=== PATIENT | male | born 1950 | race Caucasian/White ===

== ENCOUNTER 2021-12-25 08:55 | Outpatient (RCR) | payer MEDICARE, SELFPAY ==
[2021-12-25 09:49] LABS: Basophils Absolute Auto 0.07 K/uL (0.00-0.30); Eosinophils Percent Auto 8.1 % (0.0-7.0); Hematocrit 36.3 % (37.0-53.0); Hemoglobin* 11.6 gm/dL (13.5-17.5); Immature Granulocytes Abs Auto 0.03 K/uL (0.00-0.30); Lymphocytes Percent Auto 19.1 % (20-44); Mean Corpuscular HGB Conc 32 gm/dL (32-36); Mean Corpuscular Hemoglobin 31 pg (26-34); Mean Corpuscular Volume 97 fL (80-100); Monocytes Percent Auto 12.7 % (0.0-11.0); Neutrophils Absolute Auto 3.96 K/uL (1.7-7.0); Neutrophils Percent Auto 58.7 % (42.0-72.0); Platelet Count* 283 K/uL (140-440); RDW Coefficient of Variation % 17.7 % (11.5-15.5); Red Blood Count 3.74 m/uL (4.30-5.90); White Blood Count* 6.76 K/uL (4.50-11.00)
[2021-12-25 09:52] LABS: Slide Review Reflex No
[2021-12-25 10:00] LABS: Chloride* 105 mmol/L (96-114); Potassium* 4.1 mmol/L (3.6-5.1); Sodium* 138 mmol/L (135-149)
[2021-12-25 10:02] LABS: Creatinine* 0.7 mg/dL (0.5-1.5); Est. Creatinine Clearance* 62.43
[2021-12-25 10:03] LABS: Alanine Aminotransferase* 20 U/L (4-50); Alkaline Phosphatase* 68 U/L (40-150); Aspartate Amino Transferase* 25 U/L (12-35); Bilirubin Total* 0.4 mg/dL (0.1-1.5); Blood Urea Nitrogen* 14 mg/dL (7-30); Carbon Dioxide* 24 mmol/L (20-32); Glucose* 111 mg/dL (60-115); Total Protein* 6.6 g/dL (6.0-8.3)
[2021-12-25 10:04] VITALS: BP 108/70; PULSE 77; RESP 16; TEMP 36.5; O2SAT 98
[2021-12-25 10:04] LABS: Magnesium* 1.6 mg/dL (1.5-2.6)
[2021-12-25] MEDS: PALONOSETRON 0.25 MG/5 ML inj IVP (10:53)
[2021-12-25] MEDS: dexAMETHasone 10 MG in 0.9 % SODIUM CHLORIDE 100 ml 100 ML 404 MG IVPB (12:06)
[2021-12-25] MEDS: FOSAPREPITANT 150 MG inj 150 MG in 0.9 % SODIUM CHLORIDE 250 ml 250 ML 510 MG IVPB (12:16)
[2021-12-25] MEDS: SODIUM CHLORIDE 0.9 % (FLUSH) 10 ML SYRINGE IVF (15:40)
[2021-12-25] MEDS: HEPARIN 500 UNIT/5 ML SYRINGE IVF (15:40)
== END 2021-12-25 23:59 | disposition home or self-care (01) ==
LOC: CCIC 08:55
PROVIDERS: PCP Family Medicine; Visit Provider Internal Medicine Medical Oncology
DX: Z51.11 Encounter for antineoplastic chemotherapy (principal); C22.1 Intrahepatic bile duct carcinoma; C78.7 Secondary malignant neoplasm of liver and intrahepatic bile duct
CPT/HCPCS: 36415; 36591; 80053; 83735; 85025; 96366; 96376; 96413; 96417; J1100; J1453; J1642; J2469; J3475; J7030; J7050; J7120; J9060; J9201

== ENCOUNTER 2022-01-22 09:00 | Outpatient (RCR) | payer MEDICARE, SELFPAY ==
[2022-01-01 09:34] LABS: Basophils Absolute Auto 0.07 K/uL (0.00-0.30); Basophils Percent Auto 1.6 % (0.0-3.0); Eosinophils Percent Auto 7.3 % (0.0-7.0); Hemoglobin* 10.7 gm/dL (13.5-17.5); Immature Granulocytes Abs Auto 0.51 K/uL (0.00-0.30); Lymphocytes Absolute Auto 1.33 K/uL (0.90-2.90); Lymphocytes Percent Auto 29.5 % (20-44); Mean Corpuscular HGB Conc 32 gm/dL (32-36); Mean Corpuscular Hemoglobin 31 pg (26-34); Mean Corpuscular Volume 97 fL (80-100); Neutrophils Absolute Auto 1.91 K/uL (1.7-7.0); Neutrophils Percent Auto 42.3 % (42.0-72.0); Platelet Count* 301 K/uL (140-440); Red Blood Count 3.41 m/uL (4.30-5.90); White Blood Count* 4.51 K/uL (4.50-11.00)
[2022-01-01 09:49] VITALS: BP 114/67; PULSE 67; RESP 16; TEMP 36.2; O2SAT 98
[2022-01-01 09:51] LABS: Albumin* 3.7 g/dL (3.3-5.0); Chloride* 104 mmol/L (96-114)
[2022-01-01 09:52] LABS: Potassium* 3.9 mmol/L (3.6-5.1); Sodium* 134 mmol/L (135-149)
[2022-01-01 09:54] LABS: Alkaline Phosphatase* 64 U/L (40-150); Aspartate Amino Transferase* 36 U/L (12-35); Bilirubin Total* 0.3 mg/dL (0.1-1.5); Blood Urea Nitrogen* 14 mg/dL (7-30); Carbon Dioxide* 25 mmol/L (20-32); Creatinine* 0.6 mg/dL (0.5-1.5); Estimated Glomerular Filt Rate 102.56; Glucose* 115 mg/dL (60-115); Total Protein* 6.2 g/dL (6.0-8.3)
[2022-01-01 09:55] LABS: Alanine Aminotransferase* 24 U/L (4-50); Calcium* 8.7 mg/dL (8.4-10.6)
[2022-01-01 09:59] LABS: Magnesium* 1.6 mg/dL (1.5-2.6)
[2022-01-01] MEDS: dexAMETHasone 10 MG in 0.9 % SODIUM CHLORIDE 100 ml 100 ML 404 MG IVPB (11:49)
[2022-01-01] MEDS: PALONOSETRON 0.25 MG/5 ML inj IV (11:50)
[2022-01-06 11:43] LABS: Slide Review Reflex No
--- NOTE | 2022-01-09 18:56 | ONC.NURNOTE ---
Authorization: User: Tamela Hays Date: 10/16/21 09:29 Type: Eligibility Determination Note... Request received from [facility] for prior authorization of Gemzar [id number], Cisplatin J9060, Aloxi J2469 and Emend J1453. Patient carries [facility] Medicare Advantage. Per [facility] Authorization Gemzar, Cisplatin, Aloxi and EMend have been approved from 10/15/2021 through 10/15/2022. Authorization #[id number]
[2022-01-15 08:40] LABS: Basophils Absolute Auto 0.06 K/uL (0.00-0.30); Eosinophils Percent Auto 6.9 % (0.0-7.0); Hematocrit 35.2 % (37.0-53.0); Hemoglobin* 11.3 gm/dL (13.5-17.5); Immature Granulocytes Abs Auto 0.05 K/uL (0.00-0.30); Lymphocytes Absolute Auto 1.28 K/uL (0.90-2.90); Mean Corpuscular HGB Conc 32 gm/dL (32-36); Mean Corpuscular Hemoglobin 32 pg (26-34); Mean Corpuscular Volume 99 fL (80-100); Monocytes Percent Auto 14.1 % (0.0-11.0); Neutrophils Absolute Auto 3.22 K/uL (1.7-7.0); Neutrophils Percent Auto 55.1 % (42.0-72.0); Platelet Count* 271 K/uL (140-440); RDW Coefficient of Variation % 18.7 % (11.5-15.5); Red Blood Count 3.55 m/uL (4.30-5.90); White Blood Count* 5.83 K/uL (4.50-11.00)
[2022-01-15 08:44] LABS: Slide Review Reflex No
[2022-01-15 09:01] LABS: Albumin* 3.7 g/dL (3.3-5.0)
[2022-01-15 09:02] LABS: Chloride* 107 mmol/L (96-114); Sodium* 138 mmol/L (135-149)
[2022-01-15 09:04] LABS: Aspartate Amino Transferase* 23 U/L (12-35); Bilirubin Total* 0.1 mg/dL (0.1-1.5); Carbon Dioxide* 24 mmol/L (20-32); Creatinine* 0.7 mg/dL (0.5-1.5); Estimated Glomerular Filt Rate 98 ml/min; Total Protein* 6.7 g/dL (6.0-8.3)
[2022-01-15 09:05] LABS: Alanine Aminotransferase* 18 U/L (4-50); Alkaline Phosphatase* 64 U/L (40-150); Blood Urea Nitrogen* 14 mg/dL (7-30); Glucose* 105 mg/dL (60-115); Magnesium* 1.6 mg/dL (1.5-2.6)
[2022-01-15] MEDS: dexAMETHasone 10 MG in 0.9 % SODIUM CHLORIDE 100 ml 100 ML 404 MG IVPB (10:57)
[2022-01-15] MEDS: PALONOSETRON 0.25 MG/5 ML inj IV (10:57)
[2022-01-15] MEDS: FOSAPREPITANT 150 MG inj 150 MG in 0.9 % SODIUM CHLORIDE 250 ml 250 ML 510 MG IVPB (11:15)
[2022-01-22 09:06] VITALS: BP 125/73; PULSE 66; RESP 16; TEMP 36.3; O2SAT 99
[2022-01-22 09:39] LABS: Basophils Absolute Auto 0.08 K/uL (0.00-0.30); Basophils Percent Auto 1.7 % (0.0-3.0); Eosinophils Absolute Auto 0.18 K/uL (0.00-0.50); Eosinophils Percent Auto 3.7 % (0.0-7.0); Hematocrit 32.7 % (37.0-53.0); Hemoglobin* 10.8 gm/dL (13.5-17.5); Immature Granulocytes Abs Auto 0.73 K/uL (0.00-0.30); Lymphocytes Absolute Auto 1.37 K/uL (0.90-2.90); Lymphocytes Percent Auto 28.4 % (20-44); Mean Corpuscular HGB Conc 33 gm/dL (32-36); Mean Corpuscular Hemoglobin 32 pg (26-34); Mean Corpuscular Volume 98 fL (80-100); Monocytes Percent Auto 9.1 % (0.0-11.0); Neutrophils Absolute Auto 2.03 K/uL (1.7-7.0); Platelet Count* 319 K/uL (140-440); RDW Coefficient of Variation % 17.6 % (11.5-15.5); Red Blood Count 3.33 m/uL (4.30-5.90); White Blood Count* 4.83 K/uL (4.50-11.00)
[2022-01-22 09:56] LABS: Albumin* 3.6 g/dL (3.3-5.0); Chloride* 108 mmol/L (96-114); Sodium* 137 mmol/L (135-149)
[2022-01-22 09:59] LABS: Alanine Aminotransferase* 20 U/L (4-50); Alkaline Phosphatase* 69 U/L (40-150); Aspartate Amino Transferase* 26 U/L (12-35); Blood Urea Nitrogen* 17 mg/dL (7-30); Carbon Dioxide* 25 mmol/L (20-32); Creatinine* 0.7 mg/dL (0.5-1.5); Estimated Glomerular Filt Rate 98 ml/min; Glucose* 104 mg/dL (60-115); Total Protein* 6.4 g/dL (6.0-8.3)
[2022-01-22 10:00] LABS: Calcium* 8.6 mg/dL (8.4-10.6)
[2022-01-22 10:06] LABS: Bilirubin Total* < 0.1 mg/dL (0.1-1.5)
[2022-01-22 10:30] LABS: Magnesium* 1.8 mg/dL (1.5-2.6)
[2022-01-22 10:36] LABS: Slide Review Reflex No
[2022-01-22] MEDS: 0.9 % SODIUM CHLORIDE 1000 ml 1,000 ML 500 ML IV (11:45)
[2022-01-22] MEDS: PALONOSETRON 0.25 MG/5 ML inj IV (11:52)
[2022-01-22] MEDS: SODIUM CHLORIDE 0.9 % (FLUSH) 10 ML SYRINGE IVF (11:53)
[2022-01-22] MEDS: dexAMETHasone 10 MG in 0.9 % SODIUM CHLORIDE 100 ml 100 ML 404 MG IVPB (11:53)
[2022-01-22] MEDS: HEPARIN 500 UNIT/5 ML SYRINGE IVF (11:54)
[2022-01-22] MEDS: FOSAPREPITANT 150 MG inj 150 MG in 0.9 % SODIUM CHLORIDE 250 ml 250 ML 510 MG IVPB (12:14)
--- NOTE | 2022-01-22 12:44 | ONC.NURNOTE ---
good color. states feeling well. states voiding freq. at night since starting Cisplantin. enc water intake. denies pever, pain or burning when voiding. denies blood in urine . discussed with oncology nurse Dulce. ok to treat.
--- NOTE | 2022-01-23 09:23 | NUTR.NU ---
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 RDN has been following patient since visit. Weight on 12/11/21 153.9lbs; 12/25/21 155lbs; 01/01/22 159 lbs; 01/15/22 162 lbs; 01/22/22 166 lbs. Patient has gained ~10 lbs within 1 month. Current BMI with height of 67.2 inches is 25.8kg/m2, which is considered overweight. No documented nausea, vomiting or poor PO intake/appetite noted by nursing. No nutrition interventions at this time. RDN will continue to monitor and follow-up prn.
--- NOTE | 2022-01-28 09:54 | ONC.NURNOTE ---
Ayde, park interpreter called this am stating pt's spouse Karla tested positive for COVID yesterday. Pt wondering what he should do. Supervisor Area instructed pt to get Covid tested today, and to avoid exposure to his if he is Negative. If negative, he should watch for COVID symptoms and test if symptoms arise. Ayde called back stating pt has been having chest heaviness with urinating, pt did contact Dr. Sheridan yesterday and came in for a UA, was not assessed by an MD yesterday. Pt is scheduled for a COVID test today, and Ayde is going to make an appt for pt to be evaluated by a provider. Instructed pt he should go to the ER for the chest heaviness if it worsens and can't get in with a provider.
== END 2022-01-25 23:59 | disposition home or self-care (01) ==
LOC: CCIC 09:00
PROVIDERS: Clinical Nurse Specialist; PCP Family Medicine; Visit Provider Internal Medicine Medical Oncology
DX: Z51.11 Encounter for antineoplastic chemotherapy (principal); C22.1 Intrahepatic bile duct carcinoma
CPT/HCPCS: 36415; 36591; 80053; 83735; 85025; 96361; 96366; 96376; 96413; 96417; 99212; 99214; J1100; J1453; J1642; J2469; J3475; J7030; J7050; J7120; J9060; J9201

== ENCOUNTER 2022-01-28 12:23 | Outpatient (CLI) | payer MEDICARE, SELFPAY ==
[2022-01-28 16:34] LABS: SARS PCR* POSITIVE SARS-CoV-2 (Negative)
== END 2022-01-28 12:24 | disposition home or self-care (01) ==
LOC: FBOREF 12:23
PROVIDERS: PCP Family Medicine; Visit Provider Family Medicine
DX: U07.1 COVID-19 (principal); Z20.822 Contact with and (suspected) exposure to COVID-19
CPT/HCPCS: 87635

== ENCOUNTER 2022-02-09 11:09 | Outpatient (CLI) | payer MEDICARE, SELFPAY | END 2022-02-09 11:10 | disposition home or self-care (01) | LOC: NFLDREF 11:10 | PROVIDERS: PCP Family Medicine; Visit Provider Family Medicine | DX: R30.0 Dysuria (principal); N39.0 Urinary tract infection, site not specified | CPT/HCPCS: 87086; 87186 ==

== ENCOUNTER 2022-02-16 12:45 | Outpatient (CLI) | payer MEDICARE, SELFPAY ==
--- OUTSIDE RECORDS SUMMARY | 2022-02-23 14:51 | XMS_ITS | Clinical Summary ---
:1950 Author Organization [employer] [facility] [place] [address] Care Team Providers Name Role Phone Lamine Sheridan MD Primary Care Provider [phone] Allergies No known active allergies Medications Medication Sig Dispensed Refills Start Date End Date Status cyclobenzaprine Take 1 tablet by 30 tablet 0 02/03/2017 Active (FLEXERIL) 10 mg mouth at bedtime tabletIndications: Back if needed for pain without radiation Muscle Spasm. furosemide (LASIX ORAL) Take by mouth. 0 Active amLODIPine (NORVASC) 5 Take 5 mg by 0 Active mg tablet mouth once daily. 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 Tobacco use disorder 09/15/2006 Erectile Dysfunction 09/15/2006 Alcohol abuse, unspecified 09/15/2006 Immunizations Name Administration Dates Next Due Influenza Virus, Unspecified 07/29/2012 Pneumococcal conj 13-Valent (Prevnar 13) 12/04/2016 Tdap 07/29/2012 Family History Medical History Relation Name Comments Cancer-prostate Father Hypertension Mother Diabetes type II Sister Hypertension Sister Relation Name Status Comments Father Mother Sister Social History Tobacco Use Types Packs/Day Years Used Date Current Every Day Smoker Cigarettes 1 40 Smokeless Tobacco: Never Used Tobacco Cessation: Ready to Quit: No; Co unseling Given: Yes Alcohol Use Standard Drinks/Week Comments Yes 24 (1 standard drink = 0.6 oz pure alcoh ol) drinks a case a beer a week Alcohol Habits Answer Date Recorded How often do you have a drink containing Not asked alcohol? How many drinks containing alcohol do you Not asked have on a typical day when you are drinking? How often do you have six or more drinks on Not asked one occasion? Comment: drinks a case a beer a week 12/04/2016 Sex Assigned at Date Recorded Not on file Obstetrics History Last Filed Vital Signs Vital Sign Reading Time Taken Comments Blood Pressure 104/63 10/08/2021 12:30 PM CDT Pulse 67 10/08/2021 12:30 PM CDT Temperature 36.1 ??C (97 ??F) 10/08/2021 10:03 AM CDT Respiratory Rate 15 10/08/2021 12:30 PM CDT Oxygen Saturation 95% 10/08/2021 12:30 PM CDT Inhaled Oxygen Concentration - - Weight 88.5 kg (195 lb) 10/08/2021 9:42 AM CDT Height 170.2 cm (5' 7) 10/08/2021 9:42 AM CDT Body Mass Index 30.54 10/08/2021 9:42 AM CDT Plan of Treatment Health Maintenance Due Date Last Done Comments COVID-19 vaccine series (#1) 06/09/1951 Hepatitis C screening for age 0612[birth year]09[birth year]1967 18-79 Zoster (shingles) series for age 0612/09/1999 50+ (1 of 2) AAA screening age 55-77 2004 BMI (ht and wt on same day) for 12/04/2017 12/04/2016 age 18+ Depression screening for age 12+ 12/04/2017 12/04/2016 Pneumococcal series for age 65+ (2 12/04/2017 12/04/2016 - PPSV23 or PCV20) Lipids for age 45-75 12/04/2021 12/04/2016, 12/04/2016 Colonoscopy through age 75 01/04/2022 01/04/2017, , 01/04/2017, Additional history exists Influenza for age 65+ 02/26/2022 07/29/2012 Tetanus booster 07/29/2022 07/29/2012 Tdap Completed 07/29/2012, 07/29/2012 Results Not on filefrom Last 3 Months Additional Health Concerns Infection Onset Date Last Indicated MRSAComment: MRSA - 11/2007 wound 01/10/2014 014 Insurance Payer Benefit Plan / Subscriber ID Effective Dates Phone Addre ss Type Group WC WORKERS COMP WC WORKERS COMP [id number]-Pres [address] [place] [id number] MEDICARE PART A - MEDICARE PART A [id number] 2014-Presen ATTN: CLAIMS HB USE ONLY HB ONLY t [address] [place] [address] [facility] MR [id number] 2021-Presen [address] [address] [place] [address] [address] [address] Aaron Clifford Workers Comp Self 1950 [address] [place] [address] Aaron Clifford Personal/Family Self 1950 [address] (Home) [address] [place] [address] ESTHER CARTER [facility] [address] Health/John Employer [address] (Home) [facility] [phone] Jen [place] (Work) [id number] Care Teams Loan Workout Officer Relationship Specialty Start Date End Date Lamine Sheridan MD PCP - General 08/30/061999 [place] [address]
== END 2022-02-16 12:46 | disposition home or self-care (01) ==
LOC: NFLDREF 02-23 14:51
PROVIDERS: PCP Family Medicine; Visit Provider Family Medicine
DX: R30.0 Dysuria (principal)
CPT/HCPCS: 87086; 87186

== ENCOUNTER 2022-03-27 12:27 | Outpatient (CLI) | payer MEDICARE, SELFPAY ==
--- OUTSIDE RECORDS SUMMARY | 2022-03-27 12:30 | XMS_ITS | Clinical Summary ---
:1950 Author Organization [employer] [facility] [place] [address] Care Team Providers Name Role Phone Lamine Sheridan MD Primary Care Provider [phone] Allergies No known active allergies Medications [...] [address] [place] [address] MEDICARE PART A - MEDICARE PART A [id number] 2014-Presen ATTN: CLAIMS HB USE ONLY HB ONLY t [address] [place] [address] [facility] MR [id number] 2021-Presen [address] [address] [place] [address] [address] [address] Aaron Clifford Workers Comp Self 1950 [address] [place] [address] Aaron Clifford Personal/Family Self 1950 [address]) [address] [place] [address] ESTHER CARTER [facility] [address] Health/John Employer [address] (Home) [facility] [phone] [place] (Work) [id number] Care Teams Sugar Grinder Relationship Specialty Start Date End Date Lamine Sheridan MD PCP - General 08/30/061999 [place] [address]
--- NOTE | 2022-03-27 13:00 | CRLHL7_ITS ---
For Patients: As a result of the Century Cures Act, medical imaging exams and procedure reports are released immediately into your electronic medical record. You may view this report before your referring provider. If you have questions, please contact your health care provider. Indication: INTRAHEPATIC BILE DUCT CARCINOMA F/U Technique: Postcontrast CT chest, abdomen and pelvis. 83 cc Isovue 370 intravenous contrast. Please note that all CT scans at this facility use dose modulation, iterative reconstruction, and/or weight-based dosing when appropriate to reduce radiation dose to as low as reasonably achievable. Comparison: 12/18/2021 Findings: In the chest, there are small pleural effusions, left greater than right, smaller compared to the prior study. No enlarged mediastinal, hilar or axillary lymph nodes are present. Trace pericardial effusion. Linear scarring in the left upper lobe is unchanged. Dependent atelectasis both lower lobes. No pneumothorax. COPD/emphysema. There is a suspicious sclerotic density measuring 6 millimeters within the T7 vertebral body. No fracture. Stable linear density within the left 3rd rib. In the abdomen, multiple low-density liver masses appear somewhat smaller when compared to the prior study. For instance, a somewhat ill-defined area of low attenuation centrally measures 4.7 x 2.5 cm, previously measuring 5.3 x 3.1 cm. Adrenal glands are normal. No hydronephrosis. Stable cyst upper pole left kidney. Spleen normal. Pancreas is similar without suspicious mass. Vascular calcifications are present. No aneurysm. The gallbladder is incompletely distended. No biliary obstruction. Upper limits normal upper retroperitoneal lymph nodes. No gastric outlet obstruction. Duodenum appears normal. Decreased conspicuity of ill-defined densities within the anterior omental fat. Trace amount of fluid surrounds the liver. In the pelvis, the prostate is prominent with the superior aspect of mass-effect upon the bladder. No bladder stones. No bowel obstruction or free air. No abscess. No evidence of appendicitis. Impression: Mildly decreased size and conspicuity of multiple intrahepatic metastatic lesions compared to the prior study. Possible suspicious lesion within the T7 vertebral body measuring 6 millimeters. Decreased bilateral pleural effusions and improved aeration within both lower lobes. Trace residual fluid surrounds the liver. Decreased omental caking within the anterior upper abdominal greater omentum. Please note that all CT scans at this facility use dose modulation, iterative reconstruction, and/or weight-based dosing when appropriate to reduce radiation dose to as low as reasonably achievable. Dictated by Lamine Dunn MD @ 03/27/2022 3:24:04 PM (Electronically Signed)
== END 2022-03-27 12:28 | disposition home or self-care (01) ==
LOC: CT 12:28
PROVIDERS: PCP Family Medicine; Visit Provider Internal Medicine Medical Oncology
DX: C22.1 Intrahepatic bile duct carcinoma (principal)
CPT/HCPCS: 71260; 74177; Q9967

== ENCOUNTER 2022-06-06 11:21 | Emergency (ER) | payer MEDICARE, SELFPAY ==
[2022-06-06 11:25] VITALS: BP 127/69; PULSE 88; RESP 20; TEMP 36.2; O2SAT 94; BMI 31.3
--- NOTE | 2022-06-06 11:40 | ED.GENADULT ---
HPI - General Adult General Time Seen by Provider: 11:40 Date Seen: 06/06/22 Chief complaint: Shortness of Breath/Dyspnea Stated complaint: Trouble breathing Time Seen by Provider: 06/06/22 11:28 Source: patient, RN notes reviewed and old records reviewed Mode of arrival: ambulatory Limitations: no limitations History of Present Illness HPI narrative: Patient is a 71-year-old male with underlying stomach cancer per his report coming in with increasing shortness of breath over the last week. With activity he is feeling more short of breath, feels weaker. He does state there is some left-sided chest heaviness with the exertion. He does have a pulse oximeter at home and with ambulation he has noticed his pulse cool up to 110, oximetry anywhere into the 80s to 90s. He is feeling chilled a couple times a day but notes no fevers. He denies any abdominal pain, no nausea vomiting diarrhea with this. Appetite is okay. He is getting chemotherapy here in our facility. Reviewed with them that I would look into his records further. He denies any prior history of any heart attacks, no known cardiac issues per his report. Patient is and does seemingly speak adequate Citizen [place]. He did decline interpretation. The agree that he cough some but it is not increase, no change from baseline on questioning. In review of patient's records, he has cholangiocarcinoma with liver Mets. He is on palliative chemotherapy which was initiated last spring with gemcitabine and cisplatin. He is now on maintenance gemcitabine since March. He has an echo in his chart from 10/25/2021 which showed normal LV size, mildly increased wall thickness, hyperdynamic global systolic function with an estimated EF greater than 75%. He had no valvular abnormalities, normal right-sided function. He has been a smoker, has known COPD. He does reports that he has some oxygen at home but only occasionally wears it. Related Data Home Medications Medication Instructions Recorded Confirmed lorazepam 0.5 mg tablet (Ativan) 0.5 mg PO .hs PRN 12/31/21 05/26/22 ondansetron 8 mg oral soluble film 8 mg PO TID PRN 12/31/21 05/26/22 Previous Rx's Medication Instructions Recorded lidocaine-prilocaine 2.5 %-2.5 % 1 applic topical DIRECTED PRN 01/01/22 topical cream #5 grams fluoxetine 20 mg capsule 20 mg PO QDAY #30 caps 01/13/22 tamsulosin 0.4 mg capsule (Flomax) 0.4 mg PO QDAY #90 caps 03/11/22 omeprazole 20 mg capsule,delayed 20 mg PO BID #180 caps 03/30/22 release nicotine 7 mg/24 hr daily 1 patch transdermal Q24H #28 ea 04/23/22 transdermal patch fluticasone 250 mcg-salmeterol 50 1 inh inhalation BID #60 ea 04/28/22 mcg/dose blistr powdr for inhalation (Advair Diskus) oxycodone 5 mg tablet 10 mg PO BID PRN pain #120 tabs 05/11/22 dutasteride 0.5 mg capsule 0.5 mg PO QDAY #30 caps 05/26/22 (Avodart) ipratropium 0.5 mg-albuterol 3 mg 3 ml inhalation QID #180 mL 05/26/22 (2.5 mg base)/3 mL nebulization soln furosemide 20 mg tablet 20 mg PO DAILY #5 tabs 06/06/22 potassium chloride 20 mEq 20 meq PO DAILY #5 tabs 06/06/22 tablet,extended release Allergies Allergy/AdvReac Type Severity Reaction Status Date / Time No Known Drug Allergies Allergy Verified 06/06/22 12:19 [facility] Medical History (Updated 06/06/22 @ 14:09 by Manda Flores MD) Abdominal pain Alcohol use BPH (benign prostatic hyperplasia) Cholangiocarcinoma metastatic to liver Chronic low back pain Colonic polyp COPD (chronic obstructive pulmonary disease) COVID-19 in immunocompromised patient GERD (gastroesophageal reflux disease) Helicobacter pylori (H. pylori) (~2002) HTN (hypertension) Major depression in partial remission MRSA (methicillin resistant Staphylococcus aureus) Nocturia PPD positive Recurrent tinea pedis Tobacco abuse Social History (Updated 04/09/22 @ 04:41 by Lamine Sheridan MD) Narrative: , retired, former smoker, previous significant alcohol use Smoking Status: Former smoker How often do you have a drink containing alcohol: never AUDIT-C Alcohol total score: 0 Exam Const: Vital Signs, click to edit/add: Vital Signs - 24 hr 06/06/22 11:25 06/06/22 11:52 06/06/22 12:00 Temperature 97.1 F L Pulse Rate [Right Pulse Oximeter] 88 74 Respiratory Rate 20 20 Blood Pressure [Ri t Upper Arm] 127/69 105/64 Pulse Oximetry 94 91 94 Oxygen Delivery Me thod Room Air Room Air 06/06/22 13:00 06/06/22 13:30 06/06/22 14:00 Temperature Pulse Rate [Right Pulse Oximeter] 68 69 69 Respiratory Rate 15 14 12 Blood Pressure [Ri t Upper Arm] 105/59 L 116/68 129/68 Pulse Oximetry 87 L 91 92 Oxygen Delivery Me thod Room Air Nasal Cannula Nasal Cannula Documenting provider has reviewed patient's vital signs: yes Common normals: no apparent distress, average body habitus, oriented x3, no limitations, healthy appearing, alert and well nourished General appearance: cooperative, comfortable and well kempt HENMT: Common normals: normocephalic, head/scalp atraumatic, hearing grossly normal bilaterally, external ears normal, external nose normal, nasal mucous membranes and turbinates normal, moist oral mucous membranes, oropharynx normal and gingiva normal Head and scalp: normocephalic and atraumatic Nose: external nose normal and nasal mucous membranes and turbinates normal External ear: external ears normal Other: Missing front lower bottom teeth but otherwise no acute concerns with his dentition. Eye: Common normals: PERRL, EOMs intact bilaterally, conjunctivae normal and no scleral icterus Conjunctiva: conjunctiva(e) normal Pupil: PERRL Neck & C-Spine: Common normals: full ROM, no lymphadenopathy, supple, no meningeal signs, no JVD (Neck is thicker and shorter.) and thyroid normal Thyroid: thyroid normal Chest: Common normals: inspection of chest normal and palpation of chest normal Resp: Common normals: normal respiratory effort, no retractions, no use of accessory muscles and clear to auscultation bilaterally Auscultation: clear to auscultation bilaterally Cardio: Common normals: no JVD (Neck is thicker and shorter.), regular rate, regular rhythm, S1 normal heart sound, S2 normal heart sound, no gallops, no clicks, no murmurs and no rub Rate: regular rate Rhythm: regular rhythm Heart sounds: S1 normal and S2 normal GI: Common normals: Normal to inspection, nondistended, normoactive bowel sounds present, soft to palpation, non-tender, no hepatosplenomegaly and no masses Palpation: soft and no hepatosplenomegaly Back & Pelvis: Common normals: thoracic and lumbar spine normal to inspection Extremity: Common normals: no calf tenderness and no pedal edema Neuro: Common normals: oriented x3 Sensorium/orientation: alert Meningeal signs: no meningeal signs Psych: Appearance: well kempt Course Course Hospital Course: Have reviewed with them considerations are cardiac, or thromboembolic disease such as PE. There can be other vascular entities as well besides HUMERA/angina and thromboembolic disease. Infectious etiology in a patient on chemotherapy will also be considered. Will get full complement of labs. Will have chest CT PE protocol done. He will be on cardiac monitoring and pulse oximetry. We will have either nursing staff respiratory therapy ambulate him to see what happens to his pulse and pulse oximetry. Reevaluation(s) Reevaluation #1: With ambulation, towards the end, went down to 82%, pulse stayed in the 90s per respiratory therapy. Did review with patient that his chest CT is looking indicative of congestive heart failure. He really is discussing exertional symptoms, does not seem to be having problems with sleeping. Does not sound like it is a COPD exacerbation but certainly his COPD could be at play here as well. We will try 20 mg IV Lasix here, give him some oral potassium to cover potassium loss. He is quite stable, do not see need for hospitalization at this time. He will be following up for chemotherapy on Wednesday, perhaps they can recheck him, have his potassium rechecked. Will need to have him see his primary care provider sometime this week as well. Time: 13:41 Vital Signs Vital signs: Initial Vital Signs Temperature 97.1 F L 06/06/22 11:25 Temperature Source Temporal Artery Scan 06/06/22 11:25 Pulse Rate 88 06/06/22 11:25 Respiratory Rate 20 06/06/22 11:25 Blood Pressure 127/69 06/06/22 11:25 Blood Pressure Mean 88 06/06/22 11:25 Blood Pressure Position Sitting 06/06/22 11:25 Pulse Oximetry 94 06/06/22 11:25 Oxygen Delivery Method 06/06/22 11:25 Vital Signs Temperature 97.1 F L 06/06/22 11:25 Pulse Rate 88 06/06/22 11:25 Respiratory Rate 20 06/06/22 11:25 Blood Pressure 127/69 06/06/22 11:25 Pulse Oximetry 94 06/06/22 11:25 Oxygen Delivery Method 06/06/22 11:25 Temperature 97.1 F L 06/06/22 11:25 Pulse Rate 69 06/06/22 14:00 Respiratory Rate 12 06/06/22 14:00 Blood Pressure 129/68 06/06/22 14:00 Pulse Oximetry 92 06/06/22 14:00 Oxygen Delivery Method 06/06/22 14:00 Medical Decision Making Lab Data Lab results reviewed: Yes I reviewed the patient's lab results Lab results narrative: CBC is stable when compared to prior ones. Labs: Lab Results 06/06/22 06/06/22 06/06/22 Range/Units 12:10 12: 12:10 WBC 8.78 (4.50-11.00) K/uL RBC 3.33 L (4.30-5.90) m/uL Hgb 10.9 L (13.5-17.5) gm/dL Hct 32.9 L (37.0-53.0) % MCV 99 (80-100) fL MCH 33 (26-34) pg MCHC 33 (32-36) gm/dL RDW Coeff of Andres 14.8 (11.5-15.5) % Plt Count 310 (140-440) K/uL Neut % (Auto) 75.3 H (42.0-72.0) % Lymph % (Auto) 9.6 L (20-44) % [facility] % (Auto) 11.7 H (0.0-11.0) % Eos % (Auto) 2.6 (0.0-7.0) % Baso % (Auto) 0.3 (0.0-3.0) % Neut # (Auto) 6.60 (1.7-7.0) K/uL Lymph # (Auto) 0.80 L (0.90-2.90) K/uL [facility] # (Auto) 1.00 H (0.00-0.90) K/UL Eos # (Auto) 0.23 (0.00-0.50) K/uL Baso # (Auto) 0.03 (0.00-0.30) K/uL Abs Immat Gran (auto) 0.04 (0.00-0.30) K/uL Imm/Tot Granulo (auto) 0.5 % D-Dimer Quant (PE/DVT) 1.94 H (0.00-0.50) ug/ml VBG pH (7.32-7.43) VBG pCO2 (40-50) mmHG VBG pO2 (25-47) mmHG VBG HCO3 (21-28) mmol/L Sodium 137 (135-149) mmol/L Potassium 3.5 L (3.6-5.1) mmol/L Chloride 109 (96-114) mmol/L Carbon Dioxide 20 (20-32) mmol/L BUN 14 (7-30) mg/dL Creatinine 1.0 (0.5-1.5) mg/dL Estimated Creat Clear 62.43 Estimated GFR 80 ml/min Glucose 142 H (60-115) mg/dL Lactate (0.5-1.9) mmol/L Calcium 8.9 (8.4-10.6) mg/dL Total Bilirubin 0.3 (0.1-1.5) mg/dL AST 23 (12-35) U/L ALT 21 (4-50) U/L Alkaline Phosphatase 51 (40-150) U/L NT-Pro-B Natriuret Pep 346 pg/mL Total Protein 6.3 (6.0-8.3) g/dL Albumin 3.6 (3.3-5.0) g/dL SARS-CoV-2 (PCR) (Negative) Influenza Type A (PCR) (Negative) Influenza Type B (PCR) (Negative) RSV (PCR) (Negative) POC Troponin I (0.01-0.04) ng/ml 06/06/22 06/06/22 06/06/22 Range/Units 12:10 12:10 12:13 WBC (4.50-11.00) K/uL RBC (4.30-5.90) m/uL Hgb (13.5-17.5) gm/dL Hct (37.0-53.0) % MCV (80-100) fL MCH (26-34) pg MCHC (32-36) gm/dL RDW Coeff of Andres (11.5-15.5) % Plt Count (140-440) K/uL Neut % (Auto) (42.0-72.0) % Lymph % (Auto) (20-44) % [facility] % (Auto) (0.0-11.0) % Eos % (Auto) (0.0-7.0) % Baso % (Auto) (0.0-3.0) % Neut # (Auto) (1.7-7.0) K/uL Lymph # (Auto) (0.90-2.90) K/uL [facility] # (Auto) (0.00-0.90) K/UL Eos # (Auto) (0.00-0.50) K/uL Baso # (Auto) (0.00-0.30) K/uL Abs Immat Gran (auto) (0.00-0.30) K/uL Imm/Tot Granulo (auto) % D-Dimer Quant (PE/DVT) (0.00-0.50) ug/ml VBG pH 7.383 (7.32-7.43) VBG pCO2 34 L (40-50) mmHG VBG pO2 47.8 H (25-47) mmHG VBG HCO3 20 L (21-28) mmol/L Sodium (135-149) mmol/L Potassium (3.6-5.1) mmol/L Chloride (96-114) mmol/L Carbon Dioxide (20-32) mmol/L BUN (7-30) mg/dL Creatinine (0.5-1.5) mg/dL Estimated Creat Clear Estimated GFR ml/min Glucose (60-115) mg/dL Lactate 2.5 H (0.5-1.9) mmol/L Calcium (8.4-10.6) mg/dL Total Bilirubin (0.1-1.5) mg/dL AST (12-35) U/L ALT (4-50) U/L Alkaline Phosphatase (40-150) U/L NT-Pro-B Natriuret Pep pg/mL Total Protein (6.0-8.3) g/dL Albumin (3.3-5.0) g/dL SARS-CoV-2 (PCR) Negative SARS-CoV-2 (Negative) Influenza Type A (PCR) Negative PCR FLU A (Negative) Influenza Type B (PCR) Negative PCR FLU B (Negative) RSV (PCR) Negative PCR RSV (Negative) POC Troponin I 0.00 L (0.01-0.04) ng/ml Imaging Data CT scan - chest: Attestation: I have reviewed the pertinent imaging results. Radiologist's impression: Patient: FREDA VIDAL Facility:?[facility] Patient ID:?[id number] Site Patient ID:?[id number]. Site :?[id number] Study:?CT Chest Angio W/ 95CC ISOVUE-370 PE PROTOCOL-06/06/2022 12:26:15 PM Ordering Physician:Berenice Holman Final Report: INDICATION: Shortness of breath. Chest heaviness. History of hepatic hemangioma cancer. COMPARISON: CT of the chest, abdomen, and pelvis with contrast from 03/27/2022. TECHNIQUE: CT examination of the chest was performed with the uneventful intravenous administration of 95 cc of Isovue 370 while 1.5 mm thick axial sections were obtained from above the apices of the lungs through the mid renal level. Please note that all CT scans at this facility use dose modulation, iterative reconstruction, and/or weight-based dosing when appropriate to reduce radiation dose to as low as reasonably achievable. FINDINGS: : There is no sign of pulmonary embolism, with normal enhancement and branching of the pulmonary arteries. Again seen are small bilateral pleural effusions, left greater than right. The effusion on the left is slightly decreased in size in the effusion on the right is unchanged in size. There is new mild hazy bilateral perihilar interstitial infiltrate, suggesting mild pulmonary edema which could be from mild congestive failure. There is no sign of mediastinal or hilar mass or adenopathy. Again seen is moderate triple-vessel coronary calcification. The heart remains normal in size. There is age appropriate appearance of the thoracic aorta and ascending great vessels. Again seen is a right internal jugular infusion port with its tip in satisfactory position in the superior vena cava at the cavoatrial junction. There is no sign of pneumothorax on the right. There is no sign of supraclavicular or axillary mass or adenopathy. Today`s study which is obtained during the arterial phase of enhancement does not demonstrate the hepatic masses seen on the previous CT which was scanned during the venous phase of enhancement. Today`s examination is suboptimal for evaluation of the known hepatic metastases. The visualized superior liver is again seen to have a vague area of hypodensity in the central portion of the left lobe consistent with metastatic disease. The visualized spleen, pancreas, right kidney, and adrenals are normal in appearance. Again seen is the 1.7 centimeter cyst in the upper pole of the left kidney. The osseous structures are normal in appearance for the patient`s age. IMPRESSION: No sign of pulmonary embolism. New mild diffuse perihilar interstitial infiltrate, suggestive of mild congestive failure. Slight decrease in small left pleural effusion with no change in tiny right pleural effusion. Today`s study can not adequately examined the patient`s known hepatic metastases since it was performed during the arterial phase of enhancement. Please note that all CT scans at this facility use dose modulation, iterative reconstruction, and/or weight-based dosing when appropriate to reduce radiation dose to as low as reasonably achievable. Dictated by Fernando Don MD @ 06/06/2022 1:21:10 PM (Electronic Signature) ECG Data Attestation: I personally reviewed and interpreted this ECG as follows: (Normal sinus rhythm, 75 beats per minute. Normal EKG. QT corrected 444 milliseconds.) Prior ECG tracings: not available for review Discharge Plan Discharge Clinical Impression: Congestive heart failure Patient Disposition: Home, Self-Care Condition: Stable Instructions: Heart Failure (ED), Low-Sodium Diet (ED) Additional Instructions: Need to take Lasix daily, take in the morning, next dose tomorrow morning. Will need to take daily potassium while on this. Have written for 5 days of these medicines, need you to follow-up with your primary care provider within the next 5 days. Do recommend a low-sodium diet. If you are having increasing shortness of breath, difficulty breathing with activity, increasing chest discomfort, do recommend re-evaluation in the interim. Use your oxygen more at home, particularly with activity. Activity Level: Activity as Tolerated Discharge Diet: Heart Healthy (2 gm sodium, low fat) Prescriptions: New furosemide 20 mg tablet 20 mg PO DAILY Qty: 5 0RF potassium chloride 20 mEq tablet extended release 20 meq PO DAILY Qty: 5 0RF No Action tamsulosin [Flomax] 0.4 mg capsule 0.4 mg PO QDAY Qty: 90 3RF dutasteride [Avodart] 0.5 mg capsule 0.5 mg PO QDAY Qty: 30 1RF lidocaine-prilocaine 2.5-2.5 % cream 1 applic topical DIRECTED PRNQty: 5 0RF Rx Instructions: Apply to port site prior to port access ondansetron 8 mg film 8 mg PO TID PRN lorazepam [Ativan] 0.5 mg tablet 0.5 mg PO .hs PRN fluoxetine 20 mg capsule 20 mg PO QDAY Qty: 30 5RF omeprazole 20 mg capsule,delayed release(DR/EC) 20 mg PO BID Qty: 180 3RF nicotine 7 mg/24 hr patch 24 hour 1 patch transdermal Q24H Qty: 28 2RF fluticasone propion-salmeterol [Advair Diskus] 250-50 mcg/dose blister with device 1 inh inhalation BID Qty: 60 5RF oxycodone 5 mg tablet 10 mg PO BID PRN (Reason: pain) Qty: 120 0RF Label Comments: takes in am- ipratropium-albuterol 0.5 mg-3 mg(2.5 mg base)/3 mL solution for nebulization 3 ml inhalation QID Qty: 180 3RF Follow Up/Referrals: Lamine Sheridan MD [Primary Care Provider] - Stand Alone Forms: Prizzm Info Instructions
[2022-06-06 11:52] VITALS: O2SAT 91
--- NOTE | 2022-06-06 11:52 | CRLHL7_ITS ---
For Patients: As a result of the Century Cures Act, medical imaging exams and procedure reports are released immediately into your electronic medical record. You may view this report before your referring provider. If you have questions, please contact your health care provider. INDICATION: Shortness of breath. Chest heaviness. History of hepatic hemangioma cancer. COMPARISON: CT of the chest, abdomen, and pelvis with contrast from 03/27/2022. TECHNIQUE: CT examination of the chest was performed with the uneventful intravenous administration of 95 cc of Isovue 370 while 1.5 mm thick axial sections were obtained from above the apices of the lungs through the mid renal level. Please note that all CT scans at this facility use dose modulation, iterative reconstruction, and/or weight-based dosing when appropriate to reduce radiation dose to as low as reasonably achievable. FINDINGS: : There is no sign of pulmonary embolism, with normal enhancement and branching of the pulmonary arteries. Again seen are small bilateral pleural effusions, left greater than right. The effusion on the left is slightly decreased in size in the effusion on the right is unchanged in size. There is new mild hazy bilateral perihilar interstitial infiltrate, suggesting mild pulmonary edema which could be from mild congestive failure. There is no sign of mediastinal or hilar mass or adenopathy. Again seen is moderate triple-vessel coronary calcification. The heart remains normal in size. There is age appropriate appearance of the thoracic aorta and ascending great vessels. Again seen is a right internal jugular infusion port with its tip in satisfactory position in the superior vena cava at the cavoatrial junction. There is no sign of pneumothorax on the right. There is no sign of supraclavicular or axillary mass or adenopathy. Today`s study which is obtained during the arterial phase of enhancement does not demonstrate the hepatic masses seen on the previous CT which was scanned during the venous phase of enhancement. Today`s examination is suboptimal for evaluation of the known hepatic metastases. The visualized superior liver is again seen to have a vague area of hypodensity in the central portion of the left lobe consistent with metastatic disease. The visualized spleen, pancreas, right kidney, and adrenals are normal in appearance. Again seen is the 1.7 centimeter cyst in the upper pole of the left kidney. The osseous structures are normal in appearance for the patient`s age. IMPRESSION: No sign of pulmonary embolism. New mild diffuse perihilar interstitial infiltrate, suggestive of mild congestive failure. Slight decrease in small left pleural effusion with no change in tiny right pleural effusion. Today`s study can not adequately examined the patient`s known hepatic metastases since it was performed during the arterial phase of enhancement. Please note that all CT scans at this facility use dose modulation, iterative reconstruction, and/or weight-based dosing when appropriate to reduce radiation dose to as low as reasonably achievable. Dictated by Fernando Don MD @ 06/06/2022 1:21:10 PM (Electronically Signed)
[2022-06-06 12:00] VITALS: BP 105/64; PULSE 74; RESP 20; O2SAT 94
--- NOTE | 2022-06-06 12:04 | RESP.RT ---
Patient sitting on edge of bed, Breathing regular/easy, rate 18/minute. SaO2 90%. Patient has home Oxygen, states uses it very little. Walked patient 200 feet on room air, SaO2 decreased to 82%. Heart rate stable at 90/minute. Patient sat on edge bed, recovery to 90% under 2 minutes. Patient stated he started to feel SOB near end of walk.
[2022-06-06 12:24] LABS: HCO3 VBG 20 mmol/L (21-28); Lactate* 2.5 mmol/L (0.5-1.9); PCO2 VBG 34 mmHG (40-50); PO2 VBG 47.8 mmHG (25-47); pH VBG 7.383 (7.32-7.43)
[2022-06-06 12:25] LABS: Basophils Absolute Auto 0.03 K/uL (0.00-0.30); Basophils Percent Auto 0.3 % (0.0-3.0); Eosinophils Absolute Auto 0.23 K/uL (0.00-0.50); Eosinophils Percent Auto 2.6 % (0.0-7.0); Hematocrit 32.9 % (37.0-53.0); Hemoglobin* 10.9 gm/dL (13.5-17.5); Immature Granulocytes Abs Auto 0.04 K/uL (0.00-0.30); Immature Granulocytes Pct Auto 0.5 %; Lymphocytes Percent Auto 9.6 % (20-44); Mean Corpuscular HGB Conc 33 gm/dL (32-36); Mean Corpuscular Hemoglobin 33 pg (26-34); Mean Corpuscular Volume 99 fL (80-100); Monocytes Percent Auto 11.7 % (0.0-11.0); Neutrophils Percent Auto 75.3 % (42.0-72.0); Platelet Count* 310 K/uL (140-440); RDW Coefficient of Variation % 14.8 % (11.5-15.5); Red Blood Count 3.33 m/uL (4.30-5.90); White Blood Count* 8.78 K/uL (4.50-11.00)
[2022-06-06 12:27] LABS: Slide Review Reflex No
--- OUTSIDE RECORDS SUMMARY | 2022-06-06 12:28 | XMS_ITS | Clinical Summary ---
:1950 Author Organization [employer] [facility] [place] [address] Care Team Providers Name Role Phone Lamine Sheridan MD Primary Care Provider [phone] Allergies No known active allergies Medications [...] Tobacco Use Types Packs/Day Years Used Date Smoking Tobacco: Every Day Cigarettes 1 40 Smokeless Tobacco: Never Tobacco Cessation: Ready to Quit: No; Co unseling Given: Yes Alcohol Use Standard Drinks/Week Comments Yes 24 (1 standard drink = 0.6 oz pure alcoh ol) drinks a case a beer a week Sex Assigned at Date Recorded Not on [...] age 65+ (2 12/04/2017 12/04/2016 - PPSV23 if available, else PCV20) Lipids for age 45-75 12/04/2021 12/04/2016, 12/04/2016 Colonoscopy through age 75 01/04/2022 01/04/2017, 7, 01/04/2017, Additional history exists Influenza for age [...] COMP [id number] 2012-Pres [address] [place] [address] MEDICARE PART A - MEDICARE PART A [id number] 2014-Presen ATTN: CLAIMS HB USE ONLY HB ONLY t [address] [place] [address] [facility] MR [id number] 2021-Presen [address] [address] [place] [address] [address] [id number] Aaron Clifford Workers Comp Self 1950 [address]) [address] [id number] Aaron Clifford Personal/Family Self 1950 [address] (Home) [address] [id number] ESTHER CARTER [facility]John Employer 06/28/[address] (Home) [facility] [phone] [address] [place] (Work) [id number] Care Teams [employer] Technician Relationship Specialty Start Date End Date Lamine Sheridan MD PCP - General 08/30/061999 [place] [facility] [place] [address]
[2022-06-06 12:43] LABS: Albumin* 3.6 g/dL (3.3-5.0); Chloride* 109 mmol/L (96-114); Sodium* 137 mmol/L (135-149)
[2022-06-06 12:44] LABS: Potassium* 3.5 mmol/L (3.6-5.1)
[2022-06-06 12:46] LABS: Bilirubin Total* 0.3 mg/dL (0.1-1.5); Carbon Dioxide* 20 mmol/L (20-32); Est. Creatinine Clearance* 62.43; Estimated Glomerular Filt Rate 80 ml/min; Total Protein* 6.3 g/dL (6.0-8.3)
[2022-06-06 12:47] LABS: Alanine Aminotransferase* 21 U/L (4-50); Alkaline Phosphatase* 51 U/L (40-150); Aspartate Amino Transferase* 23 U/L (12-35); Blood Urea Nitrogen* 14 mg/dL (7-30); Calcium* 8.9 mg/dL (8.4-10.6); Glucose* 142 mg/dL (60-115)
[2022-06-06 12:48] LABS: D Dimer Quantitative* 1.94 ug/ml (0.00-0.50)
[2022-06-06 12:56] LABS: NT Pro B Type NatriureticPept* 346 pg/mL
[2022-06-06 13:00] VITALS: BP 105/59; PULSE 68; RESP 15; O2SAT 87
[2022-06-06 13:06] LABS: PCR FLU A Negative PCR FLU A (Negative); PCR FLU B Negative PCR FLU B (Negative); PCR RSV Negative PCR RSV (Negative)
[2022-06-06 13:30] VITALS: BP 116/68; PULSE 69; RESP 14; O2SAT 91
[2022-06-06 13:31] LABS: SARS PCR* Negative SARS-CoV-2 (Negative)
[2022-06-06] MEDS: POTASSIUM CHLORIDE 10 MEQ CAPSULE ER 20 MEQ PO (13:51)
[2022-06-06] MEDS: FUROSEMIDE 10 MG/ML inj 20 MG IVP (13:52)
[2022-06-06 14:00] VITALS: BP 129/68; PULSE 69; RESP 12; O2SAT 92
[2022-06-06] MEDS: HEPARIN 500 UNIT/5 ML SYRINGE IVF (14:56)
== END 2022-06-06 14:55 | disposition home or self-care (01) ==
PROVIDERS: Emergency Provider Family Medicine; PCP Family Medicine
DX: I50.9 Heart failure, unspecified (principal)
CPT/HCPCS: 36415; 71260; 80053; 82803; 83605; 83880; 84484; 85025; 85379; 87502; 87634; 87635; 93005; 94761; 96374; 99284; 99285; A9270; J1642; J1940; Q9967

== ENCOUNTER 2022-06-26 07:20 | Outpatient (CLI) | payer MEDICARE, SELFPAY ==
--- NOTE | 2022-06-26 08:00 | CRLHL7_ITS ---
For Patients: As a result of the Century Cures Act, medical imaging exams and procedure reports are released immediately into your electronic medical record. You may view this report before your referring provider. If you have questions, please contact your health care provider. INDICATION: Abdominal pain. Small caliber stools. History of intrahepatic biliary ductal carcinoma. COMPARISON: CT chest abdomen and pelvis 27 March 2022. TECHNIQUE: 97 mL Isovue 370 IV contrast-enhanced images. FINDINGS: Chest: Right chest infusion port catheter. Mild coronary artery atherosclerosis. No pathologically enlarged mediastinal or hilar lymph nodes. Small dependent left greater than right pleural effusions. Minor emphysematous centrilobular blebs in the upper lobes. No significant nodule. No focal consolidation. No bone finding of significance. Abdomen and pelvis: Small 9 mm low-attenuation focus anterior superior subcapsular segment II (image 114 series 2). Two ill-defined apparently contiguous low-attenuation lesions in the deep upper left lobe obscuring the left hepatic vein each roughly 18 mm diameter (image 118 series 2). Several other small low-attenuation foci left liver with the largest inferior site III measuring approximately 15 mm (image 133 series 2). Subtle nodularity and reticular opacity in the fat at the ventral upper abdominal margin below the peritoneum likely omental carcinomatosis (image 141 series 2). Moderate stool in the colon. No mass lesion is appreciated. Small bowel is unremarkable. Atherosclerotic calcification of the non aneurysmal aorta and iliacs. Mild prostatomegaly. Degenerative ankylosis of sacroiliac joints. No blastic or lytic lesion. IMPRESSION: 1. Decreased size of now better defined presumed metastases in the left liver. 2. Chronic carcinomatosis reticular nodular ill-defined attenuation in the omentum. 3. Persistent small bilateral pleural effusions. 4. Mild prostatomegaly. Please note that all CT scans at this facility use dose modulation, iterative reconstruction, and/or weight-based dosing when appropriate to reduce radiation dose to as low as reasonably achievable. Dictated by David Cary MD @ 06/26/2022 9:56:21 AM (Electronically Signed)
== END 2022-06-26 07:21 | disposition home or self-care (01) ==
LOC: CT 07:21
PROVIDERS: PCP Family Medicine; Visit Provider Clinical Nurse Specialist
DX: R10.9 Unspecified abdominal pain (principal); C22.1 Intrahepatic bile duct carcinoma; C78.7 Secondary malignant neoplasm of liver and intrahepatic bile duct; J90 Pleural effusion, not elsewhere classified; N40.0 Benign prostatic hyperplasia without lower urinary tract symptoms
CPT/HCPCS: 71260; 74177; Q9967

== ENCOUNTER 2022-08-10 09:00 | Outpatient (RCR) | payer MEDICARE, SELFPAY ==
--- NOTE | 2022-01-29 15:50 | ONC.NURNOTE ---
Addendum entered by Madeleine Briceño RN 02/02/22 13:20: Recieved email from [facility] [place]-infection control stating pt can return to [facility] 20 days from symptom onset or positive Covid test. Since pt tested positive on 01/27/22, pt can return on 02/17/22 for follow up and chemo. Discussed with doggy daycare activities director and Virgilio will notify patient. Original Note: Pt tested positive for COVID on 01/27/22, pt is able to return to [facility] for his appt 02/06/22. There is no provider that day, pt rescheduled to see MD and chemo on 02/09/22. Message left with construction and maintenance inspector services to communicate change in appts with pt.
--- NOTE | 2022-02-06 17:04 | URNOTE ---
Eligibility Determination note 10/16/21 by Tamela Hays RN: Request received from [facility] for prior authorization of Gemzar J9201, Cisplatin J9060, Aloxi J2469 and Emend J1453. Patient carries [facility] Medicare Advantage. Per [facility] Authorization Gemzar, Cisplatin, Aloxi and EMend have been approved from 10/15/2021 through 10/15/2022. Authorization #[id number]
[2022-02-17 09:16] VITALS: BP 136/75; PULSE 66; RESP 16; TEMP 36.4; O2SAT 100
[2022-02-17 09:48] LABS: Basophils Percent Auto 0.3 % (0.0-3.0); Eosinophils Percent Auto 3.4 % (0.0-7.0); Hematocrit 34.2 % (37.0-53.0); Hemoglobin* 11.3 gm/dL (13.5-17.5); Lymphocytes Percent Auto 12.6 % (20-44); Mean Corpuscular HGB Conc 33 gm/dL (32-36); Mean Corpuscular Hemoglobin 33 pg (26-34); Mean Corpuscular Volume 100 fL (80-100); Monocytes Percent Auto 10.7 % (0.0-11.0); Neutrophils Percent Auto 72.2 % (42.0-72.0); Platelet Count* 346 K/uL (140-440); RDW Coefficient of Variation % 16.5 % (11.5-15.5); Red Blood Count 3.43 m/uL (4.30-5.90)
[2022-02-17 10:03] LABS: Slide Review Reflex No
[2022-02-17 10:04] LABS: Albumin* 3.8 g/dL (3.3-5.0); Chloride* 107 mmol/L (96-114); Potassium* 3.8 mmol/L (3.6-5.1); Sodium* 140 mmol/L (135-149)
[2022-02-17 10:06] LABS: Creatinine* 0.7 mg/dL (0.5-1.5); Estimated Glomerular Filt Rate 98 ml/min
[2022-02-17 10:07] LABS: Alanine Aminotransferase* 15 U/L (4-50); Alkaline Phosphatase* 75 U/L (40-150); Aspartate Amino Transferase* 23 U/L (12-35); Bilirubin Total* 0.1 mg/dL (0.1-1.5); Blood Urea Nitrogen* 13 mg/dL (7-30); Carbon Dioxide* 26 mmol/L (20-32); Glucose* 126 mg/dL (60-115); Total Protein* 7.1 g/dL (6.0-8.3)
[2022-02-17 10:08] LABS: Magnesium* 1.7 mg/dL (1.5-2.6)
[2022-02-17] MEDS: PALONOSETRON 0.25 MG/5 ML inj IV (11:11)
[2022-02-17] MEDS: 0.9 % SODIUM CHLORIDE 1000 ml 1,000 ML 500 ML IV (11:11)
[2022-02-17] MEDS: dexAMETHasone 10 MG in 0.9 % SODIUM CHLORIDE 100 ml 100 ML 404 MG IVPB (11:11)
[2022-02-17] MEDS: FOSAPREPITANT 150 MG inj 150 MG in 0.9 % SODIUM CHLORIDE 250 ml 250 ML 510 MG IVPB (11:31)
--- NOTE | 2022-02-18 15:06 | NUTR.NU ---
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 RDN has been following patient since visit. Current weight (02/17) 169lbs; Weight history Weight on 12/11/21 153.9lbs; 12/25/21 155lbs; 01/22/22 166 lbs. Gradual weight gain since beginning of treatment. No documented nausea, vomiting or poor PO intake/appetite noted by nursing. Per MD note (02/17), patient reports his appetite has improved. No nutrition interventions at this time. RDN will continue to monitor and follow-up prn.
[2022-02-24 09:00] VITALS: BP 138/79; PULSE 65; RESP 16; TEMP 36.1; O2SAT 100
[2022-02-24 09:17] LABS: Basophils Percent Auto 1.1 % (0.0-3.0); Hematocrit 32.6 % (37.0-53.0); Hemoglobin* 10.6 gm/dL (13.5-17.5); Immature Granulocytes Abs Auto 0.03 K/uL (0.00-0.30); Lymphocytes Percent Auto 31.8 % (20-44); Mean Corpuscular HGB Conc 33 gm/dL (32-36); Mean Corpuscular Hemoglobin 33 pg (26-34); Mean Corpuscular Volume 100 fL (80-100); Monocytes Percent Auto 9.2 % (0.0-11.0); Neutrophils Percent Auto 48.1 % (42.0-72.0); Platelet Count* 151 K/uL (140-440); RDW Coefficient of Variation % 15.7 % (11.5-15.5); Red Blood Count 3.26 m/uL (4.30-5.90); White Blood Count* 3.68 K/uL (4.50-11.00)
[2022-02-24 09:25] LABS: Slide Review Reflex No
[2022-02-24 09:31] LABS: Albumin* 3.7 g/dL (3.3-5.0); Chloride* 104 mmol/L (96-114)
[2022-02-24 09:32] LABS: Potassium* 3.7 mmol/L (3.6-5.1); Sodium* 137 mmol/L (135-149)
[2022-02-24 09:34] LABS: Carbon Dioxide* 23 mmol/L (20-32); Creatinine* 0.7 mg/dL (0.5-1.5); Estimated Glomerular Filt Rate 98 ml/min
[2022-02-24 09:35] LABS: Alanine Aminotransferase* 21 U/L (4-50); Alkaline Phosphatase* 64 U/L (40-150); Aspartate Amino Transferase* 21 U/L (12-35); Bilirubin Total* 0.1 mg/dL (0.1-1.5); Blood Urea Nitrogen* 14 mg/dL (7-30); Calcium* 8.7 mg/dL (8.4-10.6); Glucose* 124 mg/dL (60-115); Total Protein* 6.7 g/dL (6.0-8.3)
[2022-02-24 09:35] LABS: Magnesium* 1.6 mg/dL (1.5-2.6)
[2022-02-24] MEDS: PALONOSETRON 0.25 MG/5 ML inj IV (11:38)
[2022-02-24] MEDS: dexAMETHasone 10 MG in 0.9 % SODIUM CHLORIDE 100 ml 100 ML 404 MG IVPB (11:38)
[2022-02-24] MEDS: FOSAPREPITANT 150 MG inj 150 MG in 0.9 % SODIUM CHLORIDE 250 ml 250 ML 510 MG IVPB (12:01)
--- NOTE | 2022-02-24 13:16 | ONC.NURNOTE ---
Patients mag. 1.6 . per protocol and Karolina WELSH. Give 1/2 liter NS with 1 gm mag. before and 1/2 liter NS with 1 gm mag after treatment.
[2022-02-24] MEDS: 0.9 % SODIUM CHLORIDE 250 ml IV (13:40)
[2022-02-24] MEDS: HEPARIN 500 UNIT/5 ML SYRINGE IVF (13:41)
--- NOTE | 2022-02-24 13:44 | ONC.NURNOTE ---
Spike Maker here. Pt still taking medications for UTI. pt states no symptoms. Ok to treat today per Ashanti WELSH
[2022-03-09 09:15] LABS: Basophils Percent Auto 1.2 % (0.0-3.0); Eosinophils Percent Auto 5.4 % (0.0-7.0); Hematocrit 34.3 % (37.0-53.0); Hemoglobin* 11.1 gm/dL (13.5-17.5); Immature Granulocytes Abs Auto 0.03 K/uL (0.00-0.30); Lymphocytes Percent Auto 29.3 % (20-44); Mean Corpuscular HGB Conc 32 gm/dL (32-36); Mean Corpuscular Hemoglobin 33 pg (26-34); Mean Corpuscular Volume 102 fL (80-100); Monocytes Percent Auto 12.4 % (0.0-11.0); Platelet Count* 311 K/uL (140-440); RDW Coefficient of Variation % 16.2 % (11.5-15.5); Red Blood Count 3.37 m/uL (4.30-5.90); White Blood Count* 4.26 K/uL (4.50-11.00)
[2022-03-09 09:23] LABS: Slide Review Reflex No
[2022-03-09 09:42] LABS: Albumin* 3.9 g/dL (3.3-5.0)
[2022-03-09 09:43] LABS: Chloride* 106 mmol/L (96-114); Sodium* 136 mmol/L (135-149)
[2022-03-09 09:45] LABS: Aspartate Amino Transferase* 23 U/L (12-35); Bilirubin Total* 0.1 mg/dL (0.1-1.5); Carbon Dioxide* 26 mmol/L (20-32); Creatinine* 0.7 mg/dL (0.5-1.5); Estimated Glomerular Filt Rate 98 ml/min
[2022-03-09 09:46] LABS: Alanine Aminotransferase* 17 U/L (4-50); Alkaline Phosphatase* 58 U/L (40-150); Blood Urea Nitrogen* 11 mg/dL (7-30); Calcium* 8.7 mg/dL (8.4-10.6); Glucose* 124 mg/dL (60-115); Magnesium* 1.5 mg/dL (1.5-2.6)
[2022-03-09 09:59] LABS: Potassium* 3.8 mmol/L (3.6-5.1)
[2022-03-09 10:02] LABS: Total Protein* 6.6 g/dL (6.0-8.3)
[2022-03-09] MEDS: dexAMETHasone 10 MG in 0.9 % SODIUM CHLORIDE 100 ml 100 ML 404 MG IVPB (11:10)
[2022-03-09] MEDS: PALONOSETRON 0.25 MG/5 ML inj IV (11:10)
[2022-03-09] MEDS: FOSAPREPITANT 150 MG inj 150 MG in 0.9 % SODIUM CHLORIDE 250 ml 250 ML 510 MG IVPB (11:33)
[2022-03-09] MEDS: 0.9 % SODIUM CHLORIDE 250 ml IV (12:24)
[2022-03-09] MEDS: HEPARIN 500 UNIT/5 ML SYRINGE IVF (12:25)
[2022-03-09] MEDS: SODIUM CHLORIDE 0.9 % (FLUSH) 10 ML SYRINGE IVF (12:25)
[2022-03-16 08:23] VITALS: BP 149/76; PULSE 67; RESP 16; TEMP 36.8; O2SAT 100
[2022-03-16 08:41] LABS: Basophils Percent Auto 1.6 % (0.0-3.0); Eosinophils Percent Auto 3.2 % (0.0-7.0); Hematocrit 32.6 % (37.0-53.0); Hemoglobin* 10.6 gm/dL (13.5-17.5); Immature Granulocytes Abs Auto 0.54 K/uL (0.00-0.30); Lymphocytes Percent Auto 31.3 % (20-44); Mean Corpuscular HGB Conc 33 gm/dL (32-36); Mean Corpuscular Hemoglobin 33 pg (26-34); Mean Corpuscular Volume 102 fL (80-100); Monocytes Percent Auto 8.8 % (0.0-11.0); Neutrophils Percent Auto 42.9 % (42.0-72.0); Platelet Count* 383 K/uL (140-440); RDW Coefficient of Variation % 15.5 % (11.5-15.5)
[2022-03-16 08:54] LABS: Slide Review Reflex No; White Blood Count* 4.41 K/uL (4.50-11.00)
[2022-03-16 08:56] LABS: Albumin* 3.8 g/dL (3.3-5.0)
[2022-03-16 08:57] LABS: Chloride* 105 mmol/L (96-114); Potassium* 3.8 mmol/L (3.6-5.1); Sodium* 135 mmol/L (135-149)
[2022-03-16 08:59] LABS: Aspartate Amino Transferase* 24 U/L (12-35); Carbon Dioxide* 25 mmol/L (20-32); Creatinine* 0.7 mg/dL (0.5-1.5); Estimated Glomerular Filt Rate 98 ml/min; Total Protein* 6.4 g/dL (6.0-8.3)
[2022-03-16 09:00] LABS: Alanine Aminotransferase* 23 U/L (4-50); Alkaline Phosphatase* 63 U/L (40-150); Blood Urea Nitrogen* 12 mg/dL (7-30); Calcium* 8.5 mg/dL (8.4-10.6); Glucose* 142 mg/dL (60-115); Magnesium* 1.6 mg/dL (1.5-2.6)
[2022-03-16 09:13] LABS: Bilirubin Total* < 0.1 mg/dL (0.1-1.5)
[2022-03-16] MEDS: PALONOSETRON 0.25 MG/5 ML inj IV (11:08)
[2022-03-16] MEDS: dexAMETHasone 10 MG in 0.9 % SODIUM CHLORIDE 100 ml 100 ML 404 MG IVPB (11:09)
[2022-03-16] MEDS: FOSAPREPITANT 150 MG inj 150 MG in 0.9 % SODIUM CHLORIDE 250 ml 250 ML 510 MG IVPB (11:28)
[2022-03-16] MEDS: HEPARIN 500 UNIT/5 ML SYRINGE IVF (15:19)
[2022-03-16] MEDS: SODIUM CHLORIDE 0.9 % (FLUSH) 10 ML SYRINGE IVF (15:19)
--- NOTE | 2022-03-17 10:16 | NUTR.NU ---
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 RDN has been following patient since visit. Current weight (03/16/22) 181lbs; Weight history Weight 02/17/22 169 lbs; 12/11/21 153.9lbs; 12/25/21 155lbs;?01/22/22 166 lbs. Significant weight gain within 30 days noted, +12lbs (~7%). No nutrition interventions at this time. RDN will continue to monitor and follow-up prn.
--- NOTE | 2022-03-17 12:33 | ONC.NURNOTE ---
late entry for 03/16/22. Pt here for Cisplatin/Gemzar. VSS. Labs WNL. Pt doing well, did c/o bilateral knee pain, and low back pain that occurred the previous night. Pt took a pain pill which relieved the pain. Instructed pt to call his primary care physician if pain continues or worsens to be evaluated. Pt verbalized understanding of care. pharmaceutical engineer present for conversation.
[2022-03-27] MEDS: SODIUM CHLORIDE 0.9 % (FLUSH) 10 ML SYRINGE IVF (13:26)
[2022-03-27] MEDS: HEPARIN 500 UNIT/5 ML SYRINGE IVF (13:26)
[2022-03-30 09:52] LABS: Magnesium* 1.5 mg/dL (1.5-2.6)
[2022-03-30] MEDS: PALONOSETRON 0.25 MG/5 ML inj IV (13:15)
[2022-03-30] MEDS: dexAMETHasone 10 MG in 0.9 % SODIUM CHLORIDE 100 ml 100 ML 404 MG IVPB (13:16)
[2022-03-30] MEDS: FOSAPREPITANT 150 MG inj 150 MG in 0.9 % SODIUM CHLORIDE 250 ml 250 ML 510 MG IVPB (13:38)
[2022-03-30] MEDS: SODIUM CHLORIDE 0.9% IV (15:23)
[2022-03-30] MEDS: GEMCITABINE IV (15:23)
[2022-03-30] MEDS: TUBING SECONDARY IV (15:23)
[2022-03-30] MEDS: SODIUM CHLORIDE 0.9 % (FLUSH) 10 ML SYRINGE IVF (17:05)
[2022-03-30] MEDS: HEPARIN 500 UNIT/5 ML SYRINGE IVF (17:05)
[2022-04-06 09:51] LABS: Basophils Percent Auto 1.8 % (0.0-3.0); Eosinophils Percent Auto 6.3 % (0.0-7.0); Hematocrit 32.8 % (37.0-53.0); Hemoglobin* 10.6 gm/dL (13.5-17.5); Immature Granulocytes Abs Auto 0.41 K/uL (0.00-0.30); Mean Corpuscular HGB Conc 32 gm/dL (32-36); Mean Corpuscular Hemoglobin 33 pg (26-34); Mean Corpuscular Volume 103 fL (80-100); Monocytes Percent Auto 8.7 % (0.0-11.0); Neutrophils Percent Auto 34.9 % (42.0-72.0); Platelet Count* 264 K/uL (140-440); RDW Coefficient of Variation % 15.5 % (11.5-15.5); White Blood Count* 3.33 K/uL (4.50-11.00)
[2022-04-06 09:52] VITALS: BP 137/68; PULSE 67; RESP 14; TEMP 36.7; O2SAT 97
[2022-04-06 10:08] LABS: Albumin* 3.8 g/dL (3.3-5.0)
[2022-04-06 10:09] LABS: Chloride* 105 mmol/L (96-114); Potassium* 3.9 mmol/L (3.6-5.1); Sodium* 137 mmol/L (135-149)
[2022-04-06 10:11] LABS: Aspartate Amino Transferase* 23 U/L (12-35); Bilirubin Total* 0.1 mg/dL (0.1-1.5); Blood Urea Nitrogen* 13 mg/dL (7-30); Carbon Dioxide* 24 mmol/L (20-32); Creatinine* 0.7 mg/dL (0.5-1.5); Estimated Glomerular Filt Rate 98 ml/min; Total Protein* 6.2 g/dL (6.0-8.3)
[2022-04-06 10:12] LABS: Alanine Aminotransferase* 22 U/L (4-50); Alkaline Phosphatase* 59 U/L (40-150); Calcium* 8.9 mg/dL (8.4-10.6); Glucose* 167 mg/dL (60-115); Magnesium* 1.6 mg/dL (1.5-2.6)
[2022-04-06 10:23] LABS: Slide Review Acceptable Review (Acceptable); Slide Review Reflex Yes
[2022-04-06] MEDS: PALONOSETRON 0.25 MG/5 ML inj IV (12:05)
[2022-04-06] MEDS: 0.9 % SODIUM CHLORIDE 250 ml IV (12:05)
[2022-04-06] MEDS: dexAMETHasone 10 MG in 0.9 % SODIUM CHLORIDE 100 ml 100 ML 404 MG IVPB (12:05)
[2022-04-06] MEDS: SODIUM CHLORIDE 0.9 % (FLUSH) 10 ML SYRINGE IVF (12:05)
[2022-04-06] MEDS: HEPARIN 500 UNIT/5 ML SYRINGE IVF (12:05)
[2022-04-06] MEDS: FOSAPREPITANT 150 MG inj 150 MG in 0.9 % SODIUM CHLORIDE 250 ml 250 ML 510 MG IVPB (13:00)
[2022-04-06] MEDS: GEMCITABINE IV (14:17)
[2022-04-06] MEDS: TUBING SECONDARY IV (14:17)
[2022-04-06] MEDS: SODIUM CHLORIDE 0.9% IV (14:17)
[2022-04-20 07:59] VITALS: BP 150/80; PULSE 66; RESP 16; TEMP 36.3; O2SAT 98
[2022-04-20 08:23] LABS: Basophils Percent Auto 1.2 % (0.0-3.0); Eosinophils Percent Auto 8.4 % (0.0-7.0); Hematocrit 33.2 % (37.0-53.0); Hemoglobin* 10.7 gm/dL (13.5-17.5); Immature Granulocytes Abs Auto 0.04 K/uL (0.00-0.30); Lymphocytes Percent Auto 29.9 % (20-44); Mean Corpuscular HGB Conc 32 gm/dL (32-36); Mean Corpuscular Hemoglobin 34 pg (26-34); Mean Corpuscular Volume 104 fL (80-100); Monocytes Percent Auto 14.7 % (0.0-11.0); Neutrophils Percent Auto 44.8 % (42.0-72.0); Platelet Count* 251 K/uL (140-440); RDW Coefficient of Variation % 16.2 % (11.5-15.5); Red Blood Count 3.19 m/uL (4.30-5.90); White Blood Count* 4.15 K/uL (4.50-11.00)
[2022-04-20 08:28] LABS: Slide Review Reflex No
[2022-04-20 08:41] LABS: Albumin* 3.6 g/dL (3.3-5.0); Chloride* 111 mmol/L (96-114); Sodium* 139 mmol/L (135-149)
[2022-04-20 08:42] LABS: Potassium* 3.6 mmol/L (3.6-5.1)
[2022-04-20 08:44] LABS: Alanine Aminotransferase* 19 U/L (4-50); Alkaline Phosphatase* 53 U/L (40-150); Aspartate Amino Transferase* 20 U/L (12-35); Bilirubin Total* 0.1 mg/dL (0.1-1.5); Blood Urea Nitrogen* 11 mg/dL (7-30); Carbon Dioxide* 23 mmol/L (20-32); Creatinine* 0.7 mg/dL (0.5-1.5); Estimated Glomerular Filt Rate 98 ml/min; Glucose* 147 mg/dL (60-115); Magnesium* 1.6 mg/dL (1.5-2.6); Total Protein* 6.1 g/dL (6.0-8.3)
[2022-04-20 08:45] LABS: Calcium* 8.6 mg/dL (8.4-10.6)
[2022-04-20] MEDS: PALONOSETRON 0.25 MG/5 ML inj IV (08:58)
[2022-04-20] MEDS: SODIUM CHLORIDE 0.9 % (FLUSH) 10 ML SYRINGE IVF ×2 (08:58→10:21)
[2022-04-20] MEDS: 0.9 % SODIUM CHLORIDE 250 ml IV (08:58)
[2022-04-20] MEDS: dexAMETHasone 10 MG in 0.9 % SODIUM CHLORIDE 100 ml 100 ML 404 MG IVPB (09:03)
[2022-04-20] MEDS: GEMCITABINE IV (09:33)
[2022-04-20] MEDS: TUBING SECONDARY IV (09:33)
[2022-04-20] MEDS: SODIUM CHLORIDE 0.9% IV (09:33)
[2022-04-20] MEDS: HEPARIN 500 UNIT/5 ML SYRINGE IVF (10:21)
--- NOTE | 2022-04-23 15:06 | ONC.NURNOTE ---
Patient moved over to Karolina's schedule. Newspaper Publisher checked for scan and not on calendar
[2022-04-27 08:02] VITALS: BP 148/75; PULSE 70; RESP 16; TEMP 36.7; O2SAT 97
[2022-04-27 08:27] LABS: Basophils Percent Auto 0.9 % (0.0-3.0); Eosinophils Percent Auto 5.8 % (0.0-7.0); Hematocrit 31.3 % (37.0-53.0); Hemoglobin* 10.4 gm/dL (13.5-17.5); Immature Granulocytes Abs Auto 0.42 K/uL (0.00-0.30); Lymphocytes Percent Auto 37.8 % (20-44); Mean Corpuscular HGB Conc 33 gm/dL (32-36); Mean Corpuscular Hemoglobin 34 pg (26-34); Mean Corpuscular Volume 103 fL (80-100); Monocytes Percent Auto 15.9 % (0.0-11.0); Neutrophils Percent Auto 26.8 % (42.0-72.0); Platelet Count* 286 K/uL (140-440); RDW Coefficient of Variation % 15.4 % (11.5-15.5); Red Blood Count 3.04 m/uL (4.30-5.90); White Blood Count* 3.28 K/uL (4.50-11.00)
[2022-04-27 08:31] LABS: Albumin* 3.7 g/dL (3.3-5.0)
[2022-04-27 08:32] LABS: Chloride* 108 mmol/L (96-114); Potassium* 3.8 mmol/L (3.6-5.1); Sodium* 137 mmol/L (135-149)
[2022-04-27 08:34] LABS: Carbon Dioxide* 25 mmol/L (20-32); Creatinine* 0.8 mg/dL (0.5-1.5); Estimated Glomerular Filt Rate 94 ml/min
[2022-04-27 08:35] LABS: Alanine Aminotransferase* 23 U/L (4-50); Alkaline Phosphatase* 56 U/L (40-150); Aspartate Amino Transferase* 24 U/L (12-35); Blood Urea Nitrogen* 15 mg/dL (7-30); Calcium* 8.6 mg/dL (8.4-10.6); Glucose* 145 mg/dL (60-115); Total Protein* 6.1 g/dL (6.0-8.3)
[2022-04-27 08:39] LABS: Bilirubin Total* < 0.1 mg/dL (0.1-1.5)
[2022-04-27 08:54] LABS: Slide Review Reflex Yes
[2022-04-27 08:55] LABS: Slide Review Acceptable Review (Acceptable)
[2022-04-27] MEDS: HEPARIN 500 UNIT/5 ML SYRINGE IVF (09:34)
[2022-04-27] MEDS: SODIUM CHLORIDE 0.9 % (FLUSH) 10 ML SYRINGE IVF (09:34)
--- NOTE | 2022-04-27 09:46 | ONC.NURNOTE ---
Pt here for Day 8 Gemzar. VSS. Pt feels well today, does c/o occasional abd pain, no pain today. Assessment done with hardware developer present. ANC came back at 0.9, screenplay writer discussed ANC level with Karolina Butts APRN and order received to hold Gemzar today and return to [facility] on 05/04/22 for labs and Gemzar. Discussed with pt and dance hall hostess neutropenic precautions and to call [facility] if he has any fever, chills, or any new sign of infection. Pt verbalized understanding of plan of care.
[2022-05-04] MEDS: SODIUM CHLORIDE 0.9 % (FLUSH) 10 ML SYRINGE IVF ×2 (08:09→10:27)
[2022-05-04 08:26] LABS: Basophils Percent Auto 0.7 % (0.0-3.0); Eosinophils Percent Auto 7.2 % (0.0-7.0); Hematocrit 33.7 % (37.0-53.0); Hemoglobin* 11.1 gm/dL (13.5-17.5); Immature Granulocytes Pct Auto 0.7 %; Lymphocytes Percent Auto 25.5 % (20-44); Mean Corpuscular HGB Conc 33 gm/dL (32-36); Mean Corpuscular Hemoglobin 34 pg (26-34); Mean Corpuscular Volume 102 fL (80-100); Monocytes Percent Auto 13.9 % (0.0-11.0); Platelet Count* 159 K/uL (140-440); RDW Coefficient of Variation % 15.6 % (11.5-15.5); Red Blood Count 3.31 m/uL (4.30-5.90); White Blood Count* 4.47 K/uL (4.50-11.00)
[2022-05-04 08:33] LABS: Slide Review Reflex No
[2022-05-04 08:35] LABS: Albumin* 3.7 g/dL (3.3-5.0); Chloride* 107 mmol/L (96-114)
[2022-05-04 08:36] LABS: Potassium* 3.7 mmol/L (3.6-5.1); Sodium* 136 mmol/L (135-149)
[2022-05-04 08:38] LABS: Alanine Aminotransferase* 22 U/L (4-50); Alkaline Phosphatase* 53 U/L (40-150); Aspartate Amino Transferase* 23 U/L (12-35); Bilirubin Total* 0.1 mg/dL (0.1-1.5); Blood Urea Nitrogen* 13 mg/dL (7-30); Carbon Dioxide* 24 mmol/L (20-32); Creatinine* 0.8 mg/dL (0.5-1.5); Estimated Glomerular Filt Rate 94 ml/min; Glucose* 161 mg/dL (60-115); Total Protein* 6.1 g/dL (6.0-8.3)
[2022-05-04 08:39] LABS: Calcium* 8.6 mg/dL (8.4-10.6)
[2022-05-04] MEDS: dexAMETHasone 10 MG in 0.9 % SODIUM CHLORIDE 100 ml 100 ML 400 MG IVPB (09:20)
[2022-05-04] MEDS: PALONOSETRON 0.25 MG/5 ML inj IV (09:20)
[2022-05-04] MEDS: 0.9 % SODIUM CHLORIDE 250 ml IV (09:21)
[2022-05-04] MEDS: HEPARIN 500 UNIT/5 ML SYRINGE IVF (10:27)
[2022-05-18 08:10] VITALS: BP 148/77; PULSE 69; RESP 16; TEMP 37.1; O2SAT 95
[2022-05-18 08:14] LABS: Basophils Absolute Auto 0.05 K/uL (0.00-0.30); Eosinophils Percent Auto 9.1 % (0.0-7.0); Hematocrit 34.6 % (37.0-53.0); Hemoglobin* 11.6 gm/dL (13.5-17.5); Immature Granulocytes Abs Auto 0.04 K/uL (0.00-0.30); Immature Granulocytes Pct Auto 0.8 %; Lymphocytes Absolute Auto 1.49 K/uL (0.90-2.90); Mean Corpuscular HGB Conc 34 gm/dL (32-36); Mean Corpuscular Hemoglobin 34 pg (26-34); Mean Corpuscular Volume 101 fL (80-100); Neutrophils Absolute Auto 2.37 K/uL (1.7-7.0); Neutrophils Percent Auto 46.1 % (42.0-72.0); Platelet Count* 213 K/uL (140-440); Red Blood Count 3.42 m/uL (4.30-5.90); White Blood Count* 5.14 K/uL (4.50-11.00)
[2022-05-18 08:19] LABS: Slide Review Reflex No
[2022-05-18 08:29] LABS: Albumin* 3.7 g/dL (3.3-5.0); Chloride* 108 mmol/L (96-114); Potassium* 3.6 mmol/L (3.6-5.1); Sodium* 138 mmol/L (135-149)
[2022-05-18 08:31] LABS: Creatinine* 0.8 mg/dL (0.5-1.5); Estimated Glomerular Filt Rate 94 ml/min
[2022-05-18 08:32] LABS: Alanine Aminotransferase* 25 U/L (4-50); Alkaline Phosphatase* 55 U/L (40-150); Aspartate Amino Transferase* 25 U/L (12-35); Bilirubin Total* 0.3 mg/dL (0.1-1.5); Blood Urea Nitrogen* 12 mg/dL (7-30); Carbon Dioxide* 25 mmol/L (20-32); Glucose* 171 mg/dL (60-115); Total Protein* 6.2 g/dL (6.0-8.3)
[2022-05-18 08:33] LABS: Calcium* 8.7 mg/dL (8.4-10.6)
[2022-05-18] MEDS: dexAMETHasone 10 MG in 0.9 % SODIUM CHLORIDE 100 ml 100 ML 404 MG IVPB (10:11)
[2022-05-18] MEDS: PALONOSETRON 0.25 MG/5 ML inj IV (10:11)
[2022-05-18] MEDS: SODIUM CHLORIDE 0.9 % (FLUSH) 10 ML SYRINGE IVF (10:12)
[2022-05-18] MEDS: HEPARIN 500 UNIT/5 ML SYRINGE IVF (10:12)
[2022-05-18] MEDS: 0.9 % SODIUM CHLORIDE 250 ml IV (10:12)
[2022-05-25 09:46] VITALS: BP 143/73; PULSE 76; RESP 16; TEMP 37; O2SAT 97
[2022-05-25 10:11] LABS: Basophils Percent Auto 0.9 % (0.0-3.0); Eosinophils Percent Auto 7.8 % (0.0-7.0); Hemoglobin* 11.5 gm/dL (13.5-17.5); Immature Granulocytes Pct Auto 5.8 %; Lymphocytes Percent Auto 33.6 % (20-44); Mean Corpuscular HGB Conc 33 gm/dL (32-36); Mean Corpuscular Hemoglobin 33 pg (26-34); Mean Corpuscular Volume 101 fL (80-100); Monocytes Percent Auto 10.4 % (0.0-11.0); Neutrophils Percent Auto 41.5 % (42.0-72.0); Platelet Count* 259 K/uL (140-440); RDW Coefficient of Variation % 14.5 % (11.5-15.5); Red Blood Count 3.48 m/uL (4.30-5.90); White Blood Count* 3.45 K/uL (4.50-11.00)
[2022-05-25 10:17] LABS: Slide Review Reflex No
[2022-05-25 10:26] LABS: Albumin* 3.8 g/dL (3.3-5.0); Chloride* 107 mmol/L (96-114); Potassium* 3.9 mmol/L (3.6-5.1); Sodium* 137 mmol/L (135-149)
[2022-05-25 10:29] LABS: Alanine Aminotransferase* 32 U/L (4-50); Alkaline Phosphatase* 55 U/L (40-150); Aspartate Amino Transferase* 31 U/L (12-35); Bilirubin Total* 0.3 mg/dL (0.1-1.5); Blood Urea Nitrogen* 12 mg/dL (7-30); Carbon Dioxide* 24 mmol/L (20-32); Creatinine* 0.8 mg/dL (0.5-1.5); Estimated Glomerular Filt Rate 94 ml/min; Glucose* 172 mg/dL (60-115); Total Protein* 6.3 g/dL (6.0-8.3)
[2022-05-25 10:30] LABS: Calcium* 8.7 mg/dL (8.4-10.6)
[2022-05-25] MEDS: dexAMETHasone 10 MG in 0.9 % SODIUM CHLORIDE 100 ml 100 ML 200 MG IVPB (11:21)
[2022-05-25] MEDS: PALONOSETRON 0.25 MG/5 ML inj IV (11:21)
[2022-05-25] MEDS: 0.9 % SODIUM CHLORIDE 250 ml IV (15:04)
[2022-05-25] MEDS: HEPARIN 500 UNIT/5 ML SYRINGE IVF (15:04)
[2022-05-25] MEDS: SODIUM CHLORIDE 0.9 % (FLUSH) 10 ML SYRINGE IVF (15:04)
--- NOTE | 2022-05-25 15:11 | ONC.NURNOTE ---
patient continues to be getting up at night to void. denies painful voiding or blood. denies fever. on flomax with out improvement. [facility].
[2022-05-28 03:53] LABS: PSA Diagnostic* 1.23 ng/mL (0.10-4.00)
[2022-06-08 10:30] LABS: Basophils Absolute Auto 0.05 K/uL (0.00-0.30); Basophils Percent Auto 0.9 % (0.0-3.0); Eosinophils Absolute Auto 0.38 K/uL (0.00-0.50); Eosinophils Percent Auto 6.9 % (0.0-7.0); Hematocrit 32.8 % (37.0-53.0); Hemoglobin* 10.7 gm/dL (13.5-17.5); Immature Granulocytes Abs Auto 0.04 K/uL (0.00-0.30); Immature Granulocytes Pct Auto 0.7 %; Lymphocytes Absolute Auto 1.14 K/uL (0.90-2.90); Lymphocytes Percent Auto 20.7 % (20-44); Mean Corpuscular HGB Conc 33 gm/dL (32-36); Mean Corpuscular Hemoglobin 32 pg (26-34); Mean Corpuscular Volume 99 fL (80-100); Monocytes Percent Auto 11.8 % (0.0-11.0); Neutrophils Absolute Auto 3.24 K/uL (1.7-7.0); Platelet Count* 469 K/uL (140-440); Red Blood Count 3.31 m/uL (4.30-5.90)
[2022-06-08 10:37] LABS: Slide Review Reflex No
[2022-06-08 10:55] LABS: Albumin* 3.5 g/dL (3.3-5.0)
[2022-06-08 10:56] LABS: Chloride* 108 mmol/L (96-114); Potassium* 3.7 mmol/L (3.6-5.1); Sodium* 137 mmol/L (135-149)
[2022-06-08 10:58] LABS: Aspartate Amino Transferase* 31 U/L (12-35); Bilirubin Total* 0.4 mg/dL (0.1-1.5); Carbon Dioxide* 21 mmol/L (20-32); Creatinine* 0.9 mg/dL (0.5-1.5); Estimated Glomerular Filt Rate 91 ml/min
[2022-06-08 10:59] LABS: Alanine Aminotransferase* 23 U/L (4-50); Alkaline Phosphatase* 49 U/L (40-150); Blood Urea Nitrogen* 14 mg/dL (7-30); Calcium* 8.7 mg/dL (8.4-10.6); Glucose* 278 mg/dL (60-115); Total Protein* 6.3 g/dL (6.0-8.3)
[2022-06-08] MEDS: 0.9 % SODIUM CHLORIDE 250 ml IV (12:18)
[2022-06-08] MEDS: PALONOSETRON 0.25 MG/5 ML inj IV (12:18)
[2022-06-08] MEDS: dexAMETHasone 10 MG in 0.9 % SODIUM CHLORIDE 100 ml 100 ML 400 MG IVPB (12:20)
[2022-06-16 10:26] LABS: Basophils Absolute Auto 0.04 K/uL (0.00-0.30); Basophils Percent Auto 0.4 % (0.0-3.0); Eosinophils Absolute Auto 0.31 K/uL (0.00-0.50); Eosinophils Percent Auto 3.3 % (0.0-7.0); Hemoglobin* 11.2 gm/dL (13.5-17.5); Immature Granulocytes Abs Auto 1.12 K/uL (0.00-0.30); Immature Granulocytes Pct Auto 11.8 %; Lymphocytes Percent Auto 19.4 % (20-44); Mean Corpuscular HGB Conc 33 gm/dL (32-36); Mean Corpuscular Hemoglobin 33 pg (26-34); Mean Corpuscular Volume 100 fL (80-100); Neutrophils Absolute Auto 5.24 K/uL (1.7-7.0); Neutrophils Percent Auto 55.1 % (42.0-72.0); Platelet Count* 353 K/uL (140-440); RDW Coefficient of Variation % 14.8 % (11.5-15.5); Red Blood Count 3.41 m/uL (4.30-5.90)
[2022-06-16 10:34] LABS: Slide Review Reflex No
[2022-06-16 10:42] LABS: Albumin* 3.8 g/dL (3.3-5.0); Chloride* 106 mmol/L (96-114); Sodium* 136 mmol/L (135-149)
[2022-06-16 10:43] LABS: Potassium* 4.3 mmol/L (3.6-5.1)
[2022-06-16 10:45] LABS: Alkaline Phosphatase* 59 U/L (40-150); Aspartate Amino Transferase* 40 U/L (12-35); Bilirubin Total* 0.3 mg/dL (0.1-1.5); Blood Urea Nitrogen* 14 mg/dL (7-30); Carbon Dioxide* 26 mmol/L (20-32); Creatinine* 0.8 mg/dL (0.5-1.5); Estimated Glomerular Filt Rate 94 ml/min; Total Protein* 6.8 g/dL (6.0-8.3)
[2022-06-16 10:46] LABS: Alanine Aminotransferase* 59 U/L (4-50); Calcium* 8.9 mg/dL (8.4-10.6); Glucose* 165 mg/dL (60-115)
[2022-06-16 11:36] VITALS: BP 111/63; PULSE 74; RESP 16; TEMP 37.1; O2SAT 94
[2022-06-16] MEDS: PALONOSETRON 0.25 MG/5 ML inj IV (12:01)
[2022-06-16] MEDS: dexAMETHasone 10 MG in 0.9 % SODIUM CHLORIDE 100 ml 100 ML 404 MG IVPB (12:01)
[2022-06-16] MEDS: 0.9 % SODIUM CHLORIDE 250 ml IV (12:05)
[2022-06-16] MEDS: SODIUM CHLORIDE 0.9 % (FLUSH) 10 ML SYRINGE IVF (13:08)
[2022-06-16] MEDS: HEPARIN 500 UNIT/5 ML SYRINGE IVF (13:08)
[2022-06-26] MEDS: HEPARIN 500 UNIT/5 ML SYRINGE IVF (08:10)
[2022-06-26] MEDS: SODIUM CHLORIDE 0.9 % (FLUSH) 10 ML SYRINGE IVF (08:11)
[2022-06-30 08:33] VITALS: BP 107/71; PULSE 70; RESP 16; TEMP 36.9; O2SAT 95
[2022-06-30 08:47] LABS: Basophils Absolute Auto 0.05 K/uL (0.00-0.30); Basophils Percent Auto 0.9 % (0.0-3.0); Eosinophils Percent Auto 12.9 % (0.0-7.0); Hematocrit 35.8 % (37.0-53.0); Hemoglobin* 11.7 gm/dL (13.5-17.5); Immature Granulocytes Abs Auto 0.04 K/uL (0.00-0.30); Immature Granulocytes Pct Auto 0.8 %; Lymphocytes Absolute Auto 1.39 K/uL (0.90-2.90); Lymphocytes Percent Auto 26.4 % (20-44); Mean Corpuscular HGB Conc 33 gm/dL (32-36); Mean Corpuscular Hemoglobin 33 pg (26-34); Mean Corpuscular Volume 101 fL (80-100); Monocytes Percent Auto 16.9 % (0.0-11.0); Neutrophils Absolute Auto 2.22 K/uL (1.7-7.0); Neutrophils Percent Auto 42.1 % (42.0-72.0); Platelet Count* 277 K/uL (140-440); RDW Coefficient of Variation % 16.1 % (11.5-15.5); Red Blood Count 3.55 m/uL (4.30-5.90); White Blood Count* 5.27 K/uL (4.50-11.00)
[2022-06-30 08:53] LABS: Slide Review Reflex No
[2022-06-30 09:02] LABS: Albumin* 3.8 g/dL (3.3-5.0)
[2022-06-30 09:03] LABS: Chloride* 108 mmol/L (96-114); Potassium* 3.8 mmol/L (3.6-5.1); Sodium* 139 mmol/L (135-149)
[2022-06-30 09:05] LABS: Bilirubin Total* 0.5 mg/dL (0.1-1.5); Creatinine* 0.8 mg/dL (0.5-1.5); Estimated Glomerular Filt Rate 94 ml/min
[2022-06-30 09:06] LABS: Alanine Aminotransferase* 30 U/L (4-50); Alkaline Phosphatase* 55 U/L (40-150); Aspartate Amino Transferase* 26 U/L (12-35); Blood Urea Nitrogen* 13 mg/dL (7-30); Carbon Dioxide* 25 mmol/L (20-32); Glucose* 107 mg/dL (60-115); Total Protein* 6.5 g/dL (6.0-8.3)
[2022-06-30 09:07] LABS: Calcium* 8.9 mg/dL (8.4-10.6)
[2022-06-30] MEDS: PALONOSETRON 0.25 MG/5 ML inj IV (11:01)
[2022-06-30] MEDS: dexAMETHasone 10 MG in 0.9 % SODIUM CHLORIDE 100 ml 100 ML 404 MG IVPB (11:03)
[2022-06-30] MEDS: SODIUM CHLORIDE 0.9 % (FLUSH) 10 ML SYRINGE IVF (12:03)
[2022-06-30] MEDS: HEPARIN 500 UNIT/5 ML SYRINGE IVF (12:03)
[2022-06-30] MEDS: 0.9 % SODIUM CHLORIDE 250 ml IV (13:04)
[2022-07-27 08:56] VITALS: BP 156/84; PULSE 57; RESP 16; TEMP 36.1; O2SAT 97
[2022-07-27 09:22] LABS: Basophils Absolute Auto 0.04 K/uL (0.00-0.30); Basophils Percent Auto 0.5 % (0.0-3.0); Eosinophils Percent Auto 9.1 % (0.0-7.0); Hematocrit 39.7 % (37.0-53.0); Immature Granulocytes Abs Auto 0.09 K/uL (0.00-0.30); Immature Granulocytes Pct Auto 1.2 %; Lymphocytes Absolute Auto 1.95 K/uL (0.90-2.90); Lymphocytes Percent Auto 25.6 % (20-44); Mean Corpuscular HGB Conc 33 gm/dL (32-36); Mean Corpuscular Hemoglobin 32 pg (26-34); Mean Corpuscular Volume 99 fL (80-100); Monocytes Percent Auto 11.7 % (0.0-11.0); Neutrophils Absolute Auto 3.95 K/uL (1.7-7.0); Neutrophils Percent Auto 51.9 % (42.0-72.0); Platelet Count* 228 K/uL (140-440); RDW Coefficient of Variation % 15.3 % (11.5-15.5); Red Blood Count 4.02 m/uL (4.30-5.90); White Blood Count* 7.61 K/uL (4.50-11.00)
[2022-07-27 09:23] LABS: Slide Review Reflex No
[2022-07-27 09:40] LABS: Albumin* 3.8 g/dL (3.3-5.0)
[2022-07-27 09:41] LABS: Chloride* 109 mmol/L (96-114); Potassium* 3.9 mmol/L (3.6-5.1); Sodium* 138 mmol/L (135-149)
[2022-07-27 09:43] LABS: Aspartate Amino Transferase* 29 U/L (12-35); Bilirubin Total* 0.4 mg/dL (0.1-1.5); Carbon Dioxide* 25 mmol/L (20-32); Creatinine* 0.8 mg/dL (0.5-1.5); Estimated Glomerular Filt Rate 94 ml/min; Total Protein* 7.1 g/dL (6.0-8.3)
[2022-07-27 09:44] LABS: Alanine Aminotransferase* 35 U/L (4-50); Alkaline Phosphatase* 56 U/L (40-150); Blood Urea Nitrogen* 16 mg/dL (7-30); Calcium* 8.9 mg/dL (8.4-10.6); Glucose* 105 mg/dL (60-115)
[2022-07-27] MEDS: dexAMETHasone 10 MG in 0.9 % SODIUM CHLORIDE 100 ml 100 ML 400 MG IVPB (10:40)
[2022-07-27] MEDS: PALONOSETRON 0.25 MG/5 ML inj IV (10:40)
[2022-07-27] MEDS: 0.9 % SODIUM CHLORIDE 250 ml IV (10:41)
[2022-07-27] MEDS: SODIUM CHLORIDE 0.9 % (FLUSH) 10 ML SYRINGE IVF (10:41)
[2022-07-27] MEDS: HEPARIN 500 UNIT/5 ML SYRINGE IVF (10:41)
[2022-07-28 14:41] LABS: Carcinoembryonic Antigen 2.1 ng/mL
[2022-08-10 09:00] VITALS: BP 157/77; PULSE 61; RESP 14; TEMP 36.8; O2SAT 95
[2022-08-10 09:20] LABS: Basophils Absolute Auto 0.04 K/uL (0.00-0.30); Basophils Percent Auto 0.7 % (0.0-3.0); Eosinophils Absolute Auto 0.37 K/uL (0.00-0.50); Eosinophils Percent Auto 6.1 % (0.0-7.0); Hematocrit 39.7 % (37.0-53.0); Hemoglobin* 12.9 gm/dL (13.5-17.5); Immature Granulocytes Abs Auto 0.02 K/uL (0.00-0.30); Immature Granulocytes Pct Auto 0.3 %; Lymphocytes Absolute Auto 1.95 K/uL (0.90-2.90); Lymphocytes Percent Auto 31.9 % (20-44); Mean Corpuscular HGB Conc 33 gm/dL (32-36); Mean Corpuscular Hemoglobin 32 pg (26-34); Mean Corpuscular Volume 98 fL (80-100); Neutrophils Absolute Auto 3.12 K/uL (1.7-7.0); Platelet Count* 155 K/uL (140-440); Red Blood Count 4.04 m/uL (4.30-5.90); White Blood Count* 6.11 K/uL (4.50-11.00)
[2022-08-10 09:33] LABS: Slide Review Reflex No
[2022-08-10 09:36] LABS: Albumin* 3.8 g/dL (3.3-5.0); Chloride* 107 mmol/L (96-114); Sodium* 137 mmol/L (135-149)
[2022-08-10 09:37] LABS: Potassium* 3.9 mmol/L (3.6-5.1)
[2022-08-10 09:39] LABS: Alkaline Phosphatase* 48 U/L (40-150); Aspartate Amino Transferase* 26 U/L (12-35); Bilirubin Total* 0.5 mg/dL (0.1-1.5); Blood Urea Nitrogen* 13 mg/dL (7-30); Carbon Dioxide* 24 mmol/L (20-32); Creatinine* 0.8 mg/dL (0.5-1.5); Estimated Glomerular Filt Rate 94 ml/min; Total Protein* 6.8 g/dL (6.0-8.3)
[2022-08-10 09:40] LABS: Alanine Aminotransferase* 31 U/L (4-50); Calcium* 8.8 mg/dL (8.4-10.6); Glucose* 102 mg/dL (60-115)
[2022-08-10] MEDS: dexAMETHasone 10 MG in 0.9 % SODIUM CHLORIDE 100 ml 100 ML 404 MG IVPB (11:05)
[2022-08-10] MEDS: PALONOSETRON 0.25 MG/5 ML inj IV (11:05)
[2022-08-10] MEDS: HEPARIN 500 UNIT/5 ML SYRINGE IVF (11:06)
[2022-08-10] MEDS: 0.9 % SODIUM CHLORIDE 250 ml IV (11:06)
[2022-08-10] MEDS: SODIUM CHLORIDE 0.9 % (FLUSH) 10 ML SYRINGE IVF (11:06)
[2022-08-14 09:24] LABS: Magnesium* 1.8 mg/dL (1.5-2.6)
== END 2022-08-16 23:59 | disposition home or self-care (01) ==
LOC: CCIC 09:00
PROVIDERS: Internal Medicine Medical Oncology; Physician Assistant; PCP Family Medicine; Referring Provider Family Medicine; Visit Provider Clinical Nurse Specialist
DX: Z51.11 Encounter for antineoplastic chemotherapy (principal); C22.1 Intrahepatic bile duct carcinoma; C78.7 Secondary malignant neoplasm of liver and intrahepatic bile duct; R25.2 Cramp and spasm; J44.9 Chronic obstructive pulmonary disease, unspecified; K21.9 Gastro-esophageal reflux disease without esophagitis; R35.1 Nocturia
CPT/HCPCS: 36415; 36591; 80053; 82378; 83735; 84153; 85025; 96361; 96366; 96376; 96411; 96413; 96415; 96417; 99211; 99212; 99214; 99215; T1013; J1100; J1453; J1642; J2469; J3475; J7030; J7050; J7120; J9060; J9201

== ENCOUNTER 2022-10-01 12:11 | Outpatient (CLI) | payer MEDICARE, SELFPAY ==
--- NOTE | 2022-10-01 13:00 | CRLHL7_ITS ---
For Patients: As a result of the 21st Century Cures Act, medical imaging exams and procedure reports are released immediately into your electronic medical record. You may view this report before your referring provider. If you have questions, please contact your health care provider. Indication: Cholangiocarcinoma, Mets to liver Technique: Postcontrast CT chest, abdomen and pelvis. 98 cc Isovue 370 intravenous contrast. Please note that all CT scans at this facility use dose modulation, iterative reconstruction, and/or weight-based dosing when appropriate to reduce radiation dose to as low as reasonably achievable. Comparison: 06/26/2022 Findings: In the chest, there is stable linear scarring in the left lung apex superimposed upon chronic COPD/emphysema. No new pulmonary nodule. No infiltrate or edema. No effusion or pneumothorax. No enlarged intrathoracic lymph nodes. Stable appearance of the osseous structures with sclerotic focus involving the left 3rd rib, the T2 vertebral body and the T7 vertebral body. No pathologic fracture. In the abdomen, decreased size of the hypodense lesions within the left hepatic lobe, the largest now measures 1.5 cm compared to 1.9 cm on the prior exam. No new hepatic lesions. Diffuse hepatic steatosis regarding the remainder of the hepatic parenchyma. The spleen is within normal limits. Normal adrenal glands. Simple cyst in the upper pole of the left kidney measuring 1.7 cm. The pancreas is normal. Vascular calcifications are present. No hiatal hernia. No aneurysm. No calcified gallstones. No biliary obstruction. Increased size of a portal caval lymph node, series 2, image 145, with mixed hypodense morphology measuring 2.1 x 3.1 cm. Previously, this appeared normal in transaxial AP diameter. Increased prominence of a lymph node in the aortocaval space measuring 1.5 x 1.0 cm, series 2, image 153. The stomach appears within normal limits. Normal duodenum and jejunum. Reticular densities with some nodularity noted in the upper anterior grade 0 omentum with increased conspicuity nodular densities when compared to the prior study with several nodules measuring up to 7 millimeters, series 2, image 167. In the pelvis, the prostate is enlarged at the superior aspect with lobular mass effect upon the inferior bladder. No bladder stones. No bowel obstruction. No free air. No evidence of diverticulitis or appendicitis. No enlarged pelvic or inguinal lymph nodes. Stable sclerotic focus within the left iliac wing. Similar sclerotic foci within the left acetabulum and left femoral head. Impression: Overall, mixed response compared to the prior study. Decreased size of hypodense left hepatic lobe lesions compared to the prior study. Increased size of portacaval lymph node and slight increased size of a aortocaval lymph node. Increased conspicuity of reticulonodular densities in the upper abdominal anterior omentum associated with mild progression of carcinomatosis. Stable appearance of sclerotic osseous lesions without pathologic fracture. Clearing of bilateral effusions. Stable scarring in the left lung apex. Please note that all CT scans at this facility use dose modulation, iterative reconstruction, and/or weight-based dosing when appropriate to reduce radiation dose to as low as reasonably achievable. Dictated by Lamine Dunn MD @ 10/05/2022 8:49:51 AM (Electronically Signed)
== END 2022-10-01 12:12 | disposition home or self-care (01) ==
LOC: CT 12:11
PROVIDERS: PCP Family Medicine; Visit Provider Clinical Nurse Specialist
DX: C22.1 Intrahepatic bile duct carcinoma (principal); C78.7 Secondary malignant neoplasm of liver and intrahepatic bile duct
CPT/HCPCS: 71260; 74177; T1013; Q9967

== ENCOUNTER 2022-12-03 11:16 | Outpatient (CLI) | payer MEDICARE, SELFPAY | END 2022-12-03 11:17 | disposition home or self-care (01) | PROVIDERS: PCP Family Medicine; Referring Provider Family Medicine; Visit Provider Family Medicine | DX: R35.0 Frequency of micturition (principal); E11.9 Type 2 diabetes mellitus without complications; I10 Essential (primary) hypertension; R10.9 Unspecified abdominal pain | CPT/HCPCS: 80048; 80076; 81015; 83690; 85027 ==

== ENCOUNTER 2022-12-14 09:18 | Outpatient (CLI) | payer MEDICARE, SELFPAY ==
--- NOTE | 2022-12-14 10:00 | CRLHL7_ITS ---
For Patients: As a result of the Century Cures Act, medical imaging exams and procedure reports are released immediately into your electronic medical record. You may view this report before your referring provider. If you have questions, please contact your health care provider. INDICATION: Metastatic cholangiocarcinoma. Follow-up. TECHNIQUE: Contrast enhanced CT of the chest abdomen and pelvis. 98 cc nonionic Omnipaque 370 administered. Oral water preparation utilized. COMPARISON : October 01, 2022. FINDINGS: CT chest: Stable scarring at the left lung apex. No evidence for intrapulmonary metastatic disease. No pleural or pericardial effusions. No thoracic lymphadenopathy. Right-sided Port-A-Cath with its lead tip in superior vena cava. Normal caliber thoracic aorta. Coronary artery calcification compatible with coronary arterial disease. CT of the abdomen and pelvis: Diffusely decreased attenuation the liver. Relatively stable low-dense lesion subcapsular left hepatic lobe measuring between 1.4 x 1.5 cm unchanged. There is however the suggestion of a new lesion within the inferior subcapsular right hepatic lobe image 165 series 2. No biliary ductal dilatation. Scattered small amounts of abdominopelvic ascites, clearly progressed. Peritoneal carcinomatosis is present and has mildly progressed. Please see for example image 159 series 2 just lateral to the lower right hepatic lobe were there are enhancing nodules along the peritoneal reflections. Subtly enhancing omental nodularity mildly progressed. Enhancing peritoneal implant right pericolic gutter image 192 series 2. No splenomegaly. The pancreas and gallbladder are unremarkable. The adrenal glands are within normal limits. Stable small superior pole left renal cyst. Clearly enlarging portacaval lymph node image 144 series 2 measuring 3.1 x 4.3 cm previously 2.1 x 3.1 cm. Relatively stable small interaortocaval lymph node image 152 series 2 measuring 1.5 x 1.0 cm. Vascular calcification within a normal caliber abdominal aorta and iliac arteries. No bowel obstruction ileus. The urinary bladder is unremarkable. Mild prostatic enlargement. Normal seminal vesicles. Subtle sclerosis lateral left 3rd rib unchanged. The previously reported sclerosis at T2 and T7 are actually less evident than before. Small focus of sclerosis within the left iliac wing similar to the prior study. IMPRESSION: 1. New subtle lesion within the subcapsular lower right hepatic lobe image 165 series 2. Relatively stable lesions within the left hepatic lobe. 2. There has been some progression of peritoneal carcinomatosis/omental implants with more abdominal pelvic ascites than before. Enhancing small peritoneal nodules as described above. 3. Clearly enlarged portacaval lymph node. Stable inter aortocaval lymph node. 4. No evidence for metastatic disease in the chest. Stable scarring left lung apex. Please note that all CT scans at this facility use dose modulation, iterative reconstruction, and/or weight-based dosing when appropriate to reduce radiation dose to as low as reasonably achievable. Dictated by Lon Limon MD @ 12/14/2022 11:42:57 AM (Electronically Signed)
== END 2022-12-14 09:19 | disposition home or self-care (01) ==
LOC: CT 09:18
PROVIDERS: PCP Family Medicine; Visit Provider Internal Medicine Medical Oncology
DX: C22.1 Intrahepatic bile duct carcinoma (principal); C78.7 Secondary malignant neoplasm of liver and intrahepatic bile duct
CPT/HCPCS: 71260; 74177; T1013; Q9967

== ENCOUNTER 2023-01-08 13:15 | Outpatient (CLI) | payer MEDICARE, SELFPAY ==
--- NOTE | 2023-01-08 14:00 | CRLHL7_ITS ---
For Patients: As a result of the Century Cures Act, medical imaging exams and procedure reports are released immediately into your electronic medical record. You may view this report before your referring provider. If you have questions, please contact your health care provider. INDICATION: Metastatic intrahepatic cholangiocarcinoma. Increased abdominal pressure, reassess ascites versus cancer. TECHNIQUE: CT of the abdomen and pelvis with 97 cc Isovue 370 IV contrast. Coronal and sagittal reconstructions. COMPARISON: CT chest, abdomen, pelvis 12/14/2022. FINDINGS: Diffuse hepatic steatosis. No significant change in size of the dominant left hepatic lobe mass, smaller lesions in the left hepatic lobe, and small lesion in the inferior right hepatic lobe. No new liver lesions identified. The gallbladder, spleen, pancreas, and adrenal glands are negative. No biliary dilation. Narrowing of the left hepatic vein and left portal vein similar to prior exam. The main portal vein is patent. Symmetric enhancement of the kidneys. Small left renal cyst. No hydronephrosis or ureteral dilation. No obstructing urinary calculi identified. Stable mild bladder wall thickening. Mildly enlarged prostate gland. No small bowel dilation. Moderate amount of stool throughout the colon. Negative appendix. No intraperitoneal free air. Increased moderate to large volume ascites. Omental caking, omental nodules, and thickening/nodularity of the peritoneal lining appears similar to prior exam. Aortoiliac vascular calcifications. Decreased size of a heterogeneously enhancing roselyn hepatis lymph node measuring 2.2 cm in short axis today compared to 3.0 cm previously (series 2, image 36). Stable right periaortic lymph node measuring 0.8 cm in short axis (image 43). Multiple small gastrohepatic lymph nodes are unchanged. No new lymphadenopathy. Degenerative changes of the spine. Stable small sclerotic lesions in the pelvis, the largest of which is in the left iliac crest. No new suspicious osseous lesions. New small right pleural effusion with right basilar atelectasis. There appears to be a new tiny enhancing pleural nodule in the posterior right lower lobe (series 2, image 2). Coronary artery calcifications. IMPRESSION: 1. Diffuse hepatic steatosis with stable liver lesions. No new liver lesions identified. 2. Decrease size of an enlarged roselyn hepatis lymph node. Stable mildly prominent right periaortic lymph node. No new lymphadenopathy. 3. Increased moderate to large volume ascites. Stable findings of peritoneal carcinomatosis. 4. New small right pleural effusion with tiny enhancing pleural nodule. 5. No other acute findings in the abdomen or pelvis. Please note that all CT scans at this facility use dose modulation, iterative reconstruction, and/or weight-based dosing when appropriate to reduce radiation dose to as low as reasonably achievable. Dictated by Mishel Lu MD @ 01/08/2023 4:54:44 PM (Electronically Signed)
== END 2023-01-08 13:16 | disposition home or self-care (01) ==
LOC: CT 13:16
PROVIDERS: PCP Family Medicine; Visit Provider Clinical Nurse Specialist
DX: C22.1 Intrahepatic bile duct carcinoma (principal); C78.7 Secondary malignant neoplasm of liver and intrahepatic bile duct; K76.0 Fatty (change of) liver, not elsewhere classified; R18.8 Other ascites; J90 Pleural effusion, not elsewhere classified
CPT/HCPCS: 74177; T1013; Q9967

== ENCOUNTER 2023-01-10 18:09 | Emergency (ER) | payer MEDICARE, SELFPAY ==
[2023-01-10 18:37] VITALS: BP 121/69; PULSE 80; RESP 18; TEMP 36.6; O2SAT 97; BMI 28.3
[2023-01-10 18:43] LABS: Appearance Urine Clear (Clear); Bilirubin Urine 1+ (Negative); Blood Urine Negative (Negative); Color Urine Yellow (Yellow); Glucose Urine Negative (Negative); Ketones Urine Trace (Negative); Leukocyte Esterase Urine Negative (Negative); Nitrite Urine Negative (Negative); Protein Urine 1+ (Negative); Specific Gravity Urine 1.025 (1.000-1.030); Urobilinogen Urine 0.2 (0.2-1.0)
--- NOTE | 2023-01-10 18:57 | ED.GENADULT ---
HPI - General Adult General Time Seen by Provider: 18:57 Date Seen: 01/10/23 Chief complaint: Urogenital Problems, Male Stated complaint: Urinary problems Time Seen by Provider: 01/10/23 18:11 Source: patient and family (Patient's daughter is acting as second watch sergeant) Mode of arrival: ambulatory Limitations: no limitations History of Present Illness HPI narrative: Patient is a 72-year-old male with a history of type 2 diabetes, liver cancer current the and chemotherapy, presenting to the emergency department for pain with urination. Patient was seen earlier at the [facility] was diagnosed with the UTI. They also did a postvoid bladder scan and he had 200 mL of urine in his bladder. Due to that he was referred to our emergency department for further workup. Patient started on Bactrim but he states they have been unable to get the Bactrim at this time because the pharmacies have been closed. Patient also is has been having some abdominal discomfort but they state this is due to fluid collecting in his abdomen. He is scheduled for to get a paracentesis this week because of the increasing fluid. This was seen on the CT scan that was done last week. Patient denies fevers, chills, chest pain, shortness of breath, diarrhea, constipation, headache, vision changes, weakness, numbness. Patient's family states he has been acting normally. Related Data Home Medications Medication Instructions Recorded Confirmed nicotine 7 mg/24 hr daily 1 patch transdermal Q24H PRN 12/21/22 transdermal patch Previous Rx's Medication Instructions Recorded lidocaine-prilocaine 2.5 %-2.5 % 1 applic topical DIRECTED PRN 01/01/22 topical cream #5 grams tamsulosin 0.4 mg capsule (Flomax) 0.4 mg PO QDAY #90 caps 03/11/22 omeprazole 20 mg capsule,delayed 20 mg PO BID #180 caps 03/30/22 release albuterol sulfate 90 mcg/actuation 2 puff inhalation Q4-6H PRN 06/24/22 aerosol inhaler shortness of breath or wheezing #8.5 grams fluoxetine 20 mg capsule 20 mg PO QDAY #90 caps 06/30/22 dutasteride 0.5 mg capsule 0.5 mg PO QDAY #90 caps 07/20/22 (Avodart) ibuprofen 800 mg tablet 800 mg PO TID PRN pain #90 tabs 07/20/22 ipratropium 0.5 mg-albuterol 3 mg 3 ml inhalation QID #180 mL 08/19/22 (2.5 mg base)/3 mL nebulization soln fluticasone 250 mcg-salmeterol 50 1 inh inhalation BID #60 ea 11/02/22 mcg/dose blistr powdr for inhalation (Advair Diskus) metformin 500 mg tablet,extended 1,000 mg (2 x 500 mg) PO QDAY #60 12/10/22 release 24 hr tabs ondansetron 4 mg disintegrating 4 mg PO Q8H PRN nausea and 12/21/22 tablet vomiting #60 tabs prochlorperazine maleate 5 mg 5 mg PO TID PRN nausea and 12/21/22 tablet (Compazine) vomiting #60 tabs oxycodone 5 mg tablet 10 mg (2 x 5 mg) PO BID PRN pain 01/07/23 #120 tabs Allergies Allergy/AdvReac Type Severity Reaction Status Date / Time No Known Drug Allergies Allergy Verified 12/14/22 15:15 Review of Systems Status of ROS: Reports: 10 or more systems reviewed and unremarkable except as noted in History and below [facility] Medical History History of abdominal paracentesis ?Z98.890 - Other specified postprocedural states (ICD-10) Type 2 diabetes mellitus, without long-term current use of insulin ?E11.9 - Type 2 diabetes mellitus without complications (ICD-10) Bilateral cataracts ?H26.9 - Unspecified cataract (ICD-10) BPH (benign prostatic hyperplasia) ?N40.0 - Benign prostatic hyperplasia without lower urinary tract symptoms (ICD-10) Neutropenia ?D70.9 - Neutropenia, unspecified (ICD-10) Nocturia ?R35.1 - Nocturia (ICD-10) COVID-19 in immunocompromised patient ?U07.1 - COVID-19 (ICD-10) ?D84.9 - Immunodeficiency, unspecified (ICD-10) Alcohol use ?Z72.89 - Other problems related to lifestyle (ICD-10) Recurrent tinea pedis ?B35.3 - Tinea pedis (ICD-10) Colonic polyp ?K63.5 - Polyp of colon (ICD-10) COPD (chronic obstructive pulmonary disease) ?J44.9 - Chronic obstructive pulmonary disease, unspecified (ICD-10) Chronic low back pain ?M54.50 - Low back pain, unspecified (ICD-10) ?G89.29 - Other chronic pain (ICD-10) 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 ?C22.1 - Intrahepatic bile duct carcinoma (ICD-10) ?C78.7 - Secondary malignant neoplasm of liver and intrahepatic bile duct (ICD-10) Surgical History Hx of cataract surgery ?Z98.49 - Cataract extraction status, unspecified eye (ICD-10) Social History Narrative: , retired, former smoker, previous significant alcohol use Smoking Status: Former smoker How often do you have a drink containing alcohol: never AUDIT-C Alcohol total score: 0 Non-prescribed substance use: denies use Exam Narrative: Exam Narrative: Const: Well-nourished, Well-developed, in mild distress Eyes: PERRL, no conjunctival injection, and symmetrical lids ENMT: Atraumatic external nose and ears. Moist mucous membranes. Neck: Symmetric, trachea midline, No thyromegaly. CVS: RRR, No murmurs or gallops. Peripheral pulses 2+ and equal in all extremities RESP: Unlabored respiratory effort. Clear to auscultation bilaterally. GI: Nontender, mild abdominal distension, No rebound or guarding. MSK:Extremities w/o deformity, Normal Active ROM Skin: Warm, Dry. No rashes or lesions. Neuro: Normal Muscle tone, No focal neurological deficits. Psych: Awake, Alert, & Oriented x3. Appropriate mood and affect. Const: Vital Signs, click to edit/add: Vital Signs - 24 hr 01/10/23 18:37 Temperature 97.9 F Pulse Rate [Right Pulse Oximeter] 80 Respiratory Rate 18 Blood Pressure [Ri ght Upper Arm] 121/69 Pulse Oximetry 97 Oxygen Delivery Me thod Room Air Course Vital Signs Vital signs: Initial Vital Signs Temperature 97.9 F 01/10/23 18:37 Temperature Source Temporal Artery Scan 01/10/23 18:37 Pulse Rate 80 01/10/23 18:37 Pulse Rhythm Regular 01/10/23 18:37 Respiratory Rate 18 01/10/23 18:37 Blood Pressure 121/69 01/10/23 18:37 Blood Pressure Mean 86 01/10/23 18:37 Blood Pressure Position Sitting 01/10/23 18:37 Pulse Oximetry 97 01/10/23 18:37 Oxygen Delivery Method Room Air 01/10/23 18:37 Vital Signs Temperature 97.9 F 01/10/23 18:37 Pulse Rate 80 01/10/23 18:37 Respiratory Rate 18 01/10/23 18:37 Blood Pressure 121/69 01/10/23 18:37 Pulse Oximetry 97 01/10/23 18:37 Oxygen Delivery Method Room Air 01/10/23 18:37 Temperature 97.9 F 01/10/23 18:37 Pulse Rate 80 01/10/23 18:37 Respiratory Rate 18 01/10/23 18:37 Blood Pressure 121/69 01/10/23 18:37 Pulse Oximetry 97 01/10/23 18:37 Oxygen Delivery Method Room Air 01/10/23 18:37 Medical Decision Making MDM Narrative Medical decision making narrative: Patient is a 72-year-old male with a history of liver cancer currently on chemotherapy and immunotherapy that was restarted 2 weeks ago, diabetes presenting to the emergency department for dysuria. Initially came from [facility] for concern with urinary retention and a UTI. He has been having symptoms for the past 2 days. He is having no other symptoms other than the dysuria. When patient arrived a repeat urinalysis was done. We also did a postvoid bladder scan which showed 21 mL in the bladder. We reviewed the charts from the urgent care and that showed he was retaining 248. Is unclear why hours is somewhat slower. He might have had a larger Downs for us. We checked multiple times and was never higher than 21. Patient's urinalysis did not show any clear signs of UTI at this time. There are few bacteria but not see any white blood cells, leukocyte esterases or nitrates. His urinalysis at the urgent care showed a large amount of bacteria but again no Rommel esterase, nitrates, white blood cells. There is did show greater than 100 red blood cells. We did not have any blood in are urine sample. Considering he is having dysuria and does have bacteria in his urine I will treat him for the UTI. They were prescribed Bactrim already put unable to pick it up because the pharmacy was closed. I will give him 1 dose in the emergency department and they will brass pickler the prescription tomorrow. Patient and family agreeable this plan Lab Data Labs: Lab Results 01/10/23 Range/Units 17:30 Urine Color Yellow (Yellow) Urine Appearance Clear (Clear) Urine pH 6.0 (5.0-8.5) Ur Specific [place] 1.025 (1.000-1.030) Urine Protein 1+ A (Negative) Urine Glucose (UA) Negative (Negative) Urine Ketones Trace A (Negative) Urine Blood Negative (Negative) Urine Nitrite Negative (Negative) Urine Bilirubin 1+ A (Negative) Urine Urobilinogen 0.2 (0.2-1.0) Ur Leukocyte Esterase Negative (Negative) Urine RBC 0-2 (0-2) Urine WBC 2-5 (0-5) Ur Squamous Epith Cells Few (None-Few) Urine Bacteria Few A (None) Discharge Plan Discharge Clinical Impression: Dysuria Patient Disposition: Home, Self-Care Condition: Stable Instructions: Dysuria (ED) Additional Instructions: You did not have any urinary tension or blood in the urine on our exam. There was some bacteria seen in our urine culture and urgent cares her urine culture. Exam of his symptoms and his history of cancer we will treat with antibiotics at this time. If patient's symptoms are not improving he should follow-up with his primary care provider. Return for new or worsening symptoms Prescriptions: No Action tamsulosin [Flomax] 0.4 mg capsule 0.4 mg PO QDAY Qty: 90 3RF albuterol sulfate 90 mcg/actuation HFA aerosol inhaler 2 puff inhalation Q4-6H PRN (Reason: shortness of breath or wheezing) Qty: 8.5 5RF nicotine 7 mg/24 hr patch 24 hour 1 patch transdermal Q24H PRN ondansetron 4 mg tablet,disintegrating 4 mg PO Q8H PRN (Reason: nausea and vomiting) Qty: 60 0RF prochlorperazine maleate [Compazine] 5 mg tablet 5 mg PO TID PRN (Reason: nausea and vomiting) Qty: 60 0RF lidocaine-prilocaine 2.5-2.5 % cream 1 applic topical DIRECTED PRNQty: 5 0RF Rx Instructions: Apply to port site prior to port access omeprazole 20 mg capsule,delayed release(DR/EC) 20 mg PO BID Qty: 180 3RF fluoxetine 20 mg capsule 20 mg PO QDAY Qty: 90 1RF ibuprofen 800 mg tablet 800 mg PO TID PRN (Reason: pain) Qty: 90 11RF dutasteride [Avodart] 0.5 mg capsule 0.5 mg PO QDAY Qty: 90 3RF ipratropium-albuterol 0.5 mg-3 mg(2.5 mg base)/3 mL solution for nebulization 3 ml inhalation QID Qty: 180 9RF fluticasone propion-salmeterol [Advair Diskus] 250-50 mcg/dose blister with device 1 inh inhalation BID Qty: 60 7RF metformin 500 mg tablet extended release 24 hr 1,000 mg PO QDAY Qty: 60 2RF oxycodone 5 mg tablet 10 mg PO BID PRN (Reason: pain) Qty: 120 0RF Patient Comments: takes in am- Follow Up/Referrals: Lamine Sheridan MD [Primary Care Provider] - Stand Alone Forms: [facility] Info Instructions
[2023-01-10 18:59] LABS: RBC Urine 0-2 (0-2)
[2023-01-10 19:00] LABS: Bacteria Urine Few; Squamous Epithelial Cell Urine Few (None-Few)
== END 2023-01-10 19:45 | disposition home or self-care (01) ==
LOC: ED 19:36
PROVIDERS: Emergency Provider Student in an Organized Health Care Education/Training Program; PCP Family Medicine
DX: R30.0 Dysuria (principal)
CPT/HCPCS: 81001; 87086; 99282; 99283; A9270

== ENCOUNTER 2023-01-12 11:55 | Outpatient (CLI) | payer MEDICARE, SELFPAY ==
[2023-01-12 12:28] VITALS: BP 123/74; PULSE 71; RESP 16; TEMP 36.4; O2SAT 96
[2023-01-12 12:53] VITALS: BP 119/69; PULSE 95; RESP 16; O2SAT 96
--- NOTE | 2023-01-12 13:37 | P.GSPN_ITS ---
Subjective Subjective Date Seen: 01/12/23 Interval history: Patient has a personal history of metastatic cholangiocarcinoma with peritoneal carcinomatosis. He had an onset of new ascites and was referred to our procedure center for therapeutic and diagnostic paracentesis. Exam Const: Vital Signs, click to edit/add: Vital Signs - 24 hr 01/12/23 12:28 01/12/23 12:53 Temperature 97.5 F L Pulse Rate [Right Pulse Oximeter] 71 95 Respiratory Rate 16 16 Blood Pressure [Ri ght Arm] 123/74 119/69 Pulse Oximetry 96 96 Oxygen Delivery Me thod Room Air Room Air Progress Note: A&P Assessment and plan (1) Ascites: Status: Acute Plan 72-year-old male with metastatic cholangiocarcinoma on current chemotherapy s/p paracentesis today in [facility]. Patient will be seen by Oncology next week and his lab results will be addressed. Patient tolerated the procedure well. There were signs of complicat ions were discussed with the patient and he was encouraged to go to the emergency room if he develops any of those. General Surgery Procedures Moderate Sedation Message Please read if using moderate sedation: Diagnostic and therapeutic paracentesis with ultrasound guidance After an informed consent was obtained, patient?s abdomen in the right lower quadrant was prepped and draped in the usual sterile fashion. An ultrasound was brought onto the field and a fluid pocket was identified that was away from intraabdominal organs, specifically small bowel. This was most like sessile in the right upper quadrant. 1% Lidocaine was used to anesthetize the skin, soft tissues and peritoneum over the proposed needle insertion site. This was done under US guidance. A skin incision was made in the right upper quadrant with a scalpel just large enough to fit the needle. The needle with the angiocatheter was advanced into the abdomen under US guidance. Once in the abdomen, the needle was withdrawn and the catheter was left in place. The catheter was then connected to the drainage tubing. 2550 mL of bloody tinged yellow fluid was drained and sent to pathology for cytology and lab for evaluation. When I was not able to drain any more fluid, the procedure was completed by withdrawing the catheter and applying Dermabond over the skin opening. Patient tolerated procedure well and there were no immediate complications.
[2023-01-12 13:40] VITALS: BP 125/67; PULSE 72; RESP 18; O2SAT 96
[2023-01-12 14:20] LABS: Lactate Dehydrogenase* 145 U/L (120-246); Total Protein* 7.6 g/dL (6.0-8.3)
[2023-01-12 15:13] LABS: Mononuclear WBC Body Fluid* 94 %; Polynuclear WBC Body Fluid* 6 %; RBC, Body Fluid* 17000 Cells/uL; WBC, Body Fluid* 527 Cells/uL
[2023-01-12 15:17] LABS: BF Clarity* Slightly Cloudy; BF Color Blood Tinged; BF Total Volume* 180
[2023-01-12 15:18] LABS: Albumin Body Fluid* 2.3 gm/dL; Amylase Body Fluid* 48 U/L; Body Fluid Total Protein* 4.5 gm/dL; Glucose Body Fluid* 98 mg/dL; LDH Body Fluid* 194 U/L
--- NOTE | 2023-01-13 14:04 | ED.NURSE ---
Called the patient on the cell phone and since [facility] paper work stated was sending in Bactrim to pharmacy and this did not actually happen. Informed the patient the need to start on this so called [facility] to fill Bactrim DS 1 tab po BID x [address] Hoang. Patient is aware to pick up and delivery driver and start to take.
== END 2023-01-12 13:54 | disposition home or self-care (01) ==
PROVIDERS: PCP Family Medicine; Visit Provider Surgery
DX: C22.1 Intrahepatic bile duct carcinoma (principal); C78.7 Secondary malignant neoplasm of liver and intrahepatic bile duct; R14.0 Abdominal distension (gaseous); R18.8 Other ascites
CPT/HCPCS: 36415; 49083; 82042; 82150; 82945; 83615; 84155; 84157; 87070; 87205; 88112; 88305; 88341; 88342; 89051

== ENCOUNTER 2023-01-29 12:51 | Emergency (ER) | payer MEDICARE, SELFPAY ==
[2023-01-29 13:18] VITALS: BP 116/69; PULSE 83; RESP 20; TEMP 36.5; O2SAT 96; BMI 28.2
--- NOTE | 2023-01-29 13:53 | CRLHL7_ITS ---
For Patients: As a result of the Century Cures Act, medical imaging exams and procedure reports are released immediately into your electronic medical record. You may view this report before your referring provider. If you have questions, please contact your health care provider. INDICATION: Diffuse pain, burning in stomach. Difficulty breathing. History of intrahepatic cholangiocarcinoma. TECHNIQUE: CT abdomen and pelvis without contrast. COMPARISON: CT abdomen/pelvis dated 01/08/2023. FINDINGS: Lower chest: New small to moderate size left pleural effusion, with associated compressive atelectasis. Stable small right pleural effusion. Stable punctate right middle lobe subpleural nodule. Evaluation of solid organs is limited secondary to lack of IV contrast administration. Liver: Diffuse hepatic steatosis. No obvious focal hepatic lesion is identified on unenhanced study. There is no significant capsular retraction seen. Gallbladder and bile ducts: No calcified gallstones. No biliary duct dilation. Pancreas: Unremarkable. Spleen: Unremarkable. Adrenal glands: Unremarkable. Kidneys: Punctate nonobstructing calculus in the interpolar region of the left kidney. Renal vascular calcifications are noted. Stable left upper pole renal cyst. Retroperitoneum: Interval decrease in size of a roselyn hepatis lymph node, now measuring 1.7 x 3.1 cm (previously 2.4 x 3.3 cm). Stable prominent aortocaval lymph node. Bowel and mesentery: No evidence of bowel obstruction. Similar appearance of omental thickening consistent with peritoneal carcinomatosis. Small amount of ascites, which has decreased since prior study. Stable small mesenteric nodules/lymph nodes. No pneumoperitoneum identified. Bladder: Mild circumferential bladder wall thickening, unchanged. Reproductive organs: No significant prostatomegaly. Pelvic lymph nodes: No lymphadenopathy. Vessels: Atherosclerotic calcifications. Abdominal wall: No acute abdominal wall abnormality. Bones: Multilevel degenerative changes of the spine. No suspicious/aggressive focal osseous lesion. IMPRESSION: 1. New small to moderate sized left pleural effusion, with associated compressive atelectasis. 2. Interval decrease in size of a roselyn hepatis lymph node, suggesting positive response to therapy in the interim. There is also interval decrease in amount of malignant ascites. 3. Diffuse hepatic steatosis. No obvious focal hepatic lesions identified on unenhanced study. 4. Stable additional findings as above. Please note that all CT scans at this facility use dose modulation, iterative reconstruction, and/or weight-based dosing when appropriate to reduce radiation dose to as low as reasonably achievable. Dictated by Sopo Rhea,MD @ 01/29/2023 4:40:12 PM (Electronically Signed)
--- NOTE | 2023-01-29 14:19 | ED.GENADULT ---
HPI - General Adult General Chief complaint: Abdominal Pain Stated complaint: burning in stomach, hard to breathe Time Seen by Provider: 01/29/23 13:40 Source: patient and family Mode of arrival: ambulatory Limitations: no limitations History of Present Illness HPI narrative: 72-year-old male with history of cholangiocarcinoma, congestive heart failure and COPD presenting with abdominal pain. Patient states that he had a paracentesis done a few weeks ago when he has been having pain since. He felt like it did not get much relief with paracentesis. He describes a burning sensation across the entire abdomen , nothing making it is better or worse. He has had 2 episodes where he gets up in the morning and he vomits clear liquid. He denies other episodes of vomiting. He denies feeling nauseated. He denies fevers or chills. He denies diarrhea or constipation. He does complain of dysuria which is ongoing and is not changed after he was treated with Bactrim for UTI. He has very poor appetite and poor fluid intake. He denies any rashes. He has been on chemo for a while, immunotherapy was recently added. Related Data Home Medications Medication Instructions Recorded Confirmed sennosides 8.6 mg capsule (senna) 8.6 mg PO BID 01/19/23 01/19/23 Previous Rx's Medication Instructions Recorded lidocaine-prilocaine 2.5 %-2.5 % 1 applic topical DIRECTED PRN 01/01/22 topical cream #5 grams tamsulosin 0.4 mg capsule (Flomax) 0.4 mg PO QDAY #90 caps 03/11/22 omeprazole 20 mg capsule,delayed 20 mg PO BID #180 caps 03/30/22 release albuterol sulfate 90 mcg/actuation 2 puff inhalation Q4-6H PRN 06/24/22 aerosol inhaler shortness of breath or wheezing #8.5 grams dutasteride 0.5 mg capsule 0.5 mg PO QDAY #90 caps 07/20/22 (Avodart) ibuprofen 800 mg tablet 800 mg PO TID PRN pain #90 tabs 07/20/22 ipratropium 0.5 mg-albuterol 3 mg 3 ml inhalation QID #180 mL 08/19/22 (2.5 mg base)/3 mL nebulization soln fluticasone 250 mcg-salmeterol 50 1 inh inhalation BID #60 ea 11/02/22 mcg/dose blistr powdr for inhalation (Advair Diskus) metformin 500 mg tablet,extended 1,000 mg (2 x 500 mg) PO QDAY #60 12/10/22 release 24 hr tabs ondansetron 4 mg disintegrating 4 mg PO Q8H PRN nausea and 12/21/22 tablet vomiting #60 tabs prochlorperazine maleate 5 mg 5 mg PO TID PRN nausea and 12/21/22 tablet (Compazine) vomiting #60 tabs oxycodone 5 mg tablet 10 mg (2 x 5 mg) PO BID PRN pain 01/07/23 #120 tabs potassium chloride 20 mEq 20 meq PO QDAY #7 tabs 01/19/23 tablet,extended release fluoxetine 20 mg capsule 20 mg PO QDAY #90 caps 01/26/23 Allergies Allergy/AdvReac Type Severity Reaction Status Date / Time No Known Drug Allergies Allergy Verified 01/19/23 12:57 Review of Systems Status of ROS: Reports: 10 or more systems reviewed and unremarkable except as noted in History and below [facility] Medical History History of abdominal paracentesis ?Z98.890 - Other specified postprocedural states (ICD-10) Type 2 diabetes mellitus, without long-term current use of insulin ?E11.9 - Type 2 diabetes mellitus without complications (ICD-10) Bilateral cataracts ?H26.9 - Unspecified cataract (ICD-10) BPH (benign prostatic hyperplasia) ?N40.0 - Benign prostatic hyperplasia without lower urinary tract symptoms (ICD-10) Neutropenia ?D70.9 - Neutropenia, unspecified (ICD-10) Nocturia ?R35.1 - Nocturia (ICD-10) COVID-19 in immunocompromised patient ?U07.1 - COVID-19 (ICD-10) ?D84.9 - Immunodeficiency, unspecified (ICD-10) Alcohol use ?Z72.89 - Other problems related to lifestyle (ICD-10) Recurrent tinea pedis ?B35.3 - Tinea pedis (ICD-10) Colonic polyp ?K63.5 - Polyp of colon (ICD-10) COPD (chronic obstructive pulmonary disease) ?J44.9 - Chronic obstructive pulmonary disease, unspecified (ICD-10) Chronic low back pain ?M54.50 - Low back pain, unspecified (ICD-10) ?G89.29 - Other chronic pain (ICD-10) 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 ?C22.1 - Intrahepatic bile duct carcinoma (ICD-10) ?C78.7 - Secondary malignant neoplasm of liver and intrahepatic bile duct (ICD-10) Surgical History Hx of cataract surgery ?Z98.49 - Cataract extraction status, unspecified eye (ICD-10) Social History Narrative: , retired, former smoker, previous significant alcohol use Smoking Status: Former smoker Do you use any of these nicotine containing products: None How often do you have a drink containing alcohol: never How often do you have six or more drinks on one occasion: Never AUDIT-C Alcohol total score: 0 Non-prescribed substance use: denies use service: No Exam Narrative: Exam Narrative: Well-nourished well-developed patient in no acute distress. Alert and oriented. Answers questions appropriately. Mood and affect are appropriate. Thoughts are goal oriented and rational. No tangential or magical thinking noted. Patient speaks in full sentences without needing to catch his breath. HEENT: Normocephalic atraumatic. Pupils are equally round reactive to light. Extraocular muscles are intact. Conjunctivae are moist without any icterus noted. Moist mucous membranes. Posterior pharynx is normal. Neck is soft without any lymphadenopathy or thyromegaly. No masses are appreciated. Cardiovascular: Heart is regular rate and rhythm S1 and S2 are present without any murmurs. Lungs: Clear to auscultation bilaterally no wheezes rhonchi or rales are appreciated. Patient takes deep breaths without any discomfort. Abdomen: Soft and mildly distended. He has diffuse mild tenderness across the entire abdomen, hypoactive bowel sounds. Extremities: Bilateral lower extremities are without edema. Skin: Well perfused without any obvious rashes. Very slight yellowish hue to the skin. Const: Vital Signs, click to edit/add: Vital Signs - 24 hr 01/29/23 13:18 01/29/23 15:00 Temperature 97.7 F Pulse Rate [Pulse Oximeter] 83 66 Respiratory Rate 20 18 Blood Pressure [Ri ght Upper Arm] 116/69 130/69 Pulse Oximetry 96 96 Oxygen Delivery Me thod Room Air Room Air Course Course Hospital Course: IV was started patient received are under mL of normal saline. His blood work showed the following: He has a low white cell count of 4.4, hemoglobin 10.4. This is slightly down from 11 where he was on 01/19/2023. His sed rate is elevated at 79 and his CRP is elevated at 4.8. LFTs minimally elevated with AST of 52 an ALT of 58. Potassium slightly low at 3.3, normal sodium and normal renal function. Urinalysis did not show a flexion. Abdominal CT scan did not show any reason for his continued abdominal discomfort. Did show an increasing left-sided pleural effusion. Upon further conversation with the patient his family patient has had this diffuse abdominal burning sensation and dysuria for quite some time now he states that the burning sensation of the whole abdomen has been present even prior to his paracentesis. Vital Signs Vital signs: Initial Vital Signs Temperature 97.7 F 01/29/23 13:18 Temperature Source Temporal Artery Scan 01/29/23 13:18 Pulse Rate 83 01/29/23 13:18 Respiratory Rate 20 01/29/23 13:18 Blood Pressure 116/69 01/29/23 13:18 Blood Pressure Mean 84 01/29/23 13:18 Blood Pressure Position Sitting 01/29/23 13:18 Pulse Oximetry 96 01/29/23 13:18 Oxygen Delivery Method Room Air 01/29/23 13:18 Vital Signs Temperature 97.7 F 01/29/23 13:18 Pulse Rate 83 01/29/23 13:18 Respiratory Rate 20 01/29/23 13:18 Blood Pressure 116/69 01/29/23 13:18 Pulse Oximetry 96 01/29/23 13:18 Oxygen Delivery Method Room Air 01/29/23 13:18 Temperature 97.7 F 01/29/23 13:18 Pulse Rate 66 01/29/23 15:00 Respiratory Rate 18 01/29/23 15:00 Blood Pressure 130/69 01/29/23 15:00 Pulse Oximetry 96 01/29/23 15:00 Oxygen Delivery Method Room Air 01/29/23 15:00 Medical Decision Making MDM Narrative Medical decision making narrative: 72-year-old male with chronic abdominal pain, no acute reasons found. Patient does have carcinomatosis and cholangiocarcinoma. I did ask him to discuss his symptoms with his oncologist. He already has pain medications at home and did not request any more at this time. Patient discharged home in stable condition. Medical Records Medical records reviewed: Yes I reviewed the patient's medical records Lab Data Lab results reviewed: Yes I reviewed the patient's lab results Labs: Lab Results 01/29/23 01/29/23 Range/Units 13:54 14:27 WBC 4.46 L (4.50-11.00) K/uL RBC 3.52 L (4.30-5.90) m/uL Hgb 10.4 L (13.5-17.5) gm/dL Hct 32.1 L (37.0-53.0) % MCV 91 (80-100) fL MCH 30 (26-34) pg MCHC 32 (32-36) gm/dL RDW Coeff of Andres 14.4 (11.5-15.5) % Plt Count 309 (140-440) K/uL Neut % (Auto) 57.2 (42.0-72.0) % Lymph % (Auto) 25.3 (20-44) % [place] % (Auto) 13.7 H (0.0-11.0) % Eos % (Auto) 2.0 (0.0-7.0) % Baso % (Auto) 0.9 (0.0-3.0) % Neut # (Auto) 2.60 (1.7-7.0) K/uL Lymph # (Auto) 1.10 (0.90-2.90) K/uL [place] # (Auto) 0.60 (0.00-0.90) K/UL Eos # (Auto) 0.10 (0.00-0.50) K/uL Baso # (Auto) 0.00 (0.00-0.30) K/uL Abs Immat Gran (auto) 0.00 (0.00-0.30) K/uL Imm/Tot Granulo (auto) 0.9 % ESR 79 H (2-15) mm/hr Sodium 137 (135-149) mmol/L Potassium 3.3 L (3.6-5.1) mmol/L Chloride 106 (96-114) mmol/L Carbon Dioxide 25 (20-32) mmol/L BUN 11 (7-30) mg/dL Creatinine 0.7 (0.5-1.5) mg/dL Estimated Creat Clear 61.51 Estimated GFR 97 ml/min Glucose 113 (60-115) mg/dL Lactate 1.3 (0.5-1.9) mmol/L Calcium 8.8 (8.4-10.6) mg/dL Total Bilirubin 0.2 (0.1-1.5) mg/dL Direct Bilirubin 0.0 (0.0-0.5) mg/dL AST 52 H (12-35) U/L ALT 58 H (4-50) U/L Alkaline Phosphatase 90 (40-150) U/L C-Reactive Protein 4.8 H (0.5-1.0) mg/dL Total Protein 7.0 (6.0-8.3) g/dL Albumin 3.5 (3.3-5.0) g/dL Lipase 99 (23-300) U/L Urine Color Yellow (Yellow) Urine Appearance Clear (Clear) Urine pH 7.0 (5.0-8.5) Ur Specific [place] 1.020 (1.000-1.030) Urine Protein 1+ A (Negative) Urine Glucose (UA) Negative (Negative) Urine Ketones Negative (Negative) Urine Blood Negative (Negative) Urine Nitrite Negative (Negative) Urine Bilirubin Negative (Negative) Urine Urobilinogen 0.2 (0.2-1.0) Ur Leukocyte Esterase Negative (Negative) Urine RBC 0-2 (0-2) Urine WBC 0-2 (0-5) Ur Squamous Epith Cells None (None-Few) Urine Bacteria None (None) Imaging Data CT scan - abdomen: Attestation: I have reviewed the pertinent imaging results. Radiologist's impression: CT abdomen and pelvis without contrast. COMPARISON: CT abdomen/pelvis dated 01/08/2023. FINDINGS: Lower chest: New small to moderate size left pleural effusion, with associated compressive atelectasis. Stable small right pleural effusion. Stable punctate right middle lobe subpleural nodule. Evaluation of solid organs is limited secondary to lack of IV contrast administration. Liver: Diffuse hepatic steatosis. No obvious focal hepatic lesion is identified on unenhanced study. There is no significant capsular retraction seen. Gallbladder and bile ducts: No calcified gallstones. No biliary duct dilation. Pancreas: Unremarkable. Spleen: Unremarkable. Adrenal glands: Unremarkable. Kidneys: Punctate nonobstructing calculus in the interpolar region of the left kidney. Renal vascular calcifications are noted. Stable left upper pole renal cyst. Retroperitoneum: Interval decrease in size of a roselyn hepatis lymph node, now measuring 1.7 x 3.1 cm (previously 2.4 x 3.3 cm). Stable prominent aortocaval lymph node. Bowel and mesentery: No evidence of bowel obstruction. Similar appearance of omental thickening consistent with peritoneal carcinomatosis. Small amount of ascites, which has decreased since prior study. Stable small mesenteric nodules/lymph nodes. No pneumoperitoneum identified. Bladder: Mild circumferential bladder wall thickening, unchanged. Reproductive organs: No significant prostatomegaly. Pelvic lymph nodes: No lymphadenopathy. Vessels: Atherosclerotic calcifications. Abdominal wall: No acute abdominal wall abnormality. Bones: Multilevel degenerative changes of the spine. No suspicious/aggressive focal osseous lesion. IMPRESSION: 1. New small to moderate sized left pleural effusion, with associated compressive atelectasis. 2. Interval decrease in size of a roselyn hepatis lymph node, suggesting positive response to therapy in the interim. There is also interval decrease in amount of malignant ascites. 3. Diffuse hepatic steatosis. No obvious focal hepatic lesions identified on unenhanced study. 4. Stable additional findings as above. Discharge Plan Discharge Clinical Impression: Abdominal pain, chronic, generalized Patient Disposition: Home, Self-Care Condition: Stable Additional Instructions: Follow-up with your oncologist for further management of your symptoms. Okay to take your pain medications as needed. Increase daily water intake. Prescriptions: No Action tamsulosin [Flomax] 0.4 mg capsule 0.4 mg PO QDAY Qty: 90 3RF albuterol sulfate 90 mcg/actuation HFA aerosol inhaler 2 puff inhalation Q4-6H PRN (Reason: shortness of breath or wheezing) Qty: 8.5 5RF ondansetron 4 mg tablet,disintegrating 4 mg PO Q8H PRN (Reason: nausea and vomiting) Qty: 60 0RF prochlorperazine maleate [Compazine] 5 mg tablet 5 mg PO TID PRN (Reason: nausea and vomiting) Qty: 60 0RF senna 8.6 mg capsule 8.6 mg PO BID potassium chloride 20 mEq tablet extended release 20 meq PO QDAY Qty: 7 0RF lidocaine-prilocaine 2.5-2.5 % cream 1 applic topical DIRECTED PRNQty: 5 0RF Rx Instructions: Apply to port site prior to port access omeprazole 20 mg capsule,delayed release(DR/EC) 20 mg PO BID Qty: 180 3RF ibuprofen 800 mg tablet 800 mg PO TID PRN (Reason: pain) Qty: 90 11RF dutasteride [Avodart] 0.5 mg capsule 0.5 mg PO QDAY Qty: 90 3RF ipratropium-albuterol 0.5 mg-3 mg(2.5 mg base)/3 mL solution for nebulization 3 ml inhalation QID Qty: 180 9RF fluticasone propion-salmeterol [Advair Diskus] 250-50 mcg/dose blister with device 1 inh inhalation BID Qty: 60 7RF metformin 500 mg tablet extended release 24 hr 1,000 mg PO QDAY Qty: 60 2RF oxycodone 5 mg tablet 10 mg PO BID PRN (Reason: pain) Qty: 120 0RF Patient Comments: takes in am- fluoxetine 20 mg capsule 20 mg PO QDAY Qty: 90 1RF Follow Up/Referrals: Lamine Sheridan MD [Primary Care Provider] - Stand Alone Forms: [facility] Info Instructions
[2023-01-29] MEDS: 0.9 % SODIUM CHLORIDE 500 ML 500 ML IV (14:30)
[2023-01-29 14:38] LABS: Lactate* 1.3 mmol/L (0.5-1.9)
[2023-01-29 14:54] LABS: Albumin* 3.5 g/dL (3.3-5.0); Chloride* 106 mmol/L (96-114)
[2023-01-29 14:55] LABS: Potassium* 3.3 mmol/L (3.6-5.1); Sodium* 137 mmol/L (135-149)
[2023-01-29 14:57] LABS: Creatinine* 0.7 mg/dL (0.5-1.5); Est. Creatinine Clearance* 61.51; Estimated Glomerular Filt Rate 97 ml/min
[2023-01-29 14:58] LABS: Alanine Aminotransferase* 58 U/L (4-50); Alkaline Phosphatase* 90 U/L (40-150); Aspartate Amino Transferase* 52 U/L (12-35); Bilirubin Total* 0.2 mg/dL (0.1-1.5); Blood Urea Nitrogen* 11 mg/dL (7-30); Calcium* 8.8 mg/dL (8.4-10.6); Carbon Dioxide* 25 mmol/L (20-32); Glucose* 113 mg/dL (60-115); Lipase* 99 U/L (23-300)
[2023-01-29 15:00] VITALS: BP 130/69; PULSE 66; RESP 18; O2SAT 96
[2023-01-29 15:01] LABS: C Reactive Protein* 4.8 mg/dL (0.5-1.0)
[2023-01-29 15:03] LABS: Appearance Urine Clear (Clear); Bilirubin Urine Negative (Negative); Blood Urine Negative (Negative); Color Urine Yellow (Yellow); Glucose Urine Negative (Negative); Ketones Urine Negative (Negative); Leukocyte Esterase Urine Negative (Negative); Nitrite Urine Negative (Negative); Protein Urine 1+ (Negative); Urobilinogen Urine 0.2 (0.2-1.0)
[2023-01-29 15:13] LABS: Basophils Percent Auto 0.9 % (0.0-3.0); Hematocrit 32.1 % (37.0-53.0); Hemoglobin* 10.4 gm/dL (13.5-17.5); Immature Granulocytes Pct Auto 0.9 %; Lymphocytes Percent Auto 25.3 % (20-44); Mean Corpuscular HGB Conc 32 gm/dL (32-36); Mean Corpuscular Hemoglobin 30 pg (26-34); Mean Corpuscular Volume 91 fL (80-100); Monocytes Percent Auto 13.7 % (0.0-11.0); Neutrophils Percent Auto 57.2 % (42.0-72.0); Platelet Count* 309 K/uL (140-440); RDW Coefficient of Variation % 14.4 % (11.5-15.5); Red Blood Count 3.52 m/uL (4.30-5.90); White Blood Count* 4.46 K/uL (4.50-11.00)
[2023-01-29 15:14] LABS: RBC Urine 0-2 (0-2); WBC Urine 0-2 (0-5)
[2023-01-29] MEDS: MORPHINE 2 MG/ML inj IVP (15:15)
[2023-01-29 15:50] LABS: Slide Review Reflex No
[2023-01-29 16:12] LABS: Erythrocyte SedimentationRate* 79 mm/hr (2-15)
[2023-01-29] MEDS: HEPARIN 500 UNIT/5 ML SYRINGE IVF (17:19)
== END 2023-01-29 17:25 | disposition home or self-care (01) ==
PROVIDERS: Emergency Provider Family Medicine; PCP Family Medicine
DX: R10.9 Unspecified abdominal pain (principal); G89.29 Other chronic pain
CPT/HCPCS: 36415; 74176; 80048; 80076; 81001; 83605; 83690; 85025; 85651; 86140; 87086; 96374; 99284; 99285; J1642; J2270; J7120

== ENCOUNTER 2023-02-12 09:00 | Outpatient (RCR) | payer MEDICARE, SELFPAY ==
[2022-08-24 08:59] VITALS: BP 155/81; PULSE 71; RESP 20; TEMP 36.6; O2SAT 95
[2022-08-24 09:23] LABS: Basophils Absolute Auto 0.05 K/uL (0.00-0.30); Basophils Percent Auto 0.8 % (0.0-3.0); Eosinophils Absolute Auto 0.24 K/uL (0.00-0.50); Eosinophils Percent Auto 3.9 % (0.0-7.0); Hematocrit 39.2 % (37.0-53.0); Hemoglobin* 12.9 gm/dL (13.5-17.5); Immature Granulocytes Abs Auto 0.04 K/uL (0.00-0.30); Immature Granulocytes Pct Auto 0.7 %; Lymphocytes Absolute Auto 1.57 K/uL (0.90-2.90); Lymphocytes Percent Auto 25.8 % (20-44); Mean Corpuscular HGB Conc 33 gm/dL (32-36); Mean Corpuscular Hemoglobin 32 pg (26-34); Mean Corpuscular Volume 98 fL (80-100); Monocytes Percent Auto 11.5 % (0.0-11.0); Neutrophils Absolute Auto 3.48 K/uL (1.7-7.0); Neutrophils Percent Auto 57.3 % (42.0-72.0); Platelet Count* 161 K/uL (140-440); RDW Coefficient of Variation % 15.2 % (11.5-15.5); Red Blood Count 3.99 m/uL (4.30-5.90); White Blood Count* 6.08 K/uL (4.50-11.00)
[2022-08-24 09:29] LABS: Slide Review Reflex No
[2022-08-24 09:43] LABS: Albumin* 3.9 g/dL (3.3-5.0); Chloride* 107 mmol/L (96-114); Sodium* 138 mmol/L (135-149)
[2022-08-24 09:44] LABS: Potassium* 3.9 mmol/L (3.6-5.1)
[2022-08-24 09:46] LABS: Alkaline Phosphatase* 51 U/L (40-150); Aspartate Amino Transferase* 23 U/L (12-35); Bilirubin Total* 0.4 mg/dL (0.1-1.5); Blood Urea Nitrogen* 12 mg/dL (7-30); Carbon Dioxide* 24 mmol/L (20-32); Creatinine* 0.8 mg/dL (0.5-1.5); Estimated Glomerular Filt Rate 94 ml/min; Total Protein* 6.7 g/dL (6.0-8.3)
[2022-08-24 09:47] LABS: Alanine Aminotransferase* 34 U/L (4-50); Glucose* 120 mg/dL (60-115)
[2022-08-24 10:22] LABS: Appearance Urine Clear (Clear); Bilirubin Urine Negative (Negative); Blood Urine Negative (Negative); Color Urine Yellow (Yellow); Glucose Urine Negative (Negative); Ketones Urine Negative (Negative); Leukocyte Esterase Urine Negative (Negative); Nitrite Urine Negative (Negative); Protein Urine Negative (Negative); Specific Gravity Urine 1.025 (1.000-1.030); Urobilinogen Urine 0.2 (0.2-1.0); pH Urine 6.5 (5.0-8.5)
[2022-08-24] MEDS: dexAMETHasone 10 MG in 0.9 % SODIUM CHLORIDE 100 ml 100 ML 400 MG IVPB (11:03)
[2022-08-24] MEDS: PALONOSETRON 0.25 MG/5 ML inj IV (11:03)
[2022-08-24 11:23] LABS: Magnesium* 1.8 mg/dL (1.5-2.6)
[2022-08-24] MEDS: HEPARIN 500 UNIT/5 ML SYRINGE IVF (12:05)
[2022-08-24] MEDS: SODIUM CHLORIDE 0.9 % (FLUSH) 10 ML SYRINGE IVF (12:05)
[2022-10-01 12:15] LABS: Basophils Absolute Auto 0.03 K/uL (0.00-0.30); Basophils Percent Auto 0.4 % (0.0-3.0); Hematocrit 40.2 % (37.0-53.0); Hemoglobin* 13.1 gm/dL (13.5-17.5); Immature Granulocytes Abs Auto 0.02 K/uL (0.00-0.30); Immature Granulocytes Pct Auto 0.3 %; Lymphocytes Absolute Auto 1.87 K/uL (0.90-2.90); Lymphocytes Percent Auto 26.7 % (20-44); Mean Corpuscular HGB Conc 33 gm/dL (32-36); Mean Corpuscular Hemoglobin 32 pg (26-34); Mean Corpuscular Volume 98 fL (80-100); Monocytes Percent Auto 8.3 % (0.0-11.0); Neutrophils Absolute Auto 3.94 K/uL (1.7-7.0); Neutrophils Percent Auto 56.3 % (42.0-72.0); Platelet Count* 173 K/uL (140-440); RDW Coefficient of Variation % 14.4 % (11.5-15.5); Red Blood Count 4.12 m/uL (4.30-5.90)
[2022-10-01 12:30] LABS: Albumin* 3.7 g/dL (3.3-5.0); Chloride* 108 mmol/L (96-114); Potassium* 3.6 mmol/L (3.6-5.1); Sodium* 137 mmol/L (135-149)
[2022-10-01 12:33] LABS: Alanine Aminotransferase* 33 U/L (4-50); Alkaline Phosphatase* 63 U/L (40-150); Aspartate Amino Transferase* 31 U/L (12-35); Bilirubin Total* 0.4 mg/dL (0.1-1.5); Blood Urea Nitrogen* 11 mg/dL (7-30); Carbon Dioxide* 24 mmol/L (20-32); Creatinine* 0.8 mg/dL (0.5-1.5); Estimated Glomerular Filt Rate 94 ml/min; Glucose* 211 mg/dL (60-115); Total Protein* 6.7 g/dL (6.0-8.3)
[2022-10-01 12:34] LABS: Calcium* 8.6 mg/dL (8.4-10.6)
[2022-10-01 12:44] LABS: Slide Review Reflex No
[2022-10-01] MEDS: SODIUM CHLORIDE 0.9 % (FLUSH) 10 ML SYRINGE IVF (15:46)
[2022-10-01] MEDS: HEPARIN 500 UNIT/5 ML SYRINGE IVF (15:46)
[2022-11-02] MEDS: SODIUM CHLORIDE 0.9 % (FLUSH) 10 ML SYRINGE IVF (14:46)
[2022-11-02] MEDS: HEPARIN 500 UNIT/5 ML SYRINGE IVF (14:46)
[2022-11-30] MEDS: SODIUM CHLORIDE 0.9 % (FLUSH) 10 ML SYRINGE IVF (15:42)
[2022-11-30] MEDS: HEPARIN 500 UNIT/5 ML SYRINGE IVF (15:42)
[2022-12-14 09:43] LABS: Basophils Absolute Auto 0.03 K/uL (0.00-0.30); Basophils Percent Auto 0.4 % (0.0-3.0); Eosinophils Absolute Auto 0.26 K/uL (0.00-0.50); Eosinophils Percent Auto 3.4 % (0.0-7.0); Hematocrit 38.1 % (37.0-53.0); Hemoglobin* 12.3 gm/dL (13.5-17.5); Immature Granulocytes Abs Auto 0.02 K/uL (0.00-0.30); Immature Granulocytes Pct Auto 0.3 %; Lymphocytes Percent Auto 18.8 % (20-44); Mean Corpuscular HGB Conc 32 gm/dL (32-36); Mean Corpuscular Hemoglobin 30 pg (26-34); Mean Corpuscular Volume 94 fL (80-100); Monocytes Percent Auto 10.1 % (0.0-11.0); Neutrophils Absolute Auto 5.12 K/uL (1.7-7.0); Platelet Count* 258 K/uL (140-440); Red Blood Count 4.05 m/uL (4.30-5.90); White Blood Count* 7.64 K/uL (4.50-11.00)
[2022-12-14 09:50] LABS: Slide Review Reflex No
[2022-12-14 10:01] LABS: Albumin* 3.7 g/dL (3.3-5.0); Chloride* 103 mmol/L (96-114); Potassium* 3.6 mmol/L (3.6-5.1); Sodium* 132 mmol/L (135-149)
[2022-12-14 10:04] LABS: Alanine Aminotransferase* 23 U/L (4-50); Alkaline Phosphatase* 70 U/L (40-150); Aspartate Amino Transferase* 29 U/L (12-35); Bilirubin Total* 0.4 mg/dL (0.1-1.5); Blood Urea Nitrogen* 10 mg/dL (7-30); Carbon Dioxide* 24 mmol/L (20-32); Creatinine* 0.8 mg/dL (0.5-1.5); Estimated Glomerular Filt Rate 93 ml/min; Glucose* 200 mg/dL (60-115); Total Protein* 7.1 g/dL (6.0-8.3)
[2022-12-14 10:05] LABS: Calcium* 8.9 mg/dL (8.4-10.6)
--- NOTE | 2022-12-23 10:35 | URNOTE ---
REceived request for prior auth. Carboplatin (J9045), Gemcitabine (J9201) and Durvalumab (J9173) have been approved 12/22/2022-01/01/2024. Auth #[id number] Fosaprepitant (J1453) and Palonosetron (J2469) have been approved 12/31/2022-07/03/2023. Auth # [id number]. Neulasta was withdrawn at this time as chemotherapy plan has a low febrile neutropenia risk.
--- NOTE | 2022-12-30 11:25 | ONC.NURNOTE ---
iNFO FROM [facility], [place]: the liver specimen from 09/2021 # [id number] is an insufficient sample to run for testing per [facility] [place] : Either need Dr Majano's approval to obtain another specimen from a different site, if available: or an order to reflux to a liquid biopsy, if insufficient tumor specimen Contact from [facility] [place] is Tammy Monson ph # [phone] fax [phone]
[2022-12-31 10:07] VITALS: BP 121/73; PULSE 71; RESP 16; TEMP 35.9; O2SAT 96
[2022-12-31 10:32] LABS: Basophils Absolute Auto 0.03 K/uL (0.00-0.30); Basophils Percent Auto 0.4 % (0.0-3.0); Eosinophils Absolute Auto 0.27 K/uL (0.00-0.50); Eosinophils Percent Auto 3.2 % (0.0-7.0); Hematocrit 37.7 % (37.0-53.0); Hemoglobin* 12.1 gm/dL (13.5-17.5); Immature Granulocytes Abs Auto 0.01 K/uL (0.00-0.30); Immature Granulocytes Pct Auto 0.1 %; Lymphocytes Percent Auto 13.5 % (20-44); Mean Corpuscular HGB Conc 32 gm/dL (32-36); Mean Corpuscular Hemoglobin 30 pg (26-34); Mean Corpuscular Volume 93 fL (80-100); Monocytes Percent Auto 12.8 % (0.0-11.0); Neutrophils Absolute Auto 5.87 K/uL (1.7-7.0); Platelet Count* 308 K/uL (140-440); RDW Coefficient of Variation % 13.2 % (11.5-15.5); Red Blood Count 4.05 m/uL (4.30-5.90); White Blood Count* 8.38 K/uL (4.50-11.00)
[2022-12-31 10:42] LABS: Slide Review Reflex No
[2022-12-31 10:49] LABS: Albumin* 3.7 g/dL (3.3-5.0)
[2022-12-31 10:50] LABS: Chloride* 102 mmol/L (96-114); Potassium* 3.7 mmol/L (3.6-5.1); Sodium* 134 mmol/L (135-149)
[2022-12-31 10:52] LABS: Aspartate Amino Transferase* 30 U/L (12-35); Bilirubin Total* 0.5 mg/dL (0.1-1.5); Carbon Dioxide* 22 mmol/L (20-32); Creatinine* 0.8 mg/dL (0.5-1.5); Est. Creatinine Clearance* 59.37; Estimated Glomerular Filt Rate 93 ml/min; Total Protein* 7.3 g/dL (6.0-8.3)
[2022-12-31 10:53] LABS: Alanine Aminotransferase* 21 U/L (4-50); Alkaline Phosphatase* 78 U/L (40-150); Blood Urea Nitrogen* 13 mg/dL (7-30); Calcium* 8.9 mg/dL (8.4-10.6); Glucose* 124 mg/dL (60-115)
[2022-12-31] MEDS: ACETAMINOPHEN 325 MG TABLET 650 MG PO (11:38)
[2022-12-31] MEDS: diphenhydrAMINE 25 MG CAPSULE 50 MG PO (11:38)
[2022-12-31] MEDS: DURVALUMAB 1,500 MG, TUBING PRIMARY 1 EACH, In-line 0.2 micron filter set 1 EACH in 0.9... 280 MG IVPB (11:57)
[2022-12-31] MEDS: PALONOSETRON 0.25 MG/5 ML inj IV (13:04)
[2022-12-31] MEDS: dexAMETHasone 10 MG in 0.9 % SODIUM CHLORIDE 100 ml 100 ML 404 MG IVPB (13:04)
[2022-12-31] MEDS: FOSAPREPITANT 150 MG inj 150 MG in 0.9 % SODIUM CHLORIDE 250 ml 250 ML 780 MG IVPB (13:25)
[2022-12-31] MEDS: GEMCITABINE 2,000 MG, TUBING SECONDARY 1 EACH in 0.9 % SODIUM CHLORIDE 250 ml 250 ML 605.26 MG IV (14:40)
[2022-12-31] MEDS: SODIUM CHLORIDE 0.9 % (FLUSH) 10 ML SYRINGE IVF (15:18)
[2022-12-31] MEDS: HEPARIN 500 UNIT/5 ML SYRINGE IVF (15:18)
[2023-01-01 15:34] LABS: Cortisol, Serum 11.6 ug/dL
--- NOTE | 2023-01-04 09:06 | ONC.NURNOTE ---
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
[2023-01-05 14:53] VITALS: BP 138/77; PULSE 90
[2023-01-05 14:55] VITALS: BP 143/72; PULSE 84; RESP 16; TEMP 36.7; O2SAT 96
[2023-01-05] MEDS: HEPARIN 500 UNIT/5 ML SYRINGE IVF (15:28)
[2023-01-05] MEDS: 5 % DEXTROSE/0.9% SOD CHLORIDE 1,000 ML 500 ML IV (15:28)
[2023-01-05] MEDS: SODIUM CHLORIDE 0.9 % (FLUSH) 10 ML SYRINGE IVF (15:28)
[2023-01-05 15:53] VITALS: BMI 30.8
[2023-01-08] MEDS: SODIUM CHLORIDE 0.9 % (FLUSH) 10 ML SYRINGE IVF (15:23)
[2023-01-08] MEDS: HEPARIN 500 UNIT/5 ML SYRINGE IVF (15:23)
--- NOTE | 2023-01-11 10:47 | ONC.NURNOTE ---
called Endo and faxed order for Aaron to have a paracentesis 01/11 or 01/12.
--- NOTE | 2023-01-11 14:41 | ONC.NURNOTE ---
Patient's daughter called office stating that patient was in [facility] and our ER over the weekend for UTI. She notes that patient was given dose of antibioitic and urgent care sent prescription for bactrim to pharmacy. When family went to warehouse picker prescription today they were told that it was cancelled. They are requesting that prescription be sent. [facility] is not available to help with this, and ER note does not mention ordering this prescrition for patient. Timothy does have PCP, they were instructed to either call his office or call the [facility] urgent [facility] to have them follow up on this. Law Enforcement Director asked about paracentesis, and this is currently scheduled for tomorrow.
--- NOTE | 2023-01-15 09:01 | ONC.NURNOTE ---
Daughter- Courtney phoned in with concerns about her dads status reports generalized abd pain, with distention, very poor appetite and oral intake, weakness daughter with questions about why her father is having so many symptoms if the CT showed improvement headline writer did inform her that there is abdominal mets that are causing his symptoms daughter was recommended to come with her parents to appt next Wednesday to address her questions about disease status headline writer urged Courtney to bring her father in to the ER for evaluation of the increasing abd pain and maybe rehydration if he is not taking much orally daughter states understanding
[2023-01-19 12:31] LABS: Basophils Percent Auto 1.6 % (0.0-3.0); Eosinophils Percent Auto 4.2 % (0.0-7.0); Hematocrit 34.9 % (37.0-53.0); Immature Granulocytes Pct Auto 0.3 %; Lymphocytes Percent Auto 35.8 % (20-44); Mean Corpuscular HGB Conc 32 gm/dL (32-36); Mean Corpuscular Hemoglobin 29 pg (26-34); Mean Corpuscular Volume 93 fL (80-100); Monocytes Percent Auto 26.5 % (0.0-11.0); Neutrophils Percent Auto 31.6 % (42.0-72.0); Platelet Count* 613 K/uL (140-440); RDW Coefficient of Variation % 14.4 % (11.5-15.5); Red Blood Count 3.76 m/uL (4.30-5.90)
[2023-01-19 12:39] LABS: Slide Review Reflex No
[2023-01-19 12:56] LABS: Albumin* 3.5 g/dL (3.3-5.0); Chloride* 105 mmol/L (96-114); Potassium* 3.4 mmol/L (3.6-5.1); Sodium* 137 mmol/L (135-149)
[2023-01-19 12:59] LABS: Alanine Aminotransferase* 33 U/L (4-50); Alkaline Phosphatase* 88 U/L (40-150); Aspartate Amino Transferase* 39 U/L (12-35); Bilirubin Total* 0.3 mg/dL (0.1-1.5); Blood Urea Nitrogen* 8 mg/dL (7-30); Calcium* 8.8 mg/dL (8.4-10.6); Carbon Dioxide* 22 mmol/L (20-32); Creatinine* 0.7 mg/dL (0.5-1.5); Est. Creatinine Clearance* 59.37; Estimated Glomerular Filt Rate 97 ml/min; Glucose* 152 mg/dL (60-115); Total Protein* 7.2 g/dL (6.0-8.3)
[2023-01-22 08:58] VITALS: BP 122/76; PULSE 75; RESP 16; TEMP 36.4; O2SAT 97
[2023-01-22] MEDS: diphenhydrAMINE 25 MG CAPSULE 50 MG PO (09:33)
[2023-01-22] MEDS: ACETAMINOPHEN 325 MG TABLET 650 MG PO (09:34)
[2023-01-22] MEDS: DURVALUMAB 1,500 MG, TUBING PRIMARY 1 EACH, In-line 0.2 micron filter set 1 EACH in 0.9... 280 MG IVPB (10:05)
--- NOTE | 2023-01-22 10:15 | ONC.NURNOTE ---
Aaron states he has been having stomach discomfort since last week. states feels like he needs to burp. states some acid reflex. states passing flatus. abd soft, nondistended. BS normal all 4 quad. states normal stools. states orange juice bothers him. also states has been eating spicey foods. With panel saw operator here, gave pt verbal and written info. on what foods to avoid. Also suggested a [place] and [place] diet. eating and drinking smaller portions more often. encouraged him to call wednesday if no improvement.
[2023-01-22] MEDS: PALONOSETRON 0.25 MG/5 ML inj IV (11:10)
[2023-01-22] MEDS: dexAMETHasone 10 MG in 0.9 % SODIUM CHLORIDE 100 ml 100 ML 404 MG IVPB (11:10)
[2023-01-22] MEDS: FOSAPREPITANT 150 MG inj 150 MG in 0.9 % SODIUM CHLORIDE 250 ml 250 ML 800 MG IVPB (11:34)
--- NOTE | 2023-01-27 16:53 | ONC.NURNOTE ---
155 Aaron daughter called concerned about how he was feeling. She was soon going over to check on him. Enc her to take him to the ER if Abd distention. poss UTI or concerns about his condition. she states he doesnt complain but not feeling well. Karolina Queen APRN aware.
[2023-02-12 09:20] LABS: Basophils Absolute Auto 0.04 K/uL (0.00-0.30); Basophils Percent Auto 0.9 % (0.0-3.0); Eosinophils Percent Auto 8.4 % (0.0-7.0); Hematocrit 35.2 % (37.0-53.0); Hemoglobin* 11.2 gm/dL (13.5-17.5); Immature Granulocytes Abs Auto 0.01 K/uL (0.00-0.30); Immature Granulocytes Pct Auto 0.2 %; Lymphocytes Absolute Auto 1.28 K/uL (0.90-2.90); Lymphocytes Percent Auto 28.2 % (20-44); Mean Corpuscular HGB Conc 32 gm/dL (32-36); Mean Corpuscular Hemoglobin 30 pg (26-34); Mean Corpuscular Volume 93 fL (80-100); Monocytes Percent Auto 22.9 % (0.0-11.0); Neutrophils Percent Auto 39.4 % (42.0-72.0); Platelet Count* 321 K/uL (140-440); RDW Coefficient of Variation % 16.8 % (11.5-15.5); Red Blood Count 3.78 m/uL (4.30-5.90); White Blood Count* 4.54 K/uL (4.50-11.00)
[2023-02-12 09:21] LABS: Slide Review Reflex No
[2023-02-12 09:39] LABS: Albumin* 3.7 g/dL (3.3-5.0); Chloride* 106 mmol/L (96-114)
[2023-02-12 09:40] LABS: Potassium* 3.2 mmol/L (3.6-5.1); Sodium* 140 mmol/L (135-149)
[2023-02-12 09:42] LABS: Alkaline Phosphatase* 92 U/L (40-150); Aspartate Amino Transferase* 36 U/L (12-35); Bilirubin Total* 0.5 mg/dL (0.1-1.5); Blood Urea Nitrogen* 7 mg/dL (7-30); Carbon Dioxide* 23 mmol/L (20-32); Creatinine* 0.7 mg/dL (0.5-1.5); Est. Creatinine Clearance* 59.37; Estimated Glomerular Filt Rate 97 ml/min; Total Protein* 7.3 g/dL (6.0-8.3)
[2023-02-12 09:43] LABS: Alanine Aminotransferase* 23 U/L (4-50); Calcium* 8.8 mg/dL (8.4-10.6); Glucose* 111 mg/dL (60-115)
[2023-02-12 09:49] VITALS: BP 122/76; PULSE 75; RESP 16; TEMP 36.4; O2SAT 97
[2023-02-12] MEDS: diphenhydrAMINE 25 MG CAPSULE 50 MG PO (11:16)
[2023-02-12] MEDS: ACETAMINOPHEN 325 MG TABLET 650 MG PO (11:17)
[2023-02-12] MEDS: DURVALUMAB 1,500 MG, TUBING PRIMARY 1 EACH, In-line 0.2 micron filter set 1 EACH in 0.9... 280 MG IVPB (11:38)
[2023-02-12] MEDS: PALONOSETRON 0.25 MG/5 ML inj IV (12:49)
[2023-02-12] MEDS: dexAMETHasone 10 MG in 0.9 % SODIUM CHLORIDE 100 ml 100 ML 404 MG IVPB (12:49)
[2023-02-12] MEDS: FOSAPREPITANT 150 MG inj 150 MG in 0.9 % SODIUM CHLORIDE 250 ml 250 ML 510 MG IVPB (13:17)
[2023-02-12] MEDS: SODIUM CHLORIDE 0.9 % (FLUSH) 10 ML SYRINGE IVF (14:59)
[2023-02-12] MEDS: HEPARIN 500 UNIT/5 ML SYRINGE IVF (14:59)
[2023-02-12] MEDS: 0.9 % SODIUM CHLORIDE 250 ml IV (14:59)
[2023-02-13 17:17] LABS: Cortisol, Serum 14.5 ug/dL
== END 2023-02-20 23:59 | disposition home or self-care (01) ==
LOC: CCIC 09:00
PROVIDERS: Internal Medicine Hematology & Oncology; Internal Medicine Medical Oncology; PCP Family Medicine; Referring Provider Family Medicine; Visit Provider Clinical Nurse Specialist
DX: Z51.11 Encounter for antineoplastic chemotherapy (principal); C22.1 Intrahepatic bile duct carcinoma; C78.7 Secondary malignant neoplasm of liver and intrahepatic bile duct; R18.8 Other ascites; K21.9 Gastro-esophageal reflux disease without esophagitis; E87.6 Hypokalemia; J44.9 Chronic obstructive pulmonary disease, unspecified
CPT/HCPCS: 36415; 36591; 80053; 81003; 82533; 83735; 84443; 85025; 96360; 96376; 96413; 96415; 96417; 97802; 99211; 99212; 99213; 99214; 99215; T1013; A9270; J1100; J1453; J1642; J2469; J7042; J7050; J9045; J9173; J9201

== ENCOUNTER 2023-04-15 13:17 | Outpatient (CLI) | payer MEDICARE, SELFPAY ==
--- NOTE | 2023-04-15 15:00 | CRLHL7_ITS ---
For Patients: As a result of the Century Cures Act, medical imaging exams and procedure reports are released immediately into your electronic medical record. You may view this report before your referring provider. If you have questions, please contact your health care provider. INDICATION: NAUSEA AND VOMITING TECHNIQUE: CT abdomen and pelvis with 76 cc Isovue 370 IV contrast. COMPARISON: CT chest abdomen pelvis March 18, 2023. FINDINGS: Increased size of metastatic lesion within the inferior right hepatic lobe, measuring 2.5 x 3.4 cm, previously 1.9 x 3.3 cm. Metastatic lesion adjacent to the falciform ligament, measuring 2.5 x 2.2 cm, previously 1.6 x 1.6 cm. Additional metastatic lesions of the liver appear similar in size. Gallbladder and biliary tree are normal. The spleen, adrenal glands and pancreas are within normal limits. The kidneys enhance symmetrically. Unchanged right upper pole renal cyst measuring 1.8 cm. No hydronephrosis. Partially decompressed bladder. No evidence of bowel obstruction. Increased size of moderate volume ascites with enhancing peritoneum. Similar scattered peritoneal nodules again most compatible with carcinomatosis. Studding is item periportal lymph node measuring 2.3 x 2.7 cm, previously 2.1 x 3.5 cm. Moderate aortoiliac atherosclerosis. Similar edematous changes of the pelvic fat. Stable foci of sclerosis within the left hemipelvis. IMPRESSION: 1. Increased size moderate volume malignant ascites throughout the abdomen and pelvis. Similar scattered peritoneal nodules again most compatible with carcinomatosis. 2. Right lower right hepatic lobe metastatic lesion appears slightly increased in size. Other hepatic metastatic lesions appear similar to prior. 3. Increased size of roselyn hepatis lymph node. Please note that all CT scans at this facility use dose modulation, iterative reconstruction, and/or weight-based dosing when appropriate to reduce radiation dose to as low as reasonably achievable. Dictated by Braden Castillo MD @ 04/15/2023 2:37:31 PM (Electronically Signed)
== END 2023-04-15 13:18 | disposition home or self-care (01) ==
LOC: CT 13:17
PROVIDERS: PCP Family Medicine; Visit Provider Physician Assistant
DX: R11.2 Nausea with vomiting, unspecified (principal); I70.0 Atherosclerosis of aorta; R18.0 Malignant ascites; R10.31 Right lower quadrant pain; C22.1 Intrahepatic bile duct carcinoma; C78.7 Secondary malignant neoplasm of liver and intrahepatic bile duct; N40.0 Benign prostatic hyperplasia without lower urinary tract symptoms; R18.8 Other ascites
CPT/HCPCS: 74177; Q9967

== ENCOUNTER 2023-05-17 10:04 | Outpatient (CLI) | payer MEDICARE, SELFPAY | END 2023-05-17 10:05 | disposition home or self-care (01) | LOC: NFLDREF 05-21 15:29 | PROVIDERS: PCP Clinical Nurse Specialist; Referring Provider Clinical Nurse Specialist; Visit Provider Family Medicine | DX: C22.1 Intrahepatic bile duct carcinoma (principal); C78.7 Secondary malignant neoplasm of liver and intrahepatic bile duct; Z51.11 Encounter for antineoplastic chemotherapy | CPT/HCPCS: 80048; 82550; 83735; 84100; 84550; 85025 ==

== ENCOUNTER 2023-05-24 09:08 | Outpatient (REF) | payer MEDICARE, SELFPAY | END 2023-05-24 09:09 | disposition home or self-care (01) | LOC: NFLDREF 09:08 | PROVIDERS: PCP Family Medicine; Referring Provider Family Medicine; Visit Provider Family Medicine | DX: C22.1 Intrahepatic bile duct carcinoma (principal); C78.7 Secondary malignant neoplasm of liver and intrahepatic bile duct | CPT/HCPCS: 80053; 83735; 84100; 84550; 85025 ==

== ENCOUNTER 2023-05-28 11:20 | Observation (INO) | payer MEDICARE, SELFPAY ==
[2023-05-28 11:36] VITALS: BP 113/73; PULSE 100; RESP 14; TEMP 36.4; O2SAT 97
--- NOTE | 2023-05-28 11:42 | ED.NAVMDI ---
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 Patient is noted to have been in chemotherapy with [facility]. Two weeks ago he started on an oral chemotherapy and since that time he has had vomiting and persistent nausea. He was in [facility] today and then sent to the ER for evaluation. Family notes that he has been unable to take his regular medications over the past couple days. He describes any food or water intake as getting stuck in his throat. He states that he has also had more phlegm. He is short of breath with any exertion but denies any significant cough or fever. His daughter also notes that there has been some blood in his urine but has no pain with urination. Family also notes that there has been instance what they are describing his ascites previously but feel that that is improved now. Last night he did have constipation and a suppository did relieve this. He has persistent epigastric pain that has been present since the cancer was diagnosed. Patient does have a nephrology appointment in the near future along with a planned abdominal CT. Family is hoping that we will do the CT today. Associated nausea: Yes (Persistent) Related Data Home Medications Medication Instructions Recorded Confirmed sennosides 8.6 mg capsule (senna) 8.6 mg PO BID 01/19/23 05/28/23 dexamethasone 2 mg tablet 4 mg PO DAILY 05/28/23 05/28/23 dutasteride 0.5 mg capsule 0.5 mg PO DAILY 05/28/23 05/28/23 (Avodart) lorazepam 1 mg tablet 1 mg PO HS PRN sleep 05/28/23 05/28/23 potassium chloride 20 mEq 20 meq PO DAILY 05/28/23 05/28/23 tablet,extended release potassium phosphate, monobasic 500 1,000 mg PO DAILY 05/28/23 05/28/23 mg soluble tablet tamsulosin 0.4 mg capsule (Flomax) 0.4 mg PO DAILY 05/28/23 05/28/23 Previous Rx's Medication Instructions Recorded albuterol sulfate 90 mcg/actuation 2 puff inhalation Q4-6H PRN 06/24/22 aerosol inhaler shortness of breath or wheezing #8.5 grams ibuprofen 800 mg tablet 800 mg PO TID PRN pain #90 tabs 07/20/22 ipratropium 0.5 mg-albuterol 3 mg 3 ml inhalation QID #180 mL 08/19/22 (2.5 mg base)/3 mL nebulization soln fluticasone 250 mcg-salmeterol 50 1 inh inhalation BID #60 ea 11/02/22 mcg/dose blistr powdr for inhalation (Advair Diskus) metoclopramide HCl 10 mg tablet 10 mg PO .COMPLEX nausea and 03/25/23 vomiting #120 tabs omeprazole 20 mg capsule,delayed 20 mg PO BID #180 caps 04/06/23 release prochlorperazine 25 mg rectal 25 mg ID BID PRN nausea and 04/15/23 suppository (Compazine) vomiting #12 ea magnesium oxide 400 mg (241.3 mg 400 mg PO DAILY leg cramps #120 04/19/23 magnesium) tablet tabs ivosidenib 250 mg tablet 500 mg (2 x 250 mg) PO QDAY #30 04/22/23 tabs polyethylene glycol 3350 17 4 g PO DIRECTED constipation 04/29/23 gram/dose oral powder (Miralax) #238 grams oxycodone 10 mg tablet 10 mg PO QID PRN pain #120 tabs 05/19/23 Allergies Allergy/AdvReac Type Severity Reaction Status Date / Time No Known Drug Allergies Allergy Verified 05/28/23 11:36 Review of Systems Status of ROS: Reports: 10 or more systems reviewed and unremarkable except as noted in History and below Const: Reports: chills (Yesterday) and fatigue; Denies: fever Eyes: Denies: change in vision ENMT: Reports: difficulty swallowing and dry mouth; Denies: throat pain, neck pain, hoarseness, nasal discharge or nasal congestion Cardio: Reports: shortness of breath with exertion (With activity); Denies: chest pain, swelling of feet/ankles or lightheadedness Resp: Reports: shortness of breath (With activity); Denies: cough or wheezing GI: Reports: abdominal pain (Persistent and epigastric), nausea (Persistent), vomiting (3 episodes last night.), constipation (Last evening relieved by suppository) and difficulty swallowing; Denies: diarrhea (Nonbloody) or bloating : Reports: blood in urine; Denies: painful urination or urinary frequency Musculo: Denies: neck pain Integ/Breast: Denies: rash Neuro: Denies: headache Endo: Reports: fatigue; Denies: excessive urination Allergy/Immuno: Denies: wheezing [facility] Medical History Hypophosphatemia ?E83.39 - Other disorders of phosphorus metabolism (ICD-10) Peritoneal carcinomatosis ?C78.6 - Secondary malignant neoplasm of retroperitoneum and peritoneum (ICD-10) Type 2 diabetes mellitus, without long-term current use of insulin ?E11.9 - Type 2 diabetes mellitus without complications (ICD-10) Bilateral cataracts ?H26.9 - Unspecified cataract (ICD-10) BPH (benign prostatic hyperplasia) ?N40.0 - Benign prostatic hyperplasia without lower urinary tract symptoms (ICD-10) Neutropenia ?D70.9 - Neutropenia, unspecified (ICD-10) Nocturia ?R35.1 - Nocturia (ICD-10) COVID-19 in immunocompromised patient ?U07.1 - COVID-19 (ICD-10) ?D84.9 - Immunodeficiency, unspecified (ICD-10) Alcohol use ?Z72.89 - Other problems related to lifestyle (ICD-10) Recurrent tinea pedis ?B35.3 - Tinea pedis (ICD-10) Colonic polyp ?K63.5 - Polyp of colon (ICD-10) COPD (chronic obstructive pulmonary disease) ?J44.9 - Chronic obstructive pulmonary disease, unspecified (ICD-10) Chronic low back pain ?M54.50 - Low back pain, unspecified (ICD-10) ?G89.29 - Other chronic pain (ICD-10) 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 ?C22.1 - Intrahepatic bile duct carcinoma (ICD-10) ?C78.7 - Secondary malignant neoplasm of liver and intrahepatic bile duct (ICD-10) Surgical History History of abdominal paracentesis ?Z98.890 - Other specified postprocedural states (ICD-10) Hx of cataract surgery ?Z98.49 - Cataract extraction status, unspecified eye (ICD-10) Social History Narrative: , retired, former smoker, previous significant alcohol use Smoking Status: Former smoker Do you use any of these nicotine containing products: None How often do you have a drink containing alcohol: never How often do you have six or more drinks on one occasion: Never AUDIT-C Alcohol total score: 0 Non-prescribed substance use: denies use Little interest or pleasure in doing things: nearly every day Feeling down, depressed, or hopeless: nearly every day service: No Exam Narrative: Exam Narrative: Patient is alert and oriented. He is cachectic in appearance but nontoxic. Eyes are clear. Oral cavity with tacky mucous membranes. Poor dentition. Neck is supple. Heart with a regular rate and rhythm. Lungs are clear. Abdomen shows a firm mass in the mid aspect of the abdomen. This does appear to increased discomfort with palpation. Bowel sounds are present. Lower extremities without edema or calf tenderness. Moving all extremities. Const: Vital Signs, click to edit/add: Vital Signs - 24 hr 05/28/23 11:36 Temperature 97.6 F Pulse Rate [Pulse Oximeter] 100 Respiratory Rate 14 Blood Pressure [Le ft Upper Arm] 113/73 Pulse Oximetry 97 Oxygen Delivery Me thod Room Air Documenting provider has reviewed patient's vital signs: yes Course Course ED Course: Differential diagnosis includes but is not limited to chemotherapy reaction, bowel obstruction, metastases, sepsis. Will give 500 mL normal saline Ativan 0.25 mg for nausea at this time. Will check CBC, comprehensive, CRP, lactate, urinalysis, magnesium. Plan on chest and abdominal CT with contrast. 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 Clifford can have a Coke and water and I do agree to this. He is given Ativan 0.25 mg IV for nausea. Reevaluation #2: Patient has not had any doses of his pain medication and we did give him 4 mg of morphine. He states that helped tremendously and he was able to close his eyes for a small period of time. Vital Signs Vital signs: Initial Vital Signs Temperature 97.6 F 05/28/23 11:36 Temperature Source Temporal Artery Scan 05/28/23 11:36 Pulse Rate 100 05/28/23 11:36 Respiratory Rate 14 05/28/23 11:36 Blood Pressure 113/73 05/28/23 11:36 Blood Pressure Mean 86 05/28/23 11:36 Blood Pressure Position Semi-Fowlers 05/28/23 11:36 Pulse Oximetry 97 05/28/23 11:36 Oxygen Delivery Method Room Air 05/28/23 11:36 Vital Signs Temperature 97.6 F 05/28/23 11:36 Pulse Rate 100 05/28/23 11:36 Respiratory Rate 14 05/28/23 11:36 Blood Pressure 113/73 05/28/23 11:36 Pulse Oximetry 97 05/28/23 11:36 Oxygen Delivery Method Room Air 05/28/23 11:36 Temperature 97.6 F 05/28/23 11:36 Pulse Rate 100 05/28/23 11:36 Respiratory Rate 14 05/28/23 11:36 Blood Pressure 113/73 05/28/23 11:36 Pulse Oximetry 97 05/28/23 11:36 Oxygen Delivery Method Room Air 05/28/23 11:36 Medications Administered Medications: Discontinued Medications Generic Name Dose Route Start Last Admin Trade Name Freq PRN Reason Stop Dose Admin Sodium Chloride 500 mls @ 500 mls/hr 05/28/23 11:52 05/28/23 14:34 0.9 % Sodium Chloride 500 Ml IV 05/28/23 12:51 Infused .Q1H ONE Infusion Sodium Chloride 1,000 mls @ 1,000 mls/hr 05/28/23 13:07 05/28/23 14:00 0.9 % Sodium Chloride 1000 Ml IV 05/28/23 14:06 1,000 mls/hr .Q1H [place] Administration Ceftriaxone Sodium 1 gm/ 100 mls @ 200 mls/hr 05/28/23 13:56 05/28/23 14:18 Sodium Chloride IVPB 05/28/23 13:57 200 mls/hr ONCE ONE Administration Lorazepam 0.25 mg 05/28/23 11:56 05/28/23 12:52 Lorazepam 2 Mg/Ml Inj IVP 05/28/23 11:57 0.25 mg ONCE ONE Administration Morphine Sulfate 4 mg 05/28/23 12:18 05/28/23 12:52 Morphine 4 Mg/Ml Inj IVP 05/28/23 12:19 4 mg ONCE ONE Administration MDM - Nausea/Vomiting/Diarrhea MDM Narrative Medical decision making narrative: 1. Pneumonia-this could be aspiration or bacterial. Patient has tested negative for COVID/influenza/RSV. Discussion with hospitalist. We will be using ceftriaxone 1 g IV at this time. I do not believe we are in aseptic situation. Of lactate elevated secondary to bowel compression and metastatic cancer to liver. Patient is afebrile at this time. Lab abnormalities secondary to ascites most likely. 2. Ascites-there is a fluid collection anteriorly that is causing compression of the bowel. Discussion with surgery regarding potential removal. Patient does not have exquisite tenderness nor fever but certainly must consider SBP. 3. Cholangiosarcoma-currently doing 2 weeks of oral chemotherapy. Care for by [facility] 4. Abdominal pain-pain is been controlled with morphine 4 mg and nausea has been helped with Ativan 0.25 mg. 5. Disposition-admit under the care of hospitalist Dr. Contreras. Medical Records Attestation: I reviewed the patient's medical records. Lab Data Attestation: I reviewed the patient's lab results. Labs: Lab Results 05/28/23 05/28/23 Range/Units 12:15 12:25 WBC 12.31 H (4.50-11.00) K/uL RBC 4.08 L (4.30-5.90) m/uL Hgb 13.1 L (13.5-17.5) gm/dL Hct 41.5 (37.0-53.0) % MCV 102 H (80-100) fL MCH 32 (26-34) pg MCHC 32 (32-36) gm/dL RDW Coeff of Andres 17.9 H (11.5-15.5) % Plt Count 161 (140-440) K/uL Neut % (Auto) 80.8 H (42.0-72.0) % Lymph % (Auto) 9.3 L (20-44) % Roosevelt % (Auto) 9.0 (0.0-11.0) % Eos % (Auto) 0.2 (0.0-7.0) % Baso % (Auto) 0.2 (0.0-3.0) % Neut # (Auto) 9.90 H (1.7-7.0) K/uL Lymph # (Auto) 1.10 (0.90-2.90) K/uL Roosevelt # (Auto) 1.10 H (0.00-0.90) K/UL Eos # (Auto) 0.00 (0.00-0.50) K/uL Baso # (Auto) 0.00 (0.00-0.30) K/uL Abs Immat Gran (auto) 0.10 (0.00-0.30) K/uL Imm/Tot Granulo (auto) 0.5 % Sodium 144 (135-149) mmol/L Potassium 3.6 (3.6-5.1) mmol/L Chloride 112 (96-114) mmol/L Carbon Dioxide 21 (20-32) mmol/L Anion Gap 11 (7-15) mEq/L BUN 24 (7-30) mg/dL Creatinine 1.1 (0.5-1.5) mg/dL Estimated GFR 71 ml/min Glucose 155 H (60-115) mg/dL Lactate 4.1 H* (0.5-1.9) mmol/L Calcium 9.4 (8.4-10.6) mg/dL Magnesium 1.6 (1.5-2.6) mg/dL Total Bilirubin 2.0 H (0.1-1.5) mg/dL AST 35 (12-35) U/L ALT 39 (4-50) U/L Alkaline Phosphatase 139 (40-150) U/L C-Reactive Protein 16.5 H (0.5-1.0) mg/dL Total Protein 6.8 (6.0-8.3) g/dL Albumin 3.5 (3.3-5.0) g/dL Lipase 28 (23-300) U/L SARS-CoV-2 (PCR) Negative SARS-CoV-2 (Negative) Influenza Type A (PCR) Negative PCR FLU A (Negative) Influenza Type B (PCR) Negative PCR FLU B (Negative) RSV (PCR) Negative PCR RSV (Negative) Imaging Data CT Chest/Ab/Pelvis: Attestation: I have reviewed the pertinent imaging results. Radiologist's impression: Lungs and Airways: Bilateral middle and lower lobe predominant areas centrilobular nodular opacities and tree-in-bud nodular airspace opacities. No endoluminal lesion. Heart and Mediastinum: Small left thyroid nodule. No axillary or supraclavicular lymphadenopathy. No mediastinal, hilar or retrocrural lymphadenopathy. Normal heart size. Normal caliber aorta. Atherosclerotic calcifications. Pleura: The pleural spaces are normal. ABDOMEN: Liver: Relatively atrophic left hepatic lobe. Redemonstration of hypoenhancing lesions within the liver as well as left hepatic lobe lesion with more peripheral enhancement. Stable. Gallbladder and biliary: Normal gallbladder without radiopaque stone. Normal caliber bile ducts. Spleen: Normal size and enhancement. Pancreas: Normal enhancement without peripancreatic inflammatory changes or ductal dilatation. Adrenal glands: Normal adrenal glands. Kidneys and ureters: Striated nephrogram in the left kidney. No hydroureteronephrosis. Left renal cyst. GI tract: Stomach is partially distended with fluid and air. Normal caliber small and large bowel loops. Appendix is not definitively visualized. Vascular structures: Normal caliber aorta with atherosclerotic calcifications. Lymph nodes: Scattered mesenteric nodular foci as well as peritoneal nodules with associated large volume abdominal free fluid. Mild peripheral peritoneal wall enhancement with thickening. Fluid causes mass effect on bowel loops. Peritoneum: No free air. PELVIS: Genitourinary system: Urinary bladder is decompressed. Small nodule within the urinary bladder axial image 116, indeterminate. SKELETAL STRUCTURES AND SOFT TISSUES: Tiny sclerotic foci within the pelvis. Heterotopic ossification abutting the ischial tuberosities likely reflecting remote hamstrings injuries. Bilateral SI joint arthrosis. Stable T7 vertebral body lesion. IMPRESSION: 1. New bilateral middle and lower lobe predominant centrilobular, and tree-in-bud nodular opacities throughout the parenchyma. Constellation of findings are concerning for multifocal pneumonia versus less likely aspiration. 2. No discrete worsening disease within the chest, abdomen, or pelvis. Stable multifocal hepatic metastases and peritoneal carcinomatosis. 3. Interval increase in size of now large volume abdominal free fluid. This causes mass effect on adjacent bowel loops and stomach. Please note that all CT scans at this facility use dose modulation, iterative reconstruction, and/or weight-based dosing when appropriate to reduce radiation dose to as low as reasonably achievable. Dictated by Lamine Espinoza MD @ 05/28/2023 1:32:29 PM (Electronically Signed) Discharge Plan Discharge Clinical Impression: Cholangiocarcinoma metastatic to liver Type 2 diabetes mellitus, without long-term current use of insulin Qualifiers: Diabetes mellitus complication status: without complication Qualified Code(s): E11.9 - Type 2 diabetes mellitus without complications Abdominal pain Qualifiers: Abdominal location: unspecified location Qualified Code(s): R10.9 - Unspecified abdominal pain Pneumonia Qualifiers: Pneumonia type: due to unspecified organism Laterality: unspecified laterality Lung location: unspecified part of lung Qualified Code(s): J18.9 - Pneumonia, unspecified organism Patient Disposition: Admitted As Observation Condition: Improved
--- NOTE | 2023-05-28 11:52 | CRLHL7_ITS ---
For Patients: As a result of the Century Cures Act, medical imaging exams and procedure reports are released immediately into your electronic medical record. You may view this report before your referring provider. If you have questions, please contact your health care provider. INDICATION: Cholangiocarcinoma, vomiting TECHNIQUE: CT chest, abdomen and pelvis acquired 69 milliliters Isovue 370 contrast. COMPARISON: Exams dating back to January 2023 FINDINGS: CHEST: Lungs and Airways: Bilateral middle and lower lobe predominant areas centrilobular nodular opacities and tree-in-bud nodular airspace opacities. No endoluminal lesion. Heart and Mediastinum: Small left thyroid nodule. No axillary or supraclavicular lymphadenopathy. No mediastinal, hilar or retrocrural lymphadenopathy. Normal heart size. Normal caliber aorta. Atherosclerotic calcifications. Pleura: The pleural spaces are normal. ABDOMEN: Liver: Relatively atrophic left hepatic lobe. Redemonstration of hypoenhancing lesions within the liver as well as left hepatic lobe lesion with more peripheral enhancement. Stable. Gallbladder and biliary: Normal gallbladder without radiopaque stone. Normal caliber bile ducts. Spleen: Normal size and enhancement. Pancreas: Normal enhancement without peripancreatic inflammatory changes or ductal dilatation. Adrenal glands: Normal adrenal glands. Kidneys and ureters: Striated nephrogram in the left kidney. No hydroureteronephrosis. Left renal cyst. GI tract: Stomach is partially distended with fluid and air. Normal caliber small and large bowel loops. Appendix is not definitively visualized. Vascular structures: Normal caliber aorta with atherosclerotic calcifications. Lymph nodes: Scattered mesenteric nodular foci as well as peritoneal nodules with associated large volume abdominal free fluid. Mild peripheral peritoneal wall enhancement with thickening. Fluid causes mass effect on bowel loops. Peritoneum: No free air. PELVIS: Genitourinary system: Urinary bladder is decompressed. Small nodule within the urinary bladder axial image 116, indeterminate. SKELETAL STRUCTURES AND SOFT TISSUES: Tiny sclerotic foci within the pelvis. Heterotopic ossification abutting the ischial tuberosities likely reflecting remote hamstrings injuries. Bilateral SI joint arthrosis. Stable T7 vertebral body lesion. IMPRESSION: 1. New bilateral middle and lower lobe predominant centrilobular, and tree-in-bud nodular opacities throughout the parenchyma. Constellation of findings are concerning for multifocal pneumonia versus less likely aspiration. 2. No discrete worsening disease within the chest, abdomen, or pelvis. Stable multifocal hepatic metastases and peritoneal carcinomatosis. 3. Interval increase in size of now large volume abdominal free fluid. This causes mass effect on adjacent bowel loops and stomach. Please note that all CT scans at this facility use dose modulation, iterative reconstruction, and/or weight-based dosing when appropriate to reduce radiation dose to as low as reasonably achievable. Dictated by Lamine Espinoza MD @ 05/28/2023 1:32:29 PM (Electronically Signed)
[2023-05-28 12:27] LABS: Basophils Percent Auto 0.2 % (0.0-3.0); Eosinophils Percent Auto 0.2 % (0.0-7.0); Hematocrit 41.5 % (37.0-53.0); Hemoglobin* 13.1 gm/dL (13.5-17.5); Immature Granulocytes Pct Auto 0.5 %; Lactate* 4.1 mmol/L (0.5-1.9); Lymphocytes Percent Auto 9.3 % (20-44); Mean Corpuscular HGB Conc 32 gm/dL (32-36); Mean Corpuscular Hemoglobin 32 pg (26-34); Mean Corpuscular Volume 102 fL (80-100); Neutrophils Percent Auto 80.8 % (42.0-72.0); Platelet Count* 161 K/uL (140-440); RDW Coefficient of Variation % 17.9 % (11.5-15.5); Red Blood Count 4.08 m/uL (4.30-5.90); White Blood Count* 12.31 K/uL (4.50-11.00)
[2023-05-28 12:29] LABS: Slide Review Reflex No
[2023-05-28 12:40] LABS: Albumin* 3.5 g/dL (3.3-5.0); Chloride* 112 mmol/L (96-114)
[2023-05-28 12:41] LABS: Potassium* 3.6 mmol/L (3.6-5.1); Sodium* 144 mmol/L (135-149)
[2023-05-28 12:43] LABS: Creatinine* 1.1 mg/dL (0.5-1.5); Estimated Glomerular Filt Rate 71 ml/min
[2023-05-28 12:44] LABS: Alanine Aminotransferase* 39 U/L (4-50); Alkaline Phosphatase* 139 U/L (40-150); Anion Gap 11 mEq/L (7-15); Aspartate Amino Transferase* 35 U/L (12-35); Blood Urea Nitrogen* 24 mg/dL (7-30); Carbon Dioxide* 21 mmol/L (20-32); Glucose* 155 mg/dL (60-115); Lipase* 28 U/L (23-300); Total Protein* 6.8 g/dL (6.0-8.3)
[2023-05-28 12:45] LABS: Calcium* 9.4 mg/dL (8.4-10.6); Magnesium* 1.6 mg/dL (1.5-2.6)
[2023-05-28] MEDS: 0.9 % SODIUM CHLORIDE 500 ML 500 ML IV (12:50)
[2023-05-28] MEDS: LORazepam 2 MG/ML inj 0.25 MG IVP (12:52)
[2023-05-28] MEDS: MORPHINE 4 MG/ML INJ IVP ×2 (12:52→21:47)
[2023-05-28 13:04] LABS: C Reactive Protein* 16.5 mg/dL (0.5-1.0)
[2023-05-28 13:07] LABS: PCR FLU A Negative PCR FLU A (Negative); PCR FLU B Negative PCR FLU B (Negative); PCR RSV Negative PCR RSV (Negative)
[2023-05-28 13:09] LABS: SARS PCR* Negative SARS-CoV-2 (Negative)
--- NOTE | 2023-05-28 13:30 | ED.NURSE ---
with elevated lactate, MD ordered additional liter at 1000ml/hr. followed up with MD, MD gave verbal to increase rate on first 500ml bag.
[2023-05-28] MEDS: 0.9 % SODIUM CHLORIDE 1000 ml 1,000 ML IV (14:00)
[2023-05-28] MEDS: cefTRIAXone 1 GM in 0.9 % SODIUM CHLORIDE Mini-bag 100 ML IVPB (14:18)
[2023-05-28 14:34] LABS: Appearance Urine Clear (Clear); Bilirubin Urine 1+ (Negative); Blood Urine Negative (Negative); Color Urine Yellow (Yellow); Glucose Urine Negative (Negative); Ketones Urine Negative (Negative); Leukocyte Esterase Urine Negative (Negative); Nitrite Urine Negative (Negative); Protein Urine 1+ (Negative)
--- NOTE | 2023-05-28 14:52 | ED.NURSE ---
Nurse to nurse report given to Med/surg. pt family called and updated from the move to room 260.
[2023-05-28 15:17] LABS: Bacteria Urine Few; Squamous Epithelial Cell Urine Few (None-Few)
--- NOTE | 2023-05-28 15:28 | P.IMHP_ITS ---
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 Unable to consume food or beverage due to a sense of esophageal dysphagia without odynophagia. At times feels there is more phlegm in throat also. Denies dyspnea at rest. Acknowledges dyspnea with exertion which is not new. Denies chest heaviness, pressure, tightness, or pain. Has chronic epigastric discomfort. Denies fever, rigors, diaphoresis. Denies dysuria, urgency, frequency, hematuria. Denies diarrhea. Denies skin infection or wounds or rash. Being treated through Medical Oncology, Dr. Majano. Despite his oncologist having recommended hospice care, the patient wishes to continue treatment of his cancer. He has been on ivosidenib 500 mg daily for weeks and wishes to continue the same with intermittent IV fluids and scans. Tentative plan is to rescanned patient in mid May and assess if there is improvement in his condition. Additional decisions will be made after this subsequent scan. Review of Systems Status of ROS: Reports: 10 or more systems reviewed and unremarkable except as noted in History and below Narrative: Patient requests full resuscitation in the event of cardiopulmonary demise. 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 [facility] Medical History (Updated 05/28/23 @ 16:00 by Parmjit Lemus MD) Hypophosphatemia ?E83.39 - Other disorders of phosphorus metabolism (ICD-10) Peritoneal carcinomatosis ?C78.6 - Secondary malignant neoplasm of retroperitoneum and peritoneum (ICD- 10) Type 2 diabetes mellitus, without long-term current use of insulin ?E11.9 - Type 2 diabetes mellitus without complications (ICD-10) Bilateral cataracts ?H26.9 - Unspecified cataract (ICD-10) BPH (benign prostatic hyperplasia) ?N40.0 - Benign prostatic hyperplasia without lower urinary tract symptoms (ICD-10) Neutropenia ?D70.9 - Neutropenia, unspecified (ICD-10) Nocturia ?R35.1 - Nocturia (ICD-10) COVID-19 in immunocompromised patient ?U07.1 - COVID-19 (ICD-10) ?D84.9 - Immunodeficiency, unspecified (ICD-10) Alcohol use ?Z72.89 - Other problems related to lifestyle (ICD-10) Recurrent tinea pedis ?B35.3 - Tinea pedis (ICD-10) Colonic polyp ?K63.5 - Polyp of colon (ICD-10) COPD (chronic obstructive pulmonary disease) ?J44.9 - Chronic obstructive pulmonary disease, unspecified (ICD-10) Chronic low back pain ?M54.50 - Low back pain, unspecified (ICD-10) ?G89.29 - Other chronic pain (ICD-10) PPD positive ?R76.11 - Nonspecific reaction to tuberculin skin test without active tub erculosis (ICD-10) MRSA (methicillin resistant Staphylococcus aureus) ?A49.02 - Methicillin resistant Staphylococcus aureus infection, unspecified site (ICD-10) Helicobacter pylori (H. 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 ?C22.1 - Intrahepatic bile duct carcinoma (ICD-10) ?C78.7 - Secondary malignant neoplasm of liver and intrahepatic bile duct (ICD-10) Surgical History History of abdominal paracentesis ?Z98.890 - Other specified postprocedural states (ICD-10) Hx of cataract surgery ?Z98.49 - Cataract extraction status, unspecified eye (ICD-10) Social History Narrative: , retired, former smoker, previous significant alcohol use Smoking Status: Former smoker Do you use any of these nicotine containing products: None How often do you have a drink containing alcohol: never How often do you have six or more drinks on one occasion: Never AUDIT-C Alcohol total score: 0 Non-prescribed substance use: denies use Little interest or pleasure in doing things: nearly every day Feeling down, depressed, or hopeless: nearly every day service: No Meds Home Medications and Allergies Home Medications Medication Instructions Recorded Confirmed Type sennosides 8.6 mg capsule (senna) 8.6 mg PO BID 01/19/23 05/28/23 History dexamethasone 2 mg tablet 4 mg PO DAILY 05/28/23 05/28/23 History dutasteride 0.5 mg capsule 0.5 mg PO DAILY 05/28/23 05/28/23 History (Avodart) lorazepam 1 mg tablet 1 mg PO HS PRN sleep 05/28/23 05/28/23 History potassium chloride 20 mEq 20 meq PO DAILY 05/28/23 05/28/23 History tablet,extended release potassium phosphate, monobasic 500 1,000 mg PO DAILY 05/28/23 05/28/23 History mg soluble tablet tamsulosin 0.4 mg capsule (Flomax) 0.4 mg PO DAILY 05/28/23 05/28/23 History Home Medication Comments: Iviidenib 500 mg daily for cancer therapy Allergies Allergy/AdvReac Type Severity Reaction Status Date / Time No Known Drug Allergies Allergy Verified 05/28/23 11:36 Exam Narrative: Exam Narrative: Appears ill. Sleepy. Easily arousable with calling his name and touching his hand. Vision and hearing are both grossly normal. Speaks Mexican fluently. Alert and oriented to self, place, time, situation. Friendly, cooperative. Appears appropriately anxious and scared. Normal tympanic membranes. Normal nasal mucosa. Dry buccal mucosa. Multiple missing teeth. No head neck lymphadenopathy. Midline trachea. Supple neck. Barrel shaped chest. Lungs are clear without wheezing, rhonchi, or rales. Heart tones with regular rhythm. Tachycardia. PMI not laterally displaced. Abdomen it is protuberant with ascites. Abdomen feels lumpy to palpation. Discomfort to palpation without rebound or guarding. Extremities without edema. Palpable pulses upper and lower extremities. Moves all 4 extremities. Cranial nerves 3-12 grossly normal. Skin is warm, dry, intact. No petechiae, rashes, or cyanosis. Const: Vital Signs, click to edit/add: Vital Signs - 24 hr 05/28/23 11:36 Temperature 97.6 F Pulse Rate [Pulse Oximeter] 100 Respiratory Rate 14 Blood Pressure [Le ft Upper Arm] 113/73 Pulse Oximetry 97 Oxygen Delivery Me thod Room Air Hospitalist - H&P: Result Labs Labs: Short CBC 05/28/23 Range/Units 12:15 WBC 12.31 H (4.50-11.00) K/uL Hgb 13.1 L (13.5-17.5) gm/dL Hct 41.5 (37.0-53.0) % Plt Count 161 (140-440) K/uL BMP 05/28/23 12:15 Sodium 144 Potassium 3.6 Chloride 112 Carbon Dioxide 21 BUN 24 Creatinine 1.1 Glucose 155 H Calcium 9.4 Liver Function 05/28/23 Range/Units 12:15 Total Bilirubin 2.0 H (0.1-1.5) mg/dL AST 35 (12-35) U/L ALT 39 (4-50) U/L Alkaline Phosphatase 139 (40-150) U/L Albumin 3.5 (3.3-5.0) g/dL Urine 05/28/23 Range/Units 11:52 Urine Color Yellow (Yellow) Urine Appearance Clear (Clear) Urine pH 6.0 (5.0-8.5) Ur Specific [place] 1.010 (1.000-1.030) Urine Protein 1+ A (Negative) Urine Glucose (UA) Negative (Negative) Imaging CT Chest/Ab/Pelvis: Attestation: I have reviewed the pertinent imaging results. Radiologist's impression: IMPRESSION: 1. New bilateral middle and lower lobe predominant centrilobular, and tree-in-bud nodular opacities throughout the parenchyma. Constellation of findings are concerning for multifocal pneumonia versus less likely aspiration. 2. No discrete worsening disease within the chest, abdomen, or pelvis. Stable multifocal hepatic metastases and peritoneal carcinomatosis. 3. Interval increase in size of now large volume abdominal free fluid. This causes mass effect on adjacent bowel loops and stomach. Assessment and Plan Assessment and plan (1) Nausea & vomiting: Problem comment: -suspicious that this is related to the metastatic cholangiocarcinoma metastatic to liver. Will check for Helicobacter pylori antigen. Continue with PPI therapy. -IV fluids -clear liquids as tolerated -antiemetics as needed Status: Acute (2) Ascites: Problem comment: -recommend diagnostic and therapeutic paracentesis. Patient agreeable. Discussed with general surgeon, Dr. Rizzo, who will see patient in consultation. - assess for possible spontaneous bacterial peritonitis. Treat with empiric ceftriaxone for now. Status: Acute (3) Peritoneal carcinomatosis: Problem comment: - 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 Currently treated with ivosidenib 500 mg daily - oncologist has recommended hospice, but patient requests continued treatments. Oncologists will continue to work with patient in this regard. Status: Acute (4) Abdominal pain: Problem comment: - most likely related to metastatic cholangiocarcinomatosis and associated ascites - general surgery will consult to consider possible diagnostic and therapeutic paracentesis, assess for possible spontaneous bacterial peritonitis Status: Acute (5) Pulmonary infiltrates: Problem comment: -differential diagnosis: Pneumonia, aspiration, metastatic cholangiocarcinomatosis -ceftriaxone 1 g IV q.12, azithromycin 500 mg IV Q day -possible sepsis. Check blood cultures. Monitor lactate. IV fluids. Status: Acute (6) Dehydration: Problem comment: -IV fluids -monitor lactate Status: Acute (7) Cholangiocarcinoma metastatic to liver: Problem comment: pMMR, HER2 negative, IDH1 mutant Status: Acute Plan 1. As stated above.
[2023-05-28 15:39] LABS: Lactate* 2.4 mmol/L (0.5-1.9)
[2023-05-28 16:23] LABS: Procalcitonin* 4.21 ng/mL (<0.50)
[2023-05-28 16:36] VITALS: BP 116/81; PULSE 101; RESP 18; TEMP 36.5; O2SAT 95; BMI 22.8
[2023-05-28] MEDS: AZITHROMYCIN 500 MG in 0.9 % SODIUM CHLORIDE 250 ml 250 ML 255 MG IVPB (17:03)
[2023-05-28] MEDS: PANTOPRAZOLE SODIUM 40 MG INJ IVP (17:03)
[2023-05-28] MEDS: ONDANSETRON 2 MG/ML inj 4 MG IVP (17:25)
--- NOTE | 2023-05-28 19:40 | PC.NURSE ---
End of Shift [id number] - Pt arrived from ED at approximately 1500. Tolerating ice chips and some liquids. Pt denied pain, SOB at rest, headache. Pt reported feeling dizziness and nausea that would increase and subside. Pt reported feeling like something was in his throat when nausea would increase. Intervention given per AUG for nausea, with noted improvement. Pt up with standby assistance in room to bathroom. Continent of bladder, void x 1 on shift. VSS, tolerating RA. Family at bedside. Pt appears fatigued and is observed to be resting comfortably at bedside.
[2023-05-28] MEDS: 0.9 % SODIUM CHLORIDE 1000 ml 1,000 ML 500 ML IV (19:53)
[2023-05-28 19:55] VITALS: BP 108/74; PULSE 79; RESP 16; TEMP 36.5; O2SAT 96
[2023-05-28] MEDS: 0.9 % SODIUM CHLORIDE 1000 ml 1,000 ML 125 ML IV (22:04)
[2023-05-28 23:00] VITALS: BP 105/69; PULSE 74; RESP 16; TEMP 36.1; O2SAT 94
[2023-05-29] VITALS (8 sets, daily range): BP systolic 99–125; BP diastolic 57–80; PULSE 14–75; RESP 14–18; TEMP 36.3–36.8; O2SAT 94–97
[2023-05-29] MEDS: MORPHINE 4 MG/ML INJ IVP (03:14)
[2023-05-29] MEDS: OMEPRAZOLE 20 MG CAPSULE DR 40 MG PO (06:04)
[2023-05-29] MEDS: HEPARIN 500 UNIT/5 ML SYRINGE IVF ×2 (06:12→20:55)
[2023-05-29 06:18] LABS: HCO3 VBG 24 mmol/L (21-28); Lactate* 1.2 mmol/L (0.5-1.9); PCO2 VBG 41 mmHG (40-50); PO2 VBG 44.5 mmHG (25-47); pH VBG 7.374 (7.32-7.43)
[2023-05-29 06:25] LABS: Basophils Absolute Auto 0.02 K/uL (0.00-0.30); Basophils Percent Auto 0.2 % (0.0-3.0); Eosinophils Absolute Auto 0.17 K/uL (0.00-0.50); Eosinophils Percent Auto 2.1 % (0.0-7.0); Hematocrit 32.2 % (37.0-53.0); Hemoglobin* 9.9 gm/dL (13.5-17.5); Immature Granulocytes Abs Auto 0.06 K/uL (0.00-0.30); Immature Granulocytes Pct Auto 0.7 %; Lymphocytes Percent Auto 11.6 % (20-44); Mean Corpuscular HGB Conc 31 gm/dL (32-36); Mean Corpuscular Hemoglobin 32 pg (26-34); Mean Corpuscular Volume 105 fL (80-100); Monocytes Percent Auto 7.8 % (0.0-11.0); Neutrophils Percent Auto 77.6 % (42.0-72.0); Platelet Count* 119 K/uL (140-440); Red Blood Count 3.08 m/uL (4.30-5.90); White Blood Count* 8.19 K/uL (4.50-11.00)
[2023-05-29 06:27] LABS: Slide Review Reflex No
[2023-05-29 06:43] LABS: Chloride* 117 mmol/L (96-114); Potassium* 3.1 mmol/L (3.6-5.1); Sodium* 144 mmol/L (135-149)
[2023-05-29 06:45] LABS: Creatinine* 0.8 mg/dL (0.5-1.5); Est. Creatinine Clearance* 61.51; Estimated Glomerular Filt Rate 93 ml/min; Lipase* 24 U/L (23-300)
[2023-05-29 06:46] LABS: Anion Gap 6 mEq/L (7-15); Blood Urea Nitrogen* 20 mg/dL (7-30); Carbon Dioxide* 21 mmol/L (20-32); Cholesterol* 115 mg/dL (90-199); Glucose* 131 mg/dL (60-115); Triglycerides* 156 mg/dL (40-149)
[2023-05-29 06:47] LABS: Calcium* 8.2 mg/dL (8.4-10.6); HDL Cholesterol* 19 mg/dL (>=40); LDL Cholesterol Calculated 65 mg/dL (<100); Magnesium* 1.7 mg/dL (1.5-2.6); Phosphorus* 2.8 mg/dL (2.5-4.5)
[2023-05-29 07:03] LABS: Procalcitonin* 3.16 ng/mL (<0.50)
[2023-05-29 07:06] LABS: C Reactive Protein* 17.2 mg/dL (0.5-1.0)
[2023-05-29] MEDS: OXYCODONE 5 MG TABLET PO (07:58)
[2023-05-29] MEDS: ONDANSETRON ODT 4 MG TAB PO (07:59)
--- NOTE | 2023-05-29 09:03 | PM.IMPN1 ---
Progress Note: A&P Assessment and plan (1) Nausea & vomiting: Problem details: -assoc pain and weakness -suspicious that this is related to the metastatic cholangiocarcinoma metastatic to liver. compressive ascites. -IV fluids -clear liquids as tolerated -antiemetics as needed Status: Acute (2) Acute hypokalemia: Problem details: -decreased on hospital day 2 -replace orally and IV bump Status: Acute (3) Pulmonary infiltrates: Problem details: -differential diagnosis: Pneumonia, aspiration, metastatic cholangiocarcinomatosis -ceftriaxone 1 g IV q.12, azithromycin 500 mg IV Q day -possible sepsis. Check blood cultures. Monitor lactate. IV fluids. Status: Acute (4) Abdominal pain: Problem details: - most likely related to metastatic cholangiocarcinomatosis and associated ascites - general surgery will consult to consider possible diagnostic and therapeutic paracentesis, assess for possible spontaneous bacterial peritonitis Status: Acute (5) Dehydration: Problem details: -IV fluids -monitor lactate (normal by 05/29) Status: Acute (6) Ascites: Problem details: -recommend diagnostic and therapeutic paracentesis. Patient agreeable. Discussed with general surgeon, Dr. Rizzo, who will see patient in consultation. - assess for possible spontaneous bacterial peritonitis. Treat with empiric ceftriaxone for now. Status: Acute (7) Peritoneal carcinomatosis: Problem details: - 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 Currently treated with ivosidenib 500 mg daily - oncologist has recommended hospice, but patient requests continued treatments. Oncologists will continue to work with patient in this regard. Status: Acute (8) Cholangiocarcinoma metastatic to liver: Problem details: pMMR, HER2 negative, IDH1 mutant Status: Acute Subjective Date Seen: 05/29/23 Interval history: Daily Progress Note - Hospital Medicine Day #: 2 CC: n/v and abdominal distention related to known cancer; pneumonia and immunocompromised. ABX day two for CAP (ceftriaxone and azithromycin) OVERNIGHT UPDATES FROM STAFF & MED, LAB, IMAGING UPDATES feels better than admission. still c/o of tense full abdomen. swallowing is a bit better. cough improved. less resp distress. feels a bit stronger. RN note: End of Shift [id number] - Pt arrived from ED at approximately 1500. Tolerating ice chips and some liquids. Pt denied pain, SOB at rest, headache. Pt reported feeling dizziness and nausea that would increase and subside. Pt reported feeling like something was in his throat when nausea would increase. Intervention given per AUG for nausea, with noted improvement. Pt up with standby assistance in room to bathroom. Continent of bladder, void x 1 on shift. VSS, tolerating RA. Family at bedside. Pt appears fatigued and is observed to be resting comfortably at bedside. Afebrile 125/80 Pulse 72 Rest per 16 95% on room air 67.6 kilos up from 66.1 CBC reflects a normalization of his white blood cell count Hemoglobin has dropped a little to 9.9 Platelets are normal Blood gas normal this morning Potassium has dropped from 3.6-3.1 Lactate has normalized CRP is about the same Procalcitonin downtrending Objective: awake, sitting on the side of the bed. daughter provided translation. Vitals: see above Lungs: Clear. Cardiac: S1S2. ext: thin extremities/wasting. abdomen: tense distended abdomen. Disposition/Potential discharge - Likely to return to previous living situation. Today I spent 50minutes seeing the patient, reviewing [facility]panse and EPIC notes/diagnostics, discussing the care plan with our care time that includes social work, PT/OT, pharmacy, RT, senior living and documenting my impressions and plan in the medical record. Exam Const: Vital Signs, click to edit/add: Vital Signs - 24 hr 05/28/23 11:36 05/28/23 16:36 05/28/23 16:36 Temperature 97.6 F 97.7 F Pulse Rate [Pulse Oximeter] 100 101 H Respiratory Rate 14 18 18 Blood Pressure [Le ft Arm] 116/81 Blood Pressure [Le ft Upper Arm] 113/73 Blood Pressure [Ri ght Arm] Pulse Oximetry 97 95 95 Oxygen Delivery Me thod Room Air Room Air Room Air 05/28/23 19:55 05/28/23 23:00 05/28/23 23:00 Temperature 97.7 F 96.9 F L Pulse Rate [Pulse Oximeter] 79 74 Respiratory Rate 16 16 16 Blood Pressure [Le ft Arm] 108/74 105/69 Blood Pressure [Le ft Upper Arm] Blood Pressure [Ri ght Arm] Pulse Oximetry 96 94 94 Oxygen Delivery Me thod Room Air Room Air Room Air 05/29/23 03:00 05/29/23 07:53 05/29/23 07:53 Temperature 97.9 F 97.6 F Pulse Rate [Pulse Oximeter] 67 72 72 Respiratory Rate 16 16 16 Blood Pressure [Le ft Arm] Blood Pressure [Le ft Upper Arm] Blood Pressure [Ri ght Arm] 125/80 Pulse Oximetry 96 95 Oxygen Delivery Me thod Room Air Room Air 05/29/23 07:53 Temperature Pulse Rate [Pulse Oximeter] Respiratory Rate 16 Blood Pressure [Le ft Arm] Blood Pressure [Le ft Upper Arm] Blood Pressure [Ri ght Arm] Pulse Oximetry 95 Oxygen Delivery Me thod Room Air Labs Labs: Laboratory Results - last 24 hr 05/28/23 05/28/23 05/28/23 11:52 12:15 12:25 WBC 12.31 H RBC 4.08 L Hgb 13.1 L Hct 41.5 MCV 102 H MCH 32 MCHC 32 RDW Coeff of Andres 17.9 H Plt Count 161 Neut % (Auto) 80.8 H Lymph % (Auto) 9.3 L [place] % (Auto) 9.0 Eos % (Auto) 0.2 Baso % (Auto) 0.2 Neut # (Auto) 9.90 H Lymph # (Auto) 1.10 Emery # (Auto) 1.10 H Eos # (Auto) 0.00 Baso # (Auto) 0.00 Abs Immat Gran (auto) 0.10 Imm/Tot Granulo (auto) 0.5 VBG pH VBG pCO2 VBG pO2 VBG HCO3 Sodium 144 Potassium 3.6 Chloride 112 Carbon Dioxide 21 Anion Gap 11 BUN 24 Creatinine 1.1 Estimated Creat Clear Estimated GFR 71 Glucose 155 H Lactate 4.1 H* Calcium 9.4 Phosphorus Magnesium 1.6 Total Bilirubin 2.0 H AST 35 ALT 39 Alkaline Phosphatase 139 C-Reactive Protein 16.5 H Total Protein 6.8 Albumin 3.5 Triglycerides Cholesterol LDL Cholesterol, Calc HDL Cholesterol Lipase 28 Procalcitonin Urine Color Yellow Urine Appearance Clear Urine pH 6.0 Ur Specific [place] 1.010 Urine Protein 1+ A Urine Glucose (UA) Negative Urine Ketones Negative Urine Blood Negative Urine Nitrite Negative Urine Bilirubin 1+ A Urine Urobilinogen 2.0 A Ur Leukocyte Esterase Negative Urine RBC 2-5 A Urine WBC 5-10 A Ur Squamous Epith Cells Few Urine Bacteria Few A SARS-CoV-2 (PCR) Negative SARS-CoV-2 Influenza Type A (PCR) Negative PCR FLU A Influenza Type B (PCR) Negative PCR FLU B RSV (PCR) Negative PCR RSV 05/28/23 05/29/23 05/29/23 15:30 04:00 06:10 WBC 8.19 RBC 3.08 L Hgb 9.9 L Hct 32.2 L MCV 105 H MCH 32 MCHC 31 L RDW Coeff of Andres 18.0 H Plt Count 119 L Neut % (Auto) 77.6 H Lymph % (Auto) 11.6 L [place] % (Auto) 7.8 Eos % (Auto) 2.1 Baso % (Auto) 0.2 Neut # (Auto) 6.40 Lymph # (Auto) 1.00 [place] # (Auto) 0.60 Eos # (Auto) 0.17 Baso # (Auto) 0.02 Abs Immat Gran (auto) 0.06 Imm/Tot Granulo (auto) 0.7 VBG pH 7.374 VBG pCO2 41 VBG pO2 44.5 VBG HCO3 24 Sodium 144 Potassium 3.1 L Chloride 117 H Carbon Dioxide 21 Anion Gap 6 L BUN 20 Creatinine 0.8 Estimated Creat Clear 61.51 Estimated GFR 93 Glucose 131 H Lactate 2.4 H 1.2 Calcium 8.2 L Phosphorus 2.8 Magnesium 1.7 Total Bilirubin AST ALT Alkaline Phosphatase C-Reactive Protein 17.2 H Total Protein Albumin Triglycerides 156 H Cholesterol 115 LDL Cholesterol, Calc 65 HDL Cholesterol 19 L Lipase 24 Procalcitonin 4.21 H 3.16 H Urine Color Urine Appearance Urine pH Ur Specific [place] Urine Protein Urine Glucose (UA) Urine Ketones Urine Blood Urine Nitrite Urine Bilirubin Urine Urobilinogen Ur Leukocyte Esterase Urine RBC Urine WBC Ur Squamous Epith Cells Urine Bacteria SARS-CoV-2 (PCR) Influenza Type A (PCR) Influenza Type B (PCR) RSV (PCR)
[2023-05-29] MEDS: SODIUM CHLORIDE 0.9 % (FLUSH) 10 ML SYRINGE 5 ML IVF ×3 (09:35→20:55)
[2023-05-29] MEDS: POTASSIUM CHLORIDE 10 MEQ/100 ML PIGGYBACK 100 MEQ IVPB ×2 (09:36→10:51)
[2023-05-29] MEDS: 0.9 % SODIUM CHLORIDE 250 ml IV (09:39)
[2023-05-29] MEDS: LORazepam 2 MG/ML inj 0.5 MG IVP (10:36)
--- NOTE | 2023-05-29 11:07 | PM.GSCN ---
History of Present Illness Consult details Date Seen: 05/29/23 Consult date: 05/29/23 Narrative: The patient is a 72-year-old male with metastatic cholangiocarcinoma who has had progression of disease despite chemotherapy. He presented to the emergency department with nausea, vomiting, anorexia and worsening epigastric pain. He was found to have bilateral pneumonia and was admitted to the hospital. It has been recommended that he pursue hospice, however he has not been ready to make this transition. He has had 2 prior paracentesis, 1 approximately 1 month ago when he had 2200 mL removed. He states that this procedure was very painful and he thinks that perhaps too much fluid was removed. He is somewhat anxious about having a procedure again. He does feel as though his stomach is more distended. [facility] Medical History (Updated 05/29/23 @ 09:16 by Leeann Mei MD) Hypophosphatemia ?E83.39 - Other disorders of phosphorus metabolism (ICD-10) Peritoneal carcinomatosis ?C78.6 - Secondary malignant neoplasm of retroperitoneum and peritoneum (ICD-10) Type 2 diabetes mellitus, without long-term current use of insulin ?E11.9 - Type 2 diabetes mellitus without complications (ICD-10) Bilateral cataracts ?H26.9 - Unspecified cataract (ICD-10) BPH (benign prostatic hyperplasia) ?N40.0 - Benign prostatic hyperplasia without lower urinary tract symptoms (ICD-10) Neutropenia ?D70.9 - Neutropenia, unspecified (ICD-10) Nocturia ?R35.1 - Nocturia (ICD-10) COVID-19 in immunocompromised patient ?U07.1 - COVID-19 (ICD-10) ?D84.9 - Immunodeficiency, unspecified (ICD-10) Alcohol use ?Z72.89 - Other problems related to lifestyle (ICD-10) Recurrent tinea pedis ?B35.3 - Tinea pedis (ICD-10) Colonic polyp ?K63.5 - Polyp of colon (ICD-10) COPD (chronic obstructive pulmonary disease) ?J44.9 - Chronic obstructive pulmonary disease, unspecified (ICD-10) Chronic low back pain ?M54.50 - Low back pain, unspecified (ICD-10) ?G89.29 - Other chronic pain (ICD-10) 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 ?C22.1 - Intrahepatic bile duct carcinoma (ICD-10) ?C78.7 - Secondary malignant neoplasm of liver and intrahepatic bile duct (ICD-10) Surgical History History of abdominal paracentesis ?Z98.890 - Other specified postprocedural states (ICD-10) Hx of cataract surgery ?Z98.49 - Cataract extraction status, unspecified eye (ICD-10) Social History Narrative: , retired, former smoker, previous significant alcohol use What is your current living situation?: I presently have a place to live Problems where you live: no known problems Problems where you live details: n/a In the past 12 months, utilities in danger of being shut off: unable to answer In past 12 months, lack of transportation kept you from medical appts, meetings, work, or getting things needed for daily living: no In the past 12 mos, have been you worried that your food would run out before you had money to buy more?: unable to answer In the past 12 mos, the food you bought just didn't last and you didn't have money to buy more?: unable to answer Smoking Status: Never smoker Do you use any of these nicotine containing products: None How often do you have a drink containing alcohol: never How often do you have six or more drinks on one occasion: Never AUDIT-C Alcohol total score: 0 Non-prescribed substance use: denies use Caffeine: No How often does anyone, including family, friends and others, physically hurt you: unable to answer How often does anyone, including family, friends and others, insult or talk down to you: unable to answer How often does anyone, including family, friends and others, threaten you with harm: unable to answer How often does anyone, including family, friends and others, scream or curse at you: unable to answer Little interest or pleasure in doing things: nearly every day Feeling down, depressed, or hopeless: nearly every day service: No Meds Home Medications and Allergies Home Medications Medication Instructions Recorded Confirmed Type sennosides 8.6 mg capsule (senna) 8.6 mg PO BID 01/19/23 05/28/23 History dexamethasone 2 mg tablet 4 mg PO DAILY 05/28/23 05/28/23 History dutasteride 0.5 mg capsule 0.5 mg PO DAILY 05/28/23 05/28/23 History (Avodart) lorazepam 1 mg tablet 1 mg PO HS PRN sleep 05/28/23 05/28/23 History potassium chloride 20 mEq 20 meq PO DAILY 05/28/23 05/28/23 History tablet,extended release potassium phosphate, monobasic 500 1,000 mg PO DAILY 05/28/23 05/28/23 History mg soluble tablet tamsulosin 0.4 mg capsule (Flomax) 0.4 mg PO DAILY 05/28/23 05/28/23 History Allergies Allergy/AdvReac Type Severity Reaction Status Date / Time No Known Drug Allergies Allergy Verified 05/28/23 11:36 Exam Narrative: Exam Narrative: General appearance: Alert, cooperative, and in no distress HENT Head: Normocephalic Ears: External ears normal Pulmonary: Breathing nonlabored on room air Cardiovascular Heart: Regular rate Extremities: warm and well perfused Gastrointestinal Abdominal: Abdomen is protuberant. Nontender. Const: Vital Signs, click to edit/add: Vital Signs - 24 hr 05/28/23 11:36 05/28/23 16:36 05/28/23 16:36 Temperature 97.6 F 97.7 F Pulse Rate [Pulse Oximeter] 100 101 H Respiratory Rate 14 18 18 Blood Pressure [Le ft Arm] 116/81 Blood Pressure [Le ft Upper Arm] 113/73 Blood Pressure [Ri ght Arm] Pulse Oximetry 97 95 95 Oxygen Delivery Me thod Room Air Room Air Room Air 05/28/23 19:55 05/28/23 23:00 05/28/23 23:00 Temperature 97.7 F 96.9 F L Pulse Rate [Pulse Oximeter] 79 74 Respiratory Rate 16 16 16 Blood Pressure [Le ft Arm] 108/74 105/69 Blood Pressure [Le ft Upper Arm] Blood Pressure [Ri ght Arm] Pulse Oximetry 96 94 94 Oxygen Delivery Me thod Room Air Room Air Room Air 05/29/23 03:00 05/29/23 07:53 05/29/23 07:53 Temperature 97.9 F 97.6 F Pulse Rate [Pulse Oximeter] 67 72 72 Respiratory Rate 16 16 16 Blood Pressure [Le ft Arm] Blood Pressure [Le ft Upper Arm] Blood Pressure [Ri ght Arm] 125/80 Pulse Oximetry 96 95 Oxygen Delivery Me thod Room Air Room Air 05/29/23 07:53 05/29/23 10:40 05/29/23 10:50 Temperature Pulse Rate [Pulse Oximeter] 71 75 Respiratory Rate 16 16 16 Blood Pressure [Le ft Arm] 116/74 101/73 Blood Pressure [Le ft Upper Arm] Blood Pressure [Ri ght Arm] Pulse Oximetry 95 97 95 Oxygen Delivery Me thod Room Air Room Air Room Air Results Labs Labs: Abnormal lab results 05/28/23 05/28/23 05/28/23 Range/Units 11:52 12:15 15:30 WBC 12.31 H (4.50-11.00) K/uL RBC 4.08 L (4.30-5.90) m/uL Hgb 13.1 L (13.5-17.5) gm/dL Hct (37.0-53.0) % MCV 102 H (80-100) fL MCHC (32-36) gm/dL RDW Coeff of Andres 17.9 H (11.5-15.5) % Plt Count (140-440) K/uL Neut % (Auto) 80.8 H (42.0-72.0) % Lymph % (Auto) 9.3 L (20-44) % Neut # (Auto) 9.90 H (1.7-7.0) K/uL [place] # (Auto) 1.10 H (0.00-0.90) K/UL Potassium (3.6-5.1) mmol/L Chloride (96-114) mmol/L Anion Gap (7-15) mEq/L Glucose 155 H (60-115) mg/dL Lactate 4.1 H* 2.4 H (0.5-1.9) mmol/L Calcium (8.4-10.6) mg/dL Total Bilirubin 2.0 H (0.1-1.5) mg/dL C-Reactive Protein 16.5 H (0.5-1.0) mg/dL Triglycerides (40-149) mg/dL HDL Cholesterol (>=40) mg/dL Procalcitonin 4.21 H (<0.50) ng/mL Urine Protein 1+ A (Negative) Urine Bilirubin 1+ A (Negative) Urine Urobilinogen 2.0 A (0.2-1.0) Urine RBC 2-5 A (0-2) Urine WBC 5-10 A (0-5) Urine Bacteria Few A (None) 05/29/23 Range/Units 06:10 WBC (4.50-11.00) K/uL RBC 3.08 L (4.30-5.90) m/uL Hgb 9.9 L (13.5-17.5) gm/dL Hct 32.2 L (37.0-53.0) % MCV 105 H (80-100) fL MCHC 31 L (32-36) gm/dL RDW Coeff of Andres 18.0 H (11.5-15.5) % Plt Count 119 L (140-440) K/uL Neut % (Auto) 77.6 H (42.0-72.0) % Lymph % (Auto) 11.6 L (20-44) % Neut # (Auto) (1.7-7.0) K/uL [place] # (Auto) (0.00-0.90) K/UL Potassium 3.1 L (3.6-5.1) mmol/L Chloride 117 H (96-114) mmol/L Anion Gap 6 L (7-15) mEq/L Glucose 131 H (60-115) mg/dL Lactate (0.5-1.9) mmol/L Calcium 8.2 L (8.4-10.6) mg/dL Total Bilirubin (0.1-1.5) mg/dL C-Reactive Protein 17.2 H (0.5-1.0) mg/dL Triglycerides 156 H (40-149) mg/dL HDL Cholesterol 19 L (>=40) mg/dL Procalcitonin 3.16 H (<0.50) ng/mL Urine Protein (Negative) Urine Bilirubin (Negative) Urine Urobilinogen (0.2-1.0) Urine RBC (0-2) Urine WBC (0-5) Urine Bacteria (None) Diabetes panel 05/28/23 05/29/23 Range/Units 12:15 06:10 Sodium 144 144 (135-149) mmol/L Potassium 3.6 3.1 L (3.6-5.1) mmol/L Chloride 112 117 H (96-114) mmol/L Carbon Dioxide 21 21 (20-32) mmol/L BUN 24 20 (7-30) mg/dL Creatinine 1.1 0.8 (0.5-1.5) mg/dL Glucose 155 H 131 H (60-115) mg/dL Calcium 9.4 8.2 L (8.4-10.6) mg/dL AST 35 (12-35) U/L ALT 39 (4-50) U/L Alkaline Phosphatase 139 (40-150) U/L Total Protein 6.8 (6.0-8.3) g/dL Albumin 3.5 (3.3-5.0) g/dL Triglycerides 156 H (40-149) mg/dL HDL Cholesterol 19 L (>=40) mg/dL Calcium panel 05/28/23 05/29/23 Range/Units 12:15 06:10 Calcium 9.4 8.2 L (8.4-10.6) mg/dL Phosphorus 2.8 (2.5-4.5) mg/dL Albumin 3.5 (3.3-5.0) g/dL Pituitary panel 05/28/23 05/29/23 Range/Units 12:15 06:10 Sodium 144 144 (135-149) mmol/L Potassium 3.6 3.1 L (3.6-5.1) mmol/L Chloride 112 117 H (96-114) mmol/L Carbon Dioxide 21 21 (20-32) mmol/L BUN 24 20 (7-30) mg/dL Creatinine 1.1 0.8 (0.5-1.5) mg/dL Glucose 155 H 131 H (60-115) mg/dL Calcium 9.4 8.2 L (8.4-10.6) mg/dL Adrenal panel 05/28/23 05/29/23 Range/Units 12:15 06:10 Sodium 144 144 (135-149) mmol/L Potassium 3.6 3.1 L (3.6-5.1) mmol/L Chloride 112 117 H (96-114) mmol/L Carbon Dioxide 21 21 (20-32) mmol/L BUN 24 20 (7-30) mg/dL Creatinine 1.1 0.8 (0.5-1.5) mg/dL Glucose 155 H 131 H (60-115) mg/dL Calcium 9.4 8.2 L (8.4-10.6) mg/dL Total Bilirubin 2.0 H (0.1-1.5) mg/dL AST 35 (12-35) U/L ALT 39 (4-50) U/L Alkaline Phosphatase 139 (40-150) U/L Total Protein 6.8 (6.0-8.3) g/dL Albumin 3.5 (3.3-5.0) g/dL All other labs normal. Imaging Additional studies: CT scan of the chest, abdomen and pelvis done yesterday: IMPRESSION: 1. New bilateral middle and lower lobe predominant centrilobular, and tree-in-bud nodular opacities throughout the parenchyma. Constellation of findings are concerning for multifocal pneumonia versus less likely aspiration. 2. No discrete worsening disease within the chest, abdomen, or pelvis. Stable multifocal hepatic metastases and peritoneal carcinomatosis. 3. Interval increase in size of now large volume abdominal free fluid. This causes mass effect on adjacent bowel loops and stomach. Please note that all CT scans at this facility use dose modulation, iterative reconstruction, and/or weight-based dosing when appropriate to reduce radiation dose to as low as reasonably achievable. Dictated by Lamine Espinoza MD @ 05/28/2023 1:32:29 PM Assessment and Plan Assessment and plan (1) Ascites: Problem comment: -recommend diagnostic and therapeutic paracentesis. Patient agreeable. Discussed with general surgeon, Dr. Rizzo, who will see patient in consultation. - assess for possible spontaneous bacterial peritonitis. Treat with empiric ceftriaxone for now. Status: Acute (2) Cholangiocarcinoma metastatic to liver: Problem comment: pMMR, HER2 negative, IDH1 mutant Status: Acute Plan The patient is a 72-year-old male with metastatic cholangiocarcinoma and ascites. He was admitted for worsening pain, anorexia and nausea. This may be secondary to progression of disease, however he does have reaccumulation of ascites. Therapeutic paracentesis was recommended. He did have painful experience with the last procedure was initially hesitant, however he did agree to proceed. 1400 mL was removed without incident. I did discuss with the patient and his family that he can either have repeat paracentesis with his primary if they perform that procedure or he can come as an outpatient here to [place]. He will need an order from his oncologist. We discussed the timing and the symptoms to watch for to know when he would likely need additional procedures.
--- NOTE | 2023-05-29 11:14 | P.PARA_ITS ---
Paracentesis Date Date: 05/29/23 Procedure Note Type of paracentesis: Therapeutic Initial or Repeat?: Repeat Surgeon: Adriana Rizzo Indications: The patient is a 72-year-old male with metastatic cholangiocarcinoma with reaccumulation of ascites. He is having worsening abdominal pain and distension. I have been asked to perform a therapeutic paracentesis. Procedure Note:: Prior to the procedure, the risks and benefits of the procedure were discussed and an informed consent was obtained using an paraprofessional interpreter.. Patient identification was confirmed and TIME OUT was performed. An ultrasound was brought onto the field and an easily accessible pocket of ascites was identified that was away from intraabdominal organs. This was on the left lower abdomen. The area was prepped and draped in the usual sterile fashion. 1% Lidocaine was used to anesthetize the skin, soft tissues and peritoneum over the proposed needle insertion site. A skin incision was made with a scalpel just large enough to fit the needle. The needle with the paracentesis catheter was advanced into the abdomen and cloudy fluid was aspirated into the syringe. The needle was then withdrawn and the catheter was left in place. The catheter was then connected to the drainage tubing. 1.4 Liters of cloudy, straw-colored fluid was drained. This was sent to the lab.. Post procedure ultrasound revealed decreased residual ascitic fluid. The catheter was then removed and the skin was closed with Dermabond. Patient tolerated procedure well and there were no immediate complications. Patient's vital signs were stable throughout the procedure and no albumin was infused. Recomendation: Discharge to home (ambulatory) and return to normal activities tomorrow. Follow up with referring provider as needed.
[2023-05-29 11:18] LABS: Mononuclear WBC Body Fluid* 76 %; Polynuclear WBC Body Fluid* 24 %; RBC, Body Fluid* 11000 Cells/uL; WBC, Body Fluid* 168 Cells/uL
[2023-05-29 11:19] LABS: BF Clarity* Cloudy; BF Color Xanthochromic; BF Total Volume* 15
[2023-05-29 11:24] LABS: Albumin Body Fluid* 1.6 gm/dL; Glucose Body Fluid* 104 mg/dL
[2023-05-29 11:25] LABS: Amylase Body Fluid* < 30 U/L; Body Fluid Total Protein* 3.3 gm/dL; LDH Body Fluid* 167 U/L
[2023-05-29] MEDS: MAGNESIUM IV 2 GM/50 ML PIGGYBACK IVPB (12:11)
[2023-05-29 13:54] LABS: Lactate Dehydrogenase* 248 U/L (120-246); Total Protein* 5.5 g/dL (6.0-8.3)
[2023-05-29] MEDS: cefTRIAXone 1 GM in 0.9 % SODIUM CHLORIDE Mini-bag 100 ML IVPB (14:18)
[2023-05-29] MEDS: AZITHROMYCIN 500 MG in 0.9 % SODIUM CHLORIDE 250 ml 250 ML 255 MG IVPB (15:37)
[2023-05-29] MEDS: POTASSIUM CHLORIDE 10 MEQ CAPSULE ER PO (17:42)
--- NOTE | 2023-05-29 18:21 | PC.NURSE ---
End of Shift: Patient pleasant and cooperative. Patient vitally stable, lungs clear, BS WNL, Port intact and SL. Patient independent in room. Patient reports pain 1-2/10, 5mg of oxy given once, Zophran also given once. Patient reports feeling improved/better after paracentesis (1400ml). Patient taking in some water and one whole pop, currently working on other liquids. Patient urinating but no BM this shift. Patient has been comfortably napping when visitors are gone.
[2023-05-30 03:36] VITALS: BP 113/70; PULSE 68; RESP 18; TEMP 36.5; O2SAT 96
[2023-05-30] MEDS: OMEPRAZOLE 20 MG CAPSULE DR 40 MG PO (06:01)
[2023-05-30] MEDS: HEPARIN 500 UNIT/5 ML SYRINGE IVF ×2 (06:02→09:47)
--- NOTE | 2023-05-30 06:48 | PC.NURSE ---
End of shift [id number]: Pt A&O, pleasant and cooperative. VSS. Reporting pain in abdomen 07/07. declines any PRN pain medication. Dressing to abdomen c/d/i. Tolerating clear liquids. Denies any n/v. Pt declined use of division chief but aware that he can request one at anytime. ?
[2023-05-30 06:50] LABS: HCO3 VBG 25 mmol/L (21-28); PCO2 VBG 41 mmHG (40-50); PO2 VBG 38.7 mmHG (25-47); pH VBG 7.391 (7.32-7.43)
[2023-05-30 07:31] LABS: Basophils Absolute Auto 0.03 K/uL (0.00-0.30); Basophils Percent Auto 0.5 % (0.0-3.0); Eosinophils Absolute Auto 0.15 K/uL (0.00-0.50); Eosinophils Percent Auto 2.4 % (0.0-7.0); Hematocrit 31.2 % (37.0-53.0); Hemoglobin* 9.7 gm/dL (13.5-17.5); Immature Granulocytes Pct Auto 1.6 %; Lymphocytes Percent Auto 13.6 % (20-44); Mean Corpuscular HGB Conc 31 gm/dL (32-36); Mean Corpuscular Hemoglobin 32 pg (26-34); Mean Corpuscular Volume 104 fL (80-100); Monocytes Percent Auto 8.5 % (0.0-11.0); Neutrophils Percent Auto 73.4 % (42.0-72.0); Platelet Count* 135 K/uL (140-440); RDW Coefficient of Variation % 17.7 % (11.5-15.5); White Blood Count* 6.25 K/uL (4.50-11.00)
[2023-05-30 07:32] LABS: Slide Review Reflex No
[2023-05-30 07:44] LABS: Chloride* 113 mmol/L (96-114); Sodium* 139 mmol/L (135-149)
[2023-05-30 07:45] LABS: Potassium* 3.1 mmol/L (3.6-5.1)
[2023-05-30 07:47] LABS: Creatinine* 0.7 mg/dL (0.5-1.5); Est. Creatinine Clearance* 61.51; Estimated Glomerular Filt Rate 97 ml/min
[2023-05-30 07:48] LABS: Anion Gap 3 mEq/L (7-15); Blood Urea Nitrogen* 14 mg/dL (7-30); Carbon Dioxide* 23 mmol/L (20-32); Glucose* 98 mg/dL (60-115); Magnesium* 1.9 mg/dL (1.5-2.6)
[2023-05-30 07:51] LABS: Albumin* 2.2 g/dL (3.3-5.0); C Reactive Protein* 7.6 mg/dL (0.5-1.0); Chloride* 113 mmol/L (96-114); Potassium* 3.1 mmol/L (3.6-5.1); Sodium* 139 mmol/L (135-149)
[2023-05-30 07:53] LABS: Creatinine* 0.7 mg/dL (0.5-1.5)
[2023-05-30 07:54] LABS: Anion Gap 2 mEq/L (7-15); Blood Urea Nitrogen* 14 mg/dL (7-30); Carbon Dioxide* 24 mmol/L (20-32); Est. Creatinine Clearance* 61.51; Estimated Glomerular Filt Rate 97 ml/min; Glucose* 97 mg/dL (60-115); Phosphorus* 2.5 mg/dL (2.5-4.5)
[2023-05-30 07:55] LABS: Calcium* 7.9 mg/dL (8.4-10.6)
[2023-05-30 08:00] LABS: Procalcitonin* 1.78 ng/mL (<0.50)
[2023-05-30 08:08] VITALS: BP 136/76; PULSE 67; RESP 18; TEMP 36.4; O2SAT 95
[2023-05-30] MEDS: POTASSIUM CHLORIDE 10 MEQ CAPSULE ER PO (08:13)
[2023-05-30] MEDS: CEFPODOXIME PROXETIL 200 MG TABLET PO (08:18)
[2023-05-30] MEDS: POTASSIUM CHLORIDE 10 MEQ CAPSULE ER 20 MEQ PO (08:19)
[2023-05-30] MEDS: AZITHROMYCIN 250 MG TABLET 500 MG PO (08:19)
[2023-05-30] MEDS: MAGNESIUM OXIDE 400 MG TABLET PO (09:46)
[2023-05-30] MEDS: SODIUM CHLORIDE 0.9 % (FLUSH) 10 ML SYRINGE 5 ML IVF (09:47)
[2023-05-30 10:45] LABS: H pylori Ag Stool* Negative (Negative)
--- NOTE | 2023-05-30 12:07 | PC.NURSE ---
Discharge: Patient pleasant and cooperative. Patient vitally stable, lungs clear, BS WNL, port SL and heparinized, left accessed as patient has fluids tomorrow. Patient rates pain 1/10, declined pain and ani-nausea medication. Patient independent in room. Patient ate 25% of regular diet breakfast. Patient urinating and had one large loose BM. Patient signed belongings sheet and discharge form. Patient and family had no further questions regarding discharge. Patient left the floor by wheelchair to home at 1156.
--- NOTE | 2023-05-30 15:53 | PM.DS1 ---
DS: Providers Provider Date Seen: 05/30/23 Date of admission: 05/28/23 14:51 Primary care physician: Lamine Sheridan MD Admitting Clinician: Parmjit Lemus MD Consults: 05/28/23 15:07 Consult to Nutrition [CONS] Routine Comment: Reason for consult:: Miscellaneous Comment: malnutrition, dehydration, N/V, ascites, metastatic cholangiocarcinomatosis Consult to Physical Therapy [CONS] Routine Comment: Reason(s) for PT Consult:: Evaluate and Treat Any Restrictions?:: No Restrictions Consult to Claims Configuration Analyst [CONS] Routine Comment: Reason for Consult:: Discharge Planning Needs 05/28/23 15:09 Consult to Occupational Therapy [CONS] Routine Comment: Reason(s) for OT Consult:: Evaluate and Treat Any Restrictions?:: No Restrictions 05/28/23 15:27 Consult to Physician [CONS] Routine Comment: Consulting Provider: Adriana Rizzo Has provider been notified: Yes Attending Physician on discharge: Leeann Mei MD [facility] Date of Discharge: 05/30/23 DS: Diagnosis Discharge Diagnosis (1) Ascites: Status: Acute Problem details: -underwent diagnostic and therapeutic paracentesis with Dr. 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 Currently treated with ivosidenib 500 mg daily - oncologist has recommended hospice, but patient requests continued treatments. Oncologists will continue to work with patient in this regard. 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 -received a therapeutic paracentesis on 05/29, IV fluids and antiemetics (4) Pulmonary infiltrates: Status: Acute Problem details: -patient had cough but we are unclear if this is pulmonary Mets verses infection -treated with ceftriaxone and azithromycin, sent home on oral Vantin (5) Dehydration: Status: Acute Problem details: -IV fluids -monitor lactate (normal by 05/29) (6) Electrolyte disturbance: Status: Acute Problem details: -we actively managed his potassium, replacing by IV and increasing oral doses -we actively managed his magnesium, replacing by IV and oral increasing doses (7) UTI (urinary tract infection): Status: Acute Problem details: Ceftriaxone given for than pulmonary infiltrates was likely helpful, as will be the oral Vantin (8) 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 General surgery to follow for a more scheduled approach to his reoccurring ascites 2. Electrolyte management, sent home on oral potassium and magnesium this can be followed as an outpatient either with primary care or oncology 3. Pneumonia, potentially not even infectious could be Mets. Treated with ceftriaxone/azithromycin. Discharged on 5 days of oral Vantin 4. UTI, E coli. Covered by the ceftriaxone in Vantin BRIEF HOSPITAL COURSE: Patient was admitted for 3 days. Synopsis of acute inpatient issues are outlined above. Chronic medical conditions with notable findings outlined above. DISCHARGE MEDICATIONS: See Reconciled list - SIGNIFICANT CHANGES: Magnesium t.i.d. Vantin 200 mg b.i.d. for 5 days Increased oral potassium Specific instructions to the patient and follow-up are outlined below. REVIEW OF SYSTEMS No new chest pain or dyspnea Pain controlled No voiding difficulties Tolerating diet challenge PHYSICAL EXAM: CONSTITUTIONAL: VITAL SIGNS: see record. HEENT: Normocephalic, atraumatic. PERRL, EOMI, conjunctivae pink, no scleral icterus. Ears and nose externally normal. Pharynx normal. NECK: No JVD. No carotid bruit, no thyromegaly, no adenopathy. CHEST: Clear to auscultation bilaterally. HEART: S1 and S2 normal. Edema ABDOMEN: Soft, nontender. Normal bowel sounds. MUSCULOSKELETAL: No gross joint deformity or swelling. NEURO: Cranial nerves intact. Grossly intact. No asymmetric findings. SKIN: No rashes, petechiae, concerning changes PSYCHIATRIC: Mood euthymic. DISPOSITION: Home with Time spent on discharge 37 minutes. Status at Discharge Functional status at discharge: uses cane/walker Overall status at discharge: patient is progressing back to baseline Time Spent with Patient Time attestation: Total time spent providing and/or coordinating discharge services: Time spent: Greater than 30 minutes Exam Const: Vital Signs, click to edit/add: Vital Signs - 24 hr 05/29/23 19:44 05/29/23 23:00 05/29/23 23:00 Temperature 98.2 F Pulse Rate [Pulse Oximeter] 69 69 Respiratory Rate 18 16 16 Blood Pressure [Le ft Arm] Blood Pressure [Ri ght Arm] 105/65 99/57 L Pulse Oximetry 96 95 95 Oxygen Delivery Me thod Room Air Room Air Room Air 05/30/23 03:36 05/30/23 08:08 05/30/23 08:08 Temperature 97.7 F 97.6 F Pulse Rate [Pulse Oximeter] 68 67 67 Respiratory Rate 18 18 18 Blood Pressure [Le ft Arm] 113/70 136/76 Blood Pressure [Ri ght Arm] Pulse Oximetry 96 95 Oxygen Delivery Me thod Room Air Room Air 05/30/23 08:08 Temperature Pulse Rate [Pulse Oximeter] Respiratory Rate 18 Blood Pressure [Le ft Arm] Blood Pressure [Ri ght Arm] Pulse Oximetry 95 Oxygen Delivery Me thod Room Air DS: Data Data Completed and Pending Labs on day of discharge: Labs from last 24 hours 05/30/23 05/30/23 05/30/23 Unknown Unknown Unknown WBC RBC Hgb Hct MCV MCH MCHC RDW Coeff of Andres Plt Count Neut % (Auto) Lymph % (Auto) [place] % (Auto) Eos % (Auto) Baso % (Auto) Neut # (Auto) Lymph # (Auto) [place] # (Auto) Eos # (Auto) Baso # (Auto) Abs Immat Gran (auto) Imm/Tot Granulo (auto) VBG pH VBG pCO2 VBG pO2 VBG HCO3 Sodium Potassium Chloride Carbon Dioxide Anion Gap BUN Creatinine Estimated Creat Clear Estimated GFR 97 Glucose 97 98 Calcium 7.9 L 8.0 L Phosphorus 2.5 Magnesium 1.9 C-Reactive Protein 7.6 H Albumin 2.2 L Procalcitonin 1.78 H Stool H. pylori Ag 05/30/23 05/30/23 05/30/23 Unknown Unknown Unknown WBC RBC Hgb Hct MCV MCH MCHC RDW Coeff of Andres Plt Count Neut % (Auto) Lymph % (Auto) [place] % (Auto) Eos % (Auto) Baso % (Auto) Neut # (Auto) Lymph # (Auto) [place] # (Auto) Eos # (Auto) Baso # (Auto) Abs Immat Gran (auto) Imm/Tot Granulo (auto) VBG pH VBG pCO2 VBG pO2 VBG HCO3 Sodium Potassium Chloride Carbon Dioxide Anion Gap BUN 14 Creatinine 0.7 0.7 Estimated Creat Clear 61.51 61.51 Estimated GFR 97 Glucose Calcium Phosphorus Magnesium C-Reactive Protein Albumin Procalcitonin Stool H. pylori Ag 05/30/23 05/30/23 05/30/23 Unknown Unknown Unknown WBC RBC Hgb Hct MCV MCH MCHC RDW Coeff of Andres Plt Count Neut % (Auto) Lymph % (Auto) [place] % (Auto) Eos % (Auto) Baso % (Auto) Neut # (Auto) Lymph # (Auto) [place] # (Auto) Eos # (Auto) Baso # (Auto) Abs Immat Gran (auto) Imm/Tot Granulo (auto) VBG pH VBG pCO2 VBG pO2 VBG HCO3 Sodium Potassium Chloride 113 Carbon Dioxide 24 23 Anion Gap 2 L 3 L BUN 14 Creatinine Estimated Creat Clear Estimated GFR Glucose Calcium Phosphorus Magnesium C-Reactive Protein Albumin Procalcitonin Stool H. pylori Ag 05/30/23 05/30/23 05/30/23 Unknown Unknown Unknown WBC 6.25 RBC 3.00 L Hgb 9.7 L Hct 31.2 L MCV 104 H MCH 32 MCHC 31 L RDW Coeff of Andres 17.7 H Plt Count 135 L Neut % (Auto) 73.4 H Lymph % (Auto) 13.6 L [place] % (Auto) 8.5 Eos % (Auto) 2.4 Baso % (Auto) 0.5 Neut # (Auto) 4.60 Lymph # (Auto) 0.90 [place] # (Auto) 0.50 Eos # (Auto) 0.15 Baso # (Auto) 0.03 Abs Immat Gran (auto) 0.10 Imm/Tot Granulo (auto) 1.6 VBG pH 7.391 VBG pCO2 41 VBG pO2 38.7 VBG HCO3 25 Sodium 139 139 Potassium 3.1 L 3.1 L Chloride 113 Carbon Dioxide Anion Gap BUN Creatinine Estimated Creat Clear Estimated GFR Glucose Calcium Phosphorus Magnesium C-Reactive Protein Albumin Procalcitonin Stool H. pylori Ag 05/30/23 10:01 WBC RBC Hgb Hct MCV MCH MCHC RDW Coeff of Andres Plt Count Neut % (Auto) Lymph % (Auto) [place] % (Auto) Eos % (Auto) Baso % (Auto) Neut # (Auto) Lymph # (Auto) [place] # (Auto) Eos # (Auto) Baso # (Auto) Abs Immat Gran (auto) Imm/Tot Granulo (auto) VBG pH VBG pCO2 VBG pO2 VBG HCO3 Sodium Potassium Chloride Carbon Dioxide Anion Gap BUN Creatinine Estimated Creat Clear Estimated GFR Glucose Calcium Phosphorus Magnesium C-Reactive Protein Albumin Procalcitonin Stool H. pylori Ag Negative Preliminary micro results at discharge 05/29/23 10:54 Body Fluid Culture - Preliminary Peritoneal Fluid NO GROWTH AFTER 24 HOURS 05/28/23 16:22 Blood Culture - Preliminary Blood - Picc Line NO GROWTH AFTER 24 HOURS 05/28/23 16:45 Blood Culture - Preliminary Blood - Picc Line NO GROWTH AFTER 24 HOURS 05/28/23 16:43 Blood Culture - Preliminary Blood - Venipuncture NO GROWTH AFTER 24 HOURS 05/28/23 16:31 Blood Culture - Preliminary Blood - Venipuncture NO GROWTH AFTER 24 HOURS Discharge Plan Discharge Disposition: Home w/ Parent or Adult Date of Admission: 05/28/23 14:51 Attending Provider on Discharge: Leeann Mei Consulting Providers: Adriana Rizzo Primary Care Provider: Lamine Sheridan Condition: Improved Anticipated Discharge Date/Time: 05/30/23 10:33 Discharge Medications: New acetaminophen 325 mg Tablet 650 mg PO Q6H PRNQty: 30 0RF cefpodoxime 200 mg Tablet 200 mg PO BID Qty: 11 0RF magnesium oxide 400 mg (241.3 mg magnesium) Tablet 400 mg PO TID Qty: 90 0RF Continued prochlorperazine [Compazine] 25 mg suppository 25 mg [place] BID PRN (Reason: nausea and vomiting) Qty: 12 4RF Rx Instructions: Use one suppository by rectum every 12 hours for nausea. albuterol sulfate 90 mcg/actuation HFA aerosol inhaler 2 puff inhalation Q4-6H PRN (Reason: shortness of breath or wheezing) Qty: 8.5 5RF senna 8.6 mg capsule 8.6 mg PO BID metoclopramide HCl 10 mg tablet 10 mg PO .COMPLEX Qty: 120 6RF Hold Instructions: Doctor's Order Rx Instructions: 10 mg orally Take 4 times daily 30 min before eating and at bedtime; ivosidenib 250 mg tablet 500 mg PO QDAY Qty: 30 3RF Hold Instructions: hasn't started yet polyethylene glycol 3350 [Miralax] 17 gram/dose powder 4 g PO DIRECTED Qty: 238 1RF Rx Instructions: Take 1 dose each evening and each morning until you go to the bathroom. After you are going regularly, may decrease to once per day if you are having diarrhea. tamsulosin [Flomax] 0.4 mg capsule 0.4 mg PO DAILY dexamethasone 2 mg tablet 4 mg PO DAILY Rx Instructions: Take 2 tablets daily with breakfast. Do not stop this medication without notifying your doctor. lorazepam 1 mg tablet 1 mg PO HS PRN (Reason: sleep) potassium phosphate, monobasic 500 mg tablet,soluble 1,000 mg PO DAILY dutasteride [Avodart] 0.5 mg capsule 0.5 mg PO DAILY ibuprofen 800 mg tablet 800 mg PO TID PRN (Reason: pain) Qty: 90 11RF ipratropium-albuterol 0.5 mg-3 mg(2.5 mg base)/3 mL solution for nebulization 3 ml inhalation QID Qty: 180 9RF fluticasone propion-salmeterol [Advair Diskus] 250-50 mcg/dose blister with device 1 inh inhalation BID Qty: 60 7RF omeprazole 20 mg capsule,delayed release(DR/EC) 20 mg PO BID Qty: 180 3RF magnesium oxide 400 mg (241.3 mg magnesium) tablet 400 mg PO DAILY Qty: 120 0RF oxycodone 10 mg tablet 10 mg PO QID PRN (Reason: pain) Qty: 120 0RF Patient Comments: takes in am- Changed potassium chloride 20 mEq tablet extended release 20 meq PO BID Qty: 60 0RF Discharge Orders: Discharge Order (Routine); Ordered 05/30/23 Ordered By: Leeann Mei Patient Education: Acetaminophen (By mouth), Cefpodoxime Proxetil (By mouth), Magnesium (By mouth), Aspiration Pneumonia (DC) Additional Instructions: 1. Take antibiotic tonight, then twice a day w/food for 5 more days. This is for pneumonia. 2. I will make an appt to see Dr. Adriana Rizzo for help with the fluid in your belly and staying on a schedule for this. Activity Level: Activity as Tolerated Discharge Diet: Regular Follow Up Appointments: Adriana Rizzo MD [Staff Physician] - 06/15/23 11:00 am ([facility] for f/u of ascites and need for f/u paracentesis.) Lamine Sheridan MD [Primary Care Provider] - 07/02/23 10:15 am ([facility].) Forms: Social[employer] Info Instructions
== END 2023-05-30 11:56 | disposition home or self-care (01) ==
LOC: ED 13:56 → MEDSURG 14:53
PROVIDERS: Family Medicine; Surgery; Admitting Provider Internal Medicine; Emergency Provider Family Medicine; PCP Family Medicine; Visit Provider Internal Medicine
DX: R18.8 Other ascites (principal); R91.8 Other nonspecific abnormal finding of lung field; N39.0 Urinary tract infection, site not specified; E87.6 Hypokalemia; E86.0 Dehydration; R74.02 Elevation of levels of lactic acid dehydrogenase [LDH]; D72.829 Elevated white blood cell count, unspecified; E87.8 Other disorders of electrolyte and fluid balance, not elsewhere classified; C22.1 Intrahepatic bile duct carcinoma; C78.6 Secondary malignant neoplasm of retroperitoneum and peritoneum; B96.20 Unspecified Escherichia coli [E. coli] as the cause of diseases classified elsewhere; I10 Essential (primary) hypertension; J44.9 Chronic obstructive pulmonary disease, unspecified; E11.9 Type 2 diabetes mellitus without complications; R06.09 Other forms of dyspnea; R63.0 Anorexia; R11.2 Nausea with vomiting, unspecified; R10.13 Epigastric pain; R53.1 Weakness; R53.83 Other fatigue; R13.10 Dysphagia, unspecified; R31.9 Hematuria, unspecified; R64 Cachexia; R42 Dizziness and giddiness; R05.9 Cough, unspecified; R00.0 Tachycardia, unspecified; N40.0 Benign prostatic hyperplasia without lower urinary tract symptoms; G89.29 Other chronic pain; R76.11 Nonspecific reaction to tuberculin skin test without active tuberculosis; K21.9 Gastro-esophageal reflux disease without esophagitis; K08.9 Disorder of teeth and supporting structures, unspecified; Z98.890 Other specified postprocedural states; Z98.49 Cataract extraction status, unspecified eye; F10.21 Alcohol dependence, in remission; Z87.891 Personal history of nicotine dependence; Z79.899 Other long term (current) drug therapy; Z11.52 Encounter for screening for COVID-19
CPT/HCPCS: 36415; 49083; 71260; 74177; 80048; 80053; 80061; 80069; 81001; 82042; 82150; 82803; 82945; 83605; 83615; 83690; 83735; 84100; 84145; 84155; 84157; 85025; 86140; 87040; 87070; 87086; 87186; 87205; 87338; 87631; 88112; 89051; 96361; 96365; 96366; 96367; 96368; 96375; 96376; 97116; 97161; 97165; 97535; 99285; T1013; A9270; C9113; G0378; J0456; J0696; J1642; J2060; J2270; J2405; J3475; J3480; J7030; J7050; J7120; Q9967

== ENCOUNTER 2023-06-01 13:13 | Emergency (ER) | payer MEDICARE, SELFPAY ==
[2023-06-01 13:25] VITALS: BP 112/79; PULSE 96; RESP 18; TEMP 36.6; O2SAT 99; BMI 22.2
== END 2023-06-01 14:27 | disposition left against medical advice (07) ==
LOC: ED 14:22
PROVIDERS: Emergency Provider Emergency Medicine Emergency Medical Services; PCP Family Medicine
DX: Z53.21 Procedure and treatment not carried out due to patient leaving prior to being seen by health care provider (principal)

== ENCOUNTER 2023-06-03 11:00 | Outpatient (RCR) | payer MEDICARE, SELFPAY ==
[2023-03-04 11:03] LABS: Basophils Percent Auto 1.1 % (0.0-3.0); Eosinophils Percent Auto 7.3 % (0.0-7.0); Hematocrit 35.8 % (37.0-53.0); Hemoglobin* 11.2 gm/dL (13.5-17.5); Mean Corpuscular HGB Conc 31 gm/dL (32-36); Mean Corpuscular Hemoglobin 30 pg (26-34); Mean Corpuscular Volume 96 fL (80-100); Monocytes Percent Auto 20.1 % (0.0-11.0); Neutrophils Percent Auto 34.5 % (42.0-72.0); Platelet Count* 402 K/uL (140-440); RDW Coefficient of Variation % 18.7 % (11.5-15.5); Red Blood Count 3.72 m/uL (4.30-5.90); White Blood Count* 2.73 K/uL (4.50-11.00)
[2023-03-04 11:08] LABS: Slide Review Reflex Yes
[2023-03-04 11:15] LABS: Albumin* 3.8 g/dL (3.3-5.0); Chloride* 108 mmol/L (96-114); Potassium* 3.6 mmol/L (3.6-5.1); Sodium* 141 mmol/L (135-149)
[2023-03-04 11:17] LABS: Bilirubin Total* 0.4 mg/dL (0.1-1.5); Creatinine* 0.8 mg/dL (0.5-1.5); Estimated Glomerular Filt Rate 93 ml/min
[2023-03-04 11:18] LABS: Alanine Aminotransferase* 22 U/L (4-50); Alkaline Phosphatase* 81 U/L (40-150); Anion Gap 10 mEq/L (7-15); Aspartate Amino Transferase* 35 U/L (12-35); Blood Urea Nitrogen* 10 mg/dL (7-30); Calcium* 9.6 mg/dL (8.4-10.6); Carbon Dioxide* 23 mmol/L (20-32); Glucose* 153 mg/dL (60-115); Total Protein* 7.7 g/dL (6.0-8.3)
[2023-03-04 11:27] LABS: Slide Review Acceptable Review (Acceptable)
--- NOTE | 2023-03-04 15:42 | ONC.NURNOTE ---
Pt came in for chemo labs today. ANC 0.9. Pt has no concerns regarding symptoms, states he feels well via supervisor lace tearing. County Engineer discussed lab values with Karolina Butts APRN. Order received to hold chemo on 03/05/23 and pt to return on 03/11/23 for labs and chemo. County Engineer called pt with nut picker on the phone, discussed low ANC and needing to hold chemotherapy on 03/05/23. Pt rescheduled for 03/11/23 for labs and chemo. Pt instructed on neutropenic precautions via supervisor lace tearing. Pt to return to clinic today for port needle deaccess. Pt verbalized understanding of plan of care.
--- NOTE | 2023-03-04 16:11 | ONC.NURNOTE ---
Patient came in to be de-accessed. This was done successfully. Patient left ambulatory.
[2023-03-06 09:24] LABS: Cortisol, Serum 8.8 ug/dL
[2023-03-11 08:27] VITALS: BP 120/70; PULSE 65; RESP 16; TEMP 36.9; O2SAT 96
[2023-03-11 08:54] LABS: Basophils Absolute Auto 0.05 K/uL (0.00-0.30); Basophils Percent Auto 0.9 % (0.0-3.0); Eosinophils Absolute Auto 0.18 K/uL (0.00-0.50); Eosinophils Percent Auto 3.3 % (0.0-7.0); Hematocrit 35.1 % (37.0-53.0); Hemoglobin* 11.1 gm/dL (13.5-17.5); Immature Granulocytes Abs Auto 0.02 K/uL (0.00-0.30); Immature Granulocytes Pct Auto 0.4 %; Lymphocytes Absolute Auto 1.17 K/uL (0.90-2.90); Lymphocytes Percent Auto 21.4 % (20-44); Mean Corpuscular HGB Conc 32 gm/dL (32-36); Mean Corpuscular Hemoglobin 30 pg (26-34); Mean Corpuscular Volume 95 fL (80-100); Monocytes Percent Auto 17.7 % (0.0-11.0); Neutrophils Absolute Auto 3.09 K/uL (1.7-7.0); Neutrophils Percent Auto 56.3 % (42.0-72.0); Platelet Count* 329 K/uL (140-440); RDW Coefficient of Variation % 18.4 % (11.5-15.5); Red Blood Count 3.68 m/uL (4.30-5.90); White Blood Count* 5.48 K/uL (4.50-11.00)
[2023-03-11 08:57] LABS: Slide Review Reflex No
[2023-03-11 09:28] LABS: Albumin* 3.7 g/dL (3.3-5.0); Chloride* 106 mmol/L (96-114)
[2023-03-11 09:29] LABS: Potassium* 3.9 mmol/L (3.6-5.1); Sodium* 139 mmol/L (135-149)
[2023-03-11 09:31] LABS: Alkaline Phosphatase* 82 U/L (40-150); Anion Gap 8 mEq/L (7-15); Aspartate Amino Transferase* 35 U/L (12-35); Bilirubin Total* 0.5 mg/dL (0.1-1.5); Blood Urea Nitrogen* 11 mg/dL (7-30); Carbon Dioxide* 25 mmol/L (20-32); Creatinine* 0.8 mg/dL (0.5-1.5); Estimated Glomerular Filt Rate 93 ml/min; Total Protein* 7.6 g/dL (6.0-8.3)
[2023-03-11 09:32] LABS: Alanine Aminotransferase* 20 U/L (4-50); Calcium* 9.7 mg/dL (8.4-10.6); Glucose* 94 mg/dL (60-115)
[2023-03-11] MEDS: diphenhydrAMINE 25 MG CAPSULE 50 MG PO (09:45)
[2023-03-11] MEDS: ACETAMINOPHEN 325 MG TABLET 650 MG PO (09:46)
[2023-03-11] MEDS: DURVALUMAB 1,500 MG, TUBING PRIMARY 1 EACH, In-line 0.2 micron filter set 1 EACH in 0.9... 280 MG IVPB (10:21)
[2023-03-11] MEDS: dexAMETHasone 10 MG in 0.9 % SODIUM CHLORIDE 100 ml 100 ML 420 MG IVPB (11:26)
[2023-03-11] MEDS: PALONOSETRON 0.25 MG/5 ML inj IV (11:26)
[2023-03-11] MEDS: FOSAPREPITANT 150 MG inj 150 MG in 0.9 % SODIUM CHLORIDE 250 ml 250 ML 780 MG IVPB (11:43)
[2023-03-18] MEDS: HEPARIN 500 UNIT/5 ML SYRINGE IVF (11:25)
[2023-03-18] MEDS: SODIUM CHLORIDE 0.9 % (FLUSH) 10 ML SYRINGE IVF (11:25)
[2023-04-01] MEDS: 0.9 % SODIUM CHLORIDE 1000 ml 1,000 ML IV (13:40)
[2023-04-01 13:45] VITALS: BP 118/71; PULSE 77; RESP 16; TEMP 36.1; O2SAT 98
[2023-04-01] MEDS: HEPARIN 500 UNIT/5 ML SYRINGE IVF (14:54)
[2023-04-01] MEDS: SODIUM CHLORIDE 0.9 % (FLUSH) 10 ML SYRINGE IVF (14:54)
[2023-04-01 15:02] LABS: Basophils Percent Auto 1.2 % (0.0-3.0); Hematocrit 32.2 % (37.0-53.0); Hemoglobin* 10.4 gm/dL (13.5-17.5); Immature Granulocytes Pct Auto 0.4 %; Lymphocytes Percent Auto 29.9 % (20-44); Mean Corpuscular HGB Conc 32 gm/dL (32-36); Mean Corpuscular Hemoglobin 31 pg (26-34); Mean Corpuscular Volume 94 fL (80-100); Neutrophils Percent Auto 25.5 % (42.0-72.0); Platelet Count* 263 K/uL (140-440); RDW Coefficient of Variation % 17.3 % (11.5-15.5); Red Blood Count 3.41 m/uL (4.30-5.90); White Blood Count* 2.51 K/uL (4.50-11.00)
[2023-04-01 15:04] LABS: Slide Review Reflex No
[2023-04-01 15:31] LABS: Albumin* 3.4 g/dL (3.3-5.0); Chloride* 105 mmol/L (96-114)
[2023-04-01 15:32] LABS: Potassium* 3.5 mmol/L (3.6-5.1); Sodium* 135 mmol/L (135-149)
[2023-04-01 15:34] LABS: Alkaline Phosphatase* 77 U/L (40-150); Anion Gap 8 mEq/L (7-15); Aspartate Amino Transferase* 46 U/L (12-35); Bilirubin Total* 0.4 mg/dL (0.1-1.5); Blood Urea Nitrogen* 13 mg/dL (7-30); Carbon Dioxide* 22 mmol/L (20-32); Creatinine* 0.8 mg/dL (0.5-1.5); Estimated Glomerular Filt Rate 93 ml/min; Total Protein* 6.9 g/dL (6.0-8.3)
[2023-04-01 15:35] LABS: Alanine Aminotransferase* 24 U/L (4-50); Calcium* 8.6 mg/dL (8.4-10.6); Glucose* 125 mg/dL (60-115)
--- NOTE | 2023-04-01 16:14 | ONC.NURNOTE ---
Addendum entered by Izzy Park RN 04/01/23 16:27: ensure sent home with pt. Original Note: long conversation with pt and daughter. pt states decrease appetite and nauseated at times. denies nausea now. reinforced him to take compazine 1/2 hr before eating up to 4x day. enc him to eat bland brat diet. freq small portions. states likes spicey foods. ivory color. family states he likes to sleep alot. oxycontin was increased to 10mg per primary. pt denies pain . also enc pt to take ibuprofen with food always. he states has been taking it on a empty stomach.
[2023-04-02 09:24] VITALS: BP 111/70; PULSE 74; RESP 16; TEMP 35.9; O2SAT 99
--- NOTE | 2023-04-02 14:55 | ONC.NURNOTE ---
pt states feeling better today denies pain. jason abd. color improved , face not so sucken . unable to treat today due to low ANC
[2023-04-04 19:58] LABS: Cortisol, Serum 11.1 ug/dL
[2023-04-08 08:55] VITALS: BP 117/75; PULSE 69; RESP 16; TEMP 36.4; O2SAT 99
[2023-04-08 09:10] LABS: Basophils Absolute Auto 0.04 K/uL (0.00-0.30); Basophils Percent Auto 0.7 % (0.0-3.0); Eosinophils Absolute Auto 0.16 K/uL (0.00-0.50); Eosinophils Percent Auto 2.8 % (0.0-7.0); Hematocrit 33.5 % (37.0-53.0); Hemoglobin* 10.5 gm/dL (13.5-17.5); Immature Granulocytes Abs Auto 0.03 K/uL (0.00-0.30); Immature Granulocytes Pct Auto 0.5 %; Lymphocytes Absolute Auto 1.26 K/uL (0.90-2.90); Mean Corpuscular HGB Conc 31 gm/dL (32-36); Mean Corpuscular Hemoglobin 30 pg (26-34); Mean Corpuscular Volume 97 fL (80-100); Monocytes Percent Auto 15.9 % (0.0-11.0); Neutrophils Absolute Auto 3.33 K/uL (1.7-7.0); Neutrophils Percent Auto 58.1 % (42.0-72.0); Platelet Count* 239 K/uL (140-440); RDW Coefficient of Variation % 17.6 % (11.5-15.5); Red Blood Count 3.45 m/uL (4.30-5.90); White Blood Count* 5.73 K/uL (4.50-11.00)
[2023-04-08] MEDS: SODIUM CHLORIDE 0.9 % (FLUSH) 10 ML SYRINGE IVF (09:15)
[2023-04-08 09:18] LABS: Slide Review Reflex No
[2023-04-08 09:24] LABS: Albumin* 3.8 g/dL (3.3-5.0); Chloride* 105 mmol/L (96-114)
[2023-04-08 09:25] LABS: Potassium* 3.7 mmol/L (3.6-5.1); Sodium* 138 mmol/L (135-149)
[2023-04-08 09:27] LABS: Alanine Aminotransferase* 23 U/L (4-50); Alkaline Phosphatase* 91 U/L (40-150); Anion Gap 10 mEq/L (7-15); Aspartate Amino Transferase* 35 U/L (12-35); Bilirubin Total* 0.5 mg/dL (0.1-1.5); Blood Urea Nitrogen* 8 mg/dL (7-30); Carbon Dioxide* 23 mmol/L (20-32); Creatinine* 0.7 mg/dL (0.5-1.5); Estimated Glomerular Filt Rate 97 ml/min; Glucose* 97 mg/dL (60-115); Total Protein* 7.6 g/dL (6.0-8.3)
[2023-04-08 09:28] LABS: Calcium* 9.1 mg/dL (8.4-10.6)
[2023-04-08] MEDS: 0.9 % SODIUM CHLORIDE 1000 ml 1,000 ML IV (09:35)
[2023-04-08] MEDS: ACETAMINOPHEN 325 MG TABLET 650 MG PO (10:09)
[2023-04-08] MEDS: diphenhydrAMINE 25 MG CAPSULE 50 MG PO (10:09)
[2023-04-08] MEDS: DURVALUMAB 1,500 MG, TUBING PRIMARY 1 EACH, In-line 0.2 micron filter set 1 EACH in 0.9... 280 MG IVPB (10:46)
--- NOTE | 2023-04-08 11:04 | PC.NURSE ---
Pt present at [facility] for chemotherapy infusion. RN did chart review and assessment. Noted weight loss. Calculated doses and ordered Gemzar dose of 1800 mg was greater than 10% more than calculated dose of [address] Yeung. Dose changed in [facility].
[2023-04-08] MEDS: PALONOSETRON 0.25 MG/5 ML inj IV (11:49)
[2023-04-08] MEDS: dexAMETHasone 10 MG in 0.9 % SODIUM CHLORIDE 100 ml 100 ML 404 MG IVPB (11:49)
[2023-04-08] MEDS: FOSAPREPITANT 150 MG inj 150 MG in 0.9 % SODIUM CHLORIDE 250 ml 250 ML 510 MG IVPB (12:09)
[2023-04-15 09:00] VITALS: BP 104/71; PULSE 108
[2023-04-15 10:46] LABS: Appearance Urine Cloudy (Clear); Bilirubin Urine 1+ (Negative); Blood Urine 3+ (Negative); Color Urine Red (Yellow); Glucose Urine Negative (Negative); Ketones Urine Trace (Negative); Leukocyte Esterase Urine Negative (Negative); Nitrite Urine Positive (Negative); Protein Urine 3+ (Negative); Specific Gravity Urine >= 1.030 (1.000-1.030)
[2023-04-15 11:07] LABS: Amorphous Sediment Urine Few; Bacteria Urine Few; RBC Urine >100 (0-2); Squamous Epithelial Cell Urine Few (None-Few)
[2023-04-15 11:07] LABS: Chloride* 99 mmol/L (96-114); Potassium* 3.3 mmol/L (3.6-5.1); Sodium* 137 mmol/L (135-149)
[2023-04-15 11:09] LABS: Anion Gap 15 mEq/L (7-15); Aspartate Amino Transferase* 57 U/L (12-35); Bilirubin Total* 0.6 mg/dL (0.1-1.5); Carbon Dioxide* 23 mmol/L (20-32); Creatinine* 0.8 mg/dL (0.5-1.5); Est. Creatinine Clearance* 61.51; Estimated Glomerular Filt Rate 93 ml/min; Total Protein* 7.8 g/dL (6.0-8.3)
[2023-04-15 11:10] LABS: Alanine Aminotransferase* 39 U/L (4-50); Alkaline Phosphatase* 88 U/L (40-150); Blood Urea Nitrogen* 22 mg/dL (7-30); Calcium* 9.4 mg/dL (8.4-10.6); Glucose* 160 mg/dL (60-115)
[2023-04-15 11:10] LABS: Coarse Granular Casts Urine Many; Mucus Urine Few; Red Blood Cell Casts Urine Many
[2023-04-15 11:11] LABS: Basophils Percent Auto 0.8 % (0.0-3.0); Eosinophils Percent Auto 3.4 % (0.0-7.0); Hematocrit 32.1 % (37.0-53.0); Hemoglobin* 10.2 gm/dL (13.5-17.5); Lymphocytes Percent Auto 35.6 % (20-44); Mean Corpuscular HGB Conc 32 gm/dL (32-36); Mean Corpuscular Hemoglobin 31 pg (26-34); Mean Corpuscular Volume 97 fL (80-100); Monocytes Percent Auto 4.2 % (0.0-11.0); Platelet Count* 109 K/uL (140-440); RDW Coefficient of Variation % 16.4 % (11.5-15.5); Red Blood Count 3.31 m/uL (4.30-5.90); White Blood Count* 2.36 K/uL (4.50-11.00)
[2023-04-15 11:16] LABS: Slide Review Reflex No
[2023-04-15 13:36] LABS: INR 1.07 (0.91-1.10); Prothrombin Time 14.5 Seconds
--- NOTE | 2023-04-15 16:26 | ONC.NURNOTE ---
family states Aaron is weaker and not eating. 1L ns given. In evaluation states burning with urination and orange/red colored urine. Karolina Queen APRN notified and UA obtained. pt then saw Rhiannon. CONSULTING MANAGER whom obtained a CT. See Diana note from today
[2023-04-22] MEDS: 0.9 % SODIUM CHLORIDE 1000 ml 1,000 ML IV (11:00)
[2023-04-22] MEDS: SODIUM CHLORIDE 0.9 % (FLUSH) 10 ML SYRINGE IVF ×2 (11:00→12:06)
[2023-04-22 11:04] LABS: Basophils Percent Auto 0.2 % (0.0-3.0); Eosinophils Percent Auto 3.1 % (0.0-7.0); Hematocrit 32.2 % (37.0-53.0); Hemoglobin* 10.1 gm/dL (13.5-17.5); Lymphocytes Percent Auto 21.8 % (20-44); Mean Corpuscular HGB Conc 31 gm/dL (32-36); Mean Corpuscular Hemoglobin 31 pg (26-34); Mean Corpuscular Volume 99 fL (80-100); Monocytes Percent Auto 18.4 % (0.0-11.0); Neutrophils Percent Auto 56.5 % (42.0-72.0); Platelet Count* 121 K/uL (140-440); RDW Coefficient of Variation % 17.4 % (11.5-15.5); Red Blood Count 3.24 m/uL (4.30-5.90); Slide Review Reflex No; White Blood Count* 4.13 K/uL (4.50-11.00)
[2023-04-22 11:20] LABS: Albumin* 3.9 g/dL (3.3-5.0); Chloride* 107 mmol/L (96-114); Potassium* 3.4 mmol/L (3.6-5.1); Sodium* 139 mmol/L (135-149)
[2023-04-22 11:22] LABS: Creatinine* 0.8 mg/dL (0.5-1.5); Est. Creatinine Clearance* 61.51; Estimated Glomerular Filt Rate 93 ml/min
[2023-04-22 11:23] LABS: Alanine Aminotransferase* 32 U/L (4-50); Alkaline Phosphatase* 80 U/L (40-150); Anion Gap 9 mEq/L (7-15); Aspartate Amino Transferase* 43 U/L (12-35); Bilirubin Total* 0.3 mg/dL (0.1-1.5); Blood Urea Nitrogen* 17 mg/dL (7-30); Carbon Dioxide* 23 mmol/L (20-32); Glucose* 83 mg/dL (60-115); Total Protein* 7.4 g/dL (6.0-8.3)
[2023-04-22 11:24] LABS: Calcium* 9.6 mg/dL (8.4-10.6)
[2023-04-22] MEDS: HEPARIN 500 UNIT/5 ML SYRINGE IVF (12:06)
--- NOTE | 2023-04-27 09:35 | ONC.NURNOTE ---
New Rx received for ivosidenib 250 mg tabs- 2 tabs daily RX and supporting documentation faxed to [id number]- this medication has a limited distribution [phone] PA initiated via covermymeds thru [employer]
--- NOTE | 2023-04-28 12:17 | ONC.NURNOTE ---
Addendum entered by Paris Teresa RN 04/28/23 14:03: Copay per [id number] is over $3000/month patient will need information about enrollment in copay kelly [id number] informed that missile tracking technician is needed Original Note: Approved on April 27 Request Reference Number: [id number]. TIBSOVO TAB 250MG is approved through 06/27/2024. Your patient may now fill this prescription and it will be covered. per [employer] [facility]
[2023-04-29 10:03] VITALS: BP 149/87; PULSE 100; RESP 16; TEMP 36.7; O2SAT 81
[2023-04-29] MEDS: 0.9 % SODIUM CHLORIDE 1000 ml 1,000 ML 500 ML IV (10:35)
[2023-04-29] MEDS: SODIUM CHLORIDE 0.9 % (FLUSH) 10 ML SYRINGE IVF ×2 (10:40→16:42)
[2023-04-29] MEDS: dexAMETHasone 4 MG/ML VIAL IV (10:58)
[2023-04-29] MEDS: ONDANSETRON 2 MG/ML inj 4 MG IVP (10:58)
[2023-04-29 11:13] LABS: Basophils Absolute Auto 0.03 K/uL (0.00-0.30); Basophils Percent Auto 0.5 % (0.0-3.0); Eosinophils Absolute Auto 0.05 K/uL (0.00-0.50); Eosinophils Percent Auto 0.9 % (0.0-7.0); Hematocrit 36.8 % (37.0-53.0); Hemoglobin* 11.6 gm/dL (13.5-17.5); Immature Granulocytes Abs Auto 0.03 K/uL (0.00-0.30); Immature Granulocytes Pct Auto 0.5 %; Lymphocytes Absolute Auto 1.39 K/uL (0.90-2.90); Lymphocytes Percent Auto 24.4 % (20-44); Mean Corpuscular HGB Conc 32 gm/dL (32-36); Mean Corpuscular Hemoglobin 32 pg (26-34); Mean Corpuscular Volume 100 fL (80-100); Neutrophils Absolute Auto 3.22 K/uL (1.7-7.0); Neutrophils Percent Auto 56.7 % (42.0-72.0); Platelet Count* 310 K/uL (140-440); RDW Coefficient of Variation % 19.1 % (11.5-15.5); Red Blood Count 3.68 m/uL (4.30-5.90); White Blood Count* 5.69 K/uL (4.50-11.00)
[2023-04-29 11:15] LABS: Slide Review Reflex No
[2023-04-29 11:28] LABS: Albumin* 4.2 g/dL (3.3-5.0); Chloride* 103 mmol/L (96-114)
[2023-04-29 11:29] LABS: Potassium* 3.1 mmol/L (3.6-5.1); Sodium* 141 mmol/L (135-149)
[2023-04-29 11:31] LABS: Alkaline Phosphatase* 97 U/L (40-150); Anion Gap 15 mEq/L (7-15); Aspartate Amino Transferase* 52 U/L (12-35); Bilirubin Total* 0.4 mg/dL (0.1-1.5); Blood Urea Nitrogen* 18 mg/dL (7-30); Carbon Dioxide* 23 mmol/L (20-32); Creatinine* 0.8 mg/dL (0.5-1.5); Est. Creatinine Clearance* 61.51; Estimated Glomerular Filt Rate 93 ml/min; Total Protein* 7.9 g/dL (6.0-8.3)
[2023-04-29 11:32] LABS: Alanine Aminotransferase* 32 U/L (4-50); Amylase* 150 U/L (18-89); Calcium* 9.9 mg/dL (8.4-10.6); Glucose* 89 mg/dL (60-115); Lipase* 116 U/L (23-300); Magnesium* 1.4 mg/dL (1.5-2.6); Phosphorus* 3.7 mg/dL (2.5-4.5); Uric Acid* 7.3 mg/dL (2.2-8.4)
[2023-04-29 11:35] LABS: Creatine Kinase* < 20 U/L (54-186)
[2023-04-29 12:00] VITALS: BP 152/77; PULSE 70; RESP 18; O2SAT 100
[2023-04-29 12:01] VITALS: BP 149/76
--- NOTE | 2023-04-29 12:05 | ONC.NURNOTE ---
New start Tibsoalyssa teaching with Ice House Supervisor written material in Maltese provided reviewed safe handling, dosing schedule no grapefruit and must take with a low fat meal calling with concerns enrollment needed for the free drug program through the medication administration professional application given to patient and paper wrapping machine operator to complete process explained to the patient and and daughter questions addressed pending baseline EKG baseline labs and pending enrollment in PAP
--- NOTE | 2023-04-29 12:25 | CRLHL7_ITS ---
For Patients: As a result of the Century Cures Act, medical imaging exams and procedure reports are released immediately into your electronic medical record. You may view this report before your referring provider. If you have questions, please contact your health care provider. INDICATION: Rule out bowel obstruction versus severe constipation. COMPARISON: CT of the abdomen and pelvis 04/15/2023. TECHNIQUE: Abdomen 4 view. FINDINGS: Nonobstructive bowel gas pattern. Moderate amount of stool in the ascending colon. No sign of pneumatosis or free air. The lung bases are clear. Degenerative changes of the spine. IMPRESSION: 1. Nonobstructive bowel gas pattern. 2. Moderate amount of stool in the ascending colon. Dictated by Mishel Lu MD @ 04/29/2023 1:39:49 PM (Electronically Signed)
[2023-04-29] MEDS: HEPARIN 500 UNIT/5 ML SYRINGE IVF (16:42)
[2023-05-03 08:59] VITALS: BP 146/74; PULSE 65; RESP 17; TEMP 36.2; O2SAT 100
[2023-05-03 10:12] LABS: Chloride* 107 mmol/L (96-114); Potassium* 3.3 mmol/L (3.6-5.1); Sodium* 139 mmol/L (135-149)
[2023-05-03 10:14] LABS: Creatinine* 0.7 mg/dL (0.5-1.5); Est. Creatinine Clearance* 61.51; Estimated Glomerular Filt Rate 97 ml/min
[2023-05-03 10:15] LABS: Anion Gap 10 mEq/L (7-15); Blood Urea Nitrogen* 24 mg/dL (7-30); Carbon Dioxide* 22 mmol/L (20-32); Glucose* 112 mg/dL (60-115)
[2023-05-03 10:16] LABS: Calcium* 9.3 mg/dL (8.4-10.6); Magnesium* 1.6 mg/dL (1.5-2.6)
[2023-05-03] MEDS: 0.9 % SODIUM CH + KCL 20 mEq/L 1,000 ML 500 ML IV (10:45)
[2023-05-03] MEDS: HEPARIN 500 UNIT/5 ML SYRINGE IVF (12:46)
[2023-05-03] MEDS: SODIUM CHLORIDE 0.9 % (FLUSH) 10 ML SYRINGE IVF (12:46)
--- NOTE | 2023-05-04 12:37 | ONC.NURNOTE ---
Galo- enrolled in free drug program [employer] [facility] [phone] 06/27/2024 Pt ID [id number]
[2023-05-06] MEDS: 0.9 % SODIUM CHLORIDE 1000 ml 1,000 ML IV (12:00)
[2023-05-06 12:55] VITALS: BP 117/70; PULSE 80; RESP 17; TEMP 36.9; O2SAT 98
[2023-05-06 13:21] LABS: Basophils Absolute Auto 0.01 K/uL (0.00-0.30); Basophils Percent Auto 0.1 % (0.0-3.0); Hematocrit 35.2 % (37.0-53.0); Hemoglobin* 11.3 gm/dL (13.5-17.5); Immature Granulocytes Abs Auto 0.03 K/uL (0.00-0.30); Immature Granulocytes Pct Auto 0.3 %; Mean Corpuscular HGB Conc 32 gm/dL (32-36); Mean Corpuscular Hemoglobin 32 pg (26-34); Mean Corpuscular Volume 99 fL (80-100); Monocytes Percent Auto 4.6 % (0.0-11.0); Platelet Count* 188 K/uL (140-440); RDW Coefficient of Variation % 18.6 % (11.5-15.5); Red Blood Count 3.54 m/uL (4.30-5.90); White Blood Count* 9.42 K/uL (4.50-11.00)
[2023-05-06 13:25] LABS: Slide Review Reflex No
[2023-05-06 13:35] LABS: Albumin* 3.7 g/dL (3.3-5.0); Chloride* 105 mmol/L (96-114)
[2023-05-06 13:36] LABS: Potassium* 3.7 mmol/L (3.6-5.1); Sodium* 137 mmol/L (135-149)
[2023-05-06 13:38] LABS: Alkaline Phosphatase* 95 U/L (40-150); Anion Gap 11 mEq/L (7-15); Aspartate Amino Transferase* 62 U/L (12-35); Bilirubin Total* 0.2 mg/dL (0.1-1.5); Carbon Dioxide* 21 mmol/L (20-32); Creatinine* 0.7 mg/dL (0.5-1.5); Est. Creatinine Clearance* 61.51; Estimated Glomerular Filt Rate 97 ml/min; Total Protein* 7.1 g/dL (6.0-8.3)
[2023-05-06 13:39] LABS: Alanine Aminotransferase* 42 U/L (4-50); Blood Urea Nitrogen* 16 mg/dL (7-30); Calcium* 9.4 mg/dL (8.4-10.6); Creatine Kinase* < 20 U/L (54-186); Glucose* 155 mg/dL (60-115); Magnesium* 1.5 mg/dL (1.5-2.6); Phosphorus* 2.4 mg/dL (2.5-4.5); Uric Acid* 5.4 mg/dL (2.2-8.4)
[2023-05-06] MEDS: SODIUM CHLORIDE 0.9 % (FLUSH) 10 ML SYRINGE IVF (15:53)
[2023-05-06] MEDS: HEPARIN 500 UNIT/5 ML SYRINGE IVF (15:53)
--- NOTE | 2023-05-06 15:54 | ONC.NURNOTE ---
Tibsovo Treatment Coordination today with patient coordinator verbal and written information provided -Start K Phos X 14 days sent to pts pharmacy- to correct low phosphate -continue on oral potassium -continue on oral magnesium -extra lab due 05/10 in [facility] for K,Mg,Ph -weekly lab and EKG was set up with Dr Sheridan's [place] office for 05/17 and 05/24 -RTC for VV with Dr Majano on 05/25 Reviewed Tibsovo dosing- 2 tabs with low fat meal in the morning- reviewed possible side effects labs today reviewed by Dr Yeung and orders entered for follow up labs patient has been instructed to stop taking any zofran and to stop Prozac (per Dr Sheridan) due to major QTc prolongation interaction with Tibsovo: per Dr Yeung - patient to taper Prozac with QOD dosing over 10 days then stop calender and written instructions provided patient requests to continue to come in for IV hydration weekly- as previously scheduled
--- NOTE | 2023-05-06 15:54 | ONC.NURNOTE ---
states no pain, color good. orthostatics good. states eating well. some fluid. states would like IVF. labs good. 500cc NS given.
[2023-05-10 12:50] VITALS: BP 118/78; PULSE 85; RESP 20; O2SAT 99
[2023-05-10 12:52] VITALS: BP 83/58; PULSE 95
[2023-05-10 13:01] LABS: Potassium* 3.8 mmol/L (3.6-5.1)
[2023-05-10 13:04] LABS: Magnesium* 1.8 mg/dL (1.5-2.6); Phosphorus* 3.7 mg/dL (2.5-4.5)
[2023-05-10] MEDS: 0.9 % SODIUM CHLORIDE 1000 ml 1,000 ML IV (13:27)
[2023-05-10 14:20] VITALS: BP 138/78; PULSE 66; RESP 18; O2SAT 100
[2023-05-10 14:23] VITALS: BP 123/72; PULSE 74
--- NOTE | 2023-05-12 14:20 | ONC.NURNOTE ---
Fourth Hand connected with Virgilio mancillaasbestos remover to follow up on new start Tibsovo via food and beverage assistant manager- no changes in how he feels since starting Tibsovo denies any new symptoms continues to take primarily liquids- like ensure coming in tomorrow for IV hydration fluids
[2023-05-13 11:35] VITALS: BP 117/77; PULSE 83; RESP 16; TEMP 36.2; O2SAT 100
[2023-05-13] MEDS: 0.9 % SODIUM CHLORIDE 1000 ml 1,000 ML IV (12:00)
[2023-05-13] MEDS: HEPARIN 500 UNIT/5 ML SYRINGE IVF (13:31)
[2023-05-13] MEDS: SODIUM CHLORIDE 0.9 % (FLUSH) 10 ML SYRINGE IVF (13:31)
--- NOTE | 2023-05-13 13:32 | ONC.NURNOTE ---
states decreased appetite since starting the po chemo. states constant abd. pain that increases with eating. state feels full. states feels like he needs to burp. encouraged avoiding carbenated zeferino. and straws. states no nausea. states having normal bm daily and taking miralax. abd soft nondistended. hypo bs all 4 quad. states feels about the same today as all week, not worse. states feeling better after 1L NS.
--- NOTE | 2023-05-18 15:55 | ONC.NURNOTE ---
Phone call to Aaron linked with [employer] reports soft BM, once a day no diarrhea instructions given to increase K to two tabs on Wednesday, and Wednesday next lab due on Wednesday wasn't able to sleep and received lorazepam from Dr Sheridan which has helped with sleep Aaron has now stopped his prozac denies rash, diarrhea or new cough Aaron is asking if a UGI would be helpful in diagnosing his poor appetite and difficulty eating patient states that Dr Sheridan was going to contact Dr Majano about this option medical writer has not heard anything this possiblity at this time
[2023-05-19 13:37] VITALS: BP 117/77; PULSE 83; RESP 16; TEMP 35.9; O2SAT 99
[2023-05-26] MEDS: 0.9 % SODIUM CHLORIDE 1000 ml 1,000 ML IV (12:38)
[2023-05-26] MEDS: SODIUM CHLORIDE 0.9 % (FLUSH) 10 ML SYRINGE IVF ×2 (12:38→13:43)
--- NOTE | 2023-05-26 13:12 | ONC.NURNOTE ---
Patient was seen by provider today, but left with the following questions. Please see answeres below in red: Patient needs alternative medication for his depression. Old medication was stopped due to interaction with chemtherapy. Patient was instructed to make an appointment with his PCP to find an alternative since he feels that this is needed. Daughter and expressed understanding of need to make an appointment with PCP. is concerned about having enough pain medication available to patient at the pharmacy. Discussed the importance of letting us know when patient is down to one weeks worth of medication. Family was told that they need to contact us at this point, so that there is adequate time to refill as needed. Family needs to two seperate letter written with the following information: Father is under our care since xxx, and that cancer is advanced/terminal. Family should be available due to this. Family were told that would have two letters available to them by next week. (One for [place], and one for daughter out of state).
[2023-05-26] MEDS: HEPARIN 500 UNIT/5 ML SYRINGE IVF (13:43)
[2023-05-31 11:34] VITALS: BP 121/84; PULSE 96; RESP 16; TEMP 36.1; O2SAT 96
[2023-05-31] MEDS: 0.9 % SODIUM CHLORIDE 1000 ml 1,000 ML IV (12:05)
[2023-05-31] MEDS: PROCHLORPERAZINE 5 MG/ML VIAL 10 MG IV (12:59)
--- NOTE | 2023-05-31 13:13 | PC.NURSE ---
Oral chemo (Tibsovo) on hold until completion of oral abx for pneumonia. Abx will be done on Wednesday. Pt will resume oral chemo on Wednesday.
--- NOTE | 2023-06-01 10:27 | PC.NURSE ---
LATE ENTRY: 05/31/2023 pt was present at [facility] for IVF. Pt had acute nausea with vomiting. Discussed with Karolina Ward APRN and a one time order was obtained for Compazine 10 mg IV push. This was given just before pt's bag of IVF completed. Unable to reassess response as pt dc'd to home soon thereafter. RN advised Aaron and his to use the Compazine suppositories as ordered. Because of timing of IV dose on Wednesday, pt was asked to not take another supp dose until late evening. They verbalized understanding. Support offered.
--- NOTE | 2023-06-01 15:48 | ONC.NURNOTE ---
CT Scan for 06/07 cancelled because it was done on 05/28 while an inpatient other appts reviewed: lab with IV fluids 06/03 IV fluids and possible lab 06/07 Dr Yeung and IV fluids 06/10 EKG on hold on 06/08 due to Tibsovo on hold this past week
[2023-06-03 11:25] LABS: Basophils Percent Auto 0.3 % (0.0-3.0); Eosinophils Percent Auto 0.7 % (0.0-7.0); Hematocrit 38.2 % (37.0-53.0); Immature Granulocytes Pct Auto 0.2 %; Lymphocytes Percent Auto 10.3 % (20-44); Mean Corpuscular HGB Conc 31 gm/dL (32-36); Mean Corpuscular Hemoglobin 32 pg (26-34); Mean Corpuscular Volume 102 fL (80-100); Monocytes Percent Auto 8.4 % (0.0-11.0); Neutrophils Percent Auto 80.1 % (42.0-72.0); Platelet Count* 189 K/uL (140-440); RDW Coefficient of Variation % 17.6 % (11.5-15.5); Red Blood Count 3.73 m/uL (4.30-5.90); White Blood Count* 13.22 K/uL (4.50-11.00)
[2023-06-03 11:29] LABS: Slide Review Reflex No
[2023-06-03 11:40] LABS: Albumin* 3.2 g/dL (3.3-5.0); Chloride* 110 mmol/L (96-114); Potassium* 3.1 mmol/L (3.6-5.1); Sodium* 142 mmol/L (135-149)
[2023-06-03 11:43] LABS: Alanine Aminotransferase* 22 U/L (4-50); Alkaline Phosphatase* 112 U/L (40-150); Anion Gap 6 mEq/L (7-15); Aspartate Amino Transferase* 27 U/L (12-35); Bilirubin Total* 1.2 mg/dL (0.1-1.5); Blood Urea Nitrogen* 14 mg/dL (7-30); Carbon Dioxide* 26 mmol/L (20-32); Creatinine* 0.7 mg/dL (0.5-1.5); Est. Creatinine Clearance* 61.51; Estimated Glomerular Filt Rate 97 ml/min; Glucose* 118 mg/dL (60-115); Total Protein* 6.5 g/dL (6.0-8.3)
[2023-06-03 11:44] LABS: Phosphorus* 2.8 mg/dL (2.5-4.5)
[2023-06-03 12:00] VITALS: BP 130/84; PULSE 87; RESP 16; TEMP 36.6; O2SAT 98
[2023-06-03] MEDS: PROCHLORPERAZINE 5 MG/ML VIAL 10 MG IVP (12:10)
[2023-06-03] MEDS: SODIUM CHLORIDE 0.9 % (FLUSH) 10 ML SYRINGE IVF (12:10)
[2023-06-03] MEDS: HEPARIN 500 UNIT/5 ML SYRINGE IVF (12:10)
[2023-06-03] MEDS: 0.9 % SODIUM CHLORIDE 1000 ml 1,000 ML IV (12:10)
[2023-06-03] MEDS: POTASSIUM CHLORIDE 10 MEQ/100 ML PIGGYBACK 100 MEQ IVPB ×2 (13:15→14:06)
--- NOTE | 2023-06-03 16:05 | ONC.NURNOTE ---
Daughter Lara phoned in- patient seen here today for IV fluids, K replacement Daughter reports that the patient continues to have emesis with any oral- and reports seeing whole pills within the emesis- for example the K tabs from the previous day ticket writer discussed with [facility] team with the following currently using the compazine GA once daily- may increase this to Q 12hrs has not been on the ondansetron due to drug interaction with new oral cancer medication tibsovo since the tibsovo has been on hold for the past week it was recommended that Aaron try to ODT Ondansetron- RX submitted to patients pharmacy if the vomiting continues than he may need to be evaluated in the ED again for intractable vomiting daughter states understanding and will call in follow up
--- NOTE | 2023-06-03 16:11 | ONC.NURNOTE ---
states abd discomfot chapito. states nausea and not eating. some emesis. states ran out of compazine supp and rx is waiting at his pharmacy to pickler helper. enc his to pickler helper and use. Talked to Rhiannon PAC . compazine 10mg given iv with relief. potassium 3.1. 20meq potassium given iv per Rhiannon PAC>
--- NOTE | 2023-06-04 09:30 | ONC.NURNOTE ---
Daughter Lara phoned with an update Aaron has been vomiting through the night- described as a dark color he is much weaker Daughter understands that Aaron needs to be evaluated in the ED now- ED and tree chipper notified
[2023-06-04 14:57] LABS: Magnesium* 1.8 mg/dL (1.5-2.6)
== END 2023-06-09 23:59 | disposition home or self-care (01) ==
LOC: CCIC 11:00
PROVIDERS: Clinical Nurse Specialist; Internal Medicine Hematology & Oncology; Physician Assistant; PCP Family Medicine; Referring Provider Family Medicine; Visit Provider Internal Medicine Hematology & Oncology
DX: C22.1 Intrahepatic bile duct carcinoma (principal)
CPT/HCPCS: 36415; 36591; 71260; 74019; 74177; 80048; 80053; 81003; 81015; 82150; 82533; 82550; 83690; 83735; 84100; 84132; 84443; 84550; 85025; 85610; 87086; 96360; 96361; 96365; 96366; 96376; 96413; 96415; 96417; 99211; 99212; 99213; 99214; 99215; T1013; A9270; J0780; J1100; J1453; J1642; J2405; J2469; J3475; J3480; J7030; J7050; J9045; J9173; J9201; Q9967

== ENCOUNTER 2023-06-04 11:40 | Inpatient (IN) | payer MEDICARE, SELFPAY ==
[2023-06-04 12:01] VITALS: BP 114/83; PULSE 113; RESP 18; TEMP 36.5; O2SAT 97
[2023-06-04] MEDS: 0.9 % SODIUM CHLORIDE 1000 ml 1,000 ML IV (13:08)
--- NOTE | 2023-06-04 13:16 | ED_ITS ---
HPI - General Adult General Date Seen: 06/04/23 Chief complaint: Nausea/Vomiting Stated complaint: Vomiting Time Seen by Provider: 06/04/23 12:13 Source: patient, family, RN notes reviewed, old records reviewed, senior product development manager and other Mode of arrival: ambulatory Limitations: language barrier History of Present Illness HPI narrative: Patient is a 72-year-old male here with and daughter for evaluation of ongoing difficulties with nausea and vomiting. He has metastatic cholangiocarcinoma with peritoneal carcinomatosis. He was admitted to the hospital on May 28, underwent a CT of the chest abdomen pelvis at that time which showed possible multi focal pneumonia, there was some consideration given to the thought that this could be metastatic disease as well. He was having problems with vomiting at that time. Was started on a new oral chemotherapeutic medication around the same time and so that medication has been held. In hospital he was diagnosed with UTI plus-minus pneumonia, treated with Rocephin and discharged on Vantin. He had a paracentesis on May 29 for large volume ascites. Nausea vomiting was thought possibly related to chemotherapy verses pressure ascites. He had been on steroids, and has had some hematemesis, there was a question of whether endoscopy would be helpful to further evaluate his symptoms as well. Since going home he has had inability to tolerate p.o., he says whenever he eats or drinks he gets abdominal pain and then vomits. He has not been able to take his antibiotic. He has not had fevers. He has had persistent cough. Denies shortness of breath. Has not had black or bloody stools. Related Data Home Medications Medication Instructions Recorded Confirmed sennosides 8.6 mg capsule (senna) 8.6 mg PO BID 01/19/23 05/28/23 dexamethasone 2 mg tablet 4 mg PO DAILY 05/28/23 05/31/23 dutasteride 0.5 mg capsule 0.5 mg PO DAILY 05/28/23 05/31/23 (Avodart) lorazepam 1 mg tablet 1 mg PO HS PRN sleep 05/28/23 05/31/23 tamsulosin 0.4 mg capsule (Flomax) 0.4 mg PO DAILY 05/28/23 05/31/23 Previous Rx's Medication Instructions Recorded albuterol sulfate 90 mcg/actuation 2 puff inhalation Q4-6H PRN 06/24/22 aerosol inhaler shortness of breath or wheezing #8.5 grams ibuprofen 800 mg tablet 800 mg PO TID PRN pain #90 tabs 07/20/22 ipratropium 0.5 mg-albuterol 3 mg 3 ml inhalation QID #180 mL 08/19/22 (2.5 mg base)/3 mL nebulization soln fluticasone 250 mcg-salmeterol 50 1 inh inhalation BID #60 ea 11/02/22 mcg/dose blistr powdr for inhalation (Advair Diskus) metoclopramide HCl 10 mg tablet 10 mg PO .COMPLEX nausea and 03/25/23 vomiting #120 tabs omeprazole 20 mg capsule,delayed 20 mg PO BID #180 caps 04/06/23 release prochlorperazine 25 mg rectal 25 mg GA BID PRN nausea and 04/15/23 suppository (Compazine) vomiting #12 ea ivosidenib 250 mg tablet 500 mg (2 x 250 mg) PO QDAY #30 04/22/23 tabs polyethylene glycol 3350 17 4 g PO DIRECTED constipation 04/29/23 gram/dose oral powder (Miralax) #238 grams oxycodone 10 mg tablet 10 mg PO QID PRN pain #120 tabs 05/19/23 acetaminophen 325 mg tablet 650 mg (2 x 325 mg) PO Q6H PRN #30 05/30/23 tabs cefpodoxime 200 mg tablet 200 mg PO BID #11 tabs 05/30/23 magnesium oxide 400 mg (241.3 mg 400 mg PO TID #90 tabs 05/30/23 magnesium) tablet potassium chloride 20 mEq 20 meq PO BID #60 tabs 05/30/23 tablet,extended release ondansetron 4 mg disintegrating 4 mg PO Q6H PRN nausea and 06/04/23 tablet vomiting #30 tabs Allergies Allergy/AdvReac Type Severity Reaction Status Date / Time No Known Drug Allergies Allergy Verified 05/31/23 12:40 Review of Systems Status of ROS: Reports: 10 or more systems reviewed and unremarkable except as noted in History and below [facility] Medical History Hypomagnesemia ?E83.42 - Hypomagnesemia (ICD-10) Therapeutic opioid induced constipation ?K59.03 - Drug induced constipation (ICD-10) ?T40.2X5A - Adverse effect of other opioids, initial encounter (ICD-10) Glomerulonephritis ?N05.9 - Unspecified nephritic syndrome with unspecified morphologic changes (ICD-10) Gross hematuria ?R31.0 - Gross hematuria (ICD-10) Bilateral leg cramps ?R25.2 - Cramp and spasm (ICD-10) Hypophosphatemia ?E83.39 - Other disorders of phosphorus metabolism (ICD-10) Peritoneal carcinomatosis ?C78.6 - Secondary malignant neoplasm of retroperitoneum and peritoneum (ICD- 10) Type 2 diabetes mellitus, without long-term current use of insulin ?E11.9 - Type 2 diabetes mellitus without complications (ICD-10) Bilateral cataracts ?H26.9 - Unspecified cataract (ICD-10) BPH (benign prostatic hyperplasia) ?N40.0 - Benign prostatic hyperplasia without lower urinary tract symptoms (ICD-10) Neutropenia ?D70.9 - Neutropenia, unspecified (ICD-10) Nocturia ?R35.1 - Nocturia (ICD-10) COVID-19 in immunocompromised patient ?U07.1 - COVID-19 (ICD-10) ?D84.9 - Immunodeficiency, unspecified (ICD-10) Alcohol use ?Z72.89 - Other problems related to lifestyle (ICD-10) Recurrent tinea pedis ?B35.3 - Tinea pedis (ICD-10) Colonic polyp ?K63.5 - Polyp of colon (ICD-10) COPD (chronic obstructive pulmonary disease) ?J44.9 - Chronic obstructive pulmonary disease, unspecified (ICD-10) Chronic low back pain ?M54.50 - Low back pain, unspecified (ICD-10) ?G89.29 - Other chronic pain (ICD-10) 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 ?C22.1 - Intrahepatic bile duct carcinoma (ICD-10) ?C78.7 - Secondary malignant neoplasm of liver and intrahepatic bile duct (ICD-10) Surgical History History of abdominal paracentesis ?Z98.890 - Other specified postprocedural states (ICD-10) Hx of cataract surgery ?Z98.49 - Cataract extraction status, unspecified eye (ICD-10) Social History Narrative: , retired, former smoker, previous significant alcohol use What is your current living situation?: I presently have a place to live Problems where you live: no known problems Problems where you live details: n/a In the past 12 months, utilities in danger of being shut off: unable to answer In past 12 months, lack of transportation kept you from medical appts, meetings, work, or getting things needed for daily living: no In the past 12 mos, have been you worried that your food would run out before you had money to buy more?: unable to answer In the past 12 mos, the food you bought just didn't last and you didn't have money to buy more?: unable to answer Smoking Status: Never smoker Do you use any of these nicotine containing products: None How often do you have a drink containing alcohol: never How often do you have six or more drinks on one occasion: Never AUDIT-C Alcohol total score: 0 Non-prescribed substance use: denies use Caffeine: No How often does anyone, including family, friends and others, physically hurt you : unable to answer How often does anyone, including family, friends and others, insult or talk down to you: unable to answer How often does anyone, including family, friends and others, threaten you with harm: unable to answer How often does anyone, including family, friends and others, scream or curse at you: unable to answer Little interest or pleasure in doing things: nearly every day Feeling down, depressed, or hopeless: nearly every day service: No Exam Narrative: Exam Narrative: Vital signs as noted above. In general, an alert, chronically ill-appearing male. Head: Normocephalic, atraumatic. Eyes: Pupils are equal reactive. Extraocular movements are full. Conjunctivae are normal without obvious scleral icterus.. ENT: Mucous membranes are somewhat dry. Neck: Supple without lymphadenopathy. Heart: Regular rate and rhythm. No murmur or rub. Lungs: Clear bilaterally. No increased work of breathing, crackles or wheezes. Abdomen: Abdomen is distended and firm, little bit of localized left mid upper quadrant tenderness without rebound guarding or rigidity. Extremities: Well perfused. No edema. No calf tenderness. Neurologic: Patient is alert and oriented to person and place. Speech is fluent. Face is symmetric. Moves all extremities equally. Affect: Normal. Skin: Warm and dry. Looks somewhat pale.. Const: Vital Signs, click to edit/add: Vital Signs - 24 hr 06/04/23 12:01 06/04/23 15:37 Temperature 97.7 F Pulse Rate [Pulse Oximeter] 113 H 95 Respiratory Rate 18 16 Blood Pressure [Ri ght Upper Arm] 114/83 115/81 Pulse Oximetry 97 96 Oxygen Delivery Me thod Room Air Room Air Documenting provider has reviewed patient's vital signs: yes Course Course ED Course: I had the lengthy conversation about this patient with [facility]. He has been going there apparently for IV infusions. He has rectal Compazine which has been marginally helpful for his symptoms. Zofran is contraindicated given his oral chemotherapy in medicine. There have been per her report many conversations surrounding goals of care, at this time patient wants to continue active treatment. They do not feel that he is doing well at home, but also are not interested in [place] [facility]. He says he wants to be at his own home, wants to continue chemotherapy, and they are interested in endoscopy. Labs are notable for a white blood cell count of 15, 13 on last check. Hemoglobin is 11.5. He did have a small episode of emesis here which looks coffee-ground in appearance. Sent for occult blood testing. Platelet count is normal. Metabolic panel notable for potassium of 3 otherwise electrolytes are normal, BUN is 18 creatinine 0.9. Blood sugars normal. Lactate is 2.2, recheck after fluids is 1.9. Suspect this is related to dehydration rather than sepsis. LFTs unremarkable. Lipase 92. UA ordered, not yet obtained. Had a couple of lengthy conversations with the family, various children, senior product development manager and patient. There is not great consensus is between family members about patient status or how to proceed. I do not have a lot to offer that I think will help him symptomatically at home, he found the Compazine marginally helpful. Did give him Reglan here. He does not feel he has been keeping his antibiotic down, unclear whether he has a pulmonary infection versus metastatic disease to the lungs, did did have a urine culture which grew out E coli, which is potentially partially treated at this time. I gave him Rocephin IV here. Overall, I think he would benefit from admission to work on symptomatic control and to make sure that if he needs ongoing antibiotics that we have a plan to manage that. Family is comfortable with that plan. Vital Signs Vital signs: Initial Vital Signs Temperature 97.7 F 06/04/23 12:01 Temperature Source Temporal Artery Scan 06/04/23 12:01 Pulse Rate 113 H 06/04/23 12:01 Pulse Rhythm Regular 06/04/23 12:01 Respiratory Rate 18 06/04/23 12:01 Blood Pressure 114/83 06/04/23 12:01 Blood Pressure Mean 93 06/04/23 12:01 Blood Pressure Position Sitting 06/04/23 12:01 Pulse Oximetry 97 06/04/23 12:01 Oxygen Delivery Method Room Air 06/04/23 12:01 Vital Signs Temperature 97.7 F 06/04/23 12:01 Pulse Rate 113 H 06/04/23 12:01 Respiratory Rate 18 06/04/23 12:01 Blood Pressure 114/83 06/04/23 12:01 Pulse Oximetry 97 06/04/23 12:01 Oxygen Delivery Method Room Air 06/04/23 12:01 Temperature 97.7 F 06/04/23 12:01 Pulse Rate 95 06/04/23 15:37 Respiratory Rate 16 06/04/23 15:37 Blood Pressure 115/81 06/04/23 15:37 Pulse Oximetry 96 06/04/23 15:37 Oxygen Delivery Method Room Air 06/04/23 15:37 Medications Administered Medications: Discontinued Medications Generic Name Dose Route Start Last Admin Trade Name Freq PRN Reason Stop Dose Admin Sodium Chloride 1,000 mls @ 1,000 mls/hr 06/04/23 12:45 06/04/23 15:51 0.9 % Sodium Chloride 1000 Ml IV 06/04/23 13:44 Infused .Q1H [facility] Infusion Metoclopramide HCl 10 mg/ 102 mls @ 306 mls/hr 06/04/23 14:45 06/04/23 15:52 Sodium Chloride IVPB 06/04/23 14:46 Infused ONCE ONE Infusion Ceftriaxone Sodium 1 gm/ 100 mls @ 200 mls/hr 06/04/23 15:27 06/04/23 15:51 Sodium Chloride IVPB 06/04/23 15:28 200 mls/hr ONCE ONE Administration Medical Decision Making Lab Data Labs: Lab Results 06/04/23 06/04/23 Range/Units 13:10 15:47 WBC 15.27 H (4.50-11.00) K/uL RBC 3.58 L (4.30-5.90) m/uL Hgb 11.5 L (13.5-17.5) gm/dL Hct 36.4 L (37.0-53.0) % MCV 102 H (80-100) fL MCH 32 (26-34) pg MCHC 32 (32-36) gm/dL RDW Coeff of Andres 17.7 H (11.5-15.5) % Plt Count 198 (140-440) K/uL Neut % (Auto) 85.1 H (42.0-72.0) % Lymph % (Auto) 8.5 L (20-44) % [place] % (Auto) 5.5 (0.0-11.0) % Eos % (Auto) 0.4 (0.0-7.0) % Baso % (Auto) 0.2 (0.0-3.0) % Neut # (Auto) 13.00 H (1.7-7.0) K/uL Lymph # (Auto) 1.30 (0.90-2.90) K/uL [place] # (Auto) 0.80 (0.00-0.90) K/UL Eos # (Auto) 0.10 (0.00-0.50) K/uL Baso # (Auto) 0.00 (0.00-0.30) K/uL Abs Immat Gran (auto) 0.00 (0.00-0.30) K/uL Imm/Tot Granulo (auto) 0.3 % Sodium 141 (135-149) mmol/L Potassium 3.0 L (3.6-5.1) mmol/L Chloride 108 (96-114) mmol/L Carbon Dioxide 26 (20-32) mmol/L Anion Gap 7 (7-15) mEq/L BUN 18 (7-30) mg/dL Creatinine 0.9 (0.5-1.5) mg/dL Estimated GFR 90 ml/min Glucose 126 H (60-115) mg/dL Lactate 2.2 H 1.9 (0.5-1.9) mmol/L Calcium 9.0 (8.4-10.6) mg/dL Total Bilirubin 1.3 (0.1-1.5) mg/dL Direct Bilirubin 0.5 (0.0-0.5) mg/dL AST 37 H (12-35) U/L ALT 23 (4-50) U/L Alkaline Phosphatase 138 (40-150) U/L Total Protein 6.5 (6.0-8.3) g/dL Albumin 3.0 L (3.3-5.0) g/dL Lipase 92 (23-300) U/L Discharge Plan Discharge Clinical Impression: Cholangiocarcinoma metastatic to liver, Hematemesis Patient Disposition: Admitted As Observation Condition: Stable
[2023-06-04 13:26] LABS: Lactate* 2.2 mmol/L (0.5-1.9)
[2023-06-04 13:30] LABS: Basophils Percent Auto 0.2 % (0.0-3.0); Eosinophils Percent Auto 0.4 % (0.0-7.0); Hematocrit 36.4 % (37.0-53.0); Hemoglobin* 11.5 gm/dL (13.5-17.5); Immature Granulocytes Pct Auto 0.3 %; Lymphocytes Percent Auto 8.5 % (20-44); Mean Corpuscular HGB Conc 32 gm/dL (32-36); Mean Corpuscular Hemoglobin 32 pg (26-34); Mean Corpuscular Volume 102 fL (80-100); Monocytes Percent Auto 5.5 % (0.0-11.0); Neutrophils Percent Auto 85.1 % (42.0-72.0); Platelet Count* 198 K/uL (140-440); RDW Coefficient of Variation % 17.7 % (11.5-15.5); Red Blood Count 3.58 m/uL (4.30-5.90); White Blood Count* 15.27 K/uL (4.50-11.00)
[2023-06-04 13:38] LABS: Slide Review Reflex No
[2023-06-04 13:56] LABS: Chloride* 108 mmol/L (96-114); Sodium* 141 mmol/L (135-149)
[2023-06-04 13:58] LABS: Anion Gap 7 mEq/L (7-15); Aspartate Amino Transferase* 37 U/L (12-35); Bilirubin Direct* 0.5 mg/dL (0.0-0.5); Bilirubin Total* 1.3 mg/dL (0.1-1.5); Carbon Dioxide* 26 mmol/L (20-32); Total Protein* 6.5 g/dL (6.0-8.3)
[2023-06-04 13:59] LABS: Alanine Aminotransferase* 23 U/L (4-50); Alkaline Phosphatase* 138 U/L (40-150); Blood Urea Nitrogen* 18 mg/dL (7-30); Glucose* 126 mg/dL (60-115); Lipase* 92 U/L (23-300)
[2023-06-04 14:37] LABS: Creatinine* 0.9 mg/dL (0.5-1.5); Estimated Glomerular Filt Rate 90 ml/min
[2023-06-04] MEDS: METOCLOPRAMIDE HCL 10 MG in 0.9 % SODIUM CHLORIDE 100 ml 100 ML 306 MG IVPB (15:19)
[2023-06-04 15:37] VITALS: BP 115/81; PULSE 95; RESP 16; O2SAT 96
[2023-06-04] MEDS: cefTRIAXone 1 GM in 0.9 % SODIUM CHLORIDE Mini-bag 100 ML IVPB (15:51)
[2023-06-04 15:52] LABS: Lactate* 1.9 mmol/L (0.5-1.9)
--- NOTE | 2023-06-04 16:28 | CRLHL7_ITS ---
For Patients: As a result of the Century Cures Act, medical imaging exams and procedure reports are released immediately into your electronic medical record. You may view this report before your referring provider. If you have questions, please contact your health care provider. INDICATION: Cough. TECHNIQUE: Chest radiographs, 1 view. COMPARISON: Chest radiographs 06/11/2022. CT chest abdomen pelvis 05/28/2023. FINDINGS: Lines/Tubes/Devices: Right-sided Port-A-Cath with tip terminating in SVC. Mediastinum: Normal cardiac silhouette. Lungs: Ill-defined hazy airspace opacifications of the lung bases bilaterally, left greater than right. Linear bandlike opacifications of the lung bases likely due to subsegmental atelectasis and/or scarring. Airways: The trachea remains midline. Pleura: No pleural effusions or pneumothorax. Bones: No acute osseous abnormalities. Upper Abdomen: Unremarkable. IMPRESSION: Ill-defined hazy airspace opacifications of the left greater than right lower lung zones, suggestive of bibasilar pneumonia in the appropriate clinical setting. Dictated by Jorgito Hammonds MD @ 06/04/2023 5:56:21 PM (Electronically Signed)
--- NOTE | 2023-06-04 17:10 | P.IMHP_ITS ---
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 Patient is seen with his son, Lamine, who assists with interpreting, at bedside. Patient complains of ongoing nausea with vomiting after eating or taking medication orally. He reports midepigastric pain followed by vomiting. He reports black vomit a few times, last episode on arrival to the floor. He has not had a bowel movement in a week. No change in urination. Denies worsening of abdominal distention following recent paracentesis. Denies headache or dizziness. Denies fevers. Denies chest pain or shortness of breath. Complains of low back pain related to decreased activity, more frequently lying in bed. Has not been able to take most of his oral medications over the last week secondary to the nausea and vomiting that follows ingestion. Patient was hospitalized - 05/30/23 where he underwent paracentesis for ascites, removing 1400 mL, electrolyte management, and antibiotic therapy for suspected pneumonia (though suspected that could even be Mets) and a UTI with a urine culture growing E coli. Patient was discharged with oral cefpodoxime but was not able to consistently take pills as prescribed secondary to nausea and vomiting. Patient is followed by Oncology, locally. Review of Systems Narrative: REVIEW OF SYSTEMS: Complete review of systems performed and negative unless otherwise stated in HPI or below. [facility] Medical History Hypomagnesemia ?E83.42 - Hypomagnesemia (ICD-10) Therapeutic opioid induced constipation ?K59.03 - Drug induced constipation (ICD-10) ?T40.2X5A - Adverse effect of other opioids, initial encounter (ICD-10) Glomerulonephritis ?N05.9 - Unspecified nephritic syndrome with unspecified morphologic changes (ICD-10) Gross hematuria ?R31.0 - Gross hematuria (ICD-10) Bilateral leg cramps ?R25.2 - Cramp and spasm (ICD-10) Hypophosphatemia ?E83.39 - Other disorders of phosphorus metabolism (ICD-10) Peritoneal carcinomatosis ?C78.6 - Secondary malignant neoplasm of retroperitoneum and peritoneum (ICD- 10) Type 2 diabetes mellitus, without long-term current use of insulin ?E11.9 - Type 2 diabetes mellitus without complications (ICD-10) Bilateral cataracts ?H26.9 - Unspecified cataract (ICD-10) BPH (benign prostatic hyperplasia) ?N40.0 - Benign prostatic hyperplasia without lower urinary tract symptoms (ICD-10) Neutropenia ?D70.9 - Neutropenia, unspecified (ICD-10) Nocturia ?R35.1 - Nocturia (ICD-10) COVID-19 in immunocompromised patient ?U07.1 - COVID-19 (ICD-10) ?D84.9 - Immunodeficiency, unspecified (ICD-10) Alcohol use ?Z72.89 - Other problems related to lifestyle (ICD-10) Recurrent tinea pedis ?B35.3 - Tinea pedis (ICD-10) Colonic polyp ?K63.5 - Polyp of colon (ICD-10) COPD (chronic obstructive pulmonary disease) ?J44.9 - Chronic obstructive pulmonary disease, unspecified (ICD-10) Chronic low back pain ?M54.50 - Low back pain, unspecified (ICD-10) ?G89.29 - Other chronic pain (ICD-10) 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 ?C22.1 - Intrahepatic bile duct carcinoma (ICD-10) ?C78.7 - Secondary malignant neoplasm of liver and intrahepatic bile duct ( ICD-10) Surgical History History of abdominal paracentesis ?Z98.890 - Other specified postprocedural states (ICD-10) Hx of cataract surgery ?Z98.49 - Cataract extraction status, unspecified eye (ICD-10) Social History Narrative: , retired, former smoker, previous significant alcohol use What is your current living situation?: I presently have a place to live Problems where you live: no known problems Problems where you live details: n/a In the past 12 months, utilities in danger of being shut off: unable to answer In past 12 months, lack of transportation kept you from medical appts, meetings, work, or getting things needed for daily living: no In the past 12 mos, have been you worried that your food would run out before you had money to buy more?: unable to answer In the past 12 mos, the food you bought just didn't last and you didn't have money to buy more?: unable to answer Smoking Status: Never smoker Do you use any of these nicotine containing products: None How often do you have a drink containing alcohol: never How often do you have six or more drinks on one occasion: Never AUDIT-C Alcohol total score: 0 Non-prescribed substance use: denies use Caffeine: No How often does anyone, including family, friends and others, physically hurt you : unable to answer How often does anyone, including family, friends and others, insult or talk down to you: unable to answer How often does anyone, including family, friends and others, threaten you with harm: unable to answer How often does anyone, including family, friends and others, scream or curse at you: unable to answer Little interest or pleasure in doing things: nearly every day Feeling down, depressed, or hopeless: nearly every day service: No Meds Home Medications and Allergies Home Medications Medication Instructions Recorded Confirmed Type sennosides 8.6 mg capsule (senna) 8.6 mg PO BID 01/19/23 05/28/23 History dexamethasone 2 mg tablet 4 mg PO DAILY 05/28/23 05/31/23 History dutasteride 0.5 mg capsule 0.5 mg PO DAILY 05/28/23 05/31/23 History (Avodart) lorazepam 1 mg tablet 1 mg PO HS PRN sleep 05/28/23 05/31/23 History tamsulosin 0.4 mg capsule (Flomax) 0.4 mg PO DAILY 05/28/23 05/31/23 History Allergies Allergy/AdvReac Type Severity Reaction Status Date / Time No Known Drug Allergies Allergy Verified 05/31/23 12:40 Exam Narrative: Exam Narrative: PHYSICAL EXAM General: Appears tired, thin, otherwise NAD HEENT: Normocephalic, atraumatic, sclera white, EOMI, oral mucosa moist Cardiovascular: RRR, S1S2. No pitting edema Pulmonary: CTA bilaterally without rhonchi, rales, expiratory wheezes. No dyspnea Abdominal: Distended, firm, and NTTP, no guarding Neurological: Alert, answering questions appropriately, cranial nerves intact, no focal findings Extremities: No gross joint deformity or swelling. AROMI. Neurovascularly intact Skin: Warm, dry. Const: Vital Signs, click to edit/add: Vital Signs - 24 hr 06/04/23 12:01 06/04/23 15:37 Temperature 97.7 F Pulse Rate [Pulse Oximeter] 113 H 95 Respiratory Rate 18 16 Blood Pressure [Ri ght Upper Arm] 114/83 115/81 Pulse Oximetry 97 96 Oxygen Delivery Me thod Room Air Room Air Hospitalist - H&P: Result Labs Labs: Short CBC 06/04/23 Range/Units 13:10 WBC 15.27 H (4.50-11.00) K/uL Hgb 11.5 L (13.5-17.5) gm/dL Hct 36.4 L (37.0-53.0) % Plt Count 198 (140-440) K/uL BMP 06/04/23 13:10 Sodium 141 Potassium 3.0 L Chloride 108 Carbon Dioxide 26 BUN 18 Creatinine 0.9 Glucose 126 H Calcium 9.0 Liver Function 06/04/23 Range/Units 13:10 Total Bilirubin 1.3 (0.1-1.5) mg/dL Direct Bilirubin 0.5 (0.0-0.5) mg/dL AST 37 H (12-35) U/L ALT 23 (4-50) U/L Alkaline Phosphatase 138 (40-150) U/L Albumin 3.0 L (3.3-5.0) g/dL Imaging Chest x-ray: Attestation: I have reviewed the pertinent imaging results. Radiologist's impression: Chest radiographs, 1 view. COMPARISON: Chest radiographs 06/11/2022. CT chest abdomen pelvis 05/28/2023. FINDINGS: Lines/Tubes/Devices: Right-sided Port-A-Cath with tip terminating in SVC. Mediastinum: Normal cardiac silhouette. Lungs: Ill-defined hazy airspace opacifications of the lung bases bilaterally, left greater than right. Linear bandlike opacifications of the lung bases likely due to subsegmental atelectasis and/or scarring. Airways: The trachea remains midline. Pleura: No pleural effusions or pneumothorax. Bones: No acute osseous abnormalities. Upper Abdomen: Unremarkable. IMPRESSION: Ill-defined hazy airspace opacifications of the left greater than right lower lung zones, suggestive of bibasilar pneumonia in the appropriate clinical setting. Assessment and Plan Assessment and plan (1) Hematemesis: Problem comment: -coffee-ground emesis reported in the ED -stool occult blood negative -hemoglobin stable, currently 11.5, 12.0 on 06/03, 9.7 on 05/30, continue to monitor -ED provider discussed with General Surgery, no endoscopy available over weekend (family had inquired), consider outpatient follow-up Status: Acute (2) Nausea and vomiting in adult: Problem comment: -in setting of abdominal pain/ascites, peritoneal carcinomatosis, cholangiocarcinoma mets to liver. Stool H pylori on 05/30 negative -chronic, poorly managed, query relation to chemotherapy versus pressure ascites -inability to tolerate orals (foods or medications) with abdominal pain leading to vomiting -rectal Compazine marginally helpful, Zofran contraindicated with oral chemotherapy -continue scheduled Reglan IV (transitioin back to oral when able to tolerate), add scopolamine patch, p.r.n. hydroxyzine, p.r.n. Ativan q.h.s. -continue PPI, IV while hospitalized -IV fluids, clear liquids as tolerated -in reviewing oncology note from 05/26/2023, there have been questions regarding feeding tube placement as well as other procedures (EGD) which are to be followed up on with Oncology Status: Chronic (3) Peritoneal carcinomatosis: Problem comment: -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 Continue treatment with ivosidenib 500 mg daily -oncologist (Dr. Majano) has recommended hospice, but patient and family have requested continued treatments. Touched on this again on admission with son Lamine. -continue pain management with oxycodone prn, IV morphine prn, hydroxyzine, Ativan Status: Chronic (4) Cholangiocarcinoma metastatic to liver: Problem comment: -pMMR, HER2 negative, IDH1 mutant -as above Status: Chronic (5) Ascites: Problem comment: -underwent diagnostic and therapeutic paracentesis with Dr. Rizzo on 05/29, 1400ml removed -outpatient follow up with Dr. Rizzo for consideration of further interventions, repeat paracentesis as needed Status: Chronic (6) Leukocytosis: Problem comment: -WBC 15.27 with left shift, 13.22 yesterday. Afebrile. Lactate 2.2, improved to 1.9 following IV fluids, less likely sepsis. -recent chest CT 05/28 showed nodular opacities concerning for multifocal pneumonia. Query metastatic cholangiocarcinomatosis. UA on 05/28 grew E coli. Received IV ceftriaxone during recent hospitalization, transitioned to oral cefpodoxime on discharge, unable to tolerate secondary to nausea and vomiting -has been on dexamethasone -CXR showing ill-defined hazy airspace opacifications of the left greater than right lower lung zones, suggestive of bibasilar pneumonia -procalcitonin 0.42, UA ordered -continue ceftriaxone as initiated in ED for now Status: Acute (7) Hypokalemia: Problem comment: -potassium 3.0 -will start with IV placement, transitioning to oral when tolerated (discharged on 20 mEq b.i.d.) -magnesium 1.8, phosphorus 2.7 Status: Acute Plan CODE: DNR/DNI as discussed with patient and son, Lamine VTE PPX: SCDs, no enoxaparin with concern for hematemesis Disposition: Observation
[2023-06-04 17:44] LABS: Fecal Occult Blood* Negative (Negative)
--- NOTE | 2023-06-04 17:47 | PC.NURSE ---
Report to [facility] on med/surg
[2023-06-04 18:31] VITALS: BP 133/96; PULSE 96; RESP 18; TEMP 36.7; O2SAT 97; BMI 23.2
[2023-06-04 18:59] LABS: Phosphorus* 2.7 mg/dL (2.5-4.5)
[2023-06-04 19:00] VITALS: BP 122/83; PULSE 97; RESP 16; TEMP 36.4; O2SAT 96
[2023-06-04] MEDS: 0.9 % SODIUM CHLORIDE 1000 ml 1,000 ML 75 ML IV (19:00)
[2023-06-04 19:16] LABS: Procalcitonin* 0.42 ng/mL (<0.50)
[2023-06-04] MEDS: POTASSIUM CHLORIDE 10 MEQ/100 ML PIGGYBACK 100 MEQ IVPB ×3 (20:02→22:06)
[2023-06-04] MEDS: LIDOCAINE 5% PATCH 1 PATCH TRANSDERMA (20:03)
[2023-06-04] MEDS: METOCLOPRAMIDE HCL 5 MG/ML INJ 10 MG IVP (20:03)
[2023-06-04] MEDS: SCOPOLAMINE 1 MG/3 DAY PATCH 1 PATCH TRANSDERMA (20:21)
[2023-06-04 21:37] VITALS: PULSE 91
[2023-06-04 22:40] LABS: Appearance Urine Turbid (Clear); Bilirubin Urine 2+ (Negative); Blood Urine Negative (Negative); Color Urine Yellow (Yellow); Glucose Urine Negative (Negative); Ketones Urine 3+ (Negative); Leukocyte Esterase Urine Negative (Negative); Nitrite Urine Negative (Negative); Protein Urine 2+ (Negative); Specific Gravity Urine 1.025 (1.000-1.030)
[2023-06-04 23:00] VITALS: BP 125/84; PULSE 88; PULSE 96; RESP 16; O2SAT 96
[2023-06-04 23:05] LABS: Mucus Urine Moderate; Squamous Epithelial Cell Urine Many (None-Few)
[2023-06-04 23:12] LABS: Legionella pneumo Ag Urine L. pneumo Negative (Negative); S pneumo Ag Urine S. pneumo Negative (Negative)
[2023-06-05] VITALS (17 sets, daily range): BP systolic 98–133; BP diastolic 65–92; PULSE 71–102; RESP 15–20; TEMP 36.1–36.6; O2SAT 92–97
[2023-06-05] MEDS: METOCLOPRAMIDE HCL 5 MG/ML INJ 10 MG IVP ×3 (00:59→18:52)
[2023-06-05] MEDS: DOXYCYCLINE HYCLATE 100 MG in 0.9 % SODIUM CHLORIDE Mini-bag 100 ML IVPB ×3 (01:03→21:34)
[2023-06-05] MEDS: POTASSIUM CHLORIDE 10 MEQ/100 ML PIGGYBACK 100 MEQ IVPB ×2 (01:04→10:54)
[2023-06-05] MEDS: 0.9 % SODIUM CHLORIDE 1000 ml 1,000 ML 75 ML IV ×2 (06:33→17:23)
[2023-06-05] MEDS: MORPHINE 2 MG/ML inj IVP (06:52)
[2023-06-05 07:15] LABS: Hematocrit 38.2 % (37.0-53.0); Hemoglobin* 11.9 gm/dL (13.5-17.5); Mean Corpuscular HGB Conc 31 gm/dL (32-36); Mean Corpuscular Hemoglobin 32 pg (26-34); Mean Corpuscular Volume 104 fL (80-100); Platelet Count* 179 K/uL (140-440); Red Blood Count 3.69 m/uL (4.30-5.90); White Blood Count* 13.18 K/uL (4.50-11.00)
[2023-06-05 07:27] LABS: Slide Review Reflex No
[2023-06-05 07:31] LABS: Chloride* 111 mmol/L (96-114)
[2023-06-05 07:32] LABS: Potassium* 3.5 mmol/L (3.6-5.1); Sodium* 145 mmol/L (135-149)
[2023-06-05 07:34] LABS: Creatinine* 0.9 mg/dL (0.5-1.5); Est. Creatinine Clearance* 61.51; Estimated Glomerular Filt Rate 90 ml/min
[2023-06-05 07:35] LABS: Anion Gap 11 mEq/L (7-15); Blood Urea Nitrogen* 21 mg/dL (7-30); Calcium* 8.5 mg/dL (8.4-10.6); Carbon Dioxide* 23 mmol/L (20-32); Glucose* 103 mg/dL (60-115)
--- NOTE | 2023-06-05 07:47 | PC.NURSE ---
End of shift [id number] ? Pt alert, oriented, cooperative and pleasant. Pt in bed at start of shift and stated he ?didn?t feel up to getting out of bed? once more for the evening. Pt up to chair and bedside commode at end of shift. Uses urinal in bed with maximum assistance, incontinent of bladder while sleeping x 1 void. Pt tolerating RA and maintained O2 saturation above 90% with no supplemental oxygen. SOB noted with exertion, pt reported as baseline complaint. Pt denied pain during shift. Redness noted under pannus, L side skin observed to be split in areas. Interdry and skin protectant used per?MAR.? Pt observed to sleep during shift, appears to be resting comfortably at end of shift. ?
--- NOTE | 2023-06-05 07:50 | PC.NURSE ---
End of shift [id number] ? Pt oriented x 4, cooperative and fatigued during shift. 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 Up to bathroom with standby assist, void x1, continent of bladder. Pt reported pain in abdomen as 2/10 and initially refused pain medication. RN provided education explaining that pain medications are available per MD orders as needed, pt continued to refuse and reported tolerating pain until roughly 0700. Pt requested pain relief at that time, administered per MAR.?Pt complained of nausea with dark, coffee ground emesis x5 during shift. Nausea observed to increase with movement and change of position. Nausea treated using interventions in MAR. Pt observed to sleep during shift. Family at bedside and provided with education and updates per request by RN and MD. Pt appears to be resting comfortably at end of shift. ?
--- NOTE | 2023-06-05 09:14 | REH.OT ---
Orders received for OT eval and treat/difficulty managing ADLs. Patient was evaluated this prior weekend by OT. Patient and family offered recommendations for DME/AE and declined. They have handouts reflecting recommendations. No formal OT evaluation warranted at this time.
[2023-06-05] MEDS: cefTRIAXone 1 GM in 0.9 % SODIUM CHLORIDE Mini-bag 100 ML IVPB (09:21)
[2023-06-05] MEDS: PANTOPRAZOLE SODIUM 40 MG INJ IVP ×2 (09:21→21:30)
[2023-06-05] MEDS: SODIUM CHLORIDE 0.9 % (FLUSH) 10 ML SYRINGE 5 ML IVF ×2 (09:21→21:36)
[2023-06-05] MEDS: dexAMETHasone 2 MG TABLET 4 MG PO (09:21)
[2023-06-05] MEDS: TAMSULOSIN HCL 0.4 MG CAPSULE PO (12:03)
--- NOTE | 2023-06-05 15:18 | PM.GSCN ---
History of Present Illness Consult details Date Seen: 06/05/23 Consult date: 06/05/23 Narrative: Patient is a 72-year-old male, with past medical history significant for metastatic cholangiocarcinoma, who presented to the emergency department last night for inability to maintain p.o. intake, nausea and vomiting. Since being in the hospital he has had persistent coffee-ground emesis. This has been an ongoing issue and he was evaluated by my partner earlier this month for a paracentesis. There is known peritoneal carcinomatosis and he has had this procedure 3 times. This was last performed on 05/29/2023 with removal of 1400 mL. Due to the concern for bleeding with vomiting the hospitalist as requested an upper endoscopy for further evaluation. He has been maintained on omeprazole 40 mg once daily. H pylori was negative. It does sound like he has been taking ibuprofen on a regular basis. The family is also wondering about a g tube to help with nutrition. Review of Systems Status of ROS: Reports: 6 or more systems reviewed and unremarkable except as noted in History and below and other (done with ring conductor) [facility] Medical History Hypomagnesemia ?E83.42 - Hypomagnesemia (ICD-10) Therapeutic opioid induced constipation ?K59.03 - Drug induced constipation (ICD-10) ?T40.2X5A - Adverse effect of other opioids, initial encounter (ICD-10) Glomerulonephritis ?N05.9 - Unspecified nephritic syndrome with unspecified morphologic changes (ICD-10) Gross hematuria ?R31.0 - Gross hematuria (ICD-10) Bilateral leg cramps ?R25.2 - Cramp and spasm (ICD-10) Hypophosphatemia ?E83.39 - Other disorders of phosphorus metabolism (ICD-10) Peritoneal carcinomatosis ?C78.6 - Secondary malignant neoplasm of retroperitoneum and peritoneum (ICD-10) Type 2 diabetes mellitus, without long-term current use of insulin ?E11.9 - Type 2 diabetes mellitus without complications (ICD-10) Bilateral cataracts ?H26.9 - Unspecified cataract (ICD-10) BPH (benign prostatic hyperplasia) ?N40.0 - Benign prostatic hyperplasia without lower urinary tract symptoms (ICD-10) Neutropenia ?D70.9 - Neutropenia, unspecified (ICD-10) Nocturia ?R35.1 - Nocturia (ICD-10) COVID-19 in immunocompromised patient ?U07.1 - COVID-19 (ICD-10) ?D84.9 - Immunodeficiency, unspecified (ICD-10) Alcohol use ?Z72.89 - Other problems related to lifestyle (ICD-10) Recurrent tinea pedis ?B35.3 - Tinea pedis (ICD-10) Colonic polyp ?K63.5 - Polyp of colon (ICD-10) COPD (chronic obstructive pulmonary disease) ?J44.9 - Chronic obstructive pulmonary disease, unspecified (ICD-10) Chronic low back pain ?M54.50 - Low back pain, unspecified (ICD-10) ?G89.29 - Other chronic pain (ICD-10) 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 ?C22.1 - Intrahepatic bile duct carcinoma (ICD-10) ?C78.7 - Secondary malignant neoplasm of liver and intrahepatic bile duct (ICD-10) Surgical History History of abdominal paracentesis ?Z98.890 - Other specified postprocedural states (ICD-10) Hx of cataract surgery ?Z98.49 - Cataract extraction status, unspecified eye (ICD-10) Social History Narrative: , retired, former smoker, previous significant alcohol use What is your current living situation?: I presently have a place to live Problems where you live: no known problems Problems where you live details: n/a In the past 12 months, utilities in danger of being shut off: no In past 12 months, lack of transportation kept you from medical appts, meetings, work, or getting things needed for daily living: no In the past 12 mos, have been you worried that your food would run out before you had money to buy more?: never true In the past 12 mos, the food you bought just didn't last and you didn't have money to buy more?: never true Highest level of school completed/degree received: 6th grade Smoking Status: Former smoker What tobacco products do you use: cigarettes Smoking quit date/years: <= 15 years ago Do you use any of these nicotine containing products: None Nicotine containing products detail: stopped smoking 2 yrs ago when diagnosed with Cancer Second hand tobacco smoke exposure: No How often do you have a drink containing alcohol: never How often do you have six or more drinks on one occasion: Never AUDIT-C Alcohol total score: 0 Non-prescribed substance use: denies use Caffeine: Yes (coke) How often does anyone, including family, friends and others, physically hurt you: never How often does anyone, including family, friends and others, insult or talk down to you: never How often does anyone, including family, friends and others, threaten you with harm: never How often does anyone, including family, friends and others, scream or curse at you: never Little interest or pleasure in doing things: nearly every day Feeling down, depressed, or hopeless: nearly every day service: No Meds Home Medications and Allergies Home Medications Medication Instructions Recorded Confirmed Type sennosides 8.6 mg capsule (senna) 8.6 mg PO BID 01/19/23 06/05/23 History dexamethasone 2 mg tablet 4 mg PO DAILY 05/28/23 06/05/23 History dutasteride 0.5 mg capsule 0.5 mg PO DAILY 05/28/23 06/05/23 History (Avodart) lorazepam 1 mg tablet 1 mg PO HS PRN sleep 05/28/23 06/05/23 History tamsulosin 0.4 mg capsule (Flomax) 0.4 mg PO DAILY 05/28/23 06/05/23 History polyethylene glycol 3350 17 17 g PO DAILY constipation 06/05/23 06/05/23 History gram/dose oral powder (Miralax) Allergies Allergy/AdvReac Type Severity Reaction Status Date / Time No Known Drug Allergies Allergy Verified 05/31/23 12:40 Exam Narrative: Exam Narrative: Gen: alert and oriented, non toxic Respiratory: Maintained on room air CV: Well perfused Abdomen: Soft, mild distension, nontender to palpation Const: Vital Signs, click to edit/add: Vital Signs - 24 hr 06/04/23 15:37 06/04/23 18:31 06/04/23 18:31 Temperature 98.1 F Pulse Rate Pulse Rate [Left A pical] 96 Pulse Rate [Pulse Oximeter] 95 Respiratory Rate 16 18 18 Blood Pressure [Ri ght Arm] Blood Pressure [Ri ght Upper Arm] 115/81 Pulse Oximetry 96 97 97 Oxygen Delivery Me thod Room Air Room Air Room Air 06/04/23 18:31 06/04/23 18:31 06/04/23 19:00 Temperature 98.1 F 97.6 F Pulse Rate Pulse Rate [Left A pical] 96 Pulse Rate [Pulse Oximeter] 97 Respiratory Rate 18 18 16 Blood Pressure [Ri ght Arm] 133/96 H 122/83 Blood Pressure [Ri ght Upper Arm] Pulse Oximetry 97 97 96 Oxygen Delivery Ms thod Room Air Room Air Room Air 06/04/23 21:37 06/04/23 23:00 06/04/23 23:00 Temperature Pulse Rate 91 88 Pulse Rate [Left A pical] Pulse Rate [Pulse Oximeter] 96 Respiratory Rate 16 Blood Pressure [Ri ght Arm] 125/84 Blood Pressure [Ri ght Upper Arm] Pulse Oximetry 96 Oxygen Delivery Ms thod Room Air 06/05/23 04:30 06/05/23 07:50 06/05/23 09:36 Temperature 97.6 F Pulse Rate 85 Pulse Rate [Left A pical] Pulse Rate [Pulse Oximeter] 78 102 H Respiratory Rate 16 18 Blood Pressure [Ri ght Arm] 133/84 103/92 H Blood Pressure [Ri ght Upper Arm] Pulse Oximetry 96 92 Oxygen Delivery Ms thod Room Air Room Air 06/05/23 09:42 06/05/23 11:25 Temperature 97.6 F Pulse Rate Pulse Rate [Left A pical] Pulse Rate [Pulse Oximeter] 84 80 Respiratory Rate 18 20 Blood Pressure [Ri ght Arm] 132/87 130/85 Blood Pressure [Ri ght Upper Arm] Pulse Oximetry 95 97 Oxygen Delivery Me thod Room Air Room Air Results Labs Labs: Abnormal lab results 06/04/23 06/05/23 Range/Units 22:10 06:40 WBC 13.18 H (4.50-11.00) K/uL RBC 3.69 L (4.30-5.90) m/uL Hgb 11.9 L (13.5-17.5) gm/dL MCV 104 H (80-100) fL MCHC 31 L (32-36) gm/dL Potassium 3.5 L (3.6-5.1) mmol/L Urine Appearance Turbid A (Clear) Urine Protein 2+ A (Negative) Urine Ketones 3+ A (Negative) Urine Bilirubin 2+ A (Negative) Urine RBC 2-5 A (0-2) Urine WBC 5-10 A (0-5) Ur Squamous Epith Cells Many A (None-Few) Urine Mucus Moderate A (None) Diabetes panel 06/05/23 Range/Units 06:40 Sodium 145 (135-149) mmol/L Potassium 3.5 L (3.6-5.1) mmol/L Chloride 111 (96-114) mmol/L Carbon Dioxide 23 (20-32) mmol/L BUN 21 (7-30) mg/dL Creatinine 0.9 (0.5-1.5) mg/dL Glucose 103 (60-115) mg/dL Calcium 8.5 (8.4-10.6) mg/dL Calcium panel 06/04/23 06/05/23 Range/Units 13:10 06:40 Calcium 8.5 (8.4-10.6) mg/dL Phosphorus 2.7 (2.5-4.5) mg/dL Pituitary panel 06/05/23 Range/Units 06:40 Sodium 145 (135-149) mmol/L Potassium 3.5 L (3.6-5.1) mmol/L Chloride 111 (96-114) mmol/L Carbon Dioxide 23 (20-32) mmol/L BUN 21 (7-30) mg/dL Creatinine 0.9 (0.5-1.5) mg/dL Glucose 103 (60-115) mg/dL Calcium 8.5 (8.4-10.6) mg/dL Adrenal panel 06/05/23 Range/Units 06:40 Sodium 145 (135-149) mmol/L Potassium 3.5 L (3.6-5.1) mmol/L Chloride 111 (96-114) mmol/L Carbon Dioxide 23 (20-32) mmol/L BUN 21 (7-30) mg/dL Creatinine 0.9 (0.5-1.5) mg/dL Glucose 103 (60-115) mg/dL Calcium 8.5 (8.4-10.6) mg/dL All other labs normal. Imaging Abdomen CT scan report/results: report reviewed and image reviewed Assessment and Plan Assessment and plan (1) Hematemesis: Problem comment: -coffee-ground emesis reported in the ED -stool occult blood negative -hemoglobin stable, currently 11.5, 12.0 on 06/03, 9.7 on 05/30, continue to monitor -ED provider discussed with General Surgery, no endoscopy available over weekend (family had inquired), consider outpatient follow-up Status: Acute Plan Patient is a 72-year-old male with known metastatic cholangiocarcinoma, peritoneal carcinomatosis and ascites. I do think it is reasonable to perform an upper endoscopy to rule out gastritis or ulcer given the patient's NSAID use. His nausea, vomiting and anorexia could also be associated with mass effect from his ascites, although I would not expect hematemesis with this. Risks and benefits of the procedure were discussed at length with the patient through an ring conductor and with his family present. He does understand that he is at increased risk for bleeding, injury to surrounding structures and in particular aspiration due to his ongoing vomiting. Will plan to proceed with the procedure in the operating room under general anesthetic. After extensive discussion he is okay suspending his DNR/DNI for the procedure and is agreeable to a short period of intubation if needed. I also spoke with the family and patient regarding a gastrostomy tube. Unfortunately, he is not a candidate for the procedure given the known peritoneal carcinomatosis and ascites. Could consider a Corpak or nasal feeding tube if further nutrition is needed. Upper endoscopy performed, please see procedure note for full details. Evidence bile within the back the mouth upon intubation of the scope. Esophagitis throughout the entire esophagus. At the distal esophagus/GE junction ulcerations of mucosa present with a small amount of overlying necrosis. This area was biopsied. The stomach showed evidence of gastritis and inflammation, with biopsies taken. There was hematemesis within the stomach that was irrigated. The duodenum had normal mucosa present, but I suspect an external compression in 2nd portion of the duodenum. An narrowing was apparent that I was unable to traverse.
--- NOTE | 2023-06-05 16:30 | PM.GSPRC ---
Operative Note Pre-op diagnosis: Hematemesis Post-op diagnosis: Same Type of Procedure: Upper endoscopy Indications: Please see consultation note and probation note for full discussion. Procedure Description: Please see probation note for procedure documentation, as well as biopsies taken. Findings: Esophagitis of the entire esophagus, with mucosal breaks in ulceration on the distal aspect. Presence of gastritis. Suspected extrinsic compression of the 2nd portion of the duodenum. Anesthesia: GETA Surgeon: Janel Lema MD Estimated blood loss (mL): 1 Condition: stable Disposition: PACU Date of procedure: 06/05/23
--- NOTE | 2023-06-05 16:54 | P.ANES_ITS ---
Anesthesia Charges Start Date/Time Anesthesia Start Date: 06/05/23 Anesthesia Start Time: 15:37 Stop Date/Time Anesthesia Stop Date: 06/05/23 Anesthesia Stop Time: 16:43 Summary Emergency: BLOCK SPLITTER OPERATOR Extremes of Age - Over 70 or under 1: BLOCK SPLITTER OPERATOR
--- NOTE | 2023-06-05 16:54 | W.ANESCHARGE ---
Anesthesia Charges Start Date/Time Anesthesia Start Date: 06/05/23 Anesthesia Start Time: 15:37 Stop Date/Time Anesthesia Stop Date: 06/05/23 Anesthesia Stop Time: 16:43 Summary Emergency: SENIOR CONTRACTS ADMINISTRATOR Extremes of Age - Over 70 or under 1: SENIOR CONTRACTS ADMINISTRATOR
--- NOTE | 2023-06-05 19:06 | PM.IMPN1 ---
Progress Note: A&P Assessment and plan (1) Pulmonary infiltrates: Problem details: - Ceftriaxone and doxycycline, day 2. 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 Stool H pylori on 05/30 negative -chronic, poorly managed, query relation to chemotherapy versus pressure ascites -inability to tolerate orals (foods or medications) with abdominal pain leading to vomiting -rectal Compazine marginally helpful, Zofran contraindicated with oral chemotherapy -continue scheduled Reglan IV (transitioin back to oral when able to tolerate), add scopolamine patch, p.r.n. hydroxyzine, p.r.n. Ativan q.h.s. -continue PPI, IV while hospitalized -IV fluids, clear liquids as tolerated -in reviewing oncology note from 05/26/2023, there have been questions regarding feeding tube placement as well as other procedures (EGD) which are to be followed up on with Oncology - discussed with Dr. Lema from general surgery today (06/05). She notes that he is not a surgical candidate for a G-tube or J-tube due to abdominal disease. She is going to do an EGD under general anesthesia today. Status: Chronic (3) Hematemesis: Problem details: -coffee-ground emesis, ongoing -stool occult blood negative -hemoglobin stable, currently 11.5, 12.0 on 06/03, 9.7 on 05/30, continue to monitor -EGD today, as above. Status: Acute (4) Leukocytosis: Problem details: -WBC 15.27 with left shift, 13.22 yesterday. Afebrile. Lactate 2.2, improved to 1.9 following IV fluids, less likely sepsis. -recent chest CT 05/28 showed nodular opacities concerning for multifocal pneumonia. Query metastatic cholangiocarcinomatosis. UA on 05/28 grew E coli. Received IV ceftriaxone during recent hospitalization, transitioned to oral cefpodoxime on discharge, unable to tolerate secondary to nausea and vomiting -has been on dexamethasone -CXR showing ill-defined hazy airspace opacifications of the left greater than right lower lung zones, suggestive of bibasilar pneumonia -procalcitonin 0.42, UA ordered -continue ceftriaxone and doxycycline. Status: Acute (5) Hypokalemia: Problem details: -potassium improving, 3.5 today. Give IV bump. Recheck. -will start with IV placement, transitioning to oral when tolerated (discharged on 20 mEq b.i.d.) -magnesium 1.8, phosphorus 2.7 Status: Acute (6) 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 Continue treatment with ivosidenib 500 mg daily -oncologist (Dr. Majano) has recommended hospice, but patient and family have requested continued treatments. Touched on this again on admission with son Lamine. -continue pain management with oxycodone prn, IV morphine prn, hydroxyzine, Ativan Status: Chronic (7) Ascites: Problem details: -underwent diagnostic and therapeutic paracentesis with Dr. Rizzo on 05/29, 1400ml removed -outpatient follow up with oncology for consideration of further interventions, repeat paracentesis as needed Status: Chronic (8) Type 2 diabetes mellitus, without long-term current use of insulin: Problem details: -most recent A1c 6.1, blood glucose over past week 97-155 Status: Acute (9) BPH (benign prostatic hyperplasia): Problem details: -on Flomax and avodart Status: Acute (10) COPD (chronic obstructive pulmonary disease): Problem details: -on ROSE carcamo Status: Acute (11) Cholangiocarcinoma metastatic to liver: Problem details: -pMMR, HER2 negative, IDH1 mutant -as above Status: Chronic Plan VTE PPX: SCDs, no enoxaparin with concern for hematemesis Subjective Time Seen by Provider: 09:40 Date Seen: 06/05/23 Interval history: Aaron and his were in the room this morning. I used a video database management system specialist to speak with them. In 20 you and his are concerned about his inability to eat, nausea, and vomiting black emesis every 15-30 minutes overnight. There was a nausea bag with black emesis on the table next to him and while I was speaking with him, he picked it up and vomited about 30 mL of black fluid. He denies any lightheadedness or dizziness. His systolic blood pressure this morning was 103 with a heart rate of 102 but on recheck it was back to systolic of 133 with a heart rate in the 80s. I spoke with him and his about the need for urgent EGD in the setting of an upper GI bleed. We also discussed overall health including his metastatic cancer and how that is likely contributing to his current symptoms. We discussed the possibility of comfort cares or that he may need a higher level of care. His was concerned that no one has told them what is going on with him and they would like to have the EGD to have a diagnosis even if that is a risky thing to do. Exam Narrative: Exam Narrative: General: No acute distress. Awake, alert, oriented x3. No pallor. No jaundice. Oropharynx: Clear. Mucous membranes moist. Cardiovascular: Regular rate and rhythm. No murmurs, gallops, or rubs. Respiratory: Rhonchi in left base, no crackles or wheezes. Abdomen: Bowel sounds diminished. Distended, full, diffusely tender without rebound tenderness or guarding. Extremities: No pedal edema. Const: Vital Signs, click to edit/add: Vital Signs - 24 hr 06/04/23 21:37 06/04/23 23:00 06/04/23 23:00 Temperature Pulse Rate 91 88 Pulse Rate [Pulse Oximeter] 96 Respiratory Rate 16 Blood Pressure Blood Pressure [Ri ght Arm] 125/84 Pulse Oximetry 96 Oxygen Delivery Me thod Room Air 06/05/23 04:30 06/05/23 07:50 06/05/23 09:36 Temperature 97.6 F Pulse Rate 85 Pulse Rate [Pulse Oximeter] 78 102 H Respiratory Rate 16 18 Blood Pressure Blood Pressure [Ri ght Arm] 133/84 103/92 H Pulse Oximetry 96 92 Oxygen Delivery Me thod Room Air Room Air 06/05/23 09:42 06/05/23 11:25 06/05/23 16:38 Temperature 97.6 F 97.5 F L Pulse Rate 100 Pulse Rate [Pulse Oximeter] 84 80 Respiratory Rate 18 20 16 Blood Pressure 100/68 Blood Pressure [Ri ght Arm] 132/87 130/85 Pulse Oximetry 95 97 95 Oxygen Delivery Me thod Room Air Room Air Room Air 06/05/23 16:45 06/05/23 16:50 06/05/23 16:55 Temperature Pulse Rate 96 89 90 Pulse Rate [Pulse Oximeter] Respiratory Rate 16 16 16 Blood Pressure 98/67 98/68 98/67 Blood Pressure [Ri ght Arm] Pulse Oximetry 92 93 92 Oxygen Delivery Me thod 06/05/23 17:00 06/05/23 17:06 06/05/23 17:16 Temperature 97.0 F L Pulse Rate 85 85 Pulse Rate [Pulse Oximeter] 84 Respiratory Rate 15 15 18 Blood Pressure 102/66 101/69 Blood Pressure [Ri ght Arm] 105/72 Pulse Oximetry 92 92 92 Oxygen Delivery Me thod Room Air 06/05/23 17:27 06/05/23 17:30 06/05/23 17:45 Temperature Pulse Rate 80 Pulse Rate [Pulse Oximeter] 79 76 Respiratory Rate 16 16 Blood Pressure Blood Pressure [Ks ght Arm] 104/66 106/71 Pulse Oximetry 94 92 Oxygen Delivery Me thod Room Air Room Air Labs Labs: Laboratory Results - last 24 hr 06/04/23 06/04/23 06/04/23 13:10 22:10 22:13 WBC RBC Hgb Hct MCV MCH MCHC Plt Count Sodium Potassium Chloride Carbon Dioxide Anion Gap BUN Creatinine Estimated Creat Clear Estimated GFR Glucose Calcium Phosphorus 2.7 Procalcitonin 0.42 Urine Color Yellow Urine Appearance Turbid A Urine pH 6.0 Ur Specific [place] 1.025 Urine Protein 2+ A Urine Glucose (UA) Negative Urine Ketones 3+ A Urine Blood Negative Urine Nitrite Negative Urine Bilirubin 2+ A Urine Urobilinogen 1.0 Ur Leukocyte Esterase Negative Urine RBC 2-5 A Urine WBC 5-10 A Urine WBC Clumps None Ur Squamous Epith Cells Many A Urine Bacteria None Urine Mucus Moderate A Urine L. pneumophilia Ag L. pneumo Negative Urine Strep pneumoniae Ag S. pneumo Negative 06/05/23 06:40 WBC 13.18 H RBC 3.69 L Hgb 11.9 L Hct 38.2 MCV 104 H MCH 32 MCHC 31 L Plt Count 179 Sodium 145 Potassium 3.5 L Chloride 111 Carbon Dioxide 23 Anion Gap 11 BUN 21 Creatinine 0.9 Estimated Creat Clear 61.51 Estimated GFR 90 Glucose 103 Calcium 8.5 Phosphorus Procalcitonin Urine Color Urine Appearance Urine pH Ur Specific [place] Urine Protein Urine Glucose (UA) Urine Ketones Urine Blood Urine Nitrite Urine Bilirubin Urine Urobilinogen Ur Leukocyte Esterase Urine RBC Urine WBC Urine WBC Clumps Ur Squamous Epith Cells Urine Bacteria Urine Mucus Urine L. pneumophilia Ag Urine Strep pneumoniae Ag
[2023-06-05] MEDS: BUDESONIDE 0.25 MG/2 ML AMPUL.NEB NEB (21:22)
[2023-06-05] MEDS: LIDOCAINE 5% PATCH 1 PATCH TRANSDERMA (21:23)
[2023-06-06] VITALS (8 sets, daily range): BP systolic 101–136; BP diastolic 65–87; PULSE 77–90; RESP 16–18; TEMP 36.3–36.8; O2SAT 89–95
[2023-06-06] MEDS: METOCLOPRAMIDE HCL 5 MG/ML INJ 10 MG IVP ×4 (00:43→18:42)
[2023-06-06] MEDS: ALBUTEROL SULFATE 2.5 MG/3 ML VIAL.NEB NEB ×3 (00:43→13:23)
[2023-06-06] MEDS: MORPHINE 2 MG/ML inj IVP ×5 (05:53→21:59)
[2023-06-06] MEDS: 0.9 % SODIUM CHLORIDE 1000 ml 1,000 ML 75 ML IV ×2 (05:59→23:17)
--- NOTE | 2023-06-06 06:12 | PC.NURSE ---
Shift note: Pt has been in bed most of the shift. Son and have been around to interpret to pt. Pt has been well without n/v throughout the shift until this morning at 0530 where pt complained of feeling nauseated and vomited about 50mls greenish-brown watery gastric content. Prochlorperazine was given as a scheduled medication. Pain level of 6 was reported. Pain med given. Ambulate with A1 to and from BR. No fever reported.
[2023-06-06 06:43] LABS: Hematocrit 31.5 % (37.0-53.0); Hemoglobin* 9.5 gm/dL (13.5-17.5); Mean Corpuscular HGB Conc 30 gm/dL (32-36); Mean Corpuscular Hemoglobin 32 pg (26-34); Mean Corpuscular Volume 105 fL (80-100); Platelet Count* 174 K/uL (140-440); White Blood Count* 13.61 K/uL (4.50-11.00)
[2023-06-06 07:01] LABS: Chloride* 115 mmol/L (96-114); Potassium* 3.3 mmol/L (3.6-5.1); Sodium* 145 mmol/L (135-149)
[2023-06-06 07:03] LABS: Slide Review Reflex No
[2023-06-06 07:04] LABS: Anion Gap 9 mEq/L (7-15); Blood Urea Nitrogen* 25 mg/dL (7-30); Carbon Dioxide* 21 mmol/L (20-32); Creatinine* 0.9 mg/dL (0.5-1.5); Est. Creatinine Clearance* 61.51; Estimated Glomerular Filt Rate 90 ml/min
[2023-06-06 07:05] LABS: Calcium* 8.1 mg/dL (8.4-10.6); Glucose* 97 mg/dL (60-115)
[2023-06-06] MEDS: TAMSULOSIN HCL 0.4 MG CAPSULE PO (09:40)
[2023-06-06] MEDS: dexAMETHasone 2 MG TABLET 4 MG PO (09:40)
[2023-06-06] MEDS: PANTOPRAZOLE SODIUM 40 MG INJ IVP ×2 (09:41→20:31)
[2023-06-06] MEDS: cefTRIAXone 1 GM in 0.9 % SODIUM CHLORIDE Mini-bag 100 ML IVPB (09:43)
[2023-06-06] MEDS: BUDESONIDE 0.25 MG/2 ML AMPUL.NEB NEB ×2 (09:45→20:31)
[2023-06-06] MEDS: DOXYCYCLINE HYCLATE 100 MG in 0.9 % SODIUM CHLORIDE Mini-bag 100 ML IVPB ×2 (11:19→21:41)
[2023-06-06] MEDS: SODIUM CHLORIDE 0.9 % (FLUSH) 10 ML SYRINGE 5 ML IVF ×2 (11:24→20:33)
--- NOTE | 2023-06-06 11:42 | CRLHL7_ITS ---
For Patients: As a result of the Century Cures Act, medical imaging exams and procedure reports are released immediately into your electronic medical record. You may view this report before your referring provider. If you have questions, please contact your health care provider. INDICATION: Emesis, anorexia, known abdominal cancer TECHNIQUE: CT abdomen and pelvis acquired with 69 cc Isovue 370 IV contrast. COMPARISON: CT abdomen/pelvis on May 28, 2023 FINDINGS: LOWER CHEST: Small bilateral, left greater than right pleural effusions with minimal adjacent atelectatic lung. Similar-appearing centrilobular and tree-in-bud nodular opacities seen predominantly in the left lung base, again concerning for pneumonia. ABDOMEN: Liver: Atrophic left hepatic lobe. Redemonstration of hypoenhancing lesions within the liver as well as left hepatic lobe lesion with more peripheral enhancement. Stable. Gallbladder and biliary: Normal gallbladder without visualized stones. Normal caliber bile ducts. Spleen: Normal size and enhancement. Pancreas: Normal enhancement without peripancreatic inflammatory changes or ductal dilatation. Adrenal glands: No nodules. Kidneys and ureters: Near complete resolution of previously visualized striated nephrogram in the left kidney. No hydroureteronephrosis. Left renal cyst. GI tract: The distal esophagus is distended with fluid. No evidence of bowel obstruction or inflammation. Appendix is not definitively visualized. Vascular structures: Normal caliber aorta with atherosclerotic calcifications. Lymph nodes: Scattered mesenteric nodular foci as well as peritoneal nodules with associated large volume abdominal free fluid. Mild peripheral peritoneal wall enhancement with thickening. Fluid causes mass effect on bowel loops. Peritoneum: No free air. PELVIS: Genitourinary system: Urinary bladder demonstrates mild circumferential bladder wall thickening, likely secondary to underdistention. Stable small nodule within the urinary bladder axial image 124, indeterminate. SKELETAL STRUCTURES AND SOFT TISSUES: Tiny sclerotic foci within the pelvis. Bilateral SI joint arthrosis. IMPRESSION: 1. Redemonstration of centrilobular and tree-in-bud nodular opacities seen predominantly in the left lung base concerning for multifocal pneumonia. 2. Small bilateral, left greater than right, pleural effusions with adjacent atelectatic lung. 3. Near complete resolution of previously visualized striated left nephrogram, suggestive of improving/resolving pyelonephritis. 4. Large volume abdominal free fluid causing mass effect upon the adjacent bowel loops with no evidence of bowel obstruction. Please note that all CT scans at this facility use dose modulation, iterative reconstruction, and/or weight-based dosing when appropriate to reduce radiation dose to as low as reasonably achievable. Dictated by Cliff Adams MD @ 06/06/2023 12:56:06 PM (Electronically Signed)
[2023-06-06] MEDS: POTASSIUM CHLORIDE 10 MEQ/100 ML PIGGYBACK 100 MEQ IVPB ×2 (13:24→14:42)
--- NOTE | 2023-06-06 19:31 | P.IMPN_ITS ---
Progress Note: A&P Assessment and plan (1) Pulmonary infiltrates: Problem details: - Ceftriaxone and doxycycline, day 3. 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 Stool H pylori on 05/30 negative -chronic, poorly managed, query relation to chemotherapy versus pressure ascites -inability to tolerate orals (foods or medications) with abdominal pain leading to vomiting -rectal Compazine marginally helpful, Zofran contraindicated with oral chemotherapy -continue scheduled Reglan IV (transitioin back to oral when able to tolerate), add scopolamine patch, p.r.n. hydroxyzine, p.r.n. Ativan q.h.s. -continue PPI, IV while hospitalized -IV fluids, clear liquids as tolerated -in reviewing oncology note from 05/26/2023, there have been questions regarding feeding tube placement as well as other procedures (EGD) which are to be followed up on with Oncology - discussed with Dr. Lema from general surgery (06/05). She notes that he is not a surgical candidate for a G-tube or J-tube due to abdominal disease. She is going to do an EGD under general anesthesia today. - multiple discussions with patient and family today as above in subjective. CT abdomen and pelvis as above. Discussed options for plan with patient and family. No further decisions were made today. Continue sips of clears. Will discuss with oncology tomorrow if they are available. Also have another discussion with patient and family for goals of care. Status: Chronic (3) Hematemesis: Problem details: -coffee-ground emesis, ongoing -stool occult blood negative -hemoglobin stable, currently 11.5, 12.0 on 06/03, 9.7 on 05/30, continue to monitor -EGD showed esophagitis, necrotic tissue at the base of the esophagus, gastritis, biopsies pending Status: Acute (4) Leukocytosis: Problem details: -WBC 15.27 with left shift, 13.22 yesterday. Afebrile. Lactate 2.2, improved to 1.9 following IV fluids, less likely sepsis. -recent chest CT 05/28 showed nodular opacities concerning for multifocal pneumonia. Query metastatic cholangiocarcinomatosis. UA on 05/28 grew E coli. Received IV ceftriaxone during recent hospitalization, transitioned to oral cefpodoxime on discharge, unable to tolerate secondary to nausea and vomiting -has been on dexamethasone -CXR showing ill-defined hazy airspace opacifications of the left greater than right lower lung zones, suggestive of bibasilar pneumonia -procalcitonin 0.42, UA ordered -continue ceftriaxone and doxycycline. 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 Continue treatment with ivosidenib 500 mg daily -oncologist (Dr. Majano) has recommended hospice, but patient and family have requested continued treatments. Touched on this again on admission with son Lamine. -continue pain management with oxycodone prn, IV morphine prn, hydroxyzine, Ativan Status: Chronic (7) Ascites: Problem details: -underwent diagnostic and therapeutic paracentesis with Dr. 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 Greater than 50% included care conference with vacuum cleaner repair person, phone discussion with the patient's daughter, discussing care with the team, reviewing data, updating and managing the care plan. Subjective Time Seen by Provider: 09:58 Date Seen: 06/06/23 Interval history: At 10:00 a.m. I saw Aaron. Some of his family is starting to arrive for a ca re conference. Aaron and I spoke briefly about how he did overnight and I examined him. He tried sips of clears and tolerated and a little bit, but continued to have spit up and some vomiting. He has been sleeping quite a bit and mostly withdrawn. His family trickled an during our hour long care conference. One of them was on the phone initially and then later arrived in person. One of his family members recorded the conversation on audio. One of his daughters was unable to be available at the care conference either in person or by phone as she lives in [place]. By the end of the care conference when I asked them to choose a point person, they chose the person who lives in [place] and was unavailable for this care conference. Her name is Lara, . I spoke with her later in the day and she had been informed by her siblings about the care conference and what we discussed. She was very savvy about health care and hospice and we had a good and productive convers ation in follow-up. During the initial care conference I allowed the family to 1st tell me what they understood has been going on and what his current diagnoses are. I wanted us all to be on the same page. We did use a tear down matcher during the entirety of the care conference. We discussed hepatocellular carcinoma, peritoneal carcinomatosis ascites, the findings of the EGD, treatment of esophagitis and gastritis with avoiding NSAIDs and using Protonix. We also discussed nutrition, options for feeding, NG tubes, G tubes, Gastrografin studies, the increased risk of aspiration with this. We also discussed the possibility of an enema and that his bowels are likely slowing down overall due to cancer. Most of his family demonstrated good understanding that his current cancer and disease burden is not curable. It appeared that some of his family members continued to have difficulty grasping this and thought that there may be at least parts of things that were curable and that we were not being aggressive enough. Many of the family members expressed a concern that his previous doctors had not been taking his symptoms seriously or listening to his concerns well enough in the beginning. We discussed the possibility of having a patient advocate come by to talk with them about those concerns. The patient himself was mostly withdrawn during the conversation. When I asked him directly, he did say he wanted to do everything he could to fight this. He did say however that he did not want to be on a mechanical ventilator. I asked him to talk with his family more specifically about things like that that he would not want as I believe we are getting to the point where we will have to make some of those decisions specifically about NG tubes and procedures that may be uncomfortable and have a great risk of aspiration. By the end of the conversation we came to a mutual understanding that the next place to go would be to repeat the CT scan to understand if there was any thing new from last week's scan that may explain the external obstruction that was seen on the EGD done yesterday. We obtained a CT abdomen and pelvis today which is essentially unchanged from last week. I called and spoke with his daughter, Lara, this evening about the results. He continues to have pneumonia which we are treating with antibiotics and I suspect is an aspiration pneumonia from the repeated vomiting. Additionally it shows that there is a large amount of ascites that is likely the cause of external compression. His daughter and I spoke at length over the phone, about 30 minutes, discussing again all the salient points of my discussion with his family earlier, the risk and benefit of doing a Gastrografin study in preparation for possible IR placement of nasal jejunal tube for feeding and how this would likely be extremely uncomfortable given the amount of inflammation in his esophagus and stomach. We talked about how that would likely be a lifelong necessity, but probably not well tolerated and therefore likely not worth a great risk. His daughter demonstrated understanding and expressed that she desired long ago for him to go on hospice, but understood that it was not his wish nor the wish of the rest of the family. She is thinking at this point that they will likely want hospice or at least comfort cares. We talked about what it meant to be comfortable at this point what kinds of things we could do specifically to treat the symptoms that he is having. I also spent time talking with her about what hospice could provide for him in the home to help him stay at home and for him to be comfortable. I informed her that if he is unable to eat intake in nutrition, that he likely only has few months to live possibly only weeks. If he is unable to take or keep down fluids, then he will only have weeks to live. Lara wanted to talk with her family tonight about these things and we decided that we would regroup in the morning and I will talk with Aaron with Lara on the phone in the room in then I can talk with Lara again on the phone later tomorrow. Exam Narrative: Exam Narrative: General: No acute distress. Awake, alert, oriented. [place] appearance. Withdrawn during my extensive conversation with his family. Oropharynx: Clear. Mucous membranes moist. Cardiovascular: Regular rate and rhythm. No murmurs, gallops, or rubs. Respiratory: Rhonchi in left base, no crackles or wheezes. Abdomen: Bowel sounds diminished. Distended, full, diffusely tender without rebound tenderness or guarding. Extremities: No pedal edema. Const: Vital Signs, click to edit/add: Vital Signs - 24 hr 06/05/23 23:00 06/05/23 23:00 06/05/23 23:00 Temperature 97.8 F Pulse Rate 71 Pulse Rate [Pulse Oximeter] 72 72 Respiratory Rate 16 16 Blood Pressure [Ri ght Arm] 108/70 Pulse Oximetry 96 Oxygen Delivery Me thod Room Air 06/06/23 03:00 06/06/23 07:56 06/06/23 08:04 Temperature 97.4 F L 97.9 F Pulse Rate 78 Pulse Rate [Pulse Oximeter] 77 80 Respiratory Rate 16 16 Blood Pressure [Ri ght Arm] 101/65 101/71 Pulse Oximetry 89 92 Oxygen Delivery Me thod Room Air Room Air 06/06/23 11:30 06/06/23 16:01 06/06/23 16:45 Temperature 97.5 F L 97.3 F L Pulse Rate 85 Pulse Rate [Pulse Oximeter] 83 90 Respiratory Rate 18 18 Blood Pressure [Ri ght Arm] 115/76 136/87 Pulse Oximetry 95 94 Oxygen Delivery Me thod Room Air Room Air Labs Labs: Laboratory Results - last 24 hr 06/06/23 06:00 WBC 13.61 H RBC 3.00 L Hgb 9.5 L Hct 31.5 L MCV 105 H MCH 32 MCHC 30 L Plt Count 174 Sodium 145 Potassium 3.3 L Chloride 115 H Carbon Dioxide 21 Anion Gap 9 BUN 25 Creatinine 0.9 Estimated Creat Clear 61.51 Estimated GFR 90 Glucose 97 Calcium 8.1 L Ordering Physician: Batsheva Mar M.D. Date of Service: 06/06/23 Procedure(s): CT abdomen pelvis w con Accession Number(s): [id number] cc: Batsheva Mar M.D.; Lamine Sheridan M.D.~ For Patients: As a result of the 21st Century Cures Act, medical imaging exams and procedure reports are released immediately into your electronic medical record. You may view this report before your referring provider. If you have questions, please contact your health care provider. INDICATION: Emesis, anorexia, known abdominal cancer TECHNIQUE: CT abdomen and pelvis acquired with 69 cc Isovue 370 IV contrast. COMPARISON: CT abdomen/pelvis on May 28, 2023 FINDINGS: LOWER CHEST: Small bilateral, left greater than right pleural effusions with minimal adjacent atelectatic lung. Similar-appearing centrilobular and tree-in-bud nodular opacities seen predominantly in the left lung base, again concerning for pneumonia. ABDOMEN: Liver: Atrophic left hepatic lobe. Redemonstration of hypoenhancing lesions within the liver as well as left hepatic lobe lesion with more peripheral enhancement. Stable. Gallbladder and biliary: Normal gallbladder without visualized stones. Normal caliber bile ducts. Spleen: Normal size and enhancement. Pancreas: Normal enhancement without peripancreatic inflammatory changes or ductal dilatation. Adrenal glands: No nodules. Kidneys and ureters: Near complete resolution of previously visualized striated nephrogram in the left kidney. No hydroureteronephrosis. Left renal cyst. GI tract: The distal esophagus is distended with fluid. No evidence of bowel obstruction or inflammation. Appendix is not definitively visualized. Vascular structures: Normal caliber aorta with atherosclerotic calcifications. Lymph nodes: Scattered mesenteric nodular foci as well as peritoneal nodules with associated large volume abdominal free fluid. Mild peripheral peritoneal wall enhancement with thickening. Fluid causes mass effect on bowel loops. Peritoneum: No free air. PELVIS: Genitourinary system: Urinary bladder demonstrates mild circumferential bladder wall thickening, likely secondary to underdistention. Stable small nodule within the urinary bladder axial image 124, indeterminate. SKELETAL STRUCTURES AND SOFT TISSUES: Tiny sclerotic foci within the pelvis. Bilateral SI joint arthrosis. IMPRESSION: 1. Redemonstration of centrilobular and tree-in-bud nodular opacities seen predominantly in the left lung base concerning for multifocal pneumonia. 2. Small bilateral, left greater than right, pleural effusions with adjacent atelectatic lung. 3. Near complete resolution of previously visualized striated left nephrogram, suggestive of improving/resolving pyelonephritis. 4. Large volume abdominal free fluid causing mass effect upon the adjacent bowel loops with no evidence of bowel obstruction. Please note that all CT scans at this facility use dose modulation, iterative reconstruction, and/or weight-based dosing when appropriate to reduce radiation dose to as low as reasonably achievable. Dictated by Cliff Adams MD @ 06/06/2023 12:56:06 PM (Electronically Signed)
[2023-06-06] MEDS: LIDOCAINE 5% PATCH 1 PATCH TRANSDERMA (20:32)
[2023-06-07] MEDS: METOCLOPRAMIDE HCL 5 MG/ML INJ 10 MG IVP ×4 (01:03→20:15)
[2023-06-07] MEDS: ALBUTEROL SULFATE 2.5 MG/3 ML VIAL.NEB NEB ×3 (01:03→11:31)
[2023-06-07] MEDS: MORPHINE 2 MG/ML inj IVP ×2 (01:34→08:02)
[2023-06-07 03:00] VITALS: BP 118/69; PULSE 80; RESP 18; TEMP 36.4; O2SAT 92
--- NOTE | 2023-06-07 06:39 | PC.NURSE ---
Addendum entered by Que Ramirez RN 06/07/23 07:44: O2 drop to 83 after assisted pt to the BR. Oxygen 4L given to be titrated. Original Note: Shift note: Pt appears weak but alert and oriented. Vomiting started this morning at 0430 and has had 3x, approximately 50ml of coffee-brown colored. Urine color is dark claudy. O2>90 in room air. Daughter has been in room throughout the night and interpret for patient. Metoclopramide and albuterol neb given as prescribed.
[2023-06-07 06:52] LABS: Hematocrit 34.3 % (37.0-53.0); Hemoglobin* 10.4 gm/dL (13.5-17.5); Mean Corpuscular HGB Conc 30 gm/dL (32-36); Mean Corpuscular Hemoglobin 32 pg (26-34); Mean Corpuscular Volume 106 fL (80-100); Platelet Count* 157 K/uL (140-440); Red Blood Count 3.25 m/uL (4.30-5.90); Slide Review Reflex No; White Blood Count* 12.75 K/uL (4.50-11.00)
[2023-06-07 07:00] VITALS: BP 116/78; PULSE 89; RESP 18; TEMP 36.4; O2SAT 95
[2023-06-07 07:04] LABS: Chloride* 117 mmol/L (96-114); Sodium* 144 mmol/L (135-149)
[2023-06-07 07:07] LABS: Anion Gap 5 mEq/L (7-15); Carbon Dioxide* 22 mmol/L (20-32); Creatinine* 0.8 mg/dL (0.5-1.5); Est. Creatinine Clearance* 61.51; Estimated Glomerular Filt Rate 93 ml/min; Potassium* 3.3 mmol/L (3.6-5.1)
[2023-06-07 07:08] LABS: Blood Urea Nitrogen* 23 mg/dL (7-30); Calcium* 8.4 mg/dL (8.4-10.6); Glucose* 94 mg/dL (60-115)
[2023-06-07] MEDS: PANTOPRAZOLE SODIUM 40 MG INJ IVP (09:07)
[2023-06-07] MEDS: TAMSULOSIN HCL 0.4 MG CAPSULE PO (09:07)
[2023-06-07] MEDS: dexAMETHasone 2 MG TABLET 4 MG PO (09:07)
[2023-06-07] MEDS: cefTRIAXone 1 GM in 0.9 % SODIUM CHLORIDE Mini-bag 100 ML IVPB (09:08)
[2023-06-07] MEDS: BUDESONIDE 0.25 MG/2 ML AMPUL.NEB NEB ×2 (09:08→21:09)
[2023-06-07] MEDS: SODIUM CHLORIDE 0.9 % (FLUSH) 10 ML SYRINGE 5 ML IVF (09:21)
--- NOTE | 2023-06-07 09:31 | NUTR.NU ---
RDN with MD consult for nutritional consult. Per IDT, patient and family are discussing goals of care, including hospice. RDN will cancel MD consult. Will continue to monitor.
[2023-06-07] MEDS: OXYCODONE 5 MG TABLET 10 MG PO (10:24)
[2023-06-07] MEDS: DOXYCYCLINE HYCLATE 100 MG in 0.9 % SODIUM CHLORIDE Mini-bag 100 ML IVPB (11:19)
[2023-06-07] MEDS: bisacodyL 10 MG SUPP.RECT PR (11:27)
[2023-06-07] MEDS: fentaNYL 25 MCG/HR PATCH 1 PATCH TRANSDERMA (12:36)
[2023-06-07 15:00] VITALS: PULSE 89; RESP 18
--- NOTE | 2023-06-07 16:32 | PC.SOCIAL ---
Addendum entered by HUAN Palacios 06/08/23 10:40: Discharge summary: [facility] called back on 06/07/23 and stated they could admit the pt into Hospice tomorrow(06/08/23) at 2:00pm. All the supplies should be to the pt's house before noon tomorrow. campaign worker informed the charge nurse on staff. Pt will qualify for EMS transport home. Social work to follow-up as needed. Original Note: Discharge planning: Referred pt to [facility] today per pt and pt families' request. Hospice can open/admit him tomorrow morning(06/08/23). campaign worker will call making line worker(Tamanna) with [facility] in the morning to get the exact time they can admit pt, as the pt's supplies and hospital bed need to be at his home before the pt arrives home from the hospital. Pt will need EMS transport. Social work to follow-up as needed.
--- NOTE | 2023-06-07 17:30 | PM.IMPN1 ---
Progress Note: A&P Assessment and plan (1) Pulmonary infiltrates: Problem details: Stopping antibiotics as patient transitions to comfort cares Status: Acute (2) Nausea and vomiting in adult: Problem details: -in setting of abdominal pain/ascites, peritoneal carcinomatosis, cholangiocarcinoma mets to liver. Stool H pylori on 05/30 negative -chronic, poorly managed, query relation to chemotherapy versus pressure ascites -inability to tolerate orals (foods or medications) with abdominal pain leading to vomiting -rectal Compazine marginally helpful, Zofran contraindicated with oral chemotherapy -continue scheduled Reglan IV (transitioin back to oral when able to tolerate), add scopolamine patch, p.r.n. hydroxyzine, p.r.n. Ativan q.h.s. -continue PPI, IV while hospitalized -IV fluids, clear liquids as tolerated -in reviewing oncology note from 05/26/2023, there have been questions regarding feeding tube placement as well as other procedures (EGD) which are to be followed up on with Oncology - discussed with Dr. Lema from general surgery (06/05). She notes that he is not a surgical candidate for a G-tube or J-tube due to abdominal disease. She is going to do an EGD under general anesthesia today. - multiple discussions with patient and family today as above in subjective. CT abdomen and pelvis as above. Discussed options for plan with patient and family. No further decisions were made today. Continue sips of clears. Will discuss with oncology tomorrow if they are available. Also have another discussion with patient and family for goals of care. - 06/07/2023 comfort cares started and patient will be going to hospice when available. Status: Chronic (3) Hematemesis: Problem details: -coffee-ground emesis, ongoing -stool occult blood negative -hemoglobin stable, currently 11.5, 12.0 on 06/03, 9.7 on 05/30, continue to monitor -EGD showed esophagitis, necrotic tissue at the base of the esophagus, gastritis, biopsies pending Status: Acute (4) Leukocytosis: Problem details: -WBC 15.27 with left shift, 13.22 yesterday. Afebrile. Lactate 2.2, improved to 1.9 following IV fluids, less likely sepsis. -recent chest CT 05/28 showed nodular opacities concerning for multifocal pneumonia. Query metastatic cholangiocarcinomatosis. UA on 05/28 grew E coli. Received IV ceftriaxone during recent hospitalization, transitioned to oral cefpodoxime on discharge, unable to tolerate secondary to nausea and vomiting -has been on dexamethasone -CXR showing ill-defined hazy airspace opacifications of the left greater than right lower lung zones, suggestive of bibasilar pneumonia -procalcitonin 0.42, UA ordered -comfort cares Status: Acute (5) Hypokalemia: Problem details: -potassium improving, continue IV replacement and recheck -will start with IV placement, transitioning to oral when tolerated (discharged on 20 mEq b.i.d.) -magnesium 1.8, phosphorus 2.7 Status: Acute (6) 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 Continue treatment with ivosidenib 500 mg daily -oncologist (Dr. Majano) has recommended hospice, but patient and family have requested continued treatments. Touched on this again on admission with son Lamine. -continue pain management with oxycodone prn, IV morphine prn, hydroxyzine, Ativan Status: Chronic (7) Ascites: Problem details: -underwent diagnostic and therapeutic paracentesis with Dr. 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 I have stopped all labs, antibiotics, reviewed his medications and will only continue medications and oxygen as needed for comfort. I have transitioned him to Roxanol in anticipation that it will be difficult for him to take oral medications going forward. I have ordered an enema and suppository p.r.n., although I suspect the constipation any feels is likely secondary to pressure from ascites and cancer rather than being true constipation. We are contacting hospice in preparation for discharge home with hospice care. Patient has agreed to no longer pursue chemotherapy, as that is no longer within his goals of comfort cares. Time Spent With Patient Total time spent: Today I spent 1.5 hours rounding on the patient. Greater than 50% included care conference with political anthropologist, phone discussion with the patient's daughter, discussing care with the team, reviewing data, updating and managing the care plan. Subjective Time Seen by Provider: 10:20 Date Seen: 06/07/23 Interval history: Aaron is requiring 4 L oxygen via nasal cannula today. He is more withdrawn, ashen in appearance and overall appears weaker. I spoke about the CT results from yesterday and that we have been treating him for pneumonia, but that his increased requirement of oxygen today likely reflects ongoing aspiration. His son and daughter were in the room today and at least 3 other people called in on the son's phone and were present by phone. Lara from [place] was 1 of these people present on the phone. We had our in-house political anthropologist present in-person for our discussion. We again discussed Aaron's prognosis and options available. His family acknowledged that they are very aware that his condition has been terminal from the time of diagnosis. Aaron and his family do not want him to have any further procedures and would like him to be comfortable and go home on hospice. We discussed the difference between hospice and comfort cares. At 1st Aaron was talking about going back on oral chemotherapy when he got home but we discussed how this would not be hospice appropriate, but more so may be dangerous given that he has esophagitis and gastritis as well as necrotic tissue at the base of his esophagus and external compression of the duodenum which may impair ability of this got to absorb the chemotherapy properly. I noted that I have stopped the oral chemotherapy due to this and have recommended that he not restarted. Also I spoke with family about how I had discussed Aaron's case with Dr. Majano this morning in person as I had gone over to the cancer center and spoke with her. She noted that she has been recommending hospice for a while now and strongly feels that he has no medical options left for treatment, and that oral chemotherapy is also no longer an option for him. I spent 60 minutes in the patient's room discussing overall goals and plan of care. I then later in the morning stopped by to see that Aaron was comfortable with the comfort care measures that we instituted. Later I called his daughter, Lara, on the phone and checked in with her. She is packing up to come and see him. She had no further questions. They all expressed gratitude for our care. Exam Narrative: Exam Narrative: General: No acute distress. Ashen, gaunt appearance. More withdrawn and sleepy, oriented when awake during my extensive conversation with his family. Had a time during our conversation where he briefly sat up in appear diaphoretic and pale. Oropharynx: Clear. Mucous membranes dry. Cardiovascular: Regular rate and rhythm. No murmurs, gallops, or rubs. Respiratory: Rhonchi in left base, bibasilar crackles. Abdomen: Bowel sounds diminished. Distended, full, diffusely tender without rebound tenderness or guarding. Extremities: No pedal edema. Const: Vital Signs, click to edit/add: Vital Signs - 24 hr 06/06/23 19:00 06/06/23 23:00 06/06/23 23:00 Temperature 97.5 F L 98.2 F Pulse Rate 86 Pulse Rate [Pulse Oximeter] 90 85 Respiratory Rate 18 18 Blood Pressure [Ri ght Arm] 123/76 124/81 Pulse Oximetry 95 94 Oxygen Delivery Me thod Room Air Room Air Oxygen Flow Rate 06/06/23 23:00 06/07/23 03:00 06/07/23 07:00 Temperature 97.6 F Pulse Rate Pulse Rate [Pulse Oximeter] 85 80 89 Respiratory Rate 18 18 18 Blood Pressure [Ri ght Arm] 118/69 Pulse Oximetry 92 Oxygen Delivery Me thod Room Air Oxygen Flow Rate 06/07/23 07:00 06/07/23 15:00 Temperature 97.6 F Pulse Rate Pulse Rate [Pulse Oximeter] 89 89 Respiratory Rate 18 18 Blood Pressure [Ri ght Arm] 116/78 Pulse Oximetry 95 Oxygen Delivery Me thod Nasal Cannula Oxygen Flow Rate 4 Labs Labs: Laboratory Results - last 24 hr 06/07/23 06:24 WBC 12.75 H RBC 3.25 L Hgb 10.4 L Hct 34.3 L MCV 106 H MCH 32 MCHC 30 L Plt Count 157 Sodium 144 Potassium 3.3 L Chloride 117 H Carbon Dioxide 22 Anion Gap 5 L BUN 23 Creatinine 0.8 Estimated Creat Clear 61.51 Estimated GFR 93 Glucose 94 Calcium 8.4
--- NOTE | 2023-06-07 17:45 | PC.NURSE ---
End of shift: patient alert and oriented. family at bedside throughout the day, they declined using dairy clerk on a stick. Used our in-house dairy clerk for rounds with Dr. Mar instead. Patient on comfort cares as of 999. Patient and family agreeable to plans to keep patient comfortable. PRN pain meds administered w/relief. Fentanyl patch applied to right shoulder and scopolamine patch to behind right ear. Suppository administered, no BM yet. IV port to right chest SL. 1-4 L NC needed at rest and when ambulating to the BR. VSS.
[2023-06-07] MEDS: SCOPOLAMINE 1 MG/3 DAY PATCH 1 PATCH TRANSDERMA (19:23)
[2023-06-07] MEDS: LIDOCAINE 5% PATCH 1 PATCH TRANSDERMA (20:14)
[2023-06-07] MEDS: OXYCODONE 5 MG TABLET PO ×2 (20:14→23:24)
[2023-06-07] MEDS: SODIUM CHLORIDE 0.9 % (FLUSH) 10 ML SYRINGE IVF (20:15)
[2023-06-07] MEDS: HEPARIN 500 UNIT/5 ML SYRINGE IVF (20:15)
[2023-06-07] MEDS: SENNOSIDES/DOCUSATE TABLET 2 TAB PO (21:09)
--- NOTE | 2023-06-07 22:45 | PC.NURSE ---
EMS non emergent transport set up per instruction for 06/08 at 1300 to [id number].
[2023-06-07 23:00] VITALS: RESP 18
[2023-06-08] MEDS: ALBUTEROL SULFATE 2.5 MG/3 ML VIAL.NEB NEB ×2 (00:41→06:38)
[2023-06-08] MEDS: METOCLOPRAMIDE HCL 5 MG/ML INJ 10 MG IVP ×2 (00:42→06:38)
[2023-06-08] MEDS: HEPARIN 500 UNIT/5 ML SYRINGE IVF ×3 (00:42→12:42)
[2023-06-08] MEDS: SODIUM CHLORIDE 0.9 % (FLUSH) 10 ML SYRINGE IVF ×2 (00:43→06:39)
[2023-06-08] MEDS: ONDANSETRON ODT 4 MG TAB PO (04:47)
--- NOTE | 2023-06-08 07:42 | PC.NURSE ---
Pt alert and oriented x3. Pt reports 3/10 pain in abdomen, pain managed with PRN medications. Pt reports nausea and vomiting, 50 ml emesis output overnight. Nausea managed with scheduled and PRN medications. Pt?s port dressing changed and is CDI. Pt?s port is patent. Pt slept intermittently throughout most of night. ?
--- NOTE | 2023-06-08 09:50 | P.DS_ITS ---
DS: Providers Provider Time Seen by Provider: 09:55 Date Seen: 06/08/23 Date of admission: 06/05/23 19:20 Primary care physician: Lamine Sheridan MD Admitting Clinician: Leeann Mei MD Consults: 06/04/23 18:21 Consult to General Manager [CONS] Routine Comment: Reason for Consult:: Social Service Consult 06/04/23 20:12 Consult to General Manager [CONS] Routine Comment: Reason for Consult:: Discharge Planning Needs 06/05/23 15:24 Consult to Physician [CONS] Routine Comment: Consulting Provider: Janel Lema Has provider been notified: Yes Attending Physician on discharge: Batsheva Mar MD Date of Discharge: 06/08/23 DS: Diagnosis Discharge Diagnosis (1) Comfort measures only status: Status: Acute Problem details: Home to his daughter's house with hospice today. (2) Pulmonary infiltrates: Status: Acute Problem details: Stopped antibiotics as patient transitions to comfort cares (3) Nausea and vomiting in adult: Status: Chronic Problem details: -in setting of abdominal pain/ascites, peritoneal carcinomatosis, cholangiocarcinoma mets to liver. Stool H pylori on 05/30 negative -chronic, poorly managed, query relation to chemotherapy versus pressure ascites -inability to tolerate orals (foods or medications) with abdominal pain leading to vomiting -rectal Compazine marginally helpful, Zofran contraindicated with oral chemotherapy -continue scheduled Reglan IV (transitioin back to oral when able to tolerate), add scopolamine patch, p.r.n. hydroxyzine, p.r.n. Ativan q.h.s. -continue PPI, IV while hospitalized -IV fluids, clear liquids as tolerated -in reviewing oncology note from 05/26/2023, there have been questions regarding feeding tube placement as well as other procedures (EGD) which are to be followed up on with Oncology - discussed with Dr. Lema from general surgery (06/05). She notes that he is not a surgical candidate for a G-tube or J-tube due to abdominal disease. She is going to do an EGD under general anesthesia today. - multiple discussions with patient and family today as above in subjective. CT abdomen and pelvis as above. Discussed options for plan with patient and family. No further decisions were made today. Continue sips of clears. Will discuss with oncology tomorrow if they are available. Also have another discussion with patient and family for goals of care. - 06/07/2023 comfort cares started and patient will be going to hospice when available. - 06/08 patient and note that he is comfortable today. Only one emesis overnight. Discussed eating only for comfort at this point and that he does not need the nutrition or fluids at end of life, so not to force them. (4) Hematemesis: Status: Acute Problem details: -coffee-ground emesis, ongoing -stool occult blood negative -hemoglobin stable, currently 11.5, 12.0 on 06/03, 9.7 on 05/30, continue to monitor -EGD showed esophagitis, necrotic tissue at the base of the esophagus, gastritis, biopsies pending (5) Leukocytosis: Status: Acute Problem details: -WBC 15.27 with left shift, 13.22 yesterday. Afebrile. Lactate 2.2, improved to 1.9 following IV fluids, less likely sepsis. -recent chest CT 05/28 showed nodular opacities concerning for multifocal pneumonia. Query metastatic cholangiocarcinomatosis. UA on 05/28 grew E coli. Received IV ceftriaxone during recent hospitalization, transitioned to oral cefpodoxime on discharge, unable to tolerate secondary to nausea and vomiting -has been on dexamethasone -CXR showing ill-defined hazy airspace opacifications of the left greater than right lower lung zones, suggestive of bibasilar pneumonia -procalcitonin 0.42, UA ordered -comfort cares (6) Hypokalemia: Status: Acute Problem details: -potassium improving, continue IV replacement and recheck -will start with IV placement, transitioning to oral when tolerated (discharged on 20 mEq b.i.d.) -magnesium 1.8, phosphorus 2.7 (7) UTI (urinary tract infection): Status: Acute Problem details: Ceftriaxone given, now stopped for comfort cares (8) Peritoneal carcinomatosis: Status: Chronic Problem details: -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 Continue treatment with ivosidenib 500 mg daily -oncologist (Dr. Majano) has recommended hospice, but patient and family have requested continued treatments. Touched on this again on admission with son Lamine. 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 Rizzo on 05/29, 1400ml removed (15) Edema of left lower extremity: Status: Acute Problem details: New today. Discussed how this could represent a DVT and would put him at risk for PE, but in the setting of goals of comfort and hematemesis, w/u with US and treatment with blood thinner are contraindicated. Patient and family agree to treating with medications for symptoms only at this point. DS: Summary Hospital Course Hospital Course: This is a 72-year-old male with history of end-stage peritoneal carcinomatosis and cholangiocarcinoma metastatic to the liver to whom has had been the recommendation from his oncologist recently who presented through the emergency department for concerns of nausea, vomiting, and hematemesis. At the time the patient was admitted, he and his family were not ready for comfort cares and desired further investigation for diagnosis with association of hematemesis. Patient underwent an EGD which found esophagitis, necrotic tissue at the base of the esophagus, gastritis, and external compression of his duodenum. Further discussion in a care conference took place and the family and the patient continued to desire further workup. A CT abdomen and pelvis was done and found massive ascites was likely the cause of the external compression. Another care conference took place and the patient and his family have opted for comfort cares and home with hospice. The transition to comfort cares took place yesterday and the patient has been much more comfortable now and his and family as well as himself are happy with this plan of going home now on hospice. I spoke with the patient and his with an in-house physician practice consultant today for 20 minutes to answer questions and ensure that he is set up for a successful homegoing with hospice. Time Spent with Patient Time attestation: Total time spent providing and/or coordinating discharge services: Exam Narrative: Exam Narrative: General: No acute distress. Ashen, gaunt appearance. Awake, alert, oriented today. No diaphoresis. Oropharynx: Clear. Mucous membranes dry. Cardiovascular: Regular rate and rhythm. No murmurs, gallops, or rubs. Respiratory: Rhonchi in left base, bibasilar crackles. Abdomen: Bowel sounds diminished. Distended, full, diffusely tender without rebound tenderness or guarding. Extremities: Left lower extremity edema, 3+, trace in right lower extremity. No erythema, induration, or blistering. Const: Vital Signs, click to edit/add: Vital Signs - 24 hr 06/07/23 15:00 06/07/23 23:00 Pulse Rate [Pulse Oximeter] 89 Respiratory Rate 18 18 DS: Data Data Completed and Pending Completed studies during hospitalization: Ordering Physician: Justina West M.D. Date of Service: 06/04/23 Procedure(s): XR chest 1V portable Accession Number(s): [id number] cc: Justina West M.D.; Lamine Sheridan M.D.~ For Patients: As a result of the Cures Act, medical imaging exams and procedure reports are released immediately into your electronic medical record. You may view this report before your referring provider. If you have questions, please contact your health care provider. INDICATION: Cough. TECHNIQUE: Chest radiographs, 1 view. COMPARISON: Chest radiographs 06/11/2022. CT chest abdomen pelvis 05/28/2023. FINDINGS: Lines/Tubes/Devices: Right-sided Port-A-Cath with tip terminating in SVC. Mediastinum: Normal cardiac silhouette. Lungs: Ill-defined hazy airspace opacifications of the lung bases bilaterally, left greater than right. Linear bandlike opacifications of the lung bases likely due to subsegmental atelectasis and/or scarring. Airways: The trachea remains midline. Pleura: No pleural effusions or pneumothorax. Bones: No acute osseous abnormalities. Upper Abdomen: Unremarkable. IMPRESSION: Ill-defined hazy airspace opacifications of the left greater than right lower lung zones, suggestive of bibasilar pneumonia in the appropriate clinical setting. Dictated by Jorgito aHmmonds MD @ 06/04/2023 5:56:21 PM (Electronically Signed) Ordering Physician: Justina West M.D. Date of Service: 06/04/23 Procedure(s): XR chest 1V portable Accession Number(s): [id number] cc: Justina West M.D.; Lamine Sheridan M.D.~ For Patients: As a result of the Cures Act, medical imaging exams and procedure reports are released immediately into your electronic medical record. You may view this report before your referring provider. If you have questions, please contact your health care provider. INDICATION: Cough. TECHNIQUE: Chest radiographs, 1 view. COMPARISON: Chest radiographs 06/11/2022. CT chest abdomen pelvis 05/28/2023. FINDINGS: Lines/Tubes/Devices: Right-sided Port-A-Cath with tip terminating in SVC. Mediastinum: Normal cardiac silhouette. Lungs: Ill-defined hazy airspace opacifications of the lung bases bilaterally, left greater than right. Linear bandlike opacifications of the lung bases likely due to subsegmental atelectasis and/or scarring. Airways: The trachea remains midline. Pleura: No pleural effusions or pneumothorax. Bones: No acute osseous abnormalities. Upper Abdomen: Unremarkable. IMPRESSION: Ill-defined hazy airspace opacifications of the left greater than right lower lung zones, suggestive of bibasilar pneumonia in the appropriate clinical setting. Dictated by Jorgito Hammonds MD @ 06/04/2023 5:56:21 PM (Electronically Signed) Discharge Plan Discharge Disposition: Xfer Home- (Hospice) Date of Admission: 06/05/23 19:20 Attending Provider on Discharge: Batsheva Mar Consulting Providers: Janel Lema Primary Care Provider: Lamine Sheridan Condition: Stable Anticipated Discharge Date/Time: 06/08/23 13:00 Discharge Medications: New bisacodyl 10 mg Suppository 10 mg WV DAILY PRNQty: 30 0RF lidocaine 5 % Adhesive Patch,Medicated 1 patch transdermal Q24H Qty: 30 0RF lorazepam 1 mg Tablet 0.5 - 2 mg PO Q1H PRNQty: 30 0RF fentanyl 25 mcg/hr Patch 72 Hour 1 patch transdermal Q72H Qty: 10 0RF morphine concentrate 10 mg/0.5 mL Syringe 5 - 20 mg PO Q1H PRNQty: 50 0RF scopolamine base [Transderm-Scop] 1 mg over 3 days Patch 3 Day 1 patch transdermal Q72H Qty: 10 0RF Continued prochlorperazine [Compazine] 25 mg suppository 25 mg WV BID PRN (Reason: nausea and vomiting) Qty: 12 4RF Rx Instructions: Use one suppository by rectum every 12 hours for nausea. albuterol sulfate 90 mcg/actuation HFA aerosol inhaler 2 puff inhalation Q4-6H PRN (Reason: shortness of breath or wheezing) Qty: 8.5 5RF senna 8.6 mg capsule 8.6 mg PO BID metoclopramide HCl 10 mg tablet 10 mg PO .COMPLEX Qty: 120 6RF Hold Instructions: Doctor's Order Patient Comments: not currently taking Rx Instructions: 10 mg orally Take 4 times daily 30 min before eating and at bedtime; tamsulosin [Flomax] 0.4 mg capsule 0.4 mg PO DAILY dutasteride [Avodart] 0.5 mg capsule 0.5 mg PO DAILY ipratropium-albuterol 0.5 mg-3 mg(2.5 mg base)/3 mL solution for nebulization 3 ml inhalation QID Qty: 180 9RF omeprazole 20 mg capsule,delayed release(DR/EC) 20 mg PO BID Qty: 180 3RF oxycodone 10 mg tablet 10 mg PO QID PRN (Reason: pain) Qty: 120 0RF Patient Comments: takes in am- ondansetron 4 mg tablet,disintegrating 4 mg PO Q6H PRN (Reason: nausea and vomiting) Qty: 30 0RF Rx Instructions: Do NOT Take if you are taking your oral chemotherapy pills due to interaction. Changed polyethylene glycol 3350 [Miralax] 17 gram/dose powder 17 g PO DAILY PRN (Reason: constipation) Qty: 119 0RF Rx Instructions: Take 1 dose each evening and each morning until you go to the bathroom. After you are going regularly, may decrease to once per day if you are having diarrhea. Discontinued ivosidenib 250 mg tablet 500 mg PO QDAY Qty: 30 3RF Hold Instructions: pt/ state no longer using Patient Comments: adrian Rosenthal (oral chemo). 12/4: on hold until abx completed. dexamethasone 2 mg tablet 4 mg PO DAILY Rx Instructions: Take 2 tablets daily with breakfast. Do not stop this medication without notifying your doctor. lorazepam 1 mg tablet 1 mg PO HS PRN (Reason: sleep) magnesium oxide 400 mg (241.3 mg magnesium) Tablet 400 mg PO TID Qty: 90 0RF potassium chloride 20 mEq tablet extended release 20 meq PO BID Qty: 60 0RF ibuprofen 800 mg tablet 800 mg PO TID PRN (Reason: pain) Qty: 90 11RF Patient Comments: pt states daily use 1-2x per day fluticasone propion-salmeterol [Advair Diskus] 250-50 mcg/dose blister with device 1 inh inhalation BID Qty: 60 7RF Discharge Orders: Discharge Order (Routine); Ordered 06/08/23 Ordered By: Batsheva Mar Activity Level: Activity as Tolerated Discharge Diet: Regular Diet Detail: As tolerated Follow Up Appointments: Lamine Sheridan MD [Primary Care Provider] - Forms: [facility] Info Instructions
[2023-06-08] MEDS: BUDESONIDE 0.25 MG/2 ML AMPUL.NEB NEB (09:55)
--- NOTE | 2023-06-08 11:17 | PC.SOCIAL ---
Addendum entered by HUAN Palacios 06/08/23 14:07: Discharge planning: laundrom[employer] worker provided pt with a copy of The Important Message from Medicare form. Social work to follow-up as needed. Original Note: Discharge summary: laundrom[employer] worker faxed D/C summary to [facility] this morning. Social work to follow-up as needed.
--- NOTE | 2023-06-08 13:21 | PC.NURSE ---
Patient discharged home to dtr's house today at 1320 via non-emergent transport. Will be going on [facility]. Port on left chest heparinized and de-accessed. Mcdowell needle intact. Patient alert and oriented, 1 assist to BR. Discharge instructions given via support group manager and patient and family verbalized understanding. Discharge instructions and belongings sheet signed.
== END 2023-06-08 13:20 | disposition hospice, home (50) | DRG 374 ==
LOC: ED 16:33 → MEDSURG 17:43
PROVIDERS: Surgery; Admitting Provider Family Medicine; Emergency Provider Emergency Medicine; PCP Family Medicine; Visit Provider Physician Assistant
PROC: 0DJ08ZZ Inspection of Upper Intestinal Tract, Via Natural or Artificial Opening Endoscopic (ICD-10-PCS; principal; 2023-06-05 15:30)
DX: C78.6 Secondary malignant neoplasm of retroperitoneum and peritoneum (principal); J18.8 Other pneumonia, unspecified organism; C22.1 Intrahepatic bile duct carcinoma; K22.10 Ulcer of esophagus without bleeding; K31.5 Obstruction of duodenum; J98.11 Atelectasis; R18.8 Other ascites; J91.8 Pleural effusion in other conditions classified elsewhere; N39.0 Urinary tract infection, site not specified; K92.0 Hematemesis; K29.70 Gastritis, unspecified, without bleeding; K22.89 Other specified disease of esophagus; E87.6 Hypokalemia; Z72.89 Other problems related to lifestyle; Z72.0 Tobacco use; J44.9 Chronic obstructive pulmonary disease, unspecified; E11.9 Type 2 diabetes mellitus without complications; N40.0 Benign prostatic hyperplasia without lower urinary tract symptoms; R91.8 Other nonspecific abnormal finding of lung field; D72.828 Other elevated white blood cell count; Z51.5 Encounter for palliative care; F32.4 Major depressive disorder, single episode, in partial remission
CPT/HCPCS: 00731; 36415; 71045; 74177; 80048; 80076; 81001; 82270; 82962; 83605; 83690; 84100; 84145; 85025; 85027; 87086; 87449; 87899; 88112; 88305; 88312; 88341; 88342; 94640; 99100; 99140; 99284; 99285; G0378; T1013; A9270; C9113; J0330; J0696; J1100; J1642; J2270; J2405; J2704; J2765; J3480; J7030; J7626; Q9967

== ENCOUNTER 2023-06-08 13:10 | Outpatient (CLI) | payer MEDICARE, SELFPAY | END 2023-06-08 13:11 | disposition home or self-care (01) | LOC: AMB 06-09 10:39 | PROVIDERS: PCP Family Medicine; Visit Provider Emergency Medicine Emergency Medical Services | DX: R06.09 Other forms of dyspnea (principal) | CPT/HCPCS: A0425; A0428 ==